=== PATIENT | male | born 1960 | race Caucasian/White ===

== ENCOUNTER 2020-07-31 07:14 | Inpatient (IN) ==
[2020-07-31] MEDS ORDERED: SODIUM CHLORIDE 0.9% 1000ML 1,000 ML IV SCH ×2 (08:00→08:47)
[2020-07-31 08:05] LABS: Basophils # (auto) 0.01 K/uL (0-0.2); Basophils % (auto) 0.2 %; Hematocrit (blood only) 37.8 % (42-52); Hemoglobin 12.2 g/dL (14.0-18.0); Immature Granulocytes # (auto) 0.11 K/uL (0.00-0.02); Immature Granulocytes % (auto) 1.8 %; Lymphocytes # (auto) 0.31 K/uL (1.2-3.4); Lymphocytes % (auto) 5.1 %; Mean Corpuscular Hemoglobin 27.9 pg (25-34); Mean Corpuscular Hgb Conc 32.3 g/dL (32-36); Mean Corpuscular Volume 86.3 fL (80-100); Mean Platelet Volume 11.7 fL (7.4-10.4); Monocytes # (auto) 0.66 K/uL (0.11-0.59); Monocytes % (auto) 10.8 %; Neutrophils # (auto) 5.01 K/uL (1.4-6.5); Neutrophils % (auto) 82.1 %; Platelet Count 125 K/uL (130-400); RDW Coefficient of Variation 14.3 % (11.5-14.5); RDW Standard Deviation 45.1 fL (36.4-46.3); Red Blood Count 4.38 M/uL (4.7-6.1)
[2020-07-31] MEDS ORDERED: cefTRIAXone SODIUM 2,000 MG/70 ML BAG IV STA ×2 (08:08→13:41)
--- NOTE | 2020-07-31 08:08 | Emergency Department Note ---
History of Present Illness General Chief complaint: Illness Time Seen by Provider: 07/31/20 07:37 History of Present Illness Maximum Pain Intensity: 0 59-year-old male who presents to the emergency department with his mother for evaluation of confusion, generalized weakness and complaint of urinary discomfort and burning. The mother reports that the patient has also had decreased oral intake over the past few days. The mother reports that the patient has been having difficulty finding his words. The patient was evaluated last at his PCPs office, and diagnosed with a UTI. He was prescribed Bactrim DS antibiotics without any significant improvement. The patient denies any recent chest pain, shortness of breath, cough, runny nose, sinus congestion or diarrhea. Patient does have a history of bipolar disorder and schizophrenia. The patient is also had pneumonia in the past. The patient denies any pain on my exam. Home Medications Medication Instructions Recorded Confirmed Type atorvastatin 40 mg PO QAM 05/06/20 07/31/20 History clonazepam 0.5 mg PO BID 05/06/20 07/31/20 History clozapine 400 mg PO HS 05/06/20 07/31/20 History cyanocobalamin (vitamin B-12) 1,000 mcg PO QAM 05/06/20 07/31/20 History levothyroxine 175 mcg PO DAILYBB 05/06/20 07/31/20 History metformin 1,000 mg PO BID 05/06/20 07/31/20 History metoprolol succinate 25 mg PO QAM 05/06/20 07/31/20 History oxybutynin chloride See Rx Instructions .ROUTE .COMPLEX 05/06/20 07/31/20 History paroxetine HCl 60 mg PO QAM 05/06/20 07/31/20 History aspirin [Aspir-81] 81 mg PO QAM 07/31/20 07/31/20 History cholecalciferol (vitamin D3) 25 mcg PO QAM 07/31/20 07/31/20 History [Vitamin D3] omega 2-ymh-gvq-fish oil [Fish Oil] 1 cap PO HS 07/31/20 07/31/20 History sennosides [senna] 17.2 mg PO HS 07/31/20 07/31/20 History sulfamethoxazole-trimethoprim 1 tab PO BID 07/31/20 07/31/20 History Allergies Allergy/AdvReac Type Severity Reaction Status Date / Time Penicillins Allergy Unknown Verified 07/31/20 07:54 Iodinated Contrast Media AdvReac Unknown VOMITING Verified 07/31/20 07:54 WITH IV CONTRAST Past Med/Surg History Medical History Bimalleolar ankle fracture Bipolar disorder CAP (community acquired pneumonia) (01/03/14) Hypothyroidism Schizophrenia T2DM (type 2 diabetes mellitus) Surgical History H/O colonoscopy "06/14/2014 adenomatous polyps, repeat 5 yrs/COLONOSCOPY FLEXIBLE PROXIMAL DIAGNOSTIC performed by Fran Medley MD at ENDOSCOPY [facility]" History of open reduction and internal fixation (ORIF) procedure Trimalleolar ankle fracture Family History Mother Stroke Diabetes Social History Smoking Status: Former smoker Hx Alcohol Use: Yes Alcohol type: beer Alcohol Intake Frequency: Monthly or Less Hx Substance Use: No Preferred Language: Arabic marital status: Single Current Living Situation: Family Current Living Situation Comment: lives with mother who cares for him current occupational status: employed and disabled current occupation: works at [employer] home Feels Safe at Home: Yes Review of Systems 10 system review was performed and was negative except for pertinent positives and negatives as indicated in history of present illness Physical Exam Vital Signs Vital Signs - 24 hr 07/31/20 07:23 07/31/20 07:53 07/31/20 08:16 Temperature 38.1 C H Temperature Source Oral Pulse Rate 90 Pulse Rate [Apical] Pulse Rhythm [Apical] Respiratory Rate 22 22 Respiratory Effort / Characteristics Non-Labored Respiratory Depth Normal Blood Pressure 144/69 H Blood Pressure [Left Arm] Blood Pressure Mean 94 Blood Pressure Mean [Left Arm] Pulse Oximetry 90 94 90 Oxygen Delivery Method Room Air Nasal Cannula Nasal Cannula Oxygen Flow Rate 2 0 Sepsis Recent Fever Within 48 Hours Yes Sepsis New/Unexplained Change in Mental Status Yes Sepsis Action Taken by Nursing MD Previously Notified Oxygen Flow Rate - Titration 2 Pulse Oximetry Post Tiitration 95 07/31/20 08:17 07/31/20 09:08 07/31/20 11:00 Temperature Temperature Source Pulse Rate Pulse Rate [Apical] 85 85 Pulse Rhythm [Apical] Respiratory Rate 22 18 Respiratory Effort / Characteristics Respiratory Depth Blood Pressure Blood Pressure [Left Arm] 130/74 128/80 Blood Pressure Mean Blood Pressure Mean [Left Arm] 92 96 Pulse Oximetry 95 96 96 Oxygen Delivery Method Nasal Cannula Nasal Cannula Nasal Cannula Oxygen Flow Rate 2 2 2 Sepsis Recent Fever Within 48 Hours Sepsis New/Unexplained Change in Mental Status Sepsis Action Taken by Nursing Oxygen Flow Rate - Titration Pulse Oximetry Post Tiitration 07/31/20 12:00 07/31/20 12:30 07/31/20 13:00 Temperature Temperature Source Pulse Rate 84 85 Pulse Rate [Apical] 83 Pulse Rhythm [Apical] Irregular Respiratory Rate 23 19 20 Respiratory Effort / Characteristics Respiratory Depth Blood Pressure 125/65 132/77 Blood Pressure [Left Arm] 130/78 Blood Pressure Mean 85 95 Blood Pressure Mean [Left Arm] 95 Pulse Oximetry 95 Oxygen Delivery Method Nasal Cannula Oxygen Flow Rate 2 Sepsis Recent Fever Within 48 Hours Sepsis New/Unexplained Change in Mental Status Sepsis Action Taken by Nursing Oxygen Flow Rate - Titration Pulse Oximetry Post Tiitration CONSTITUTIONAL: Healthy and well nourished. She does engage in conversation, and appears alert and oriented x3. HEENT: Normocephalic, atraumatic. Pupils equal, round and reactive. No facial edema, scleral icterus, conjunctival injection/pallor or rhinorrhea. Examination of oropharynx shows dry mucous membranes. No posterior pharyngeal erythema or tonsillar hypertrophy/exudates. NECK: Full active range of motion without discomfort. No JVD or carotid bruits noted. No nuchal rigidity. LYMPHATICS: No cervical chain adenopathy. RESPIRATORY: Clear to auscultation bilaterally with no wheezing, crackles, rhonchi or stridor. CARDIOVASCULAR: Regular rate and rhythm with no murmurs, rubs or gallops. GASTROINTESTINAL: Bowel sounds present in all quadrants. Abdomen is soft and nontender to palpation. MUSCULOSKELETAL: Full range of motion of all joints without discomfort. No tenderness to palpation or bogginess/soft tissue edema/erythema over the major joints. INTEGUMENTARY: Patient does have an erythematous blanchable papular rash on his right anterior torso and neck region, as well as extensor surfaces of bilateral upper and lower extremities, sparing palms and soles. No skin desquamation, pustules, vesicles or bullae. HEMATOLOGIC: No ecchymosis or petechiae. PSYCHIATRIC: Positive affect. NEUROLOGIC: Cranial nerves II-XII grossly intact. No focal neurologic deficits noted. Negative pronator drift. Course Course Patient history and physical exam were performed. Nurses notes were reviewed. I also reviewed prior documentation, including a urine culture from last that showed no significant growth. Vital signs were reviewed, showing an initial oral temperature of 38.1 C. The patient was hypertensive, with O2 saturation of 90% on room air. IV access was established, and labs were drawn, including blood cultures x2. The patient was administered a normal saline 2 L bolus. Portable chest x-ray was performed, showing a mild congestive change and trace left pleural effusion. Noncontrast CT of the head was performed and was normal. Review of labs showed a normal white count with mild thrombocytopenia and lymphocytes. Coagulation studies were normal. The patient is mildly hyponatremic, otherwise remaining electrolytes are normal except for a random glucose of 139. Lactate and procalcitonin were normal. The patient is euthyroid. COVID-19 PCR testing was normal. Urinalysis was not suggestive of infection, however hematuria and calcium oxalate crystals were noted. At this point, additional CT imaging was recommended. Noncontrast CT of the chest, abdomen and pelvis showed trace bilateral pleural effusions with bilateral basilar linear densities, favoring atelectasis. Mild bladder wall thickening was also noted. No ureteral calculi or hydronephrosis noted. Findings were discussed with Dr. Ji, ED attending physician, who examined the patient. At this point, she recommended administering IV Rocephin, and adding a Lyme and anaplasmosis test. She recommended trial ambulation of the patient, and treatment with antibiotics pending Lyme testing. Was discussed with both the patient and the mother, however the mother reports significant concern for his ability to ambulate, although they do have a walker at home. Attempted trial ambulation was not successful with significant gait abnormalities and balance issues. At this point, [facility] the patient for [facility]. Please see their dictation for further treatment and final disposition. After transfer of care, it is noted that the patient tested negative for Lyme disease, and urine drug screen was also negative. Administered Medications Discontinued Medications Sodium Chloride (Nss 1000ml) 1,000 mls @ 999 mls/hr IV .Q1H1M VLADIMIR Stop: 07/31/20 08:47 Last Infusion: 07/31/20 09:19 Dose: 0 mls/hr Documented by: [id number] Admin: 07/31/20 08:17 Dose: 999 mls/hr Documented by: [id number] Sodium Chloride (Nss 1000ml) 1,000 mls @ 999 mls/hr IV .Q1H1M VLADIMIR Stop: 07/31/20 09:47 Last Infusion: 07/31/20 10:02 Dose: 0 mls/hr Documented by: [id number] Admin: 07/31/20 09:01 Dose: 999 mls/hr Documented by: [id number] Ceftriaxone Sodium (Rocephin) 2,000 mg in 70 mls @ 140 mls/hr IV NOW STA Stop: 07/31/20 08:37 Last Infusion: 07/31/20 09:14 Dose: 0 mls/hr Documented by: [id number] Admin: 07/31/20 08:40 Dose: 140 mls/hr Documented by: [id number] Ceftriaxone Sodium (Rocephin) 2,000 mg in 70 mls @ 140 mls/hr IV NOW STA Stop: 07/31/20 14:10 Last Admin: 07/31/20 14:13 Dose: Not Given Documented by: [id number] Medical Decision Making Medical Records Attestation: I reviewed the patient's medical records. Home Medications Current Medication List: was personally reviewed by me Laboratory Data Attestation: I reviewed the patient's lab results. Result diagrams: 07/31/20 07:45 07/31/20 07:45 Lab Results 07/31/20 07/31/20 07/31/20 Range/Units 07:45 07:45 07:45 WBC 6.10 (4.8-10.8) K/uL RBC 4.38 L (4.7-6.1) M/uL Hgb 12.2 L (14.0-18.0) g/dL Hct 37.8 L (42-52) % MCV 86.3 (80-100) fL MCH 27.9 (25-34) pg MCHC 32.3 (32-36) g/dL RDW Std Deviation 45.1 (36.4-46.3) fL RDW Coeff of [place] 14.3 (11.5-14.5) % Plt Count 125 L (130-400) K/uL MPV 11.7 H (7.4-10.4) fL Immature Gran % (Auto) 1.8 % Neut % (Auto) 82.1 % Lymph % (Auto) 5.1 % [place] % (Auto) 10.8 % Eos % (Auto) 0.0 % Baso % (Auto) 0.2 % Neut # (Auto) 5.01 (1.4-6.5) K/uL Lymph # (Auto) 0.31 L (1.2-3.4) K/uL [place] # (Auto) 0.66 H (0.11-0.59) K/uL Eos # (Auto) 0.00 (0-0.5) K/uL Baso # (Auto) 0.01 (0-0.2) K/uL Immature Gran # (Auto) 0.11 H (0.00-0.02) K/uL PT 10.5 (9.0-12.0) Seconds INR 1.0 (0.9-1.1) APTT 24.7 (21.0-31.0) Seconds PTT Ratio 0.9 Sodium 135 L (136-145) mmol/L Potassium 3.9 (3.5-5.1) mmol/L Chloride 102 (98-107) mmol/L Carbon Dioxide 26 (21-32) mmol/L Anion Gap 7.0 (3-11) BUN 15 (7-18) mg/dl Creatinine 1.19 (0.6-1.4) mg/dl Est Cr Clr Drug Dosing 94.1 ml/min Est GFR ( Amer) 78.1 ml/min Est GFR (Non-Af Amer) 67.4 ml/min BUN/Creatinine Ratio 12.8 (10-20) Glucose 139 H (70-99) mg/dl Lactate (0.4-2.0) mmol/L Calcium 7.9 L (8.5-10.1) mg/dl Magnesium 2.0 (1.8-2.4) mg/dl Total Bilirubin 0.9 (0.2-1) mg/dl AST 19 (15-37) U/L ALT 25 (12-78) U/L Alkaline Phosphatase 92 (45-117) U/L Troponin I < 0.015 (0-0.045) ng/ml Total Protein 5.9 L (6.4-8.2) gm/dl Albumin 2.8 L (3.4-5.0) gm/dl Globulin 3.1 (2.5-4.0) gm/dl Albumin/Globulin Ratio 0.9 (0.9-2) Procalcitonin (0-0.5) ng/ml TSH 1.300 (0.300-4.500) uIu/ml Urine Color Urine Appearance (Clear) Urine pH (4.5-7.5) Ur Specific [place] (1.000-1.030) Urine Protein (Negative) Urine Glucose (UA) (Negative) Urine Ketones (Negative) Urine Blood (Negative) Urine Nitrite (Negative) Urine Bilirubin (Negative) Urine Urobilinogen (Negative) Ur Leukocyte Esterase (Negative) Urine WBC (Auto) (0-5) /hpf Urine RBC (Auto) (0-4) /hpf U Hyaline Cast (Auto) (0-5) /lpf U Epithel Cells (Auto) (0-5) /lpf Urine Bacteria (Auto) (Negative) Ur Renal Epithelial Cell Calcium Oxalate Crystal (None Prsent) Urine Mucus (None Prsent) Lyme Disease IgG Ab (Negative) Lyme Disease IgM Ab (Negative) COVID-19 Eval Order SARS-CoV-2 (PCR) (Negative) Influ A Molecular Assay (Negative) Influ B Molecular Assay (Negative) 07/31/20 07/31/20 07/31/20 Range/Units 07:45 07:45 08:10 WBC (4.8-10.8) K/uL RBC (4.7-6.1) M/uL Hgb (14.0-18.0) g/dL Hct (42-52) % MCV (80-100) fL MCH (25-34) pg MCHC (32-36) g/dL RDW Std Deviation (36.4-46.3) fL RDW Coeff of [place] (11.5-14.5) % Plt Count (130-400) K/uL MPV (7.4-10.4) fL Immature Gran % (Auto) % Neut % (Auto) % Lymph % (Auto) % [place] % (Auto) % Eos % (Auto) % Baso % (Auto) % Neut # (Auto) (1.4-6.5) K/uL Lymph # (Auto) (1.2-3.4) K/uL [place] # (Auto) (0.11-0.59) K/uL Eos # (Auto) (0-0.5) K/uL Baso # (Auto) (0-0.2) K/uL Immature Gran # (Auto) (0.00-0.02) K/uL PT (9.0-12.0) Seconds INR (0.9-1.1) APTT (21.0-31.0) Seconds PTT Ratio Sodium (136-145) mmol/L Potassium (3.5-5.1) mmol/L Chloride (98-107) mmol/L Carbon Dioxide (21-32) mmol/L Anion Gap (3-11) BUN (7-18) mg/dl Creatinine (0.6-1.4) mg/dl Est Cr Clr Drug Dosing ml/min Est GFR ( Amer) ml/min Est GFR (Non-Af Amer) ml/min BUN/Creatinine Ratio (10-20) Glucose (70-99) mg/dl Lactate 1.5 (0.4-2.0) mmol/L Calcium (8.5-10.1) mg/dl Magnesium (1.8-2.4) mg/dl Total Bilirubin (0.2-1) mg/dl AST (15-37) U/L ALT (12-78) U/L Alkaline Phosphatase (45-117) U/L Troponin I (0-0.045) ng/ml Total Protein (6.4-8.2) gm/dl Albumin (3.4-5.0) gm/dl Globulin (2.5-4.0) gm/dl Albumin/Globulin Ratio (0.9-2) Procalcitonin 0.21 (0-0.5) ng/ml TSH (0.300-4.500) uIu/ml Urine Color Urine Appearance (Clear) Urine pH (4.5-7.5) Ur Specific [place] (1.000-1.030) Urine Protein (Negative) Urine Glucose (UA) (Negative) Urine Ketones (Negative) Urine Blood (Negative) Urine Nitrite (Negative) Urine Bilirubin (Negative) Urine Urobilinogen (Negative) Ur Leukocyte Esterase (Negative) Urine WBC (Auto) (0-5) /hpf Urine RBC (Auto) (0-4) /hpf U Hyaline Cast (Auto) (0-5) /lpf U Epithel Cells (Auto) (0-5) /lpf Urine Bacteria (Auto) (Negative) Ur Renal Epithelial Cell Calcium Oxalate Crystal (None Prsent) Urine Mucus (None Prsent) Lyme Disease IgG Ab Negative (Negative) Lyme Disease IgM Ab Negative (Negative) COVID-19 Eval Order SARS-CoV-2 (PCR) (Negative) Influ A Molecular Assay (Negative) Influ B Molecular Assay (Negative) 07/31/20 07/31/20 07/31/20 Range/Units 08:45 08:45 08:45 WBC (4.8-10.8) K/uL RBC (4.7-6.1) M/uL Hgb (14.0-18.0) g/dL Hct (42-52) % MCV (80-100) fL MCH (25-34) pg MCHC (32-36) g/dL RDW Std Deviation (36.4-46.3) fL RDW Coeff of [place] (11.5-14.5) % Plt Count (130-400) K/uL MPV (7.4-10.4) fL Immature Gran % (Auto) % Neut % (Auto) % Lymph % (Auto) % [place] % (Auto) % Eos % (Auto) % Baso % (Auto) % Neut # (Auto) (1.4-6.5) K/uL Lymph # (Auto) (1.2-3.4) K/uL [place] # (Auto) (0.11-0.59) K/uL Eos # (Auto) (0-0.5) K/uL Baso # (Auto) (0-0.2) K/uL Immature Gran # (Auto) (0.00-0.02) K/uL PT (9.0-12.0) Seconds INR (0.9-1.1) APTT (21.0-31.0) Seconds PTT Ratio Sodium (136-145) mmol/L Potassium (3.5-5.1) mmol/L Chloride (98-107) mmol/L Carbon Dioxide (21-32) mmol/L Anion Gap (3-11) BUN (7-18) mg/dl Creatinine (0.6-1.4) mg/dl Est Cr Clr Drug Dosing ml/min Est GFR ( Amer) ml/min Est GFR (Non-Af Amer) ml/min BUN/Creatinine Ratio (10-20) Glucose (70-99) mg/dl Lactate (0.4-2.0) mmol/L Calcium (8.5-10.1) mg/dl Magnesium (1.8-2.4) mg/dl Total Bilirubin (0.2-1) mg/dl AST (15-37) U/L ALT (12-78) U/L Alkaline Phosphatase (45-117) U/L Troponin I (0-0.045) ng/ml Total Protein (6.4-8.2) gm/dl Albumin (3.4-5.0) gm/dl Globulin (2.5-4.0) gm/dl Albumin/Globulin Ratio (0.9-2) Procalcitonin (0-0.5) ng/ml TSH (0.300-4.500) uIu/ml Urine Color Urine Appearance (Clear) Urine pH (4.5-7.5) Ur Specific [place] (1.000-1.030) Urine Protein (Negative) Urine Glucose (UA) (Negative) Urine Ketones (Negative) Urine Blood (Negative) Urine Nitrite (Negative) Urine Bilirubin (Negative) Urine Urobilinogen (Negative) Ur Leukocyte Esterase (Negative) Urine WBC (Auto) (0-5) /hpf Urine RBC (Auto) (0-4) /hpf U Hyaline Cast (Auto) (0-5) /lpf U Epithel Cells (Auto) (0-5) /lpf Urine Bacteria (Auto) (Negative) Ur Renal Epithelial Cell Calcium Oxalate Crystal (None Prsent) Urine Mucus (None Prsent) Lyme Disease IgG Ab (Negative) Lyme Disease IgM Ab (Negative) COVID-19 Eval Order Covid19 at [facility] SARS-CoV-2 (PCR) NEGATIVE (Negative) Influ A Molecular Assay Negative (Negative) Influ B Molecular Assay Negative (Negative) 07/31/20 Range/Units 10:00 WBC (4.8-10.8) K/uL RBC (4.7-6.1) M/uL Hgb (14.0-18.0) g/dL Hct (42-52) % MCV (80-100) fL MCH (25-34) pg MCHC (32-36) g/dL RDW Std Deviation (36.4-46.3) fL RDW Coeff of [place] (11.5-14.5) % Plt Count (130-400) K/uL MPV (7.4-10.4) fL Immature Gran % (Auto) % Neut % (Auto) % Lymph % (Auto) % [place] % (Auto) % Eos % (Auto) % Baso % (Auto) % Neut # (Auto) (1.4-6.5) K/uL Lymph # (Auto) (1.2-3.4) K/uL [place] # (Auto) (0.11-0.59) K/uL Eos # (Auto) (0-0.5) K/uL Baso # (Auto) (0-0.2) K/uL Immature Gran # (Auto) (0.00-0.02) K/uL PT (9.0-12.0) Seconds INR (0.9-1.1) APTT (21.0-31.0) Seconds PTT Ratio Sodium (136-145) mmol/L Potassium (3.5-5.1) mmol/L Chloride (98-107) mmol/L Carbon Dioxide (21-32) mmol/L Anion Gap (3-11) BUN (7-18) mg/dl Creatinine (0.6-1.4) mg/dl Est Cr Clr Drug Dosing ml/min Est GFR ( Amer) ml/min Est GFR (Non-Af Amer) ml/min BUN/Creatinine Ratio (10-20) Glucose (70-99) mg/dl Lactate (0.4-2.0) mmol/L Calcium (8.5-10.1) mg/dl Magnesium (1.8-2.4) mg/dl Total Bilirubin (0.2-1) mg/dl AST (15-37) U/L ALT (12-78) U/L Alkaline Phosphatase (45-117) U/L Troponin I (0-0.045) ng/ml Total Protein (6.4-8.2) gm/dl Albumin (3.4-5.0) gm/dl Globulin (2.5-4.0) gm/dl Albumin/Globulin Ratio (0.9-2) Procalcitonin (0-0.5) ng/ml TSH (0.300-4.500) uIu/ml Urine Color Dark Yellow Urine Appearance Clear (Clear) Urine pH 5.5 (4.5-7.5) Ur Specific [place] 1.027 (1.000-1.030) Urine Protein Trace H (Negative) Urine Glucose (UA) Negative (Negative) Urine Ketones Trace H (Negative) Urine Blood Negative (Negative) Urine Nitrite Negative (Negative) Urine Bilirubin 1+ H (Negative) Urine Urobilinogen Negative (Negative) Ur Leukocyte Esterase Trace H (Negative) Urine WBC (Auto) 5-10 H (0-5) /hpf Urine RBC (Auto) 5-10 H (0-4) /hpf U Hyaline Cast (Auto) 5-10 H (0-5) /lpf U Epithel Cells (Auto) >30 H (0-5) /lpf Urine Bacteria (Auto) Negative (Negative) Ur Renal Epithelial Cell Not Reportable Calcium Oxalate Crystal Present A (None Prsent) Urine Mucus Present A (None Prsent) Lyme Disease IgG Ab (Negative) Lyme Disease IgM Ab (Negative) COVID-19 Eval Order SARS-CoV-2 (PCR) (Negative) Influ A Molecular Assay (Negative) Influ B Molecular Assay (Negative) Imaging Data Attestation: I personally reviewed and interpreted this imaging study as follows: My Impression: My interpretation of a portable chest x-ray shows mild congestive change and trace left pleural effusion. My interpretation of a noncontrast CT of the head does not show any intracranial bleed, midline shift or mass-effect. My interpretation of noncontrast CT studies of the chest, abdomen and pelvis does not show evidence for ureteral calculi or other obstructive uropathy, bowel obstruction or abdominal free air. Radiologist does make mention of trace bilateral pleural effusions and bibasilar linear densities, suggesting possible pneumonia. Radiologist reports were also reviewed. Radiologist's Impression: Chest X-Ray 07/31/20 07:46 XR chest 1V portable HISTORY: SEPSIS COMPARISON: Chest 05/06/2020. FINDINGS: No pneumothorax. Trace left pleural effusion. Left basilar linear densities favor subsegmental atelectasis or scarring. This is similar to the prior study. There are low lung volumes. The heart remains mildly enlarged. There is mild central pulmonary basilar congestion without overt edema. IMPRESSION: Mild congestive change and a trace left pleural effusion. ACT 112: Negative or not required by law. Electronically signed by: Galdino Gaytan M.D. 07/31/2020 10:[address] 07/31/20 07:[address] DOSE: HISTORY: Altered mental status. Fever. TECHNIQUE: Multiaxial CT images of the head were performed without the use of intravenous contrast. Automated exposure control was utilized for this study. A dose lowering technique was utilized adhering to the principles of ALARA. Comparison: Head CT 05/06/2020. Findings: Small retention cyst within the maxillary sinuses. A few chronically opacified mastoid air cells are again noted. The calvarium and skull base are intact. The ventricles and sulci are within normal limits. There is no mass, hematoma, midline shift, or acute infarct. Impression: No acute intracranial abnormality. ACT 112: Negative or not required by law. Electronically signed by: Galdino Gaytan M.D. 07/31/2020 9:04 AM Abdomen/Pelvis CT 07/31/20 07:54 CT chest diagnostic wo con, CT abd pelvis wo con CT DOSE: 3530.19 mGy.cm HISTORY: Altered mental status, fever, urinary symptoms TECHNIQUE: Multiaxial CT images of the chest, abdomen, and pelvis were performed without contrast. A dose lowering technique was utilized adhering to the principles of ALARA. COMPARISON: Chest CT 01/08/2014. FINDINGS: Chest CT: No pneumothorax. Mild paraseptal emphysema is noted. There are trace bilateral pleural effusions. Bibasilar linear densities favor subsegmental atelectasis. A pneumonia could also have a similar appearance in the appropriate clinical setting. Mild bilateral lower lobe bronchial wall thickening. Punctate calcified granuloma within the left upper lobe. No suspicious lytic or blastic osseous lesions. Mild circumferential thickening of the esophagus. The heart is normal in size. No pericardial effusion. Normal caliber thoracic aorta. Mildly enlarged mediastinal lymph nodes have slightly increased in size. There are few poorly enlarged bilateral axillary lymph nodes which have slightly increased in size. For comparative purposes, an 8 mm left axillary lymph node measured 5 mm. There are greater than expected right-sided subpectoral lymph nodes which mini sure up to 8 mm in short axis diameter. Abdomen/pelvis CT: No pneumoperitoneum. No pneumatosis. No fractures within the visualized osseous structures. Suboptimal evaluation of the abdomen and pelvis due to the lack of contrast and streak artifact from the patient's overlapping arms. There are few prominent bilateral pelvic lymph nodes along the iliac chains. Dominant right external iliac lymph node measures 1.2 cm in short axis diameter best seen on image 443. Mild bladder wall thickening. There is minimal inflammatory change adjacent to the bladder wall. This raises the possibility of a cystitis. No pelvic free fluid. Moderate well-formed stool seen within the majority of the colon. Normal appendix. No definite bowel wall thickening or obstruction. The unenhanced liver, gallbladder, spleen, adrenal glands, and pancreas are unremarkable. There is a punctate stone within the right kidney. No ureteral stones. No hydronephrosis. There is mild bilateral perinephric edema. Normal caliber abdominal aorta. A few areas of focal fat within the liver adjacent to the radha hepatis. IMPRESSION: 1. Trace bilateral pleural fusions with bibasilar linear densities. This favors atelectasis. A pneumonia could also have a similar appearance in the appropriate clinical setting. 2. Mild circumferential thickening of the esophagus. 3. A few mildly enlarged mediastinal, axillary, right subpectoral, and pelvic lymph nodes which have slightly increased in size compared to the prior study. These are nonspecific but could represent a low-grade lymphoproliferative disorder. Follow-up recommended. 4. Mild bladder wall thickening. This raises the possibility of a cystitis. Recommend close with urinalysis. 5. Right-sided nephrolithiasis. No ureteral stones. No hydronephrosis. 6. Additional findings as described above. ACT 112: Negative or not required by law. Electronically signed by: Galdino Gaytan M.D. 07/31/2020 9:[address] 07/31/20 07:54 CT chest diagnostic wo con, CT abd pelvis wo con CT DOSE: 3530.19 mGy.cm HISTORY: Altered mental status, fever, urinary symptoms TECHNIQUE: Multiaxial CT images of the chest, abdomen, and pelvis were performed without contrast. A dose lowering technique was utilized adhering to the principles of ALARA. COMPARISON: Chest CT 01/08/2014. FINDINGS: Chest CT: No pneumothorax. Mild paraseptal emphysema is noted. There are trace bilateral pleural effusions. Bibasilar linear densities favor subsegmental atelectasis. A pneumonia could also have a similar appearance in the appropriate clinical setting. Mild bilateral lower lobe bronchial wall thickening. Punctate calcified granuloma within the left upper lobe. No suspicious lytic or blastic osseous lesions. Mild circumferential thickening of the esophagus. The heart is normal in size. No pericardial effusion. Normal caliber thoracic aorta. Mildly enlarged mediastinal lymph nodes have slightly increased in size. There are few poorly enlarged bilateral axillary lymph nodes which have slightly increased in size. For comparative purposes, an 8 mm left axillary lymph node measured 5 mm. There are greater than expected right-sided subpectoral lymph nodes which measure up to 8 mm in short axis diameter. Abdomen/pelvis CT: No pneumoperitoneum. No pneumatosis. No fractures within the visualized osseous structures. Suboptimal evaluation of the abdomen and pelvis due to the lack of contrast and streak artifact from the patient's overlapping arms. There are few prominent bilateral pelvic lymph nodes along the iliac chains. Dominant right external iliac lymph node measures 1.2 cm in short axis diameter best seen on image 443. Mild bladder wall thickening. There is minimal inflammatory change adjacent to the bladder wall. This raises the possibility of a cystitis. No pelvic free fluid. Moderate well-formed stool seen within the majority of the colon. Normal appendix. No definite bowel wall thickening or obstruction. The unenhanced liver, gallbladder, spleen, adrenal glands, and pancreas are unremarkable. There is a punctate stone within the right kidney. No ureteral stones. No hydronephrosis. There is mild bilateral perinephric edema. Normal caliber abdominal aorta. A few areas of focal fat within the liver adjacent to the radha hepatis. IMPRESSION: 1. Trace bilateral pleural fusions with bibasilar linear densities. This favors atelectasis. A pneumonia could also have a similar appearance in the appropriate clinical setting. 2. Mild circumferential thickening of the esophagus. 3. A few mildly enlarged mediastinal, axillary, right subpectoral, and pelvic lymph nodes which have slightly increased in size compared to the prior study. These are nonspecific but could represent a low-grade lymphoproliferative disord er. Follow-up recommended. 4. Mild bladder wall thickening. This raises the possibility of a cystitis. Recommend close with urinalysis. 5. Right-sided nephrolithiasis. No ureteral stones. No hydronephrosis. 6. Additional findings as described above. ACT 112: Negative or not required by law. Electronically signed by: Galdino Gaytan M.D. 07/31/2020 9:41 AM ECG Data Attestation: I personally reviewed and interpreted this ECG as follows: Indication: + weakness and + other (Fever, altered mental status) Rate (beats per minute): 83 Rhythm: + normal sinus ECG Intervals/blocks: + Normal QRS, + Normal QT and + Normal QT-c ECG ST segments: + T-wave inversions (Anterior) Comparison ECG Date: from (01/03/2014) Change: the following changes noted (Inverted T waves have replaced nonspecific T wave abnormalities in anterior leads) Blood Pressure Blood Pressure Findings: Normal blood pressure MDM Narrative Cardiac monitoring: An order was placed for continuous cardiac monitoring. The monitor shows a rate of 83 bpm with normal sinus rhythm, and inverted T waves in anterior leads. 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 Patient presents to the emergency department with complaint of altered mental status, urinary discomfort and fever. The mother reports that the patient was diagnosed with UTI last , and provided a prescription for Bactrim DS. Urine cultures are showing no growth to date. With concern for fever, additional lab work, including blood cultures were performed. The patient has negative lactate and procalcitonin levels. CT of the chest is suggestive of possible pneumonia. Urinalysis today is not suggestive of infection. At this point, the patient does not meet SIRS/sepsis criteria. Lyme is negative, with anaplasmosis pending. The patient was administered broad-spectrum Rocephin antibiotics, and was hydrated with normal saline. I do feel that the patient warrants admission with continue broad-spectrum IV antibiotics, pending blood cultures anaplasmosis testing. Impression & Plan Fever, Ambulatory dysfunction, Dysuria, Rash Discharge Plan Visit Data Chief Complaint: Illness ED Provider: Nancy Ji ED Midlevel Provider: Garfield Lockhart Discharge Problem: Fever, Ambulatory dysfunction, Dysuria, Rash Patient Disposition: Admitted As Inpatient Discharge Instructions Interventions: ED Discharge Assessment Last Done: 07/31/20 16:25 Discharge Problem: Fever Qualifiers: Fever type: unspecified Qualified Code(s): R50.9 - Fever, unspecified
[2020-07-31 08:12] LABS: Partial Thromboplastin Ratio 0.9; Partial Thromboplastin Time 24.7 Seconds (21.0-31.0); Prothrombin Time 10.5 Seconds (9.0-12.0)
[2020-07-31 08:21] LABS: Alanine Aminotransferase 25 U/L (12-78); Albumin Level 2.8 gm/dl (3.4-5.0); Aspartate Aminotransferase 19 U/L (15-37); BUN Creatinine Ratio 12.8 (10-20); Blood Urea Nitrogen 15 mg/dl (7-18); Calcium 7.9 mg/dl (8.5-10.1); Carbon Dioxide 26 mmol/L (21-32); Chloride 102 mmol/L (98-107); Creatinine Clr Calc Pharmacy 94.1 ml/min; Est GFR (African American) 78.1 ml/min; Est GFR (Non-African American) 67.4 ml/min; Glucose 139 mg/dl (70-99); Potassium 3.9 mmol/L (3.5-5.1); Sodium 135 mmol/L (136-145)
[2020-07-31 08:26] LABS: Albumin Globulin Ratio 0.9 (0.9-2); Alkaline Phosphatase 92 U/L (45-117); Bilirubin,Total 0.9 mg/dl (0.2-1); Globulin 3.1 gm/dl (2.5-4.0); Total Protein 5.9 gm/dl (6.4-8.2); Troponin I < 0.015 ng/ml (0-0.045)
--- NOTE | 2020-07-31 09:05 | CT Scan Report ---
HEAD CT NONCONTRAST CT DOSE: HISTORY: Altered mental status. Fever. TECHNIQUE: Multiaxial CT images of the head were performed without the use of intravenous contrast. A utomated exposure control was utilized for this study. A dose lowering technique was utilized adheri ng to the principles of ALARA. Comparison: Head CT 05/06/2020. Findings: Small retention cyst within the maxillary sinuses. A few chronically opacified mastoid air cells are again noted. The calvarium and skull base are intact. The ventricles and sulci are within n ormal limits. There is no mass, hematoma, midline shift, or acute infarct. Impression: No acute intracranial abnormality. ACT 112: Negative or not required by law. Electronically signed by: Galdino Gaytan M.D. 07/31/2020 9:04 AM
[2020-07-31 09:21] LABS: Influenza A virus by PCR Negative (Negative); Influenza B virus by PCR Negative (Negative)
--- NOTE | 2020-07-31 09:42 | CT Scan Report ---
CT chest diagnostic wo con, CT abd pelvis wo con CT DOSE: 3530.19 mGy.cm HISTORY: Altered mental status, fever, urinary symptoms TECHNIQUE: Multiaxial CT images of the chest, abdomen, and pelvis were performed without contrast. A dose lowering technique was utilized adhering to the principles of ALARA. COMPARISON: Chest CT 01/08/2014. FINDINGS: Chest CT: No pneumothorax. Mild paraseptal emphysema is noted. There are trace bilateral pleural effu sions. Bibasilar linear densities favor subsegmental atelectasis. A pneumonia could also have a simil ar appearance in the appropriate clinical setting. Mild bilateral lower lobe bronchial wall thickenin g. Punctate calcified granuloma within the left upper lobe. No suspicious lytic or blastic osseous le sions. Mild circumferential thickening of the esophagus. The heart is normal in size. No pericardial effusion. Normal caliber thoracic aorta. Mildly enlarged mediastinal lymph nodes have slightly increa sed in size. There are few poorly enlarged bilateral axillary lymph nodes which have slightly increas ed in size. For comparative purposes, an 8 mm left axillary lymph node measured 5 mm. There are great er than expected right-sided subpectoral lymph nodes which measure up to 8 mm in short axis diameter. Abdomen/pelvis CT: No pneumoperitoneum. No pneumatosis. No fractures within the visualized osseous st ructures. Suboptimal evaluation of the abdomen and pelvis due to the lack of contrast and streak nikolai fact from the patient's overlapping arms. There are few prominent bilateral pelvic lymph nodes along the iliac chains. Dominant right external iliac lymph node measures 1.2 cm in short axis diameter bes t seen on image 443. Mild bladder wall thickening. There is minimal inflammatory change adjacent to t he bladder wall. This raises the possibility of a cystitis. No pelvic free fluid. Moderate well-forme d stool seen within the majority of the colon. Normal appendix. No definite bowel wall thickening or obstruction. The unenhanced liver, gallbladder, spleen, adrenal glands, and pancreas are unremarkable . There is a punctate stone within the right kidney. No ureteral stones. No hydronephrosis. There is mild bilateral perinephric edema. Normal caliber abdominal aorta. A few areas of focal fat within the liver adjacent to the radha hepatis. IMPRESSION: 1. Trace bilateral pleural fusions with bibasilar linear densities. This favors atelectasis. A pneumo german could also have a similar appearance in the appropriate clinical setting. 2. Mild circumferential thickening of the esophagus. 3. A few mildly enlarged mediastinal, axillary, right subpectoral, and pelvic lymph nodes which have slightly increased in size compared to the prior study. These are nonspecific but could represent a l ow-grade lymphoproliferative disorder. Follow-up recommended. 4. Mild bladder wall thickening. This raises the possibility of a cystitis. Recommend close with urin alysis. 5. Right-sided nephrolithiasis. No ureteral stones. No hydronephrosis. 6. Additional findings as described above. ACT 112: Negative or not required by law. Electronically signed by: Galdino Gaytan M.D. 07/31/2020 9:41 AM
--- NOTE | 2020-07-31 10:11 | XRay Report ---
XR chest 1V portable HISTORY: SEPSIS COMPARISON: Chest 05/06/2020. FINDINGS: No pneumothorax. Trace left pleural effusion. Left basilar linear densities favor subsegmen radha atelectasis or scarring. This is similar to the prior study. There are low lung volumes. The hear t remains mildly enlarged. There is mild central pulmonary basilar congestion without overt edema. IMPRESSION: Mild congestive change and a trace left pleural effusion. ACT 112: Negative or not required by law. Electronically signed by: Galdino Gaytan M.D. 07/31/2020 10:10 AM
[2020-07-31 10:32] LABS: Appearance Urine Clear (Clear); Bacteria Urine Automated Negative (Negative); Blood Urine Negative (Negative); Color Urine Dark Yellow; Epithelial Cell Urine Auto >30 /lpf (0-5); Glucose Urine UA Negative (Negative); Ketones Urine Trace (Negative); Leukocyte Esterase Urine Trace (Negative); Nitrite Urine Negative (Negative); Protein Urine Trace (Negative); Specific Gravity Urine 1.027 (1.000-1.030); Urobilinogen Urine Negative (Negative); pH Urine 5.5 (4.5-7.5)
[2020-07-31 10:39] LABS: Bilirubin Urine 1+ (Negative)
[2020-07-31 10:53] LABS: Mucus Urine Present (None Prsent)
[2020-07-31 10:54] LABS: Calcium Oxalate Crystals Urine Present (None Prsent)
[2020-07-31 14:49] LABS: Lyme Ab IgG w/WB Rflx Negative (Negative); Lyme Ab IgM w/WB Rflx Negative (Negative)
--- NOTE | 2020-07-31 14:59 | History & Physical Report ---
Date of Service July 31, 2020 Assessment & Plan (1) Fever: (2) Hypoxia: (3) Ambulatory dysfunction: This is a 59-year-old male who has significant past medical history of schizoaffective disorder, bipolar disorder, T2DM, hypothyroidism, HTN, HLD, obesity who presents to ED secondary to fever, generalized confusion x2 to 3 days. Fever of uknown etiology He does not meet SIRS/SEPSIS criteria Blood/Urine cultures obtained UA appears negative, Urine culture outpt from 07/[address] with trace bilateral pleural effusions and bibasilar linear densities ? Pneumonia possibility Lyme negative, Anaplasma pending Received broad-spectrum Rocephin in ED along with IV fluid Lactic acid WNL, pro-Kevin mildly elevated but normal at 0.21 Admit to med telemetry Continue broad-spectrum IV antibiotics with Zosyn and doxycycline Blood cultures pending, Anaplasma pending (patient with thrombocytopenia and lymphopenia) Peripheral smear He received 2 L of IV fluid while in ED, hemodynamically stable and not tachycardic will hold on further fluids Discontinue oral Bactrim patient was taking for outpatient possible UTI, culture was negative Hypoxia possibly secondary to underlying pneumonia or poor inspiratory effort (4) Rash: Patient with pinpoint, blanchable, papular rash on anterior thorax and extensor surfaces of bilateral upper and lower extremities, spares palms and soles Rash has been present for months and getting worse, is itchy and worse after taking shower Treat with permethrin for possible scabies, monitor for improvement He will need formal Derm referral as outpatient (5) Abnormal CT scan: CT scan Chest 3. A few mildly enlarged mediastinal, axillary, right subpectoral, and pelvic lymph nodes which have slightly increased in size compared to the prior study. These are nonspecific but could represent a low-grade lymphoproliferative disorder. Follow-up recommended. - if no improvement after treatment with IV antibiotics will need refer for bx peripheral smear ordered (6) Schizophrenia: and bipolar d/o as well pt is alert and oriented and appropriate mood stable Continue paroxetine, clozapine and clonazepam Low threshold for psych consult (7) T2DM (type 2 diabetes mellitus): Controlled, last A1c 6.7 06/20/2020 Hold Metformin Lantus/NovoLog per protocol (8) Hypothyroidism: Continue levothyroxine (9) Anemia: H&H 12.2 and 37.8 No signs or symptoms of bleeding Obtain anemia panel (10) DVT prophylaxis: SCD/teds Dispo: Med telemetry PCP: Marivel Full Code Pt was seen and examined in collaboration with Dr. Rock, please see addendum History of Present Illness Chief Complaint: Fever, generalized confusion x 2-3 days. Primary Care Pro vider: Maurilio Orta MD This is a 59-year-old male who has significant past medical history of schizoaffective disorder, bipolar disorder, T2DM, hypothyroidism, HTN, HLD, obesity who presents to ED secondary to fever, generalized confusion x2 to 3 days. Of significance patient was recently seen and evaluated at PCP office on 07/27 secondary to increased urinary frequency, urgency, dysuria and pelvic pressure. A urinalysis was obtained and he was empirically started on oral Bactrim. Urinalysis was negative for growth of bacteria. Microscopic UA did show moderate amount of blood. Mother started to notice pt started declining on Saturday. She felt like he was not himself, increasing confusion, weakness, nausea, and occasional vomiting. 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 He feels the dysuria, pelvic pressure, hematuria and increased urg with urination has resolved. He initially noticed hematuria, but this resolved. On Saturday he started Bactrim and took 1 dose and has taken last dose last evening. He denies abdominal pain, diarrhea, chest pain, trouble breathing, cough, URI sx. He does have dizziness when he gets up and walks around by denies syncope or lightheadedness. No recent change in medication other than bactrim. He has a rash that has been present for awhile. Denies tick bite. He occasionally has a couple beers, but nothing recent. Denies tobacco use and drug use. No FH of cancer. Appetite is overall poor. He admits to 4lb weight loss in 2-3 weeks. He denies night sweats. Mother at bedside states he has been more constipated. Allergies Allergy/AdvReac Type Severity Reaction Status Date / Time Penicillins Allergy Unknown Verified 07/31/20 07:54 Iodinated Contrast Media AdvReac Unknown VOMITING Verified 07/31/20 07:54 WITH IV CONTRAST Home Medications Medication Instructions Recorded Confirmed Type atorvastatin 40 mg PO QAM 05/06/20 07/31/20 History clonazepam 0.5 mg PO BID 05/06/20 07/31/20 History clozapine 400 mg PO HS 05/06/20 07/31/20 History cyanocobalamin (vitamin B-12) 1,000 mcg PO QAM 05/06/20 07/31/20 History levothyroxine 175 mcg PO DAILYBB 05/06/20 07/31/20 History metformin 1,000 mg PO BID 05/06/20 07/31/20 History metoprolol succinate 25 mg PO QAM 05/06/20 07/31/20 History oxybutynin chloride See Rx Instructions .ROUTE .COMPLEX 05/06/20 07/31/20 History paroxetine HCl 60 mg PO QAM 05/06/20 07/31/20 History aspirin [Aspir-81] 81 mg PO QAM 07/31/20 07/31/20 History cholecalciferol (vitamin D3) 25 mcg PO QAM 07/31/20 07/31/20 History [Vitamin D3] omega 2-ulp-rto-fish oil [Fish Oil] 1 cap PO HS 07/31/20 07/31/20 History sennosides [senna] 17.2 mg PO HS 07/31/20 07/31/20 History sulfamethoxazole-trimethoprim 1 tab PO BID 07/31/20 07/31/20 History Past Med/Surg History Medical History (Updated 07/31/20 @ 16:40 by Karmen Abreu PA-C) Bimalleolar ankle fracture Bipolar disorder CAP (community acquired pneumonia) (01/03/14) Hypothyroidism Schizophrenia T2DM (type 2 diabetes mellitus) Surgical History (Updated 07/31/20 @ 16:31 by Karmen Abreu PA-C) H/O colonoscopy "06/14/2014 adenomatous polyps, repeat 5 yrs/COLONOSCOPY FLEXIBLE PROXIMAL DIAGNOSTIC performed by Fran Medley MD at [facility]" History of open reduction and internal fixation (ORIF) procedure Trimalleolar ankle fracture Family History Mother Stroke Diabetes Social History (Updated 07/31/20 @ 16:29 by Karmen Abreu PA-C) Smoking Status: Former smoker Hx Alcohol Use: Yes Alcohol type: beer Alcohol Intake Frequency: Monthly or Less Hx Substance Use: No Preferred Language: Malagasy marital status: Single Current Living Situation: Family Current Living Situation Comment: lives with mother who cares for him current occupational status: employed and disabled current occupation: works at [employer] home Feels Safe at Home: Yes Review of Systems Review of Systems: All systems reviewed & are unremarkable except as noted in HPI & below Physical Exam Physical Exam: Constitutional: Morbidly obese, male, WD/WN, vitals as above, NAD, sitting up in bed, pleasant, conversing easily, answers questions appropriately Head: Normocephalic, Atraumatic Eyes: PERRL, conjunctivae normal, anicteric sclerae ENMT: external ear and nose normal, oropharynx normal Neck: trachea midline, no thyromegaly normal visual inspection Respiratory: normal respiratory effort, lungs clear to auscultation, no wheeze, rales, rhonchi. Normal insp/exp effort, no accessory muscle use Cardiovascular: RRR, no murmur, no edema Vessels: no JVD or carotid bruit Chest: normal inspection of chest Abdomen: Protuberant abdomen, normal bowel sounds, soft, nontender, no he patosplenomegaly Musculoskeletal: no cyanosis or clubbing, active range of motion x4 Skin: Pinpoint papular rash on anterior thorax and bilateral upper and lower extremities extensor surfaces, erythematous, spares palms and soles, warm and dry normal turgor Neurologic: PERRL, EOMI, accommodation nl, no face palsy, no dysarthria CN's II-XI intact bilaterally and moves all extremities Psychiatric: A+Ox3, dysthymic affect : deferred Results & Data Results & Data ([facility]) Vital Signs (Past 12 Hours) Vital Signs Temp Pulse Pulse Resp BP BP Pulse Ox 07/31/20 13:00 83 20 130/78 95 07/31/20 11:00 85 18 128/80 96 07/31/20 09:08 85 22 130/74 96 07/31/20 08:17 95 07/31/20 08:16 90 07/31/20 07:53 22 94 07/31/20 07:23 38.1 C H 90 22 144/69 H 90 Diagnostic Findings Chest X-Ray 07/31/20 07:46 XR chest 1V portable HISTORY: SEPSIS COMPARISON: Chest 05/06/2020. FINDINGS: No pneumothorax. Trace left pleural effusion. Left basilar linear densities favor subsegmental atelectasis or scarring. This is similar to the prior study. There are low lung volumes. The heart remains mildly enlarged. There is mild central pulmonary basilar congestion without overt edema. IMPRESSION: Mild congestive change and a trace left pleural effusion. ACT 112: Negative or not required by law. Electronically signed by: Galdino Gaytan M.D. 07/31/2020 10:[address] 07/31/20 07:[address] DOSE: HISTORY: Altered mental status. Fever. TECHNIQUE: Multiaxial CT images of the head were performed without the use of intravenous contrast. Automated exposure control was utilized for this study. A dose lowering technique was utilized adhering to the principles of ALARA. Comparison: Head CT 05/06/2020. Findings: Small retention cyst within the maxillary sinuses. A few chronically opacified mastoid air cells are again noted. The calvarium and skull base are intact. The ventricles and sulci are within normal limits. There is no mass, hematoma, midline shift, or acute infarct. Impression: No acute intracranial abnormality. ACT 112: Negative or not required by law. Electronically signed by: Galdino Gaytan M.D. 07/31/2020 9:04 AM Abdomen/Pelvis CT 07/31/20 07:54 CT chest diagnostic wo con, CT abd pelvis wo con CT DOSE: 3530.19 mGy.cm HISTORY: Altered mental status, fever, urinary symptoms TECHNIQUE: Multiaxial CT images of the chest, abdomen, and pelvis were performed without contrast. A dose lowering technique was utilized adhering to the principles of ALARA. COMPARISON: Chest CT 01/08/2014. FINDINGS: Chest CT: No pneumothorax. Mild paraseptal emphysema is noted. There are trace bilateral pleural effusions. Bibasilar linear densities favor subsegmental atelectasis. A pneumonia could also have a similar appearance in the appropriate clinical setting. Mild bilateral lower lobe bronchial wall thickening. Punctate calcified granuloma within the left upper lobe. No suspicious lytic or blastic osseous lesions. Mild circumferential thickening of the esophagus. The heart is normal in size. No pericardial effusion. Normal caliber thoracic aorta. Mildly enlarged mediastinal lymph nodes have slightly increased in size. There are few poorly enlarged bilateral axillary lymph nodes which have slightly increased in size. For comparative purposes, an 8 mm left axillary lymph node measured 5 mm. There are greater than expected right-sided subpectoral lymph nodes which measure up to 8 mm in short axis diameter. Abdomen/pelvis CT: No pneumoperitoneum. No pneumatosis. No fractures within the visualized osseous structures. Suboptimal evaluation of the abdomen and pelvis due to the lack of contrast and streak artifact from the patient's overlapping arms. There are few prominent bilateral pelvic lymph nodes along the iliac chains. Dominant right external iliac lymph node measures 1.2 cm in short axis diameter best seen on image 443. Mild bladder wall thickening. There is minimal inflammatory change adjacent to the bladder wall. This raises the possibility of a cystitis. No pelvic free fluid. Moderate well-formed stool seen within the majority of the colon. Normal appendix. No definite bowel wall thickening or obstruction. The unenhanced liver, gallbladder, spleen, adrenal glands, and pancreas are unremarkable. There is a punctate stone within the right kidney. No ureteral stones. No hydronephrosis. There is mild bilateral perinephric edema. Normal caliber abdominal aorta. A few areas of focal fat within the liver adjacent to the radha hepatis. IMPRESSION: 1. Trace bilateral pleural fusions with bibasilar linear densities. This favors atelectasis. A pneumonia could also have a similar appearance in the appropriate clinical setting. 2. Mild circumferential thickening of the esophagus. 3. A few mildly enlarged mediastinal, axillary, right subpectoral, and pelvic lymph nodes which have slightly increased in size compared to the prior study. These are nonspecific but could represent a low-grade lymphoproliferative disorder. Follow-up recommended. 4. Mild bladder wall thickening. This raises the possibility of a cystitis. Recommend close with urinalysis. 5. Right-sided nephrolithiasis. No ureteral stones. No hydronephrosis. 6. Additional findings as described above. ACT 112: Negative or not required by law. Electronically signed by: Galdino Gaytan M.D. 07/31/2020 9:[address] 07/31/20 07:54 CT chest diagnostic wo con, CT abd pelvis wo con CT DOSE: 3530.19 mGy.cm HISTORY: Altered mental status, fever, urinary symptoms TECHNIQUE: Multiaxial CT images of the chest, abdomen, and pelvis were performed without contrast. A dose lowering technique was utilized adhering to the principles of ALARA. COMPARISON: Chest CT 01/08/2014. FINDINGS: Chest CT: No pneumothorax. Mild paraseptal emphysema is noted. There are trace bilateral pleural effusions. Bibasilar linear densities favor subsegmental atelectasis. A pneumonia could also have a similar appearance in the appropriate clinical setting. Mild bilateral lower lobe bronchial wall thickening. Punctate calcified granuloma within the left upper lobe. No suspicious lytic or blastic osseous lesions. Mild circumferential thickening of the esophagus. The heart is normal in size. No pericardial effusion. Normal caliber thoracic aorta. Mildly enlarged mediastinal lymph nodes have slightly increased in size. There are few poorly enlarged bilateral axillary lymph nodes which have slightly increased in size. For comparative purposes, an 8 mm left axillary lymph node measured 5 mm. There are greater than expected right-sided subpectoral lymph nodes which measure up to 8 mm in short axis diameter. Abdomen/pelvis CT: No pneumoperitoneum. No pneumatosis. No fractures within the visualized osseous structures. Suboptimal evaluation of the abdomen and pelvis due to the lack of contrast and streak artifact from the patient's overlapping arms. There are few prominent bilateral pelvic lymph nodes along the iliac chains. Dominant right external iliac lymph node measures 1.2 cm in short axis diameter best seen on image 443. Mild bladder wall thickening. There is minimal inflammatory change adjacent to the bladder wall. This raises the possibility of a cystitis. No pelvic free fluid. Moderate well-formed stool seen within the majority of the colon. Normal appendix. No definite bowel wall thickening or obstruction. The unenhanced liver, gallbladder, spleen, adrenal glands, and pancreas are unremarkable. There is a punctate stone within the right kidney. No ureteral stones. No hydronephrosis. There is mild bilateral perinephric edema. Normal caliber abdominal aorta. A few areas of focal fat within the liver adjacent to the radha hepatis. IMPRESSION: 1. Trace bilateral pleural fusions with bibasilar linear densities. This favors atelectasis. A pneumonia could also have a similar appearance in the appropriate clinical setting. 2. Mild circumferential thickening of the esophagus. 3. A few mildly enlarged mediastinal, axillary, right subpectoral, and pelvic lymph nodes which have slightly increased in size compared to the prior study. These are nonspecific but could represent a low-grade lymphoproliferative disorder. Follow-up recommended. 4. Mild bladder wall thickening. This raises the possibility of a cystitis. Recommend close with urinalysis. 5. Right-sided nephrolithiasis. No ureteral stones. No hydronephrosis. 6. Additional findings as described above. ACT 112: Negative or not required by law. Electronically signed by: Galdino Gaytan M.D. 07/31/2020 9:41 AM Medications Administered Medication List Discontinued Medications Sodium Chloride (Nss 1000ml) 1,000 mls @ 999 mls/hr IV .Q1H1M VLADIMIR Stop: 07/31/20 08:47 Last Infusion: 07/31/20 09:19 Dose: 0 mls/hr Documented by: [id number] Admin: 07/31/20 08:17 Dose: 999 mls/hr Documented by: [id number] Sodium Chloride (Nss 1000ml) 1,000 mls @ 999 mls/hr IV .Q1H1M VLADIMIR Stop: 07/31/20 09:47 Last Infusion: 07/31/20 10:02 Dose: 0 mls/hr Documented by: [id number] Admin: 07/31/20 09:01 Dose: 999 mls/hr Documented by: [id number] Ceftriaxone Sodium (Rocephin) 2,000 mg in 70 mls @ 140 mls/hr IV NOW STA Stop: 07/31/20 08:37 Last Infusion: 07/31/20 09:14 Dose: 0 mls/hr Documented by: [id number] Admin: 07/31/20 08:40 Dose: 140 mls/hr Documented by: [id number] Ceftriaxone Sodium (Rocephin) 2,000 mg in 70 mls @ 140 mls/hr IV NOW STA Stop: 07/31/20 14:10 Last Admin: 07/31/20 14:13 Dose: Not Given Documented by: [id number] COVID-19 Results Results COVID-19 Adm Lab Results: RBC 4.38 M/uL (4.7-6.1) L 07/31/20 WBC 6.10 K/uL (4.8-10.8) 07/31/20 Hgb 12.2 g/dL (14.0-18.0) L 07/31/20 Hct 37.8 % (42-52) L 07/31/20 Plt Count 125 K/uL (130-400) L 07/31/20 Neutrophils (%) (Auto) 82.1 % 07/31/20 Lymphocytes (%) (Auto) 5.1 % 07/31/20 Monocytes # (Auto) 0.66 K/uL (0.11-0.59) H 07/31/20 Eosinophils # (Auto) 0.00 K/uL (0-0.5) 07/31/20 Immature Granulocyte % (Auto) 1.8 % 07/31/20 Neutrophils # (Auto) 5.01 K/uL (1.4-6.5) 07/31/20 Lymphocytes # (Auto) 0.31 K/uL (1.2-3.4) L 07/31/20 Monocytes # (Auto) 0.66 K/uL (0.11-0.59) H 07/31/20 Eosinophils # (Auto) 0.00 K/uL (0-0.5) 07/31/20 Basophils # (Auto) 0.01 K/uL (0-0.2) 07/31/20 Immature Granulocyte # (Auto) 0.11 K/uL (0.00-0.02) H 07/31/20 Na 135 mmol/L (136-145) L 07/31/20 K 3.9 mmol/L (3.5-5.1) 07/31/20 Cl 102 mmol/L (98-107) 07/31/20 CO2 26 mmol/L (21-32) 07/31/20 Anion Gap 7.0 (3-11) 07/31/20 BUN 15 mg/dl (7-18) 07/31/20 Creatinine 1.19 mg/dl (0.6-1.4) 07/31/20 BUN/Creatinine Ratio 12.8 (10-20) 07/31/20 Glucose Level 139 mg/dl (70-99) H 07/31/20 Ca 7.9 mg/dl (8.5-10.1) L 07/31/20 Total Bilirubin 0.9 mg/dl (0.2-1) 07/31/20 AST/SGOT 19 U/L (15-37) 07/31/20 ALT/SGPT 25 U/L (12-78) 07/31/20 Alkaline Phosphatase 92 U/L (45-117) 07/31/20 Total Protein 5.9 gm/dl (6.4-8.2) L 07/31/20 Albumin 2.8 gm/dl (3.4-5.0) L 07/31/20 Globulin 3.1 gm/dl (2.5-4.0) 07/31/20 Albumin/Globulin Ratio 0.9 (0.9-2) 07/31/20 Troponin I < 0.015 ng/ml (0-0.045) 07/31/20 Procalcitonin 0.21 ng/ml (0-0.5) 07/31/20 PTT 24.7 Seconds (21.0-31.0) 07/31/20 INR 1.0 (0.9-1.1) 07/31/20 COVID-19 PCR NEGATIVE (Negative) 07/31/[address] 07/31/20 Chest X-Ray 07/31/20 Code Status & VTE Plan Code Status Full Code VTE Prophylaxis Plan VTE Prophylaxis will be ordered: Yes Supervising Physician Co-Signing Physician Notes Patient is a 59-year-old male with history of schizoaffective, bipolar disorder, diabetes mellitus, hypothyroidism and other medical problems presents with history of fever, change in mental status, and generalized weakness and chronic rash since many months. Patient was recently thought to have urinary tract infection and was placed on Bactrim by PCP. Patient denies any chest pain, shortness of breath, cough, abdominal pain, diarrhea, hematuria. He agrees to have dysuria which has been slowly improving since Bactrim use. Currently oriented x3 but slow to respond while in ED. Denies any drug, alcohol use. Please review HPI for complete details of presentation. Labs suggestive of anemia, thrombocytopenia, mild hyponatremia, normal lactate, procalcitonin, TSH levels. Urinalysis likely contaminated sample. Toxicology screen is negative. Negative Covid, influenza screen. CT head showed no acute intracranial abnormality. CT abdomen showed trace bilateral pleural effusions, bibasilar linear densities, mediastinal, axillary, subpectoral and pelvic lymphadenopathy and possible cystitis. On exam patient is obese, no apparent distress, normocephalic atraumatic, lungs-decreased breath sounds, clear to auscultation, no accessory muscle use, S1-S2, no murmur, trace pedal edema, abdomen soft, nontender, normal bowel sounds, alert, awake, oriented, slow to respond, no focal weakness, + erythematous petechial rash generalized. Patient is admitted for management of flulike symptoms, and change in mental status. Will start on broad-spectrum antibiotics. Will obtain peripheral smear to rule out any anaplasmosis, abnormal cells to suggest malignancy. Blood cultures obtained. Agree with trial of permethrin for possible scabies. Will consider surgical evaluation for possible lymph node biopsy. On insulin therapy while hospitalized for diabetes management. I personally reviewed the record. Patient is interviewed and examined at bedside. Patient's care is coordinated with Karmen Abreu PA-C. Please refer to the documentation above for details of patient's presentation and for discussion of other issues.
[2020-07-31] MEDS ORDERED: GLUCOSE 10 TABS/TUBE PO PRN (16:43)
[2020-07-31] MEDS ORDERED: GLUCOSE 40% GEL 15 GM TUBE PO PRN (16:43)
[2020-07-31] MEDS ORDERED: PIPERACILL/TAZOBAC CONSULT ACTIVE PRN (16:43)
[2020-07-31] MEDS ORDERED: POLYETHYLENE (MIRALAX) 17 GM PACK PO PRN (16:43)
[2020-07-31] MEDS ORDERED: ACETAMINOPHEN 325 MG TAB PO PRN (16:43)
[2020-07-31] MEDS ORDERED: DEXTROSE 50% 50 ML SYRINGE IV PRN (16:43)
[2020-07-31] MEDS ORDERED: ALUMINUM/MAGNESIUM SUSP 30 ML UDC PO PRN (16:43)
[2020-07-31] MEDS ORDERED: CARBOHYDRATES FOR HYPOGLYCEMIA PO PRN (16:43)
[2020-07-31] MEDS ORDERED: MAGNESIUM HYDROXIDE SUSP 30 ML UDC PO PRN (16:43)
[2020-07-31] MEDS ORDERED: ONDANSETRON INJ 2 MG/ML 2 ML VIAL IV PRN (16:43)
[2020-07-31] MEDS ORDERED: GLUCAGON FOR INJ 1 MG VIAL SQ PRN (16:43)
[2020-07-31] MEDS ORDERED: PARoxetine HCL 20 MG TAB PO ONE (17:00)
[2020-07-31] MEDS ORDERED: LEVOTHYROXINE SODIUM 175 MCG TABLET PO ONE (17:00)
[2020-07-31] MEDS ORDERED: METOPROLOL SUCC 25MG EXT REL TAB PO ONE (17:00)
[2020-07-31 17:14] LABS: Amphetamines+Metham, Urine Neg (Neg); Barbiturates, Urine Neg (Neg); Benzodiazepine, Urine Neg (Neg); Cocaine, Urine Neg (Neg); MDMA (Ecstacy), Urine Neg (Neg); Methadone, Urine Neg (Neg); Opiate, Urine Neg (Neg); Phencyclidine, Urine Neg (Neg)
[2020-07-31] MEDS ORDERED: PERMETHRIN 5% CR 60 GM TUBE EXT ONE (17:15)
[2020-07-31] MEDS ORDERED: PIPERACILLIN/TAZOBACTAM 4.5 GM in DEXTROSE 5% 100 ML IV ONE (17:15)
[2020-07-31] MEDS: INSULIN ASPART 100 UNITS/ML 3 ML PEN SC SCH ×2 (17:27→21:22)
[2020-07-31] MEDS: DOXYCYCLINE HYCLATE 100 MG in DEXTROSE 5% 100 ML IV SCH (17:40)
[2020-07-31] MEDS ORDERED: CEFEPIME CONSULT ACTIVE ONE (20:52)
[2020-07-31] MEDS: INSULIN GLARGINE SOLOSTAR 100 UNITS/ML 3 ML PEN SC SCH (21:23)
[2020-07-31] MEDS ORDERED: CEFEPIME CONSULT ACTIVE PRN (21:24)
[2020-07-31] MEDS: OXYBUTYNIN CHLORIDE 5 MG TAB PO SCH (21:28)
[2020-07-31] MEDS: cloZAPine 100 MG TAB PO SCH (21:28)
[2020-07-31] MEDS: clonazePAM 0.5 MG TAB PO SCH (21:28)
[2020-07-31] MEDS: SENNA 8.6 MG TAB PO SCH (21:29)
[2020-07-31] MEDS: CEFEPIME 2,000 MG in SYRINGE 0 ML IV SCH (21:29)
[2020-08-01] MEDS: DOXYCYCLINE HYCLATE 100 MG in DEXTROSE 5% 100 ML IV SCH ×2 (06:31→18:03)
[2020-08-01] MEDS: LEVOTHYROXINE SODIUM 175 MCG TABLET PO SCH (06:31)
[2020-08-01] MEDS: CEFEPIME 2,000 MG in SYRINGE 0 ML IV SCH ×3 (06:32→21:15)
[2020-08-01 07:00] LABS: Hematocrit (blood only) 38.4 % (42-52); Hemoglobin 11.9 g/dL (14.0-18.0); Mean Corpuscular Hemoglobin 27.4 pg (25-34); Mean Corpuscular Volume 88.3 fL (80-100); Mean Platelet Volume 10.9 fL (7.4-10.4); Platelet Count 133 K/uL (130-400); RDW Coefficient of Variation 14.6 % (11.5-14.5); RDW Standard Deviation 47.4 fL (36.4-46.3); Red Blood Count 4.35 M/uL (4.7-6.1); White Blood Count 6.72 K/uL (4.8-10.8)
[2020-08-01 07:29] LABS: ALC (manual) 0.41 K/uL (1.2-3.4); ANC (manual) 4.91 K/uL (1.4-6.5); Lymphocytes # (manual) 0.41 K/uL (1.2-3.4); Lymphocytes % (manual) 6.1 %; Monocytes # (manual) 1.34 K/uL (0.11-0.59); Myelocytes # (manual) 0.06 K/uL (0-0); Myelocytes % (manual) 0.9 %; Neutrophils # (manual) 4.91 K/uL (1.4-6.5); Toxic Vacuolation 1+
[2020-08-01 07:30] LABS: Albumin Level 2.8 gm/dl (3.4-5.0); BUN Creatinine Ratio 11.4 (10-20); Calcium 7.7 mg/dl (8.5-10.1); Creatinine Clr Calc Pharmacy 105.9 ml/min; Est GFR (African American) 90.9 ml/min; Est GFR (Non-African American) 78.4 ml/min; Magnesium 2.1 mg/dl (1.8-2.4); Potassium 4.1 mmol/L (3.5-5.1)
[2020-08-01 07:33] LABS: Albumin Globulin Ratio 0.9 (0.9-2); Bilirubin,Total 0.7 mg/dl (0.2-1); Ferritin 167.2 ng/ml (8-388); Globulin 3.1 gm/dl (2.5-4.0); Total Protein 5.9 gm/dl (6.4-8.2)
[2020-08-01 08:51] LABS: Folate (Folic Acid) 10.8 ng/ml (>5.38)
[2020-08-01] MEDS: METOPROLOL SUCC 25MG EXT REL TAB PO SCH (08:56)
[2020-08-01] MEDS: PARoxetine HCL 20 MG TAB PO SCH (08:57)
[2020-08-01] MEDS: OXYBUTYNIN CHLORIDE 5 MG TAB PO SCH ×2 (08:57→21:14)
[2020-08-01] MEDS: CHOLECALCIFEROL 1,000 UNITS 25 MCG TAB PO SCH (08:57)
[2020-08-01] MEDS: ATORVASTATIN 40 MG TAB PO SCH (08:58)
[2020-08-01] MEDS: ASPIRIN 81 MG ECTAB PO SCH (08:58)
[2020-08-01] MEDS: CYANOCOBALAMIN 500 MCG TABLET (VITAMIN B-12) PO SCH (08:58)
[2020-08-01] MEDS: clonazePAM 0.5 MG TAB PO SCH ×2 (09:02→21:14)
[2020-08-01] MEDS: INSULIN GLARGINE SOLOSTAR 100 UNITS/ML 3 ML PEN SC SCH ×2 (09:03→21:15)
[2020-08-01] MEDS: INSULIN ASPART 100 UNITS/ML 3 ML PEN SC SCH ×4 (10:08→20:43)
--- NOTE | 2020-08-01 16:18 | Hospitalist Progress Note ---
Date of Service August 01, 2020 Assessment & Plan (1) Fever: (2) Hypoxia: (3) Ambulatory dysfunction: Patient is a 59 yr male with H/O Schizoaffective disorder, bipolar disorder, T2DM, hypothyroidism, HTN, HLD, obesity who presents to ED secondary to fever, generalized confusion x2 to 3 days. Altered mental status FUO Generalized Lymphadenopathy Suspected UTI/Pneumonia Hypoxia DD:? Drug reaction to Bactrim, Can not rule out infection, ? Lymphoproliferative disorder Lyme, Anaplasmosis Screen: Negative Toxicology Screen:Negative -CT head: No acute intracranial abnormality. -Peripheral Smear: No dysplasia, malignant cells seen. -CT ABD/Chest:Trace bilateral pleural fusions with bibasilar linear densities. This favors atelectasis. A pneumonia could also have a similar appearance in the appropriate clinical setting. Mild circumferential thickening of the esophagus. A few mildly enlarged mediastinal, axillary, right subpectoral, and pelvic lymph nodes which have slightly increased in size compared to the prior study. These are nonspecific but could represent a low-grade lymphoproliferative disorder. Follow-up recommended. Mild bladder wall thickening. This raises the possibility of a cystitis. Recommend close with urinalysis. Right-sided nephrolithiasis. No ureteral stones. No hydronephrosis. -Blood cultures: Negative to date -Urine Cx unreliable given partially treated with Bactrim outpatient -Normal lactate, Procalcitonin levels -Received IV fluids -Continue empiric antibiotics with doxycycline, Zosyn -Bactrim discontinued Requested surgical evaluation for possible lymph node biopsy Incentive spirometry Supplemental oxygen as needed (4) Rash: Erythematous Itchy pinpoint, blanchable, papular rash since months ? Scabies Permethrin Needs Dermatology eval as outpatient (5) Abnormal CT scan: Management as above (6) Schizophrenia: Schizophrenia Bipolar disorder Continue home medication Consider psychiatry evaluation if needed (7) T2DM (type 2 diabetes mellitus): Controlled, last A1c 6.7 06/20/2020 Hold Metformin Continue Lantus/NovoLog per protocol (8) Hypothyroidism: Continue levothyroxine (9) Anemia: Hb stable monitor (10) DVT prophylaxis: SCDs Lovenox Sq Code Status Full Code Admission and Anticipated Discharge Date Admission Date: August 01, 2020 Subjective Patient is seen and examined at bedside Mental status slowly improving States having dizziness intermittently with ambulation Denies chest pain, shortness of breath, dizziness, nausea, abdominal pain Offers no other complaints Review of Systems Review of Systems: All systems reviewed & are unremarkable except as noted in HPI & below Physical Exam Physical Exam: Physical Exam: Vitals signs as noted above General Appearance:Morbidly obese, no apparent distress Head: normocephalic, Atraumatic Eyes: normal inspection, EOMI Neck: supple, Trachea midline Respiratory/Chest: Decreased breath sounds, CTA, No accessory muscle use Cardiovascular: S1, S2, No murmur Abdomen/GI:Soft, Non tender, Bowel sounds present Extremities/Musculoskeletal:normal inspection, Trace edema Neurologic/Psych:AAOX3, grossly no focal neurological deficits Skin: normal color, warm, erythematous generalized rash--Since months Results & Data Results & Data ([facility]) Vital Signs (Past 12 Hours) Vital Signs Temp Pulse Pulse Resp BP Pulse Ox 08/01/20 15:11 37.0 C 78 20 136/79 92 08/01/20 15:08 79 08/01/20 11:32 37.4 C 85 20 117/73 94 08/01/20 07:41 80 08/01/20 07:03 37.1 C 82 20 115/75 97 Laboratory Results Short CBC 08/01/20 Range/Units 06:27 WBC 6.72 (4.8-10.8) K/uL Hgb 11.9 L (14.0-18.0) g/dL Hct 38.4 L (42-52) % Plt Count 133 (130-400) K/uL BMP 08/01/20 06:27 Sodium 137 Potassium 4.1 Chloride 103 Carbon Dioxide 29 BUN 12 Creatinine 1.05 Glucose 119 H Calcium 7.7 L Liver Function 08/01/20 Range/Units 06:27 Total Bilirubin 0.7 (0.2-1) mg/dl AST 28 (15-37) U/L ALT 37 (12-78) U/L Alkaline Phosphatase 105 (45-117) U/L Albumin 2.8 L (3.4-5.0) gm/dl
[2020-08-01] MEDS: cloZAPine 100 MG TAB PO SCH (21:14)
[2020-08-01] MEDS: SENNA 8.6 MG TAB PO SCH (21:14)
[2020-08-02] MEDS: CEFEPIME 2,000 MG in SYRINGE 0 ML IV SCH ×3 (06:39→22:01)
[2020-08-02] MEDS: LEVOTHYROXINE SODIUM 175 MCG TABLET PO SCH (06:39)
[2020-08-02] MEDS: DOXYCYCLINE HYCLATE 100 MG in DEXTROSE 5% 100 ML IV SCH (06:40)
[2020-08-02 08:13] LABS: Hematocrit (blood only) 40.4 % (42-52); Hemoglobin 12.8 g/dL (14.0-18.0); Mean Corpuscular Hemoglobin 27.5 pg (25-34); Mean Corpuscular Hgb Conc 31.7 g/dL (32-36); Mean Corpuscular Volume 86.7 fL (80-100); Mean Platelet Volume 11.3 fL (7.4-10.4); Platelet Count 140 K/uL (130-400); RDW Coefficient of Variation 14.5 % (11.5-14.5); Red Blood Count 4.66 M/uL (4.7-6.1)
[2020-08-02 08:41] LABS: BUN Creatinine Ratio 16.9 (10-20); Calcium 8.6 mg/dl (8.5-10.1); Creatinine Clr Calc Pharmacy 130.5 ml/min; Est GFR (African American) 112.1 ml/min; Est GFR (Non-African American) 96.7 ml/min; Magnesium 2.5 mg/dl (1.8-2.4); Potassium 4.1 mmol/L (3.5-5.1)
[2020-08-02] MEDS: ATORVASTATIN 40 MG TAB PO SCH (08:55)
[2020-08-02] MEDS: PARoxetine HCL 20 MG TAB PO SCH (08:55)
[2020-08-02] MEDS: ASPIRIN 81 MG ECTAB PO SCH (08:55)
[2020-08-02] MEDS: CYANOCOBALAMIN 500 MCG TABLET (VITAMIN B-12) PO SCH (08:55)
[2020-08-02] MEDS: OXYBUTYNIN CHLORIDE 5 MG TAB PO SCH ×2 (08:56→20:40)
[2020-08-02] MEDS: CHOLECALCIFEROL 1,000 UNITS 25 MCG TAB PO SCH (08:56)
[2020-08-02] MEDS: METOPROLOL SUCC 25MG EXT REL TAB PO SCH (08:56)
[2020-08-02] MEDS: clonazePAM 0.5 MG TAB PO SCH ×2 (08:57→20:40)
[2020-08-02] MEDS: ENOXAPARIN INJ 40 MG/0.4 ML SYR SQ SCH (08:57)
[2020-08-02] MEDS: INSULIN GLARGINE SOLOSTAR 100 UNITS/ML 3 ML PEN SC SCH ×2 (08:58→20:41)
[2020-08-02] MEDS: INSULIN ASPART 100 UNITS/ML 3 ML PEN SC SCH ×4 (08:58→20:27)
--- NOTE | 2020-08-02 13:50 | Hospitalist Progress Note ---
Date of Service August 02, 2020 Assessment & Plan (1) Fever: (2) Hypoxia: (3) Ambulatory dysfunction: Patient is a 59 yr male with H/O Schizoaffective disorder, bipolar disorder, T2DM, hypothyroidism, HTN, HLD, obesity who presents to ED secondary to fever, generalized confusion x2 to 3 days. Altered mental status FUO Generalized Lymphadenopathy Suspected UTI/Pneumonia Hypoxia DD:? Drug reaction to Bactrim, Can not rule out infection, ? Lymphoproliferative disorder Lyme, Anaplasmosis Screen: Negative Toxicology Screen:Negative -CT head: No acute intracranial abnormality. -Peripheral Smear: No dysplasia, malignant cells seen. -CT ABD/Chest:Trace bilateral pleural fusions with bibasilar linear densities. This favors atelectasis. A pneumonia could also have a similar appearance in the appropriate clinical setting. Mild circumferential thickening of the esophagus. A few mildly enlarged mediastinal, axillary, right subpectoral, and pelvic lymph nodes which have slightly increased in size compared to the prior study. These are nonspecific but could represent a low-grade lymphoproliferative disorder. Follow-up recommended. Mild bladder wall thickening. This raises the possibility of a cystitis. Recommend close with urinalysis. Right-sided nephrolithiasis. No ureteral stones. No hydronephrosis. -Blood cultures: Negative to date -Urine Cx unreliable given partially treated with Bactrim outpatient -Normal lactate, Procalcitonin levels -Received IV fluids -Continue empiric antibiotics with doxycycline, Zosyn -Bactrim discontinued Requested surgical evaluation for possible lymph node biopsy Incentive spirometry Supplemental oxygen as needed Continue current management Mental status improved Waiting for surgical evaluation. (4) Rash: Erythematous Itchy pinpoint, blanchable, papular rash since months ? Scabies Permethrin Needs Dermatology eval as outpatient (5) Abnormal CT scan: Management as above (6) Schizophrenia: Schizophrenia Bipolar disorder Continue home medication Consider psychiatry evaluation if needed (7) T2DM (type 2 diabetes mellitus): Controlled, last A1c 6.7 06/20/2020 Hold Metformin Continue Lantus/NovoLog per protocol (8) Hypothyroidism: Continue levothyroxine (9) Anemia: Hb stable monitor (10) DVT prophylaxis: SCDs Lovenox Sq Code Status Full Code Admission and Anticipated Discharge Date Admission Date: August 01, 2020 Subjective Patient is seen and examined at bedside Mental status continues to improve No new complaints Generalized rash less itchy Denies chest pain, shortness of breath, dizziness, nausea, abdominal pain Review of Systems Review of Systems: All systems reviewed & are unremarkable except as noted in HPI & below Physical Exam 2 Physical Exam: Physical Exam: Vitals signs as noted above General Appearance:Morbidly obese, no apparent distress Head: normocephalic, Atraumatic Eyes: normal inspection, EOMI Neck: supple, Trachea midline Respiratory/Chest: Decreased breath sounds, CTA, No accessory muscle use Cardiovascular: S1, S2, No murmur Abdomen/GI:Soft, Non tender, Bowel sounds present Extremities/Musculoskeletal:normal inspection, Trace edema Neurologic/Psych:AAOX3, grossly no focal neurological deficits Skin: normal color, warm, erythematous generalized rash--Since months Results & Data Results & Data ([facility]) Vital Signs (Past 12 Hours) Vital Signs Temp Pulse Pulse Resp BP Pulse Ox 08/02/20 11:48 36.8 C 74 20 120/80 94 08/02/20 11:08 68 08/02/20 07:47 36.6 C 68 20 120/79 94 08/02/20 02:50 36.6 C 78 18 133/80 92 Laboratory Results Short CBC 08/02/20 Range/Units 07:45 WBC 4.60 L (4.8-10.8) K/uL Hgb 12.8 L (14.0-18.0) g/dL Hct 40.4 L (42-52) % Plt Count 140 (130-400) K/uL [facility] 08/02/20 07:45 Sodium 142 Potassium 4.1 Chloride 108 H Carbon Dioxide 29 BUN 14 Creatinine 0.85 Glucose 122 H Calcium 8.6
--- NOTE | 2020-08-02 16:04 | Surgery Consultation ---
Date of Consultation August 02, 2020 Assessment & Plan (1) Lymphadenopathy: This is a 59yM with a PMH of bipolar, schizophrenia, T2DM, hypothyroidism, who presented to the [facility] ED on 07/31/20 with complaints of burning with urination, confusion, and generalized weakness. During patient's workup he underwent a CT chest/a/p that revealed a few mildly enlarged mediastinal, axillary, right subpectoral, and pelvic lymph nodes which have slightly increased in size compared to previous, these are nonspecific but could represent a low-grade lymphoproliferative disorder. We are consulted for consideration of a lymph node biopsy. On examination patient has no obvious or appreciable lymphadenopathy. Patient would benefit from further workup, consider heme/onc consultation and likely an IR or radiological approach to obtain LN biopsy which can be performed as an outpatient if needed. Based on the location of his lymphadenopathy it would not be very easy for us to find surgically. Patient and mother agreeable with plan. Please call back with any questions/concerns. Dr. Gerber-patient has reportedly on CAT scan as having mild diffuse lymphadenopathy. From his imaging and examination I cannot palpate any significant lymph nodes which would be amenable to safely biopsying. Suspect patient can be worked up as an outpatient with suggestions above and even possible surgical oncology at a tertiary care center although heme-onc evaluation prior would likely be best. History of Present Illness Attending Physician: Peyman Rock MD History of Present Illness This is a 59yM with a PMH of bipolar, schizophrenia, T2DM, hypothyroidism, who presented to the [facility] ED on 07/31/20 with complaints of burning with urination, confusion, and generalized weakness. Patient reports his urinary symptoms started last Saturday, mostly burning with voiding and some blood noted. He was evaluated at the PCP's office last and empirically started on Bactrim. Since initiation of abx he has not had much improvement in symptoms and came to the ER for further evaluation. Surgery was consulted as patient underwent a CT chest/a/p that revealed a few mildly enlarged mediastinal, axillary, right subpectoral, and pelvic lymph nodes which have slightly increased in size compared to previous, reporting that these are nonspecific but could represent a low-grade lymphoproliferative disorder. Patient states other than some lingering confusion he is overall feeling better since admission. He denies any recent weight loss, chills, CP, SOB, cough. Allergies Allergy/AdvReac Type Severity Reaction Status Date / Time Penicillins Allergy Unknown Verified 07/31/20 07:54 Iodinated Contrast Media AdvReac Unknown VOMITING Verified 07/31/20 07:54 WITH IV CONTRAST Home Medications Medication Instructions Recorded Confirmed Type atorvastatin 40 mg PO QAM 05/06/20 07/31/20 History clonazepam 0.5 mg PO BID 05/06/20 07/31/20 History clozapine 400 mg PO HS 05/06/20 07/31/20 History cyanocobalamin (vitamin B-12) 1,000 mcg PO QAM 05/06/20 07/31/20 History levothyroxine 175 mcg PO DAILYBB 05/06/20 07/31/20 History metformin 1,000 mg PO BID 05/06/20 07/31/20 History metoprolol succinate 25 mg PO QAM 05/06/20 07/31/20 History oxybutynin chloride See Rx Instructions .ROUTE .COMPLEX 05/06/20 07/31/20 History paroxetine HCl 60 mg PO QAM 05/06/20 07/31/20 History aspirin [Aspir-81] 81 mg PO QAM 07/31/20 07/31/20 History cholecalciferol (vitamin D3) 25 mcg PO QAM 07/31/20 07/31/20 History [Vitamin D3] omega 7-pug-esw-fish oil [Fish Oil] 1 cap PO HS 07/31/20 07/31/20 History sennosides [senna] 17.2 mg PO HS 07/31/20 07/31/20 History sulfamethoxazole-trimethoprim 1 tab PO BID 07/31/20 07/31/20 History Patient History Medical History Bimalleolar ankle fracture Bipolar disorder CAP (community acquired pneumonia) (01/03/14) Hypothyroidism Schizophrenia T2DM (type 2 diabetes mellitus) Surgical History H/O colonoscopy "06/14/2014 adenomatous polyps, repeat 5 yrs/COLONOSCOPY FLEXIBLE PROXIMAL DIAGNOSTIC performed by Fran Medley MD at ENDOSCOPY [facility]" History of open reduction and internal fixation (ORIF) procedure Trimalleolar ankle fracture Family History Mother Stroke Diabetes Social History Smoking Status: Former smoker Second Hand Exposure: No; Do You Dip or Chew Tobacco: No; Tobacco Cessation Education Requested by Patient: No Hx Alcohol Use: Yes Alcohol type: beer Alcohol Intake Frequency: Monthly or Less Hx Substance Use: No Preferred Language: Turkish Communication Ability: Effective Pyrotechnic Mixer Required: No Beliefs That Will Affect Care: None marital status: Single Current Living Situation: Parent Current Living Situation Comment: lives with mother who cares for him current occupational status: employed and disabled current occupation: works at [employer] Other Information That Helps Us Care for You: No Feels Safe at Home: Yes Safety Concerns: Feels Safe At This Time Assistive Devices: None Review of Systems Constitutional: + fever (subjective fevers); no chills and no weight loss headache- but this has been going on for awhile Respiratory: no cough and no dyspnea Cardiovascular: no chest pain Neurologic: + dizziness Psychiatric: + confusion Physical Exam 2 Physical Exam: awake/alert Constitutional: cooperative and comfortable; no acute distress Neck: neck nontender no obvious latricia-auricular, cervical, or clavicular lymphadenopathy appreciated Respiratory: normal respiratory effort Musculoskeletal: no obvious axillary lymphadenopathy appreciated bilaterally Results & Data ([facility]) Vital Signs (Past 12 Hours) Vital Signs Temp Pulse Pulse Resp BP Pulse Ox 08/02/20 15:29 73 08/02/20 15:07 36.7 C 82 20 120/77 94 08/02/20 11:48 36.8 C 74 20 120/80 94 08/02/20 11:08 68 08/02/20 07:47 36.6 C 68 20 120/[address] chest diagnostic wo con, CT abd pelvis wo con CT DOSE: 3530.19 mGy.cm HISTORY: Altered mental status, fever, urinary symptoms TECHNIQUE: Multiaxial CT images of the chest, abdomen, and pelvis were performed without contrast. A dose lowering technique was utilized adhering to the principles of ALARA. COMPARISON: Chest CT 01/08/2014. FINDINGS: Chest CT: No pneumothorax. Mild paraseptal emphysema is noted. There are trace bilateral pleural effusions. Bibasilar linear densities favor subsegmental atelectasis. A pneumonia could also have a similar appearance in the appropriate clinical setting. Mild bilateral lower lobe bronchial wall thickening. Punctate calcified granuloma within the left upper lobe. No suspicious lytic or blastic osseous lesions. Mild circumferential thickening of the esophagus. The heart is normal in size. No pericardial effusion. Normal caliber thoracic aorta. Mildly enlarged mediastinal lymph nodes have slightly increased in size. There are few poorly enlarged bilateral axillary lymph nodes which have slightly increased in size. For comparative purposes, an 8 mm left axillary lymph node measured 5 mm. There are greater than expected right-sided subpectoral lymph nodes which measure up to 8 mm in short axis diameter. Abdomen/pelvis CT: No pneumoperitoneum. No pneumatosis. No fractures within the visualized osseous structures. Suboptimal evaluation of the abdomen and pelvis due to the lack of contrast and streak artifact from the patient's overlapping arms. There are few prominent bilateral pelvic lymph nodes along the iliac chains. Dominant right external iliac lymph node measures 1.2 cm in short axis diameter best seen on image 443. Mild bladder wall thickening. There is minimal inflammatory change adjacent to the bladder wall. This raises the possibility of a cystitis. No pelvic free fluid. Moderate well-formed stool seen within the majority of the colon. Normal appendix. No definite bowel wall thickening or obstruction. The unenhanced liver, gallbladder, spleen, adrenal glands, and pancreas are unremarkable. There is a punctate stone within the right kidney. No ureteral stones. No hydronephrosis. There is mild bilateral perinephric edema. Normal caliber abdominal aorta. A few areas of focal fat within the liver adjacent to the radha hepatis. IMPRESSION: 1. Trace bilateral pleural fusions with bibasilar linear densities. This favors atelectasis. A pneumonia could also have a similar appearance in the appropriate clinical setting. 2. Mild circumferential thickening of the esophagus. 3. A few mildly enlarged mediastinal, axillary, right subpectoral, and pelvic lymph nodes which have slightly increased in size compared to the prior study. These are nonspecific but could represent a low-grade lymphoproliferative disorder. Follow-up recommended. 4. Mild bladder wall thickening. This raises the possibility of a cystitis. Recommend close with urinalysis. 5. Right-sided nephrolithiasis. No ureteral stones. No hydronephrosis. 6. Additional findings as described above. ACT 112: Negative or not required by law. Electronically signed by: Galdino Gaytan M.D. 07/31/2020 9:41 AM PG Care Time/CCT Total # of Minutes Spent Total Time Spent with Patient: Total time spent is greater than 50% in coordination of care (as documented) at patient's floor/unit and/or counseling patient: Coding Level of Care Code 77567 Inpt Consult Level 3 Diagnoses Lymphadenopathy R59.1
[2020-08-02] MEDS: cloZAPine 100 MG TAB PO SCH (20:40)
[2020-08-02] MEDS: SENNA 8.6 MG TAB PO SCH (20:41)
[2020-08-03] MEDS: LEVOTHYROXINE SODIUM 175 MCG TABLET PO SCH (06:04)
[2020-08-03] MEDS: CEFEPIME 2,000 MG in SYRINGE 0 ML IV SCH (06:04)
[2020-08-03 06:07] LABS: Hematocrit (blood only) 41.2 % (42-52); Mean Corpuscular Hemoglobin 26.9 pg (25-34); Mean Corpuscular Hgb Conc 31.6 g/dL (32-36); Mean Corpuscular Volume 85.1 fL (80-100); Mean Platelet Volume 11.2 fL (7.4-10.4); Platelet Count 163 K/uL (130-400); RDW Coefficient of Variation 14.2 % (11.5-14.5); RDW Standard Deviation 44.8 fL (36.4-46.3); Red Blood Count 4.84 M/uL (4.7-6.1); White Blood Count 5.56 K/uL (4.8-10.8)
[2020-08-03 06:37] LABS: BUN Creatinine Ratio 20.6 (10-20); Calcium 8.8 mg/dl (8.5-10.1); Creatinine Clr Calc Pharmacy 152.4 ml/min; Est GFR (African American) 119.3 ml/min; Magnesium 2.3 mg/dl (1.8-2.4); Potassium 4.1 mmol/L (3.5-5.1)
[2020-08-03] MEDS: OXYBUTYNIN CHLORIDE 5 MG TAB PO SCH ×2 (08:26→20:08)
[2020-08-03] MEDS: METOPROLOL SUCC 25MG EXT REL TAB PO SCH (08:27)
[2020-08-03] MEDS: ENOXAPARIN INJ 40 MG/0.4 ML SYR SQ SCH (08:27)
[2020-08-03] MEDS: CYANOCOBALAMIN 500 MCG TABLET (VITAMIN B-12) PO SCH (08:27)
[2020-08-03] MEDS: ATORVASTATIN 40 MG TAB PO SCH (08:27)
[2020-08-03] MEDS: PARoxetine HCL 20 MG TAB PO SCH (08:27)
[2020-08-03] MEDS: ASPIRIN 81 MG ECTAB PO SCH (08:27)
[2020-08-03] MEDS: CHOLECALCIFEROL 1,000 UNITS 25 MCG TAB PO SCH (08:27)
[2020-08-03] MEDS: INSULIN GLARGINE SOLOSTAR 100 UNITS/ML 3 ML PEN SC SCH ×2 (08:28→20:02)
[2020-08-03] MEDS: INSULIN ASPART 100 UNITS/ML 3 ML PEN SC SCH ×4 (08:28→20:03)
[2020-08-03] MEDS: clonazePAM 0.5 MG TAB PO SCH ×2 (08:34→20:06)
--- NOTE | 2020-08-03 09:43 | Hospitalist Progress Note ---
Date of Service August 03, 2020 Assessment & Plan (1) Fever: (2) Hypoxia: (3) Ambulatory dysfunction: Patient is a 59 yr male with H/O Schizoaffective disorder, bipolar disorder, T2DM, hypothyroidism, HTN, HLD, obesity who presents to ED secondary to fever, generalized confusion x2 to 3 days. Presented with a fever/altered mental status: Possible metabolic encephalopathy due to: Suspected UTI: CT abdomen pelvis: mild bladder wall thickening. This raises the possibility of a cystitis. Recommend close with urinalysis. Right-sided nephrolithiasis. No ureteral stones. No hydronephrosis. -Urine Cx unreliable given partially treated with Bactrim outpatient On IV cefepime Blood cultures been negative to date -Normal lactate, Procalcitonin levels Pneumonia No active fever/shortness of breath/hypoxia -which has resolved DD:? Drug reaction to Bactrim, Can not rule out infection, ? Lymphoproliferative disorder Confusion/metabolic encephalopathy Lyme, Anaplasmosis Screen: Negative Toxicology Screen:Negative -CT head: No acute intracranial abnormality. -Peripheral Smear: No dysplasia, malignant cells seen. Mental status gradually improving: Possible lymphoproliferative disorder, incidental finding of lymphadenopathy -CT ABD/Chest:Trace bilateral pleural fusions with bibasilar linear densities. This favors atelectasis. A pneumonia could also have a similar appearance in the appropriate clinical setting. Mild circumferential thickening of the esophagus. A few mildly enlarged mediastinal, axillary, right subpectoral, and pelvic lymph nodes which have slightly increased in size compared to the prior study. These are nonspecific but could represent a low-grade lymphoproliferative disorder. Follow-up recommended. Requested surgical evaluation for possible lymph node biopsy Appreciate input from surgery team: Per surgical team: cannot palpate any significant lymph nodes which would be amenable to safely biopsying. Suspect patient can be worked up as an outpatient with suggestions above and even possible surgical oncology at a tertiary care center. Will order for flow cytometry Will need oncology evaluation as outpatient (4) Rash: chronic erythematous rash , possible drug reaction ? vs inflammatory dermatitis no sign of any infectious process : NO SCABIES dc contact isolation Needs Dermatology eval as outpatient ordered for steroid ointments , (5) Abnormal CT scan: Management as above (6) Schizophrenia: Schizophrenia Bipolar disorder Continue home medication (7) T2DM (type 2 diabetes mellitus): Controlled, last A1c 6.7 06/20/2020 Hold Metformin Continue Lantus/NovoLog per protocol (8) Hypothyroidism: Continue levothyroxine (9) Anemia: Hb stable monitor (10) DVT prophylaxis: SCDs Lovenox Sq Code Status Full Code Admission and Anticipated Discharge Date Admission Date: August 01, 2020 Results & Data Results & Data ([facility]) Vital Signs (Past 12 Hours) Vital Signs Temp Pulse Pulse Resp BP BP Pulse Ox 08/03/20 07:48 65 08/03/20 06:38 36.5 C 66 16 125/81 94 08/03/20 02:33 36.6 C 71 20 148/79 H 08/03/20 00:18 63 08/02/20 22:38 36.5 C 63 16 113/73 93
[2020-08-03] MEDS: cefTRIAXone SODIUM 2,000 MG in DEXTROSE 5% 50 ML IV SCH (13:34)
[2020-08-03] MEDS: cloZAPine 100 MG TAB PO SCH (20:07)
[2020-08-03] MEDS: TRIAMCINOLONE ACET 0.1% CR 80 GM TUBE EXT SCH (20:08)
[2020-08-03] MEDS: SENNA 8.6 MG TAB PO SCH (20:08)
[2020-08-04] MEDS: LEVOTHYROXINE SODIUM 175 MCG TABLET PO SCH (06:11)
[2020-08-04] MEDS: PARoxetine HCL 20 MG TAB PO SCH (08:51)
[2020-08-04] MEDS: clonazePAM 0.5 MG TAB PO SCH ×2 (08:51→20:08)
[2020-08-04] MEDS: ASPIRIN 81 MG ECTAB PO SCH (08:51)
[2020-08-04] MEDS: METOPROLOL SUCC 25MG EXT REL TAB PO SCH (08:51)
[2020-08-04] MEDS: CHOLECALCIFEROL 1,000 UNITS 25 MCG TAB PO SCH (08:51)
[2020-08-04] MEDS: OXYBUTYNIN CHLORIDE 5 MG TAB PO SCH ×2 (08:52→20:06)
[2020-08-04] MEDS: CYANOCOBALAMIN 500 MCG TABLET (VITAMIN B-12) PO SCH (08:52)
[2020-08-04] MEDS: ATORVASTATIN 40 MG TAB PO SCH (08:52)
[2020-08-04] MEDS: ENOXAPARIN INJ 40 MG/0.4 ML SYR SQ SCH (08:52)
[2020-08-04] MEDS: TRIAMCINOLONE ACET 0.1% CR 80 GM TUBE EXT SCH ×2 (08:53→20:05)
[2020-08-04] MEDS: INSULIN GLARGINE SOLOSTAR 100 UNITS/ML 3 ML PEN SC SCH ×2 (08:53→20:10)
[2020-08-04] MEDS: INSULIN ASPART 100 UNITS/ML 3 ML PEN SC SCH ×4 (08:54→20:08)
[2020-08-04] MEDS: cefTRIAXone SODIUM 2,000 MG in DEXTROSE 5% 50 ML IV SCH (12:45)
--- NOTE | 2020-08-04 15:14 | Hospitalist Progress Note ---
Date of Service August 04, 2020 Assessment & Plan (1) Fever: (2) Hypoxia: (3) Ambulatory dysfunction: Patient is a 59 yr male with H/O Schizoaffective disorder, bipolar disorder, T2DM, hypothyroidism, HTN, HLD, obesity who presents to ED secondary to fever, generalized confusion x2 to 3 days. Presented with a fever/altered mental status: Possible metabolic encephalopathy due to: Suspected UTI: CT abdomen pelvis: mild bladder wall thickening. This raises the possibility of a cystitis. Recommend close with urinalysis. Right-sided nephrolithiasis. No ureteral stones. No hydronephrosis. -Urine Cx unreliable given partially treated with Bactrim outpatient Blood cultures been negative to date -Normal lactate, Procalcitonin levels Antibiotics D/gaurav Pneumonia No active fever/shortness of breath/hypoxia -which has resolved DD:? Drug reaction to Bactrim, Can not rule out infection, ? Lymphoproliferative disorder antibiotics d/gaurav Confusion/metabolic encephalopathy Lyme, Anaplasmosis Screen: Negative Toxicology Screen:Negative -CT head: No acute intracranial abnormality. -Peripheral Smear: No dysplasia, malignant cells seen. Mental status gradually improving: Possible lymphoproliferative disorder, incidental finding of lymphadenopathy -CT ABD/Chest:Trace bilateral pleural fusions with bibasilar linear densities. This favors atelectasis. A pneumonia could also have a similar appearance in the appropriate clinical setting. Mild circumferential thickening of the esophagus. A few mildly enlarged mediastinal, axillary, right subpectoral, and pelvic lymph nodes which have slightly increased in size compared to the prior study. These are nonspecific but could represent a low-grade lymphoproliferative disorder. Follow-up recommended. Requested surgical evaluation for possible lymph node biopsy Appreciate input from surgery team: Per surgical team: cannot palpate any significant lymph nodes which would be amenable to safely biopsying. Suspect patient can be worked up as an outpatient with suggestions above and even possible surgical oncology at a tertiary care center. ordered for flow cytometry Will need oncology evaluation as outpatient (4) Rash: chronic erythematous rash , possible drug reaction ? vs inflammatory dermatitis no sign of any infectious process : NO SCABIES dc contact isolation Needs Dermatology eval as outpatient rash noted to be improved after starting on topical steroids , (5) Abnormal CT scan: Management as above (6) Schizophrenia: Schizophrenia Bipolar disorder complains of feeling foggy and hearing voices ( people are whispering , talking about him on the [address] ) no agitation , feels anxious with his symptoms pt follows with Psychiatry Dr Ellis pt's psychiatric meds continued Psychiatry Dr Ellis consulted for adjustment of dose if indicated (7) T2DM (type 2 diabetes mellitus): Controlled, last A1c 6.7 06/20/2020 Hold Metformin Continue Lantus/NovoLog per protocol (8) Hypothyroidism: Continue levothyroxine (9) Anemia: Hb stable monitor (10) DVT prophylaxis: SCDs Lovenox Sq Code Status Full Code Disposition : possible dc home tomorrow pt and his mother in agreement with the plan Admission and Anticipated Discharge Date Admission Date: August 01, 2020 Subjective continues to do well , able to walk with PT today , says he still feels a bit off balance no cough no fever or chills rash on extremities and torso has improved Review of Systems Review of Systems: All systems reviewed & are unremarkable except as noted in Subjective Physical Exam Constitutional: WD/WN, vitals as above well developed Eyes: PERRL, conjunctivae normal, anicteric sclerae ENMT: external ear and nose normal, oropharynx normal Neck: trachea midline, no thyromegaly Respiratory: normal respiratory effort, lungs clear to auscultation Cardiovascular: RRR, no murmur, no edema Gastrointestinal (Abdomen): normal bowel sounds, soft, nontender, no hepatosplenomegaly Musculoskeletal: no cyanosis or clubbing, extremities motor strength 5/5 Skin: + rash (improvement of rash on arm and torse , chronic skin changes on L leg) Neurologic: PERRL, EOMI, accommodation nl, no face palsy, no dysarthria Psychiatric: Orientation: alert and oriented x 3 Eye Contact: + fair eye contact Motor Behavior: no psychomotor agitation Affect: + anxious affect Thought Process: goal directed thought process Hallucinations: + auditory hallucinations (hearing people are talking about him ) Cognition: recent memory grossly intact, remote memory grossly intact and language grossly intact Insight: good insight Judgement: good judgement Results & Data Results & Data ([facility]) Vital Signs (Past 12 Hours) Vital Signs Temp Pulse Pulse Pulse Resp BP BP 08/04/20 15:06 36.6 C 65 18 135/84 08/04/20 11:17 36.7 C 65 18 126/82 08/04/20 07:53 60 08/04/20 07:33 36.5 C 70 18 140/86 08/04/20 05:00 37.0 C 60 18 120/76 Pulse Ox 08/04/20 15:06 93 08/04/20 11:17 93 08/04/20 07:53 08/04/20 07:33 94 08/04/20 05:00 95
[2020-08-04] MEDS: SENNA 8.6 MG TAB PO SCH (20:06)
[2020-08-04] MEDS: cloZAPine 100 MG TAB PO SCH (20:07)
[2020-08-05] MEDS: LEVOTHYROXINE SODIUM 175 MCG TABLET PO SCH (06:04)
[2020-08-05] MEDS: ASPIRIN 81 MG ECTAB PO SCH (08:49)
[2020-08-05] MEDS: OXYBUTYNIN CHLORIDE 5 MG TAB PO SCH (08:50)
[2020-08-05] MEDS: CHOLECALCIFEROL 1,000 UNITS 25 MCG TAB PO SCH (08:50)
[2020-08-05] MEDS: PARoxetine HCL 20 MG TAB PO SCH (08:50)
[2020-08-05] MEDS: INSULIN ASPART 100 UNITS/ML 3 ML PEN SC SCH ×2 (08:50→13:14)
[2020-08-05] MEDS: CYANOCOBALAMIN 500 MCG TABLET (VITAMIN B-12) PO SCH (08:50)
[2020-08-05] MEDS: ATORVASTATIN 40 MG TAB PO SCH (08:50)
[2020-08-05] MEDS: TRIAMCINOLONE ACET 0.1% CR 80 GM TUBE EXT SCH (08:50)
[2020-08-05] MEDS: METOPROLOL SUCC 25MG EXT REL TAB PO SCH (08:50)
[2020-08-05] MEDS: INSULIN GLARGINE SOLOSTAR 100 UNITS/ML 3 ML PEN SC SCH (08:52)
[2020-08-05] MEDS: clonazePAM 0.5 MG TAB PO SCH (08:55)
--- NOTE | 2020-08-05 12:07 | Hospitalist Progress Note ---
Date of Service August 05, 2020 Assessment & Plan (1) Fever: (2) Hypoxia: (3) Ambulatory dysfunction: Patient is a 59 yr male with H/O Schizoaffective disorder, bipolar disorder, T2DM, hypothyroidism, HTN, HLD, obesity who presents to ED secondary to fever, generalized confusion x2 to 3 days. Presented with a fever/altered mental status: Possible metabolic encephalopathy due to: Suspected UTI: CT abdomen pelvis: mild bladder wall thickening. This raises the possibility of a cystitis. Recommend close with urinalysis. Right-sided nephrolithiasis. No ureteral stones. No hydronephrosis. -Urine Cx unreliable given partially treated with Bactrim outpatient Blood cultures been negative to date -Normal lactate, Procalcitonin levels Antibiotics D/gaurav rash No active fever/shortness of breath/hypoxia -which has resolved DD:? Drug reaction to Bactrim, Can not rule out infection, ? Lymphoproliferative disorder antibiotics d/gaurav Confusion/metabolic encephalopathy Lyme, Anaplasmosis Screen: Negative Toxicology Screen:Negative -CT head: No acute intracranial abnormality. -Peripheral Smear: No dysplasia, malignant cells seen. Mental status gradually improving: Possible lymphoproliferative disorder, incidental finding of lymphadenopathy -CT ABD/Chest:Trace bilateral pleural fusions with bibasilar linear densities. This favors atelectasis. A pneumonia could also have a similar appearance in the appropriate clinical setting. Mild circumferential thickening of the esophagus. A few mildly enlarged mediastinal, axillary, right subpectoral, and pelvic lymph nodes which have slightly increased in size compared to the prior study. These are nonspecific but could represent a low-grade lymphoproliferative disorder. Follow-up recommended. Requested surgical evaluation for possible lymph node biopsy Appreciate input from surgery team: Scheduled to see at surgery clinic next week for ultrasound-guided axillary lymph node biopsy ordered for flow cytometry Will need oncology evaluation as outpatient (4) Rash: chronic erythematous rash , possible drug reaction ? vs inflammatory dermatitis no sign of any infectious process : NO SCABIES dc contact isolation Needs Dermatology eval as outpatient rash noted to be improved after starting on topical steroids , (5) Abnormal CT scan: Management as above (6) Schizophrenia: Schizophrenia Bipolar disorder complains of feeling foggy and hearing voices ( people are whispering , talking about him on the [address] ) no agitation , feels anxious with his symptoms pt follows with Psychiatry Dr Ellis pt's psychiatric meds continued Psychiatry consulted, appreciate input (7) T2DM (type 2 diabetes mellitus): Controlled, last A1c 6.7 06/20/2020 Hold Metformin Continue Lantus/NovoLog per protocol (8) Hypothyroidism: Continue levothyroxine (9) Anemia: Hb stable monitor (10) DVT prophylaxis: SCDs Lovenox Sq Code Status Full Code Disposition : Stable to be discharged home today Admission and Anticipated Discharge Date Admission Date: August 01, 2020 Subjective continues to do well , able to walk with PT today , says he still feels a bit off balance no cough no fever or chills rash on extremities and torso has improved Physical Exam Constitutional: WD/WN, vitals as above well developed Eyes: PERRL, conjunctivae normal, anicteric sclerae ENMT: external ear and nose normal, oropharynx normal Neck: trachea midline, no thyromegaly Respiratory: normal respiratory effort, lungs clear to auscultation Cardiovascular: RRR, no murmur, no edema Gastrointestinal (Abdomen): normal bowel sounds, soft, nontender, no hepatosplenomegaly Musculoskeletal: no cyanosis or clubbing, extremities motor strength 5/5 Skin: + rash (improvement of rash on arm and torse , chronic skin changes on L leg) Neurologic: PERRL, EOMI, accommodation nl, no face palsy, no dysarthria Psychiatric: Orientation: alert and oriented x 3 Eye Contact: + fair eye contact Motor Behavior: no psychomotor agitation Affect: + anxious affect Thought Process: goal directed thought process Hallucinations: + auditory hallucinations (hearing people are talking about him ) Cognition: recent memory grossly intact, remote memory grossly intact and language grossly intact Insight: good insight Judgement: good judgement Results & Data Results & Data ([facility]) Vital Signs (Past 12 Hours) Vital Signs Temp Pulse Resp BP Pulse Ox 08/05/20 08:25 36.3 C L 62 16 133/77 92
--- NOTE | 2020-08-05 12:21 | Surgery Consultation ---
Date of Consultation August 05, 2020 Assessment & Plan (1) Lymphadenopathy: pt is a 59 year-old male who was admitted to hospital for fever and confusion, CT abdomen showed trace bilateral pleural effusions, bibasilar linear densities, mediastinal, axillary, subpectoral and pelvic lymphadenopathy IMP: lymphadenopathy base on pt discharge home today, I will F/U pt in my clinic next week, for possible do out-patient biopsy axillary lymph node under U/S needle located, please call my office for office visiting next week, , Thanks, pt agrees with the plan, I answered all questions, Present on Admission?: Yes Supervising Physician Co-Signing Physician Notes Patient is a 59-year-old male with history of schizoaffective, bipolar disorder, diabetes mellitus, hypothyroidism and other medical problems presents with history of fever, change in mental status, and generalized weakness and chronic rash since many months. Patient was recently thought to have urinary tract infection and was placed on Bactrim by PCP. Patient denies any chest pain, shortness of breath, cough, abdominal pain, diarrhea, hematuria. He agrees to have dysuria which has been slowly improving since Bactrim use. Currently oriented x3 but slow to respond while in ED. Denies any drug, alcohol use. Please review HPI for complete details of presentation. Labs suggestive of anemia, thrombocytopenia, mild hyponatremia, normal lactate, procalcitonin, TSH levels. Urinalysis likely contaminated sample. Toxicology screen is negative. Negative Covid, influenza screen. CT head showed no acute intracranial abnormality. CT abdomen showed trace bilateral pleural effusions, bibasilar linear densities, mediastinal, axillary, subpectoral and pelvic lymphadenopathy and possible cystitis. On exam patient is obese, no apparent distress, normocephalic atraumatic, lungs-decreased breath sounds, clear to auscultation, no accessory muscle use, S1-S2, no murmur, trace pedal edema, abdomen soft, nontender, normal bowel sounds, alert, awake, oriented, slow to respond, no focal weakness, + erythematous petechial rash generalized. Patient is admitted for management of flulike symptoms, and change in mental status. Will start on broad-spectrum antibiotics. Will obtain peripheral smear to rule out any anaplasmosis, abnormal cells to suggest malignancy. Blood cultures obtained. Agree with trial of permethrin for possible scabies. Will consider surgical evaluation for possible lymph node biopsy. On insulin therapy while hospitalized for diabetes management. I personally reviewed the record. Patient is interviewed and examined at bedside. Patient's care is coordinated with Karmen Abreu PA-C. Please refer to the documentation above for details of patient's presentation and for discussion of other issues. History of Present Illness Attending Physician: Flori Vega MD Chief Complaint: Fever, generalized confusion x 2-3 days. Primary Care Provider: Maurilio Orta MD This is a 59-year-old male who has significant past medical history of schizoaffective disorder, bipolar disorder, T2DM, hypothyroidism, HTN, HLD, obesity who presents to ED secondary to fever, generalized confusion x2 to 3 days. Of significance patient was recently seen and evaluated at PCP office on 07/27 secondary to increased urinary frequency, urgency, dysuria and pelvic pressure. A urinalysis was obtained and he was empirically started on oral Bactrim. Urinalysis was negative for growth of bacteria. Microscopic UA did show moderate amount of blood. Mother started to notice pt started declining on Saturday. She felt like he was not himself, increasing confusion, weakness, nausea, and occasional vomiting. 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 He feels the dysuria, pelvic pressure, hematuria and increased urg with urination has resolved. He initially noticed hematuria, but this resolved. On Saturday he started Bactrim and took 1 dose and has taken last dose last evening. He denies abdominal pain, diarrhea, chest pain, trouble breathing, cough, URI sx. He does have dizziness when he gets up and walks around by denies syncope or lightheadedness. No recent change in medi cation other than bactrim. He has a rash that has been present for awhile. Denies tick bite. He occasionally has a couple beers, but nothing recent. Denies tobacco use and drug use. No FH of cancer. Appetite is overall poor. He admits to 4lb weight loss in 2-3 weeks. He denies night sweats. Mother at bedside states he has been more constipated. I ( Aaron Agudelo MD ) got a call for consult lymphadenopathy, I reviewed pt's H/P, labs, CT scan with pt, pt feels much better, pt will be discharged home today, Allergies Allergy/AdvReac Type Severity Reaction Status Date / Time Penicillins Allergy Unknown Verified 07/31/20 07:54 Iodinated Contrast Media AdvReac Unknown VOMITING Verified 07/31/20 07:54 WITH IV CONTRAST Home Medications Medication Instructions Recorded Confirmed Type atorvastatin 40 mg PO QAM 05/06/20 07/31/20 History clonazepam 0.5 mg PO BID 05/06/20 07/31/20 History clozapine 400 mg PO HS 05/06/20 07/31/20 History cyanocobalamin (vitamin B-12) 1,000 mcg PO QAM 05/06/20 07/31/20 History levothyroxine 175 mcg PO DAILYBB 05/06/20 07/31/20 History metformin 1,000 mg PO BID 05/06/20 07/31/20 History metoprolol succinate 25 mg PO QAM 05/06/20 07/31/20 History oxybutynin chloride See Rx Instructions .ROUTE .COMPLEX 05/06/20 07/31/20 History paroxetine HCl 60 mg PO QAM 05/06/20 07/31/20 History aspirin [Aspir-81] 81 mg PO QAM 07/31/20 07/31/20 History cholecalciferol (vitamin D3) 25 mcg PO QAM 07/31/20 07/31/20 History [Vitamin D3] omega 1-qzy-beb-fish oil [Fish Oil] 1 cap PO HS 07/31/20 07/31/20 History sennosides [senna] 17.2 mg PO HS 07/31/20 07/31/20 History sulfamethoxazole-trimethoprim 1 tab PO BID 07/31/20 07/31/20 History Past Med/Surg History Medical History (Updated 07/31/20 @ 16:40 by Karmen Abreu PA-C) Bimalleolar ankle fracture Bipolar disorder CAP (community acquired pneumonia) (01/03/14) Hypothyroidism Schizophrenia T2DM (type 2 diabetes mellitus) Surgical History (Updated 07/31/20 @ 16:31 by Karmen Abreu PA-C) H/O colonoscopy "06/14/2014 adenomatous polyps, repeat 5 yrs/COLONOSCOPY FLEXIBLE PROXIMAL DIAGNOSTIC performed by Fran Medley MD at [facility]" History of open reduction and internal fixation (ORIF) procedure Trimalleolar ankle fracture Family History Mother Stroke Diabetes Social History (Updated 07/31/20 @ 16:29 by Karmen Abreu PA-C) Smoking Status: Former smoker Hx Alcohol Use: Yes Alcohol type: beer Alcohol Intake Frequency: Monthly or Less Hx Substance Use: No Preferred Language: Telugu marital status: Single Current Living Situation: Family Current Living Situation Comment: lives with mother who cares for him current occupational status: employed and disabled current occupation: works at [employer] home Feels Safe at Home: Yes Review of Systems Review of Systems: All systems reviewed & are unremarkable except as noted in HPI & below Allergies Allergy/AdvReac Type Severity Reaction Status Date / Time sulfamethoxazole Allergy Intermediate Rash Verified 08/03/20 16:07 [From Bactrim] trimethoprim [From Bactrim] Allergy Intermediate Rash Verified 08/03/20 16:07 Penicillins Allergy Unknown Verified 07/31/20 07:54 Iodinated Contrast Media AdvReac Unknown VOMITING Verified 07/31/20 07:54 WITH IV CONTRAST Home Medications Medication Instructions Recorded Confirmed Type atorvastatin 40 mg PO QAM 05/06/20 07/31/20 History clonazepam 0.5 mg PO BID 05/06/20 07/31/20 History clozapine 400 mg PO HS 05/06/20 07/31/20 History cyanocobalamin (vitamin B-12) 1,000 mcg PO QAM 05/06/20 07/31/20 History levothyroxine 175 mcg PO DAILYBB 05/06/20 07/31/20 History metformin 1,000 mg PO BID 05/06/20 07/31/20 History metoprolol succinate 25 mg PO QAM 05/06/20 07/31/20 History oxybutynin chloride See Rx Instructions .ROUTE .COMPLEX 05/06/20 07/31/20 History paroxetine HCl 60 mg PO QAM 05/06/20 07/31/20 History aspirin [Aspir-81] 81 mg PO QAM 07/31/20 07/31/20 History cholecalciferol (vitamin D3) 25 mcg PO QAM 07/31/20 07/31/20 History [Vitamin D3] omega 7-umg-qup-fish oil [Fish Oil] 1 cap PO HS 07/31/20 07/31/20 History sennosides [senna] 17.2 mg PO HS 07/31/20 07/31/20 History sulfamethoxazole-trimethoprim 1 tab PO BID 07/31/20 07/31/20 History triamcinolone acetonide 1 applic EXT BID #15 g 08/05/20 Rx Patient History Medical History Bimalleolar ankle fracture Bipolar disorder CAP (community acquired pneumonia) (01/03/14) Hypothyroidism Schizophrenia T2DM (type 2 diabetes mellitus) Surgical History H/O colonoscopy "06/14/2014 adenomatous polyps, repeat 5 yrs/COLONOSCOPY FLEXIBLE PROXIMAL DIAGNOSTIC performed by Fran Medley MD at [facility]" History of open reduction and internal fixation (ORIF) procedure Trimalleolar ankle fracture Family History Mother Stroke Diabetes Social History Smoking Status: Former smoker Second Hand Exposure: No; Do You Dip or Chew Tobacco: No; Tobacco Cessation Education Requested by Patient: No Hx Alcohol Use: Yes Alcohol type: beer Alcohol Intake Frequency: Monthly or Less Hx Substance Use: No Preferred Language: Telugu Communication Ability: Effective Inventory Manager Required: No Beliefs That Will Affect Care: None marital status: Single Current Living Situation: Parent Current Living Situation Comment: lives with mother who cares for him current occupational status: employed and disabled current occupation: works at [employer] Other Information That Helps Us Care for You: No Feels Safe at Home: Yes Safety Concerns: Feels Safe At This Time Assistive Devices: Glasses Review of Systems Review of Systems: All systems reviewed & are unremarkable except as noted in HPI & below Constitutional: as per Subjective / HPI Eyes: as per Subjective / HPI Ear, Nose, Mouth, Throat: as per Subjective / HPI Respiratory: as per Subjective / HPI hypoxia Cardiovascular: as per Subjective / HPI Gastrointestinal: as per Subjective / HPI Genitourinary: + as per Subjective / HPI Musculoskeletal: as per Subjective / HPI Integumentary: as per Subjective / HPI Neurologic: as per Subjective / HPI Psychiatric: as per Subjective / HPI bipolar disorder, schizophrenia Endocrine: as per Subjective / HPI DM, hypothyroidism Physical Exam Constitutional: WD/WN, vitals as above well developed and well nourished Eyes: PERRL, conjunctivae normal, anicteric sclerae Neck: trachea midline, no thyromegaly Respiratory: normal respiratory effort, lungs clear to auscultation Cardiovascular: RRR, no murmur, no edema Gastrointestinal (Abdomen): normal bowel sounds, soft, nontender, no hepatosplenomegaly no papable lymph node on bilateral groin and axillary Musculoskeletal: no cyanosis or clubbing, extremities motor strength 5/5 Skin: no rashes, warm and dry Neurologic: patellar DTR's 2+ bilat, sensation intact Psychiatric: Orientation: alert and oriented x 3 Results & Data ([facility]) Vital Signs (Past 12 Hours) Vital Signs Temp Pulse Resp BP Pulse Ox 08/05/20 08:25 36.3 C L 62 16 133/77 92 Laboratory Results Abnormal lab results 08/04/20 08/04/20 08/05/20 Range/Units 16:23 19:59 07:57 POC Glucose 110 H 142 H 104 H (70-99) mg/dl Diagnostic Findings CT chest diagnostic wo con, CT abd pelvis wo con CT DOSE: 3530.19 mGy.cm HISTORY: Altered mental status, fever, urinary symptoms TECHNIQUE: Multiaxial CT images of the chest, abdomen, and pelvis were performed without contrast. A dose lowering technique was utilized adhering to the principles of ALARA. COMPARISON: Chest CT 01/08/2014. FINDINGS: Chest CT: No pneumothorax. Mild paraseptal emphysema is noted. There are trace bilateral pleural effusions. Bibasilar linear densities favor subsegmental atelectasis. A pneumonia could also have a similar appearance in the appropriate clinical setting. Mild bilateral lower lobe bronchial wall thickening. Punctate calcified granuloma within the left upper lobe. No suspicious lytic or blastic osseous lesions. Mild circumferential thickening of the esophagus. The heart is normal in size. No pericardial effusion. Normal caliber thoracic aorta. Mildly enlarged mediastinal lymph nodes have slightly increased in size. There are few poorly enlarged bilateral axillary lymph nodes which have slightly increased in size. For comparative purposes, an 8 mm left axillary lymph node measured 5 mm. There are greater than expected right-sided subpectoral lymph nodes which measure up to 8 mm in short axis diameter. Abdomen/pelvis CT: No pneumoperitoneum. No pneumatosis. No fractures within the visualized osseous structures. Suboptimal evaluation of the abdomen and pelvis due to the lack of contrast and streak artifact from the patient's overlapping arms. There are few prominent bilateral pelvic lymph nodes along the iliac chains. Dominant right external iliac lymph node measures 1.2 cm in short axis diameter best seen on image 443. Mild bladder wall thickening. There is minimal inflammatory change adjacent to the bladder wall. This raises the possibility of a cystitis. No pelvic free fluid. Moderate well-formed stool seen within the majority of the colon. Normal appendix. No definite bowel wall thickening or obstruction. The unenhanced liver, gallbladder, spleen, adrenal glands, and pancreas are unremarkable. There is a punctate stone within the right kidney. No ureteral stones. No hydronephrosis. There is mild bilateral perinephric edema. Normal caliber abdominal aorta. A few areas of focal fat within the liver adjacent to the radha hepatis. IMPRESSION: 1. Trace bilateral pleural fusions with bibasilar linear densities. This favors atelectasis. A pneumonia could also have a similar appearance in the appropriate clinical setting. 2. Mild circumferential thickening of the esophagus. 3. A few mildly enlarged mediastinal, axillary, right subpectoral, and pelvic lymph nodes which have slightly increased in size compared to the prior study. These are nonspecific but could represent a low-grade lymphoproliferative disorder. Follow-up recommended. 4. Mild bladder wall thickening. This raises the possibility of a cystitis. Recommend close with urinalysis. 5. Right-sided nephrolithiasis. No ureteral stones. No hydronephrosis. 6. Additional findings as described above. CT chest diagnostic wo con, CT abd pelvis wo con CT DOSE: 3530.19 mGy.cm HISTORY: Altered mental status, fever, urinary symptoms TECHNIQUE: Multiaxial CT images of the chest, abdomen, and pelvis were performed without contrast. A dose lowering technique was utilized adhering to the principles of ALARA. COMPARISON: Chest CT 01/08/2014. FINDINGS: Chest CT: No pneumothorax. Mild paraseptal emphysema is noted. There are trace bilateral pleural effusions. Bibasilar linear densities favor subsegmental atelectasis. A pneumonia could also have a similar appearance in the appropriate clinical setting. Mild bilateral lower lobe bronchial wall thickening. Punctate calcified granuloma within the left upper lobe. No suspicious lytic or blastic osseous lesions. Mild circumferential thickening of the esophagus. The heart is normal in size. No pericardial effusion. Normal caliber thoracic aorta. Mildly enlarged mediastinal lymph nodes have slightly increased in size. There are few poorly enlarged bilateral axillary lymph nodes which have slightly increased in size. For comparative purposes, an 8 mm left axillary lymph node measured 5 mm. There are greater than expected right-sided subpectoral lymph nodes which measure up to 8 mm in short axis diameter. Abdomen/pelvis CT: No pneumoperitoneum. No pneumatosis. No fractures within the visualized osseous structures. Suboptimal evaluation of the abdomen and pelvis due to the lack of contrast and streak artifact from the patient's overlapping arms. There are few prominent bilateral pelvic lymph nodes along the iliac chains. Dominant right external iliac lymph node measures 1.2 cm in short axis diameter best seen on image 443. Mild bladder wall thickening. There is minimal inflammatory change adjacent to the bladder wall. This raises the possibility of a cystitis. No pelvic free fluid. Moderate well-formed stool seen within the majority of the colon. Normal appendix. No definite bowel wall thickening or obstruction. The unenhanced liver, gallbladder, spleen, adrenal glands, and pancreas are unremarkable. There is a punctate stone within the right kidney. No ureteral stones. No hydronephrosis. There is mild bilateral perinephric edema. Normal caliber abdominal aorta. A few areas of focal fat within the liver adjacent to the radha hepatis.
--- NOTE | 2020-08-05 13:29 | Discharge Summary ---
Date of Service August 05, 2020 Admission HPI Per Admitting Provider This is a 59-year-old male who has significant past medical history of schizoaffective disorder, bipolar disorder, T2DM, hypothyroidism, HTN, HLD, obesity who presents to ED secondary to fever, generalized confusion x2 to 3 days. Of significance patient was recently seen and evaluated at PCP office on 07/27 secondary to increased urinary frequency, urgency, dysuria and pelvic pressure. A urinalysis was obtained and he was empirically started on oral Bactrim. Urinalysis was negative for growth of bacteria. Microscopic UA did show moderate amount of blood. Mother started to notice pt started declining on Saturday. She felt like he was not himself, increasing confusion, weakness, nausea, and occasional vomiting. 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 He feels the dysuria, pelvic pressure, hematuria and increased urg with urination has resolved. He initially noticed hematuria, but this resolved. On Saturday he started Bactrim and took 1 dose and has taken last dose last evening. He denies abdominal pain, diarrhea, chest pain, trouble breathing, cough, URI sx. He does have dizziness when he gets up and walks around by denies syncope or lightheadedness. No recent change in medication other than bactrim. He has a rash that has been present for awhile. Denies tick bite. He occasionally has a couple beers, but nothing recent. Denies tobacco use and drug use. No FH of cancer. Appetite is overall poor. He admits to 4lb weight loss in 2-3 weeks. He denies night sweats. Mother at bedside states he has been more constipated. Principal Diagnosis Fever: resolved Altered mental status metabolic encephalopathy due to infection : resolved Abnormal CT scan of abdomen/lymphadenopathy: concerning for lymphoproliferative disorder Schizoaffective disorder Discharge Exam Physical exam: General: No acute distress, alert awake oriented x3 HEENT: PERRLA, EOMI, Heart: Regular S1-S2, no carotid bruit, no JVD, no lower extremity edema Lungs: Clear to auscultate, no wheeze or rales Abdomen: Soft nontender, no organomegaly Extremity: No cyanosis, no deformity, normal strength 5 out of 5 with upper and lower Neuro: No focal neurological deficit normal speech, normal visual field, Motor strength : normal both upper and lower extremity, sensation intact Psych: Alert awake oriented x3, normal affect Discharge Data Allergies Allergy/AdvReac Type Severity Reaction Status Date / Time sulfamethoxazole Allergy Intermediate Rash Verified 08/03/20 16:07 [From Bactrim] trimethoprim [From Bactrim] Allergy Intermediate Rash Verified 08/03/20 16:07 Penicillins Allergy Unknown Verified 07/31/20 07:54 Iodinated Contrast Media AdvReac Unknown VOMITING Verified 07/31/20 07:54 WITH IV CONTRAST Consultations 07/31/20 14:36 ED Decision to Admit Stat 08/01/20 12:30 Consult General Surgery Routine 08/04/20 16:36 Consult Psychiatry Routine Ordered Studies 07/31/20 07:46 CT head/brain wo con Stat 07/31/20 07:54 CT abd pelvis wo con Stat CT chest diagnostic wo con Stat Hospital Course (1) Fever: (2) Hypoxia: (3) Ambulatory dysfunction: Patient is a 59 yr male with H/O Schizoaffective disorder, bipolar disorder, T2DM, hypothyroidism, HTN, HLD, obesity who presents to ED secondary to fever, generalized confusion x2 to 3 days. Presented with a fever/altered mental status: Possible metabolic encephalopathy due to: Suspected UTI: CT abdomen pelvis: mild bladder wall thickening. This raises the possibility of a cystitis. Recommend close with urinalysis. Right-sided nephrolithiasis. No ureteral stones. No hydronephrosis. -Urine Cx unreliable given partially treated with Bactrim outpatient Blood cultures been negative to date -Normal lactate, Procalcitonin levels Antibiotics D/gaurav rash No active fever/shortness of breath/hypoxia -which has resolved DD:? Drug reaction to Bactrim, Can not rule out infection, ? Lymphoproliferative disorder antibiotics d/gaurav Confusion/metabolic encephalopathy Lyme, Anaplasmosis Screen: Negative Toxicology Screen:Negative -CT head: No acute intracranial abnormality. -Peripheral Smear: No dysplasia, malignant cells seen. Mental status gradually improving: Possible lymphoproliferative disorder, incidental finding of lymphadenopathy -CT ABD/Chest:Trace bilateral pleural fusions with bibasilar linear densities. This favors atelectasis. A pneumonia could also have a similar appearance in the appropriate clinical setting. Mild circumferential thickening of the esophagus. A few mildly enlarged mediastinal, axillary, right subpectoral, and pelvic lymph nodes which have slightly increased in size compared to the prior study. These are nonspecific but could represent a low-grade lymphoproliferative disorder. Follow-up recommended. Requested surgical evaluation for possible lymph node biopsy Appreciate input from surgery team: Scheduled to see at surgery clinic next week for ultrasound-guided axillary lymph node biopsy ordered for flow cytometry Will need oncology evaluation as outpatient (4) Rash: chronic erythematous rash , possible drug reaction ? vs inflammatory dermatitis no sign of any infectious process : NO SCABIES dc contact isolation Needs Dermatology eval as outpatient rash noted to be improved after starting on topical steroids , (5) Abnormal CT scan: Management as above (6) Schizophrenia: Schizophrenia Bipolar disorder complains of feeling foggy and hearing voices ( people are whispering , talking about him on the [address] ) no agitation , feels anxious with his symptoms pt follows with Psychiatry Dr Ellis pt's psychiatric meds continued Psychiatry consulted, appreciate input (7) T2DM (type 2 diabetes mellitus): Controlled, last A1c 6.7 06/20/2020 Hold Metformin Continue Lantus/NovoLog per protocol (8) Hypothyroidism: Continue levothyroxine (9) Anemia: Hb stable monitor (10) DVT prophylaxis: SCDs Lovenox Sq Code Status Full Code Disposition : Stable to be discharged home today Total Time Total Time Spent Total Time Spent (In Minutes): 40mins Total Time Includes: Examination of the Patient, Discharge Planning, Medication Reconciliation and Communication With Other Providers Discharge Plan Discharge Items Patient Disposition: Home - Self-Care Reason For Visit: FEVER, AMBULATORY DYSFUNCTION, CONFUSION Discharge Diagnosis: Fever: resolved Altered mental status metabolic encephalopathy due to infection : resolved Abnormal CT scan of abdomen/lymphadenopathy: concerning for lymphoproliferative disorder Schizoaffective disorder Activity: Resume your previous activity Non-emergency contact: Primary Care Provider Call non-emergency contact if: you have any medication questions Follow-up/Referrals: Maurilio Orta MD [Primary Care Provider] - (Date & Time 08/11/2020 11:00 AM Provider Maurilio Orta III, MD Department [facility] ) Gayr Mcdermott MD [Physician] - 08/22/20 3:30 pm (Follow up with Psychiatry as scheduled ) Aaron Agudelo MD [Physician] - 08/11/20 8:00 am (Surgery follow-up for lymph nodes biopsy) Diet: Regular Addtl Attending Provider Instructions: Please take all medications as instructed on discharge list below. It is recommended that you follow-up with your primary care physician within 1-2 weeks of hospital discharge to ensure you are still doing well. Please call if you have any questions or problems. You can reach a [facility] hospitalist on duty at [facility] 24 hours a day by calling [phone] Follow-up appointment scheduled with Dr. Mcdermott, on August 22, 2020 at 3:30. Addtl [employer] Supervisor Provider Instructions: Abnormal CT abdomen/pelvis : /incidental finding of lymphadenopathy: A few mildly enlarged mediastinal, axillary, right subpectoral, and pelvic lymph nodes which have slightly increased in size compared to the prior study. These are nonspecific but could represent a low-grade lymphoproliferative disorder. Needs Biospy Follow-up with surgery Dr. Agudelo on 08/11/20 @ 8 am for evaluation for lymph node biopsy Needs Dermatology follow up in clinic Pending Studies at Discharge: No Stand-Alone Forms: My [facility], Smoking Cessation Medications and DC Order Prescriptions: New triamcinolone acetonide 0.1 % Cream 1 applic EXT BID Qty: 15 RF: 3 Continued atorvastatin 40 mg tablet 40 mg PO QAM RF: 0 levothyroxine 175 mcg tablet 175 mcg PO DAILYBB RF: 0 clonazepam 0.5 mg tablet 0.5 mg PO BID RF: 0 cyanocobalamin (vitamin B-12) 1,000 mcg tablet 1,000 mcg PO QAM RF: 0 paroxetine HCl 30 mg tablet 60 mg PO QAM RF: 0 metformin 1,000 mg tablet 1,000 mg PO BID RF: 0 metoprolol succinate 25 mg tablet extended release 24 hr 25 mg PO QAM RF: 0 oxybutynin chloride 5 mg tablet See Rx Instructions .ROUTE .COMPLEX RF: 0 clozapine 200 mg tablet 400 mg PO HS RF: 0 sennosides [senna] 8.6 mg Tablet 17.2 mg PO HS RF: 0 aspirin [Aspir-81] 81 mg Tablet,Delayed Release (Dr/Ec) 81 mg PO QAM RF: 0 cholecalciferol (vitamin D3) [Vitamin D3] 25 mcg (1,000 unit) Capsule 25 mcg PO QAM RF: 0 omega 0-rst-wgg-fish oil [Fish Oil] 1,200 (144-216) mg Capsule 1 cap PO HS RF: 0 Discontinued sulfamethoxazole-trimethoprim 800-160 mg tablet 1 tab PO BID RF: 0 Discharge Orders: Discharge Order (Routine); Ordered 08/05/20 Ordered By: Flori Vega Admission Data Admit Date/Time: 08/01/20 08:22 Attending Provider: Flori Vega Admit Provider: Peyman Rock Primary Care Provider: Maurilio Orta Other Providers: Peyman Rock ; Magdaleno Marroquin ; Majo Willoughby ; Cary Curtis ; Jose Haynes ; Gary Granger ; Chikis Barragan ; Perla Colorado ; Perez Trejo Jr ; Aaron Agudelo ; Enrique Bragg ; Comfort Zabala ; Gary Mcdermott I.
--- NOTE | 2020-08-05 13:49 | Psychiatric Consultation ---
Date of Consultation August 05, 2020 Impression / Recommendations Impression 59-year-old male with a history of schizophrenia presenting following a UTI. Patient does not represent a danger to himself or others at this time above his baseline and is able to be managed on an outpatient basis. It is likely that his underlying symptoms were somewhat exacerbated by his UTI, and we would expect him to improve as the infection continues to clear. Recommendations: No med changes at this time Patient is clear for discharge from a psychiatric perspective If patient exhibits significant anxiety while in hospital, consider as needed Ativan Psychiatric liaison to confirm outpatient follow-up appointments Inventory Assets Strengths: Insight Risk Factors Assessment Male: Yes : Yes Do You Have Access To A Gun?: No Previous Psychiatric Hospitalization: Yes Hopelessness: No Protective Factors Assessment Stable Relationships: Yes Good Rapport with Provider: Yes Psych History Identifying Data 59-year-old male presenting following a UTI. Patient has a history of schizophrenia and psychiatry was consulted. Chief Complaint "I'm feeling better". History of Present Illness HPI as per psychiatric liaison " Met with patient at bedside to complete mental health evaluation. He is alert and oriented to person, place, time, and situation. He is easily engaged and maintains appropriate eye contact. He is agreeable to interview at this time and is pleasant throughout our interaction. He appears to be well groomed and appropriately dressed. Is able to maintain focus without difficulty throughout. Does not appear to be responding to internal stimuli. All information contained in assessment obtained from patient. Patient is a 59 year old male admitted for fever, ambulatory dysfunction, and confusion. Psychiatry team was consulted for Hallucinations and hx of Schizophrenia. Chief complaint is Voices are worse today so I thought I should let the nurse know. He reports that today he started hearing voices calling him derogatory names from the hallway. He also specifies that he is aware that these voices are not based in reality and does not feel threatened/uncomfortable with staff providing care. He also reports command hallucinations occurring only today to kill himself, he is able to acknowledge without encouragement that these command hallucinations are not reality based and denies intent to act upon those thoughts. Endorses fleeting passive wishes occurring once in a while over the past week. He denies HI and VH. He endorses several depressive symptoms. PHQ-9: 14, question 9: 1. He denies feelings of anxiety at this time. He suspects that hospitalization as well as feeling physically unwell prior to admission have exacerbated these symptoms which he describes as chronic. He is able to contract for safety within the hospital at this time and insists to this RN he is able to contract for safety outside of the hospital as well. His psychiatric history includes past diagnosis of Schizoaffective disorder and Bipolar disorder. Past attempts include 3 prior attempts via cutting or OD years ago. Prior inpatient for psych include several past admissions to , last in 2010 with paranoid schizophrenia diagnosis. Past hospitalizations also include 2 admissions to [facility]. Outpatient providers currently include Dr. Mcdermott at [facility] for psychiatry, João Gerber at [facility] for CM, and a [employer] [facility]. He does not currently have a therapist, previously saw Diogo Sims at his private practice, last appointment was 12/2019. His main support is his Mother, Carolyne Chowdhury. He signs CHRIS consent forms for his psychiatrist and his CM. He reports that he feels that his current medication regimen is effective for him and believes acute illness/hospitalization has caused his symptoms to exacerbate. He is willing to meet with psychiatry tomorrow." Patient was reexamined today alongside psychiatric liaison. Patient endorsed the above information is accurate. He states today that the voices were no longer bothering him. He also went on to state that he is not actively suicidal at this time. Patient has good insight into his illness is unable to recognize the presence of chronic longstanding symptoms and not felt them affect his day-to-day functioning. He is able to contract for safety at this time, and agreeable to follow-up on an outpatient basis. Past Psychiatric History Current Psychiatric Diagnosis: Schizophrenia Do You Have Access To A Gun?: No Allergies Allergy/AdvReac Type Severity Reaction Status Date / Time sulfamethoxazole Allergy Intermediate Rash Verified 08/03/20 16:07 [From Bactrim] trimethoprim [From Bactrim] Allergy Intermediate Rash Verified 08/03/20 16:07 Penicillins Allergy Unknown Verified 07/31/20 07:54 Iodinated Contrast Media AdvReac Unknown VOMITING Verified 07/31/20 07:54 WITH IV CONTRAST Home Medications Medication Instructions Recorded Confirmed Type atorvastatin 40 mg PO QAM 05/06/20 07/31/20 History clonazepam 0.5 mg PO BID 05/06/20 07/31/20 History clozapine 400 mg PO HS 05/06/20 07/31/20 History cyanocobalamin (vitamin B-12) 1,000 mcg PO QAM 05/06/20 07/31/20 History levothyroxine 175 mcg PO DAILYBB 05/06/20 07/31/20 History metformin 1,000 mg PO BID 05/06/20 07/31/20 History metoprolol succinate 25 mg PO QAM 05/06/20 07/31/20 History oxybutynin chloride See Rx Instructions .ROUTE .COMPLEX 05/06/20 07/31/20 History paroxetine HCl 60 mg PO QAM 05/06/20 07/31/20 History aspirin [Aspir-81] 81 mg PO QAM 07/31/20 07/31/20 History cholecalciferol (vitamin D3) 25 mcg PO QAM 07/31/20 07/31/20 History [Vitamin D3] omega 2-hgp-cvn-fish oil [Fish Oil] 1 cap PO HS 07/31/20 07/31/20 History sennosides [senna] 17.2 mg PO HS 07/31/20 07/31/20 History triamcinolone acetonide 1 applic EXT BID #15 g 08/05/20 Rx Personal History Beliefs That Will Affect Care: None Patient History Medical History Bimalleolar ankle fracture Bipolar disorder CAP (community acquired pneumonia) (01/03/14) Hypothyroidism Schizophrenia T2DM (type 2 diabetes mellitus) Surgical History H/O colonoscopy "06/14/2014 adenomatous polyps, repeat 5 yrs/COLONOSCOPY FLEXIBLE PROXIMAL DIAGNOSTIC performed by Fran Medley MD at [facility]" History of open reduction and internal fixation (ORIF) procedure Trimalleolar ankle fracture Family History Mother Stroke Diabetes Social History Smoking Status: Former smoker Second Hand Exposure: No; Do You Dip or Chew Tobacco: No; Tobacco Cessation Education Requested by Patient: No Hx Alcohol Use: Yes Alcohol type: beer Alcohol Intake Frequency: Monthly or Less Hx Substance Use: No Preferred Language: Luxembourgish Communication Ability: Effective 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 Beliefs That Will Affect Care: None marital status: Single Current Living Situation: Parent Current Living Situation Comment: lives with mother who cares for him current occupational status: employed and disabled current occupation: works at [employer] home Other Information That Helps Us Care for You: No Feels Safe at Home: Yes Safety Concerns: Feels Safe At This Time Assistive Devices: Glasses Physical Exam Psychiatric: Orientation: alert and oriented x 3 Apperance: appropriately groomed Eye Contact: + fair eye contact Motor Behavior: no abnormal motor movements Speech: normal rate/rhythm/volume of speech Affect: euthymic affect Mood: no depressed mood, no irritable mood and no dysphoric mood Thought Process: linear/logical thought process Thought Content: reality based without delusions Suicidal Thoughts: denies suicidal plan and denies suicidal intent Homicidal Thoughts: denies homicidal thoughts and denies homicidal plan Hallucinations: no auditory hallucinations and no visual hallucinations Cognition: remote memory grossly intact Estimated Intelligence: consistent with education level Insight: + fair insight Judg ement: + fair judgement Vital Signs (Past 24 Hours): Last Vital Signs Temp 36.3 C L 08/05/20 08:25 Pulse 62 08/05/20 08:25 Resp 16 08/05/20 08:25 BP 133/77 08/05/20 08:25 Pulse Ox 92 08/05/20 08:25 Review of Systems All systems reviewed & are unremarkable except as noted in HPI & below Results & Data (PSY) Medications Administered Acetaminophen (Acetaminophen 325 Mg Tab) 650 mg PO Q4H PRN PRN Reason: Pain or Fever Stop: 08/30/20 16:42 Last Admin: 07/31/20 20:58 Dose: 650 mg Documented by: [id number] Aspirin (Aspirin 81 Mg Ectab) 81 mg PO QAM [facility] Stop: 08/31/20 08:59 Last Admin: 08/05/20 08:49 Dose: 81 mg Documented by: [id number] Admin: 08/04/20 08:51 Dose: 81 mg Documented by: [id number] Admin: 08/03/20 08:27 Dose: 81 mg Documented by: [id number] Admin: 08/02/20 08:55 Dose: 81 mg Documented by: [id number] Admin: 08/01/20 08:58 Dose: 81 mg Documented by: [id number] Atorvastatin Calcium (Atorvastatin 40 Mg Tab) 40 mg PO QAM [facility] Stop: 08/31/20 08:59 Last Admin: 08/05/20 08:50 Dose: 40 mg Documented by: [id number] Admin: 08/04/20 08:52 Dose: 40 mg Documented by: [id number] Admin: 08/03/20 08:27 Dose: 40 mg Documented by: [id number] Admin: 08/02/20 08:55 Dose: 40 mg Documented by: [id number] Admin: 08/01/20 08:58 Dose: 40 mg Documented by: [id number] Clonazepam (Clonazepam 0.5 Mg Tab) 0.5 mg PO BID [facility] Stop: 08/30/20 20:59 Last Admin: 08/05/20 08:55 Dose: 0.5 mg Documented by: [id number] Admin: 08/04/20 20:08 Dose: 0.5 mg Documented by: [id number] Admin: 08/04/20 08:51 Dose: 0.5 mg Documented by: [id number] Admin: 08/03/20 20:06 Dose: 0.5 mg Documented by: [id number] Admin: 08/03/20 08:34 Dose: 0.5 mg Documented by: [id number] Admin: 08/02/20 20:40 Dose: 0.5 mg Documented by: [id number] Admin: 08/02/20 08:57 Dose: 0.5 mg Documented by: [id number] Admin: 08/01/20 21:14 Dose: 0.5 mg Documented by: [id number] Admin: 08/01/20 09:02 Dose: 0.5 mg Documented by: [id number] Admin: 07/31/20 21:28 Dose: 0.5 mg Documented by: [id number] Clozapine (Clozapine 100 Mg Tab) 400 mg PO HS [facility] Stop: 08/30/20 20:59 Last Admin: 08/04/20 20:07 Dose: 400 mg Documented by: [id number] Admin: 08/03/20 20:07 Dose: 400 mg Documented by: [id number] Admin: 08/02/20 20:40 Dose: 400 mg Documented by: [id number] Admin: 08/01/20 21:14 Dose: 400 mg Documented by: [id number] Admin: 07/31/20 21:28 Dose: 400 mg Documented by: [id number] Cyanocobalamin (Cyanocobalamin 500 Mcg Tablet (Vitamin B-12)) 1,000 mcg PO QAM [facility] Stop: 08/31/20 08:59 Last Admin: 08/05/20 08:50 Dose: 1,000 mcg Documented by: [id number] Admin: 08/04/20 08:52 Dose: 1,000 mcg Documented by: [id number] Admin: 08/03/20 08:27 Dose: 1,000 mcg Documented by: [id number] Admin: 08/02/20 08:55 Dose: 1,000 mcg Documented by: [id number] Admin: 08/01/20 08:58 Dose: 1,000 mcg Documented by: [id number] Insulin Aspart (Insulin Aspart 100 Units/Ml 3 Ml Pen) 0 units SC ACHS [facility] Stop: 08/30/20 17:14 Last Admin: 08/05/20 13:14 Dose: 2 units Documented by: [id number] Cosigned by: [id number] Admin: 08/05/20 08:50 Dose: 4 units Documented by: [id number] Cosigned by: [id number] Admin: 08/04/20 20:08 Dose: 1 units Documented by: [id number] Cosigned by: [id number] Admin: 08/04/20 17:48 Dose: 5 units Documented by: [id number] Cosigned by: [id number] Admin: 08/04/20 12:45 Dose: 5 units Documented by: [id number] Cosigned by: [id number] Admin: 08/04/20 08:54 Dose: 3 units Documented by: [id number] Cosigned by: [id number] Admin: 08/03/20 20:03 Dose: 1 units Documented by: [id number] Cosigned by: [id number] Admin: 08/03/20 17:12 Dose: 2 units Documented by: [id number] Cosigned by: [id number] Admin: 08/03/20 12:23 Dose: 6 units Documented by: [id number] Cosigned by: [id number] Admin: 08/03/20 08:28 Dose: 4 units Documented by: [id number] Cosigned by: [id number] Admin: 08/02/20 20:27 Dose: Not Given Documented by: [id number] Admin: 08/02/20 17:11 Dose: 4 units Documented by: [id number] Cosigned by: [id number] Admin: 08/02/20 12:12 Dose: 5 units Documented by: [id number] Cosigned by: [id number] Admin: 08/02/20 08:58 Dose: 5 units Documented by: [id number] Cosigned by: [id number] Admin: 08/01/20 20:43 Dose: Not Given Documented by: [id number] Admin: 08/01/20 17:10 Dose: 3 units Documented by: [id number] Cosigned by: [id number] Admin: 08/01/20 12:24 Dose: 5 units Documented by: [id number] Cosigned by: [id number] Admin: 08/01/20 10:08 Dose: 4 units Documented by: [id number] Cosigned by: [id number] Admin: 07/31/20 21:22 Dose: Not Given Documented by: [id number] Admin: 07/31/20 17:27 Dose: Not Given Documented by: [id number] Cosigned by: [id number] Insulin Glargine (Insulin Glargine Solostar 100 Units/Ml 3 Ml Pen) 0 - 10 units SC BID [facility] Stop: 08/30/20 20:59 Last Admin: 08/05/20 08:52 Dose: Not Given Documented by: [id number] Admin: 08/04/20 20:10 Dose: 5 units Documented by: [id number] Cosigned by: [id number] Admin: 08/04/20 08:53 Dose: Not Given Documented by: [id number] Admin: 08/03/20 20:02 Dose: 5 units Documented by: [id number] Cosigned by: [id number] Admin: 08/03/20 08:28 Dose: Not Given Documented by: [id number] Admin: 08/02/20 20:41 Dose: 5 units Documented by: [id number] Cosigned by: [id number] Admin: 08/02/20 08:58 Dose: Not Given Documented by: [id number] Admin: 08/01/20 21:15 Dose: 5 units Documented by: [id number] Cosigned by: [id number] Admin: 08/01/20 09:03 Dose: 5 units Documented by: [id number] Cosigned by: [id number] Admin: 07/31/20 21:23 Dose: Not Given Documented by: [id number] Levothyroxine Sodium (Levothyroxine Sodium 175 Mcg Tablet) 175 mcg PO DAILYBB [facility] Stop: 08/31/20 06:29 Last Admin: 08/05/20 06:04 Dose: 175 mcg Documented by: [id number] Admin: 08/04/20 06:11 Dose: 175 mcg Documented by: [id number] Admin: 08/03/20 06:04 Dose: 175 mcg Documented by: [id number] Admin: 08/02/20 06:39 Dose: 175 mcg Documented by: [id number] Admin: 08/01/20 06:31 Dose: 175 mcg Documented by: [id number] Metoprolol Succinate (Metoprolol Succ 25mg Ext Rel Tab) 25 mg PO QAM [facility] Stop: 08/31/20 08:59 Last Admin: 08/05/20 08:50 Dose: 25 mg Documented by: [id number] Admin: 08/04/20 08:51 Dose: 25 mg Documented by: [id number] Admin: 08/03/20 08:27 Dose: 25 mg Documented by: [id number] Admin: 08/02/20 08:56 Dose: 25 mg Documented by: [id number] Admin: 08/01/20 08:56 Dose: 25 mg Documented by: [id number] Oxybutynin Chloride (Oxybutynin Chloride 5 Mg Tab) 5 mg PO QPM [facility] Stop: 08/30/20 20:59 Last Admin: 08/04/20 20:06 Dose: 5 mg Documented by: [id number] Admin: 08/03/20 20:08 Dose: 5 mg Documented by: [id number] Admin: 08/02/20 20:40 Dose: 5 mg Documented by: [id number] Admin: 08/01/20 21:14 Dose: 5 mg Documented by: [id number] Admin: 07/31/20 21:28 Dose: 5 mg Documented by: [id number] Oxybutynin Chloride (Oxybutynin Chloride 5 Mg Tab) 2.5 mg PO QAM [facility] Stop: 08/31/20 08:59 Last Admin: 08/05/20 08:50 Dose: 2.5 mg Documented by: [id number] Admin: 08/04/20 08:52 Dose: 2.5 mg Documented by: [id number] Admin: 08/03/20 08:26 Dose: 2.5 mg Documented by: [id number] Admin: 08/02/20 08:56 Dose: 2.5 mg Documented by: [id number] Admin: 08/01/20 08:57 Dose: 2.5 mg Documented by: [id number] Paroxetine HCl (Paroxetine Hcl 20 Mg Tab) 60 mg PO QAM [facility] Stop: 08/31/20 08:59 Last Admin: 08/05/20 08:50 Dose: 60 mg Documented by: [id number] Admin: 08/04/20 08:51 Dose: 60 mg Documented by: [id number] Admin: 08/03/20 08:27 Dose: 60 mg Documented by: [id number] Admin: 08/02/20 08:55 Dose: 60 mg Documented by: [id number] Admin: 08/01/20 08:57 Dose: 60 mg Documented by: [id number] Sennosides (Senna 8.6 Mg Tab) 17.2 mg PO HS [facility] Stop: 08/30/20 20:59 Last Admin: 08/04/20 20:06 Dose: 17.2 mg Documented by: [id number] Admin: 08/03/20 20:08 Dose: Not Given Documented by: [id number] Admin: 08/02/20 20:41 Dose: 17.2 mg Documented by: [id number] Admin: 08/01/20 21:14 Dose: 17.2 mg Documented by: [id number] Admin: 07/31/20 21:29 Dose: 17.2 mg Documented by: [id number] Triamcinolone Acetonide (Triamcinolone Acet 0.1% Cr 80 Gm Tube) 1 appln EXT BID [facility] Stop: 09/02/20 20:59 Last Admin: 08/05/20 08:50 Dose: 1 appln Documented by: [id number] Admin: 08/04/20 20:05 Dose: 1 appln Documented by: [id number] Admin: 08/04/20 08:53 Dose: 1 appln Documented by: [id number] Admin: 08/03/20 20:08 Dose: 1 appln Documented by: [id number] Vitamin D (Cholecalciferol 1,000 Units 25 Mcg Tab) 1,000 units PO QAM [facility] Stop: 08/31/20 08:59 Last Admin: 08/05/20 08:50 Dose: 1,000 units Documented by: [id number] Admin: 08/04/20 08:51 Dose: 1,000 units Documented by: [id number] Admin: 08/03/20 08:27 Dose: 1,000 units Documented by: [id number] Admin: 08/02/20 08:56 Dose: 1,000 units Documented by: [id number] Admin: 08/01/20 08:57 Dose: 1,000 units Documented by: [id number] Coding Level of Care Code 61720 [facility] Intl Hosp Care Lvl 2
== END 2020-08-05 14:14 | disposition home or self-care (01) | DRG 689 ==
LOC: 2N 07:14 → ED 07:14 → 2N 16:25 → SUATTDRO 08-01 08:22

== ENCOUNTER 2020-10-11 21:53 | Inpatient (IN) ==
[2020-10-11] MEDS ORDERED: SODIUM CHLORIDE 0.9% 1000ML 1,000 ML IV ONE (23:30)
[2020-10-11] MEDS ORDERED: ACETAMINOPHEN 500 MG TAB PO STA (23:30)
--- NOTE | 2020-10-11 23:35 | Emergency Department Note ---
Impression & Plan Abscess of right axilla ED Provider Note Name: JUNIOR SAN Age: 60 Sex: M Arrives Via: Ambulance Informant: Patient ED Provider: Juaquin Noble MD Chief Complaint: infection Impression: See Above Medical Decision Makin yr old male with right armpit lymph node dissection recently. He now has large swelling, surround erythema and fever. Consistent with infection and labs/cultures obtained. WBC and CRP mildly elevated. US with large fluids collection in area, non pulsatile. Patient feeling better with hydration and agreeable to hospitalization for management os this. He is not septic at this time but given findings and I did feel broad spectrum abx indicated. Not requiring 30ml/kg IV fluids at this time. Prior Medical Record and Triage/Nursing Notes reviewed by Me Additional history obtained from chart Differentials:Viral syndrome, otitis, pharyngitis, pneumonia, influenza, meningitis, urinary tract infection, sepsis, bacteremia, as well as other pathologies. Vital Signs: reviewed and remarkable for fever Interventions: See Below Labs:Reviewed and remarkable for no significant abnormalities Imaging:See Below Consults:Dr Courtney Hospitalist, Jesús Vieyra PA-C Gen Surg Plan: Disposition:Hospitalization. Condition: Good History of Present Illness:60 yr old male arrives for evaluation of fever. Patient with right arm pit lymph node surgery [address] Agudelo. Notes some worsening soreness the last few days and then increasing pain today. Associated fevers, chills, and fatigue. Notes rash and swelling increasing under right armpit. Currently on Erythromycin abx. used Oxy IR prior to arrival with improvement of pain. No falls, nausea, vomiting, syncope, headache, neck pain, sob, cough, urinary/bowel symptoms, leg swelling nor other symptoms. Movement makes worse, rest makes better. Denies issues with infections previously. ROS: See above HPI for pertinent positives & negatives. A total of 10 systems reviewed and were otherwise negative. Past Medical History:See Below Past Surgical History:See Below Family History:See Below Social History:See Below Home Medications:See Below Allergies:See Below Vitals:Blood Pressure: 156/83, Pulse 97, RR 18, T 37.7C, O2 92% on RA Physical Exam: GENERAL: Patient is unwell and tired appearing and in minimal distress. EYES: No scleral icterus, unremarkable pupils. ENT: Mucous membranes moist, no nasal congestion. NECK: No masses appreciated, nomeningismus, trachea is midline. RESPIRATORY: No dyspnea. Clear to auscultation and equal bilaterally. No wheeze, no rhonchi. CARDIOVASCULAR: Regular rate and rhythm.No murmurs, rubs, gallops appreciated. GASTROINTESTINAL: Abdomen soft, non-tender, no peritonitis.Bowel sounds positive.No masses appreciated. BACK: No midline tenderness, no CVA tenderness EXTREMITIES: Large swelling and TTP over incision scar right armpit with surr ounding edema and erythema. Otherwise normal motion all extremities, no cyanosis, no edema. NEUROLOGIC: Alert and oriented, no acute motor or sensory deficits, no focal weakness, cranial nerves grossly intact. SKIN: No rash, no jaundice, no diaphoresis. PSYCH: Appropriate GCS: 15 ED Course: Times/Reassessments: Appears well without complaints and agreeable to plan Juaquin Noble MD Past Med/Surg History Medical History (Updated 10/12/20 @ 14:34 by Juaquin Noble MD) Anxiety and depression Bipolar disorder Constipation History of migraine REMOTE HLD (hyperlipidemia) HTN (hypertension) Hypothyroidism Schizophrenia T2DM (type 2 diabetes mellitus) Urinary incontinence Surgical History (Updated 10/12/20 @ 04:59 by Caity Gauthier RN) H/O lymph node biopsy RIGHT AXILLARY History of colonoscopy History of open reduction and internal fixation (ORIF) procedure Trimalleolar ankle fracture - Rt History of wisdom tooth extraction Family History Mother Diabetes Stroke Other No family history of adverse response to anesthesia Social History Smoking Status: Former smoker Smoking End Date: QUIT 30 YEARS AGO; Second Hand Exposure: No; Do You Dip or Chew Tobacco: No; Tobacco Cessation Education Requested by Patient: No Hx Alcohol Use: Yes Alcohol type: beer Alcohol Intake Frequency: Monthly or Less Hx Substance Use: No Preferred Language: Jamaican Communication Ability: Effective [id number] Administrator Required: No Beliefs That Will Affect Care: None marital status: Single Current Living Situation: Parent Current Living Situation Comment: LIVES WITH MOTHER current occupational status: employed and disabled current occupation: works at [employer] home Feels Safe at Home: Yes Safety Concerns: Feels Safe At This Time Assistive Devices: None Allergies Allergies Allergy/AdvReac Type Severity Reaction Status Date / Time sulfamethoxazole Allergy Intermediate Rash Verified 10/11/20 22:58 [From Bactrim] trimethoprim [From Bactrim] Allergy Intermediate Rash Verified 10/11/20 22:58 Penicillins Allergy Unknown Rash Verified 10/11/20 22:58 Iodinated Contrast Media AdvReac Unknown VOMITING Verified 10/11/20 22:58 WITH IV CONTRAST Home Meds Home Medications Medication Instructions Recorded Confirmed atorvastatin 40 mg tablet 40 mg PO QAM 05/06/20 10/11/20 clonazepam 0.5 mg tablet 0.5 mg PO BID 05/06/20 10/11/20 clozapine 200 mg tablet 400 mg PO HS 05/06/20 10/11/20 cyanocobalamin (vitamin B-12) 1,000 mcg PO QAM 05/06/20 10/11/20 1,000 mcg tablet levothyroxine 175 mcg tablet 175 mcg PO DAILYBB 05/06/20 10/11/20 metformin 1,000 mg tablet 1,000 mg PO BID 05/06/20 10/11/20 metoprolol succinate 25 mg 25 mg PO QAM 05/06/20 10/11/20 tablet,extended release 24 hr oxybutynin chloride 5 mg tablet See Rx Instructions .ROUTE .COMPLEX 05/06/20 10/11/20 aspirin 81 mg tablet,delayed 81 mg PO QAM 07/31/20 10/11/20 release cholecalciferol (vitamin D3) 25 25 mcg PO QAM 07/31/20 10/11/20 mcg (1,000 unit) capsule (Vitamin D3) omega 9-uju-ooa-fish oil 1,200 mg 1 cap PO HS 07/31/20 10/11/20 (144 mg-216 mg) capsule (Fish Oil) sennosides 8.6 mg tablet (senna) 17.2 mg PO HS 07/31/20 10/11/20 paroxetine HCl 40 mg tablet 80 mg PO QAM 09/09/20 10/11/20 erythromycin 500 mg tablet 500 mg PO BID 10/11/20 10/11/20 Previous Rx's Medication Instructions Recorded oxycodone-acetaminophen 5 mg-325 1 tab PO Q6H PRN #20 tab 09/13/20 mg tablet (Percocet) Results & Data (ED) Vital Signs Vital Signs - 24 hr 10/11/20 21:59 10/12/20 00:42 10/12/20 01:00 Temperature 37.7 C H Temperature Source Oral Pulse Rate 97 H 93 H Pulse Rate [Left Apical] 93 H Pulse Rate from SpO2 Sensor 93 H Respiratory Rate 18 27 H 35 H Respiratory Effort / Characteristics Non-Labored Spontaneous Respiratory Depth Shallow Respiratory Pattern Regular Tachypnea Blood Pressure 156/83 H 132/84 Blood Pressure [Right Arm] 102/84 Blood Pressure Mean 107 100 Blood Pressure Mean [Right Arm] 90 Blood Pressure Position [Right Arm] Sitting Pulse Oximetry 92 92 89 L Oxygen Delivery Method Room Air Room Air Sepsis Recent Fever Within 48 Hours Yes Sepsis New/Unexplained Change in Mental Status No Sepsis Action Taken by Nursing No Action Required 10/12/20 01:30 10/12/20 02:25 10/12/20 02:30 Temperature Temperature Source Pulse Rate 91 H 94 H 92 H Pulse Rate [Left Apical] Pulse Rate from SpO2 Sensor Respiratory Rate 34 H 24 Respiratory Effort / Characteristics Respiratory Depth Respiratory Pattern Blood Pressure 120/83 121/66 Blood Pressure [Right Arm] Blood Pressure Mean 95 84 Blood Pressure Mean [Right Arm] Blood Pressure Position [Right Arm] Pulse Oximetry 93 Oxygen Delivery Method Room Air Sepsis Recent Fever Within 48 Hours Sepsis New/Unexplained Change in Mental Status Sepsis Action Taken by Nursing 10/12/20 02:40 10/12/20 03:01 Temperature 37.1 C Temperature Source Oral Pulse Rate 92 H Pulse Rate [Left Apical] Pulse Rate from SpO2 Sensor 92 H Respiratory Rate 20 Respiratory Effort / Characteristics Respiratory Depth Respiratory Pattern Blood Pressure Blood Pressure [Right Arm] Blood Pressure Mean Blood Pressure Mean [Right Arm] Blood Pressure Position [Right Arm] Pulse Oximetry 93 Oxygen Delivery Method Sepsis Recent Fever Within 48 Hours Sepsis New/Unexplained Change in Mental Status Sepsis Action Taken by Nursing Laboratory Data Result diagrams: 10/12/20 00:11 10/12/20 05:36 Lab Results 10/11/20 10/11/20 10/12/20 Range/Units 23:55 23:55 00:11 WBC (4.8-10.8) K/uL RBC (4.7-6.1) M/uL Hgb (14.0-18.0) g/dL Hct (42-52) % MCV (80-100) fL MCH (25-34) pg MCHC (32-36) g/dL RDW Std Deviation (36.4-46.3) fL RDW Coeff of Hernando (11.5-14.5) % Plt Count (130-400) K/uL MPV (7.4-10.4) fL Immature Gran % (Auto) % Neut % (Auto) % Lymph % (Auto) % Delta % (Auto) % Eos % (Auto) % Baso % (Auto) % Neut # (Auto) (1.4-6.5) K/uL Lymph # (Auto) (1.2-3.4) K/uL Delta # (Auto) (0.11-0.59) K/uL Eos # (Auto) (0-0.5) K/uL Baso # (Auto) (0-0.2) K/uL Immature Gran # (Auto) (0.00-0.02) K/uL Sodium (136-145) mmol/L Potassium (3.5-5.1) mmol/L Chloride (98-107) mmol/L Carbon Dioxide (21-32) mmol/L Anion Gap (3-11) BUN (7-18) mg/dl Creatinine (0.6-1.4) mg/dl Est Cr Clr Drug Dosing ml/min Est GFR ( Amer) ml/min Est GFR (Non-Af Amer) ml/min BUN/Creatinine Ratio (10-20) Glucose (70-99) mg/dl Estimat Average Glucose mg/dl Hemoglobin A1c (4.5-5.6) % Lactate 1.6 (0.4-2.0) mmol/L Calcium (8.5-10.1) mg/dl Magnesium Total Bilirubin Direct Bilirubin AST ALT Alkaline Phosphatase C-Reactive Protein (0-0.29) mg/dl Total Protein Albumin COVID-19 Eval Order Covid19 at [facility] SARS-CoV-2 (PCR) NEGATIVE (Negative) 10/12/20 10/12/20 10/12/20 Range/Units 00:11 00:11 00:11 WBC 13.14 H (4.8-10.8) K/uL RBC 4.61 L (4.7-6.1) M/uL Hgb 12.7 L (14.0-18.0) g/dL Hct 39.2 L (42-52) % MCV 85.0 (80-100) fL MCH 27.5 (25-34) pg MCHC 32.4 (32-36) g/dL RDW Std Deviation 43.5 (36.4-46.3) fL RDW Coeff of Hernando 14.1 (11.5-14.5) % Plt Count 203 (130-400) K/uL MPV 11.0 H (7.4-10.4) fL Immature Gran % (Auto) 0.6 % Neut % (Auto) 76.5 % Lymph % (Auto) 7.5 % Delta % (Auto) 15.2 % Eos % (Auto) 0.0 % Baso % (Auto) 0.2 % Neut # (Auto) 10.04 H (1.4-6.5) K/uL Lymph # (Auto) 0.99 L (1.2-3.4) K/uL Delta # (Auto) 2.00 H (0.11-0.59) K/uL Eos # (Auto) 0.00 (0-0.5) K/uL Baso # (Auto) 0.03 (0-0.2) K/uL Immature Gran # (Auto) 0.08 H (0.00-0.02) K/uL Sodium 134 L (136-145) mmol/L Potassium (3.5-5.1) mmol/L Chloride 102 (98-107) mmol/L Carbon Dioxide 28 (21-32) mmol/L Anion Gap 4.0 (3-11) BUN 14 (7-18) mg/dl Creatinine 1.04 (0.6-1.4) mg/dl Est Cr Clr Drug Dosing 103.6 ml/min Est GFR ( Amer) 91.3 ml/min Est GFR (Non-Af Amer) 78.8 ml/min BUN/Creatinine Ratio 13.6 (10-20) Glucose 157 H (70-99) mg/dl Estimat Average Glucose 140 mg/dl Hemoglobin A1c 6.5 H (4.5-5.6) % Lactate (0.4-2.0) mmol/L Calcium 8.7 (8.5-10.1) mg/dl Magnesium Cancelled Total Bilirubin Cancelled Direct Bilirubin Cancelled AST Cancelled ALT Cancelled Alkaline Phosphatase Cancelled C-Reactive Protein 25.50 H (0-0.29) mg/dl Total Protein Cancelled Albumin Cancelled COVID-19 Eval Order SARS-CoV-2 (PCR) (Negative) Administered Medications Acetaminophen (Acetaminophen 325 Mg Tab) 650 mg PO Q4H PRN PRN Reason: pain/fever Stop: 11/11/20 04:49 Last Admin: 10/12/20 08:06 Dose: 650 mg Documented by: [id number] Atorvastatin Calcium ([facility]atin 40 Mg Tab) [facility] Stop: 11/11/20 08:59 Last Admin: 10/12/20 08:02 Dose: 40 mg Documented by: [id number] Clonazepam (Clonazepam 0.5 Mg Tab) 0.5 mg PO BID [facility] Stop: 11/11/20 08:59 Last Admin: 10/12/20 08:06 Dose: 0.5 mg Documented by: [id number] Cyanocobalamin (Cyanocobalamin 500 Mcg Tablet (Vitamin B-12)) 1,000 mcg PO [facility] Stop: 11/11/20 08:59 Last Admin: 10/12/20 08:03 Dose: 1,000 mcg Documented by: [id number] Sodium Chloride (Nss 1000ml) 1,000 mls @ 80 mls/hr IV .[id number] [facility] Stop: 11/11/20 03:14 Last Admin: 10/12/20 06:38 Dose: 80 mls/hr Documented by: [id number] Cefepime HCl 2,000 mg/ Syringe 20 mls @ 5 mls/min IV Q8H [facility]; Protocol Stop: 10/19/20 11:59 Last Admin: 10/12/20 12:23 Dose: 5 mls/min Documented by: [id number] Vancomycin HCl 1,250 mg/ (Sodium Chloride) 275 mls @ 200 mls/hr IV 1315 [facility]; Protocol Stop: 10/12/20 14:38 Last Admin: 10/12/20 13:14 Dose: 200 mls/hr Documented by: [id number] Insulin Aspart (Insulin Aspart 100 Units/Ml 3 Ml Pen) 0 units SC ACHS [facility] Stop: 11/11/20 07:29 Last Admin: 10/12/20 13:11 Dose: 1 units Documented by: [id number] Cosigned by: [id number] Admin: 10/12/20 09:23 Dose: 1 units Documented by: [id number] Cosigned by: [id number] Levothyroxine Sodium (Levothyroxine Sodium 175 Mcg Tablet) [facility] Stop: 11/11/20 06:29 Last Admin: 10/12/20 06:39 Dose: 175 mcg Documented by: [id number] Metoprolol Succinate (Metoprolol Succ 25mg Ext Rel Tab) 25 mg PO [facility] Stop: 11/11/20 08:59 Last Admin: 10/12/20 08:03 Dose: 25 mg Documented by: [id number] Oxybutynin Chloride (Oxybutynin Chloride 5 Mg Tab) 2.5 mg PO [facility] Stop: 11/11/20 08:59 Last Admin: 10/12/20 08:04 Dose: 2.5 mg Documented by: [id number] Paroxetine HCl (Paroxetine Hcl 20 Mg Tab) 80 mg PO [facility] Stop: 11/11/20 08:59 Last Admin: 10/12/20 08:03 Dose: 80 mg Documented by: [id number] Discontinued Medications Acetaminophen (Acetaminophen 500 Mg Tab) 1,000 mg PO NOW STA Stop: 10/11/20 23:31 Last Admin: 10/12/20 00:37 Dose: 1,000 mg Documented by: [id number] Sodium Chloride (Nss 1000ml) 1,000 mls @ 999 mls/hr IV .Q1H1M ONE Stop: 10/12/20 00:30 Last Infusion: 10/12/20 01:40 Dose: 0 mls/hr Documented by: [id number] Admin: 10/12/20 00:37 Dose: 999 mls/hr Documented by: [id number] Cefepime HCl (Maxipime) 2,000 mg in 20 mls @ 5 mls/min IV NOW STA Stop: 10/12/20 02:18 Last Admin: 10/12/20 02:28 Dose: 5 mls/min Documented by: [id number] Vancomycin HCl 2,500 mg/ (Sodium Chloride) 550 mls @ 200 mls/hr IV NOW ONE Stop: 10/12/20 04:59 Last Infusion: 10/12/20 06:41 Dose: 0 mls/hr Documented by: [id number] Admin: 10/12/20 03:06 Dose: 200 mls/hr Documented by: [id number] Sodium Chloride (Nss 1000ml) 1,000 mls @ 999 mls/hr IV .Q1H1M ONE Stop: 10/12/20 03:20 Last Infusion: 10/12/20 06:41 Dose: 0 mls/hr Documented by: [id number] Admin: 10/12/20 02:28 Dose: 999 mls/hr Documented by: [id number] Levalbuterol HCl (Levalbuterol 1.25mg/0.5ml Neb) 1.25 mg NEB Q6H [facility] Stop: 11/11/20 13:29 Last Admin: 10/12/20 14:25 Dose: Not Given Documented by: [id number] Imaging Data Radiologist's Impression: Vascular Ultrasound 10/11/20 23:30 RIGHT AXILLARY ULTRASOUND CLINICAL HISTORY: right axilla swelling, concern abscess. Recent right axillary lymph node resection. COMPARISON STUDY: Chest CT July 31, 2020. Right axillary ultrasound August 22, 2020. TECHNIQUE: Sonography of the right axilla was performed. FINDINGS: Note is made of a complex right axillary fluid collection which measures 10.2 x 7.6 x 5.2 cm. This contains peripheral hypoechoic material. There is no color flow within this fluid collection. IMPRESSION: Complex right axillary fluid collection which measures 10.2 x 7.6 x 5.2 cm. This may reflect a resolving hematoma or seroma. However, sterility cannot be assessed by ultrasound and an abscess cannot be excluded. ACT 112: Negative or not required by law. Electronically signed by: Esa Anthony M.D. 10/12/2020 6:45 AM Chest X-Ray 10/11/20 23:31 XR chest 1V portable CLINICAL HISTORY: Postoperative fever. COMPARISON STUDY: Chest radiograph and chest CT July 31, 2020. FINDINGS: Lung volumes are normal. Linear bibasilar opacities favor atelectasis. There is no pneumothorax or pleural effusion. Cardiac size is normal. Mediastinal contours are normal. There is no evidence for pulmonary edema. IMPRESSION: Linear bibasilar opacities which favor atelectasis. An infectious process could appear similar although is considered less likely. ACT 112: Negative or not required by law. Electronically signed by: Esa Anthony M.D. 10/12/2020 8:57 AM Discharge Plan Visit Data Chief Complaint: Illness ED Provider: Juaquin Noble Discharge Problem: Abscess of right axilla Patient Disposition: Admitted As Inpatient Discharge Instructions Interventions: ED Discharge Assessment Last Done: 10/12/20 04:26
[2020-10-12 00:23] LABS: Basophils # (auto) 0.03 K/uL (0-0.2); Basophils % (auto) 0.2 %; Hematocrit (blood only) 39.2 % (42-52); Hemoglobin 12.7 g/dL (14.0-18.0); Immature Granulocytes # (auto) 0.08 K/uL (0.00-0.02); Immature Granulocytes % (auto) 0.6 %; Lymphocytes # (auto) 0.99 K/uL (1.2-3.4); Lymphocytes % (auto) 7.5 %; Mean Corpuscular Hemoglobin 27.5 pg (25-34); Mean Corpuscular Hgb Conc 32.4 g/dL (32-36); Monocytes % (auto) 15.2 %; Neutrophils # (auto) 10.04 K/uL (1.4-6.5); Neutrophils % (auto) 76.5 %; Platelet Count 203 K/uL (130-400); RDW Coefficient of Variation 14.1 % (11.5-14.5); RDW Standard Deviation 43.5 fL (36.4-46.3); Red Blood Count 4.61 M/uL (4.7-6.1); White Blood Count 13.14 K/uL (4.8-10.8)
[2020-10-12 00:41] LABS: BUN Creatinine Ratio 13.6 (10-20); Calcium 8.7 mg/dl (8.5-10.1); Creatinine Clr Calc Pharmacy 103.6 ml/min; Est GFR (African American) 91.3 ml/min; Est GFR (Non-African American) 78.8 ml/min
[2020-10-12 00:54] LABS: C Reactive Protein 25.5 mg/dl (0-0.29)
[2020-10-12] MEDS ORDERED: VANCOMYCIN HCL 2,500 MG in SODIUM CHLORIDE 0.9% 500 ML IV ONE (02:15)
[2020-10-12] MEDS ORDERED: CEFEPIME 2,000 MG/20 ML VIAL IV STA (02:15)
[2020-10-12] MEDS ORDERED: VANCOMYCIN CONSULT ACTIVE PRN (02:15)
[2020-10-12] MEDS ORDERED: SODIUM CHLORIDE 0.9% 1000ML 1,000 ML IV ONE (02:20)
--- NOTE | 2020-10-12 02:31 | Surgery Consultation ---
Date of Consultation October 12, 2020 Assessment & Plan (1) Fever: I discussed with the treating emergency room physician and he has having the hospitalist admit the patient proceeding as follows: Patient will be kept n.p.o. the present time Recommend providing gentle hydration with IV fluids Blood cultures have been sent and these results will be followed Patient has been initiated on broad-spectrum antibiotics in form of cefepime and vancomycin. Antibiotics can be tailored based on further diagnostic testing and pending cultures Recommend following serial labs I suspect the patient's fever is secondary to the postoperative fluid collection in his right axilla. It is possible that this is merely a seroma or hematoma but an abscess is certainly in the differential diagnosis. We will inform of the patient's admission and he can decide in the morning how best to approach this fluid collection. Present time the patient is noted to be hemodynamically stable. History of Present Illness Reason for Consultation: Right axillary abscess History of Present Illness This is a 59-year-old male who underwent a right axillary lymph node needle loca lization and biopsy on 09/13/[address] Agudelo of [facility] surgery. Patient's operative note was reviewed and estimated blood loss was approximately 5 cc and patient was discharged home on the same day as his surgery. Patient's pathology was reviewed and the pathology revealed relative B-cell hyperplasia however flow cytometry did not show any evidence of clonal B-cell population to support a lymphomatous process and this is merely felt to be reactive lymph node periodic follow-up was recommended. Patient notes that he was doing well until approximately 2 to 4 days ago he noted some increased swelling of his surgical site under his right axilla. Patient says that the area has become more painful to touch and the swelling continued to increase. Patient noticed this he also noted that he became febrile. Because of this he presented to the emergency department. In the emergency department patient had labs and imaging which independent reviewed. Chest x-ray showed no evidence of pneumonia. Patient did have an ultrasound of the fluid collection under his right axilla which showed a large fluid collection. CBC revealed white blood cell count was slightly elevated at 13.1. Hemoglobin and hematocrit were 12.7 and 39.2. Platelet count was noted to be within normal range. Chemistry profile showed his sodium is 134. Potassium level was not available as the specimen was reported to be hemolyzed. His BUN and creatinine were both within the normal range. C-reactive protein level was elevated at 25.5. A Covid test was performed and was noted to be negative. Due to concern for postoperative abscess the treating emergency room physician has had the patient admitted to the hospital service is requested surgery see the patient. At the time of my interview the patient was resting comfortably in bed in no distress. He did have a slight fever with a temperature of 37.7. He was not noted to be hypotensive. Allergies Allergy/AdvReac Type Severity Reaction Status Date / Time sulfamethoxazole Allergy Intermediate Rash Verified 10/11/20 22:58 [From Bactrim] trimethoprim [From Bactrim] Allergy Intermediate Rash Verified 10/11/20 22:58 Penicillins Allergy Unknown Rash Verified 10/11/20 22:58 Iodinated Contrast Media AdvReac Unknown VOMITING Verified 10/11/20 22:58 WITH IV CONTRAST Home Medications Medication Instructions Recorded Confirmed Type atorvastatin 40 mg tablet 40 mg PO QAM 05/06/20 10/11/20 History clonazepam 0.5 mg tablet 0.5 mg PO BID 05/06/20 10/11/20 History clozapine 200 mg tablet 400 mg PO HS 05/06/20 10/11/20 History cyanocobalamin (vitamin B-12) 1,000 mcg PO QAM 05/06/20 10/11/20 History 1,000 mcg tablet levothyroxine 175 mcg tablet 175 mcg PO DAILYBB 05/06/20 10/11/20 History metformin 1,000 mg tablet 1,000 mg PO BID 05/06/20 10/11/20 History metoprolol succinate 25 mg 25 mg PO QAM 05/06/20 10/11/20 History tablet,extended release 24 hr oxybutynin chloride 5 mg tablet See Rx Instructions .ROUTE .COMPLEX 05/06/20 10/11/20 History aspirin 81 mg tablet,delayed 81 mg PO QAM 07/31/20 10/11/20 History release cholecalciferol (vitamin D3) 25 25 mcg PO QAM 07/31/20 10/11/20 History mcg (1,000 unit) capsule (Vitamin D3) omega 7-cno-ins-fish oil 1,200 mg 1 cap PO HS 07/31/20 10/11/20 History (144 mg-216 mg) capsule (Fish Oil) sennosides 8.6 mg tablet (senna) 17.2 mg PO HS 07/31/20 10/11/20 History paroxetine HCl 40 mg tablet 80 mg PO QAM 09/09/20 10/11/20 History oxycodone-acetaminophen 5 mg-325 1 tab PO Q6H PRN #20 tab 09/13/20 10/12/20 Rx mg tablet (Percocet) erythromycin 500 mg tablet 500 mg PO BID 10/11/20 10/11/20 History Patient History Medical History Anxiety and depression Bipolar disorder Constipation History of migraine HLD (hyperlipidemia) HTN (hypertension) Hypothyroidism Schizophrenia T2DM (type 2 diabetes mellitus) Urinary incontinence Surgical History History of colonoscopy History of open reduction and internal fixation (ORIF) procedure Trimalleolar ankle fracture - Rt History of wisdom tooth extraction Family History Mother Diabetes Stroke Other No family history of adverse response to anesthesia Social History Smoking Status: Former smoker Second Hand Exposure: No; Hx Alcohol Use: Yes Alcohol type: beer Alcohol Intake Frequency: Monthly or Less Hx Substance Use: No Preferred Language: Nigerien Communication Ability: Effective Renewable Energy Technician Required: No Beliefs That Will Affect Care: None marital status: Single Current Living Situation: Parent Current Living Situation Comment: lives with mother who cares for him current occupational status: employed and disabled current occupation: works at [employer] Feels Safe at Home: Yes Assistive Devices: Glasses Review of Systems Constitutional: + fever; no chills Eyes: no diplopia Ear, Nose, Mouth, Throat: no ear pain Respiratory: no cough and no dyspnea Cardiovascular: no chest pain Gastrointestinal: no nausea and no vomiting Genitourinary: no dysuria Musculoskeletal: no back pain Integumentary: no rash Neurologic: no localized weakness Physical Exam Physical Exam: The patient's right axilla was examined. Underneath his axilla he had a well-healed incision from the lymph node biopsy noted in the HPI. There is a palpable mass/fluid collection measuring approximately 8 cm x 4 cm. This collection is slightly tender to palpation with some slight warmth. There is a small amount of erythema on the overlying skin. There are no open areas or areas of drainage. No crepitus was noted in the soft tissue. Constitutional: well developed and well nourished; no acute distress Eyes: Wears glasses ENMT: Ears: no hearing impairment Neck: trachea midline Respiratory: normal respiratory effort, lungs clear to auscultation Cardiovascular: Rate/Rhythm: regular rate and regular rhythm Gastrointestinal (Abdomen): Soft and nontender Skin: no rashes Neurologic: moves all extremities Psychiatric: Orientation: alert and oriented x 3 Affect: + flat affect Results & Data ([facility]) Vital Signs (Past 12 Hours) Vital Signs Temp Pulse Pulse Resp BP BP Pulse Ox 10/12/20 00:42 93 H 27 H 102/84 92 10/11/20 21:59 37.7 C H 97 H 18 156/83 H 92 PG Care Time/CCT Total # of Minutes Spent Total Time Spent with Patient: Total time spent is greater than 50% in coordination of care (as documented) at patient's floor/unit and/or counseling patient: Coding Level of Care Code 26799 Inpt Consult Level 3 Diagnoses Fever R50.9
--- NOTE | 2020-10-12 03:04 | History & Physical Report ---
Date of Service October 12, 2020 Assessment & Plan (1) Sepsis: Plan: Possible infected seroma or hematoma Recent right axillary lymph node biopsy hypertension, stable DM2 on oral meds, well-controlled as of recent hemoglobin A1c of 6.17 Jun 2020 bipolar/schizoaffective/anxiety disorder, at baseline hypothyroidism, euthyroid as of recent TSH chronic anemia, hemoglobin at baseline past tobacco abuse GMF CS, Vancomycin, Cefepime General Surgery consult Re: Right axillary swelling, hx lymph node biopsy (Patient already evaluated at the ER by provider foot and ankle surgeon.) Recommended n.p.o. status in anticipation of procedure until further evaluation in a.m. ISS BG goal 1 10-1 40, update hemoglobin A1c DVT prophylaxis. SCDs Re: Possible right axillary hematoma Full code Text document was generated using Flowline voice recognition software. It may contain grammatical or spelling errors. Kindly contact undersigned for clarification of any documentation item in question. History of Present Illness Chief Complaint: Fever, chills, right axillary swelling Primary Care Provider: Maurilio Orta MD History obtained from patient and records. Medical history significant for hypertension, DM2 on oral meds, bipolar/schizoaffective/anxiety disorder, hyperlipidemia, hypothyroidism, chronic anemia (baseline hemoglobin 12-13), past tobacco abuse, generalized lymphadenopathy. Last confinement July 2020 for fever, hypoxia, ambulatory dysfunction. Progressive generalized lymphadenopathy noted on imaging. Surgery recommended outpatient ultrasound-guided axillary lymph node biopsy. Last month, patient underwent needle localization biopsy of right axillary lymph node. Relative basal cell hyperplasia on pathology. Flow cytometry showed no evidence of clonal beta cell population though beta cells are clearly increased. Outpatient hematology/oncology consultation contemplated. Incision healing well on outpatient follow-up with General Surgery 2 weeks ago. 2 days ago, patient noted increased soreness on right axillary biopsy site along with fever chills. No chest pain, no S OB. At the ER, patient received Vancomycin and Cefepime for sepsis. Medical History as above Surgical History : Axillary lymph node biopsy, ankle fracture surgery Family History : DM, hypertension, thyroid disease, stroke; no lymphoma/leukemia Personal/Social history : Past tobacco abuse, occasional EtOH intake, [employer] long term employee Allergies Allergy/AdvReac Type Severity Reaction Status Date / Time sulfamethoxazole Allergy Intermediate Rash Verified 10/11/20 22:58 [From Bactrim] trimethoprim [From Bactrim] Allergy Intermediate Rash Verified 10/11/20 22:58 Penicillins Allergy Unknown Rash Verified 10/11/20 22:58 Iodinated Contrast Media AdvReac Unknown VOMITING Verified 10/11/20 22:58 WITH IV CONTRAST Home Medications Medication Instructions Recorded Confirmed Type atorvastatin 40 mg tablet 40 mg PO QAM 05/06/20 10/11/20 History clonazepam 0.5 mg tablet 0.5 mg PO BID 05/06/20 10/11/20 History clozapine 200 mg tablet 400 mg PO HS 05/06/20 10/11/20 History cyanocobalamin (vitamin B-12) 1,000 mcg PO QAM 05/06/20 10/11/20 History 1,000 mcg tablet levothyroxine 175 mcg tablet 175 mcg PO DAILYBB 05/06/20 10/11/20 History metformin 1,000 mg tablet 1,000 mg PO BID 05/06/20 10/11/20 History metoprolol succinate 25 mg 25 mg PO QAM 05/06/20 10/11/20 History tablet,extended release 24 hr oxybutynin chloride 5 mg tablet See Rx Instructions .ROUTE .COMPLEX 05/06/20 10/11/20 History aspirin 81 mg tablet,delayed 81 mg PO QAM 07/31/20 10/11/20 History release cholecalciferol (vitamin D3) 25 25 mcg PO QAM 07/31/20 10/11/20 History mcg (1,000 unit) capsule (Vitamin D3) omega 2-bme-kbg-fish oil 1,200 mg 1 cap PO HS 07/31/20 10/11/20 History (144 mg-216 mg) capsule (Fish Oil) sennosides 8.6 mg tablet (senna) 17.2 mg PO HS 07/31/20 10/11/20 History paroxetine HCl 40 mg tablet 80 mg PO QAM 09/09/20 10/11/20 History oxycodone-acetaminophen 5 mg-325 1 tab PO Q6H PRN #20 tab 09/13/20 10/12/20 Rx mg tablet (Percocet) erythromycin 500 mg tablet 500 mg PO BID 10/11/20 10/11/20 History Past Med/Surg History Medical History (Updated 10/12/20 @ 09:51 by Aaron Agudelo MD) Anxiety and depression Bipolar disorder Constipation History of migraine REMOTE HLD (hyperlipidemia) HTN (hypertension) Hypothyroidism Schizophrenia T2DM (type 2 diabetes mellitus) Urinary incontinence Surgical History (Updated 10/12/20 @ 04:59 by Caity Gauthier RN) H/O lymph node biopsy RIGHT AXILLARY History of colonoscopy History of open reduction and internal fixation (ORIF) procedure Trimalleolar ankle fracture - Rt History of wisdom tooth extraction Family History Mother Diabetes Stroke Other No family history of adverse response to anesthesia Social History Smoking Status: Former smoker Smoking End Date: QUIT 30 YEARS AGO; Second Hand Exposure: No; Do You Dip or Chew Tobacco: No; Tobacco Cessation Education Requested by Patient: No Hx Alcohol Use: Yes Alcohol type: beer Alcohol Intake Frequency: Monthly or Less Hx Substance Use: No Preferred Language: Mosotho Communication Ability: Effective Grain Distributor Required: No Beliefs That Will Affect Care: None marital status: Single Current Living Situation: Parent Current Living Situation Comment: LIVES WITH MOTHER current occupational status: employed and disabled current occupation: works at [employer] Feels Safe at Home: Yes Safety Concerns: Feels Safe At This Time Assistive Devices: Glasses Review of Systems Review of Systems: As per HPI, all 10 systems reviewed, all other ROS negative Physical Exam Physical Exam: GENERAL: Comfortable, pleasant, obese, no respiratory distress SKIN: Pallor,, warm HEENT: Bespectacled, pale palpebral conjunctivae, no ptosis, dry buccal mucosa NECK : Supple, short neck, no tenderness CHEST : CTA, no tenderness HEART : RRR, no obvious murmurs ABDOMEN: Some distention, nontender EXTREMITIES : Tender right axillary swelling with overlying erythema, no LE swelling/tenderness, no other conspicuous deformities noted NEUROLOGIC : Coherent, no facial asymmetry, no other gross focality Results & Data Results & Data ([facility]) Vital Signs (Past 12 Hours) Vital Signs Temp Pulse Pulse Resp BP BP Pulse Ox 10/12/20 02:40 37.1 C 10/12/20 02:30 92 H 24 121/66 93 10/12/20 02:25 94 H 10/12/20 01:30 91 H 34 H 120/83 10/12/20 01:00 93 H 35 H 132/84 89 L 10/12/20 00:42 93 H 27 H 102/84 92 10/11/20 21:59 37.7 C H 97 H 18 156/83 H 92 Laboratory Results Laboratory Results WBC 13.14 K/uL (4.8-10.8) H 10/12/20 00:11 RBC 4.61 M/uL (4.7-6.1) L 10/12/20 00:11 Hgb 12.7 g/dL (14.0-18.0) L 10/12/20 00:11 Hct 39.2 % (42-52) L 10/12/20 00:11 MCV 85.0 fL (80-100) 10/12/20 00:11 MCH 27.5 pg (25-34) 10/12/20 00:11 MCHC 32.4 g/dL (32-36) 10/12/20 00:11 RDW Std Deviation 43.5 fL (36.4-46.3) 10/12/20 00:11 RDW Coeff of [place] 14.1 % (11.5-14.5) 10/12/20 00:11 Plt Count 203 K/uL (130-400) 10/12/20 00:11 MPV 11.0 fL (7.4-10.4) H 10/12/20 00:11 Immature Gran % (Auto) 0.6 % 10/12/20 00:11 Neut % (Auto) 76.5 % 10/12/20 00:11 Lymph % (Auto) 7.5 % 10/12/20 00:11 [place] % (Auto) 15.2 % 10/12/20 00:11 Eos % (Auto) 0.0 % 10/12/20 00:11 Baso % (Auto) 0.2 % 10/12/20 00:11 Neut # (Auto) 10.04 K/uL (1.4-6.5) H 10/12/20 00:11 Lymph # (Auto) 0.99 K/uL (1.2-3.4) L 10/12/20 00:11 [place] # (Auto) 2.00 K/uL (0.11-0.59) H 10/12/20 00:11 Eos # (Auto) 0.00 K/uL (0-0.5) 10/12/20 00:11 Baso # (Auto) 0.03 K/uL (0-0.2) 10/12/20 00:11 Immature Gran # (Auto) 0.08 K/uL (0.00-0.02) H 10/12/20 00:11 Sodium 134 mmol/L (136-145) L 10/12/20 00:11 Potassium mmol/L (3.5-5.1) 10/12/20 00:11 Chloride 102 mmol/L (98-107) 10/12/20 00:11 Carbon Dioxide 28 mmol/L (21-32) 10/12/20 00:11 Anion Gap 4.0 (3-11) 10/12/20 00:11 BUN 14 mg/dl (7-18) 10/12/20 00:11 Creatinine 1.04 mg/dl (0.6-1.4) 10/12/20 00:11 Est Cr Clr Drug Dosing 103.6 ml/min 10/12/20 00:11 Est GFR ( Amer) 91.3 ml/min 10/12/20 00:11 Est GFR (Non-Af Amer) 78.8 ml/min 10/12/20 00:11 BUN/Creatinine Ratio 13.6 (10-20) 10/12/20 00:11 Glucose 157 mg/dl (70-99) H 10/12/20 00:11 Lactate 1.6 mmol/L (0.4-2.0) 10/12/20 00:11 Calcium 8.7 mg/dl (8.5-10.1) 10/12/20 00:11 C-Reactive Protein 25.50 mg/dl (0-0.29) H 10/12/20 00:11 COVID-19 Eval Order Covid19 at [facility] 10/11/20 23:55 SARS-CoV-2 (PCR) NEGATIVE (Negative) 10/11/20 23:55 Diagnostic Findings Right axillary ultrasound initial read: There is an irregular complex fluid collection in the right axilla measuring 5.2 x 7.6 x 10.2 cm. Chest x-ray as per my interpretation atelectasis
[2020-10-12] MEDS ORDERED: SODIUM CHLORIDE 0.9% 1000ML 1,000 ML IV SCH (03:15)
[2020-10-12 04:01] LABS: Potassium 3.4 mmol/L (3.5-5.1)
[2020-10-12 04:10] LABS: Albumin Level 2.6 gm/dl (3.4-5.0); Bilirubin Direct 0.5 mg/dl (0-0.2); Bilirubin,Total 1.5 mg/dl (0.2-1); Total Protein 6.2 gm/dl (6.4-8.2)
[2020-10-12] MEDS ORDERED: GLUCOSE 10 TABS/TUBE PO PRN (04:50)
[2020-10-12] MEDS ORDERED: DEXTROSE 50% 50 ML SYRINGE IV PRN (04:50)
[2020-10-12] MEDS ORDERED: traMADol HCL 50 MG TABLET PO PRN (04:50)
[2020-10-12] MEDS ORDERED: KETOROLAC TROMETHAMINE 15 MG/ML VIAL IV PRN (04:50)
[2020-10-12] MEDS ORDERED: GLUCAGON FOR INJ 1 MG VIAL SQ PRN (04:50)
[2020-10-12] MEDS ORDERED: CEFEPIME CONSULT ACTIVE PRN (04:50)
[2020-10-12] MEDS ORDERED: CARBOHYDRATES FOR HYPOGLYCEMIA PO PRN (04:50)
[2020-10-12] MEDS ORDERED: LORazepam 0.5 MG/1 ML VIAL IV PRN (04:50)
[2020-10-12] MEDS ORDERED: GLUCOSE 40% GEL 15 GM TUBE PO PRN (04:50)
[2020-10-12] MEDS ORDERED: PROMETHAZINE HCL 12.5 MG in SODIUM CHLORIDE 0.9% 50 ML IV PRN (04:50)
[2020-10-12] MEDS ORDERED: PNEUMOCOCCAL POLYSACCHARIDES 25 MCG/0.5 ML VIAL/SYR IM ONE (05:11)
--- NOTE | 2020-10-12 05:58 | Pharmacy Report ---
Ph[facility]acy [facility] Short Note - Date of Service October 12, 2020 - Assessment & Plan Assessment 60 year old M admitted secondary to fever. Underwent right axilla lymph node surgery two weeks ago. Now presents with possible infection of this area. * Low grade fever upon admission with mild leukocytosis. CRP significantly elevated. * Cultures are pending. * Started on Vancomycin and Cefepime. Plan Vancomycin * AUC/GINA is the preferred PK/PD target for vancomycin * AUC guided dosing is effective and associated with decreased risk of nephrotoxicity compared to traditional trough targets * Loading Dose: 2500 mg (21 mg/kg) IV x 1 * Maintenance Dose: 1250 mg (10 mg/kg) IV every 12 hours * Dose is predicted to achieve a steady state AUC and trough of 515 mg/L.hr and 16.9 mcg/mL, respectively. Regimen is associated with a 13% risk of nephrotoxicity. * Trough will be ordered for 10/13/20 prior to the 1400 dose to assess AUC/GINA. Note this will be prior to steady state. Cefepime * 2000 mg IV every 8 hours given recent surgery and risk for pseudomonas Pharmacy will continue to follow and will adjust dose/frequency as necessary. Thank you.
[2020-10-12] MEDS: LEVOTHYROXINE SODIUM 175 MCG TABLET PO SCH (06:39)
--- NOTE | 2020-10-12 06:46 | Ultrasound Report ---
RIGHT AXILLARY ULTRASOUND CLINICAL HISTORY: right axilla swelling, concern abscess. Recent right axillary lymph node resection. COMPARISON STUDY: Chest CT July 31, 2020. Right axillary ultrasound August 22, 2020. TECHNIQUE: Sonography of the right axilla was performed. FINDINGS: Note is made of a complex right axillary fluid collection which measures 10.2 x 7.6 x 5.2 c m. This contains peripheral hypoechoic material. There is no color flow within this fluid collection. IMPRESSION: Complex right axillary fluid collection which measures 10.2 x 7.6 x 5.2 cm. This may ref lect a resolving hematoma or seroma. However, sterility cannot be assessed by ultrasound and an absce ss cannot be excluded. ACT 112: Negative or not required by law. Electronically signed by: Esa Anthony M.D. 10/12/2020 6:45 AM
[2020-10-12 07:52] LABS: Estimated Average Glucose 140 mg/dl; Hemoglobin A1C 6.5 % (4.5-5.6)
[2020-10-12] MEDS: ATORVASTATIN 40 MG TAB PO SCH (08:02)
[2020-10-12] MEDS: PARoxetine HCL 20 MG TAB PO SCH (08:03)
[2020-10-12] MEDS: CYANOCOBALAMIN 500 MCG TABLET (VITAMIN B-12) PO SCH (08:03)
[2020-10-12] MEDS: METOPROLOL SUCC 25MG EXT REL TAB PO SCH (08:03)
[2020-10-12] MEDS: OXYBUTYNIN CHLORIDE 5 MG TAB PO SCH ×2 (08:04→20:53)
[2020-10-12] MEDS: ACETAMINOPHEN 325 MG TAB PO PRN (08:06)
[2020-10-12] MEDS: clonazePAM 0.5 MG TAB PO SCH ×2 (08:06→20:52)
--- NOTE | 2020-10-12 08:58 | XRay Report ---
XR chest 1V portable CLINICAL HISTORY: Postoperative fever. COMPARISON STUDY: Chest radiograph and chest CT July 31, 2020. FINDINGS: Lung volumes are normal. Linear bibasilar opacities favor atelectasis. There is no pneumoth orax or pleural effusion. Cardiac size is normal. Mediastinal contours are normal. There is no eviden ce for pulmonary edema. IMPRESSION: Linear bibasilar opacities which favor atelectasis. An infectious process could appear s imilar although is considered less likely. ACT 112: Negative or not required by law. Electronically signed by: Esa Anthony M.D. 10/12/2020 8:57 AM
[2020-10-12] MEDS: INSULIN ASPART 100 UNITS/ML 3 ML PEN SC SCH ×4 (09:23→22:17)
--- NOTE | 2020-10-12 09:43 | Progress Note ---
Date of Service October 12, 2020 Assessment & Plan (1) Abscess of right axilla: Plan: pt is a 60 year-old male who presents was admitted to hospital for 2 days history right axillary swelling with redness, with fever, pt is S/P biopsy right axillary lymph node POD 29 days, IMP: right axillary abscess, plan, I recommend to do I/D right axillary abscess, D/W benefits, risks and alternatives of the surgery, the risk - infection, bleeding, unhealing wound, sepsis, recurrence, pt understood, he agrees with the surgery, he signed informed consent, I answered all questions, NPO now, Admission and Anticipated Discharge Date Admission Date: October 12, 2020 Subjective I got a call for this pt, pt is a 60 year-old male who presents to ER with 2 days history right axillary swelling with pain and fever, pt had biopsy right axillary lymph node 1 month ago, I saw pt at my clinic 2 weeks ago, pt was ding fine, the incision healed well, no swelling, pathology [id number] hyperplasia, I reviewed pt's H/P, labs, U/S study with pt, pt is still have some swelling with pain on right axillary area, Review of Systems Constitutional: as per Subjective / HPI Eyes: as per Subjective / HPI Respiratory: as per Subjective / HPI (pneumonia) Cardiovascular: as per Subjective / HPI Gastrointestinal: as per Subjective / HPI Musculoskeletal: as per Subjective / HPI Integumentary: as per Subjective / HPI Neurologic: as per Subjective / HPI Psychiatric: schizoaffective disorder, bipolar disorder Endocrine: DM, Hematologic / Lymphatic: lymphadenopathy Physical Exam Constitutional: WD/WN, vitals as above Eyes: PERRL, conjunctivae normal, anicteric sclerae Neck: trachea midline, no thyromegaly Respiratory: normal respiratory effort, lungs clear to auscultation Cardiovascular: RRR, no murmur, no edema Gastrointestinal (Abdomen): soft, NT, ND, BS + Musculoskeletal: no cyanosis or clubbing, extremities motor strength 5/5 Skin: some swelling with redness at right axillary near incision site, mild tenderness, no drainage, Neurologic: patellar DTR's 2+ bilat, sensation intact Psychiatric: A+Ox3, euthymic affect Results & Data ([facility]) Vital Signs (Past 12 Hours) Vital Signs Temp Pulse Pulse Pulse Resp BP BP 10/12/20 06:53 37.4 C 93 H 20 154/91 H 10/12/20 04:59 37.2 C 96 H 20 152/64 H 10/12/20 04:26 37.1 C 88 29 H 145/79 H 10/12/20 03:01 92 H 20 10/12/20 02:40 37.1 C 10/12/20 02:30 92 H 24 121/66 10/12/20 02:25 94 H 10/12/20 01:30 91 H 34 H 120/83 10/12/20 01:00 93 H 35 H 132/84 10/12/20 00:42 93 H 27 H 102/84 10/11/20 21:59 37.7 C H 97 H 18 156/83 H Pulse Ox 10/12/20 06:53 92 10/12/20 04:59 95 10/12/20 04:26 93 10/12/20 03:01 93 10/12/20 02:40 10/12/20 02:30 93 10/12/20 02:25 10/12/20 01:30 10/12/20 01:00 89 L 10/12/20 00:42 92 10/11/20 21:59 92 Laboratory Results Abnormal lab results 10/12/20 10/12/20 10/12/20 Range/Units 00:11 00:11 00:11 WBC 13.14 H (4.8-10.8) K/uL RBC 4.61 L (4.7-6.1) M/uL Hgb 12.7 L (14.0-18.0) g/dL Hct 39.2 L (42-52) % MPV 11.0 H (7.4-10.4) fL Neut # (Auto) 10.04 H (1.4-6.5) K/uL Lymph # (Auto) 0.99 L (1.2-3.4) K/uL [place] # (Auto) 2.00 H (0.11-0.59) K/uL Immature Gran # (Auto) 0.08 H (0.00-0.02) K/uL Sodium 134 L (136-145) mmol/L Potassium (3.5-5.1) mmol/L Glucose 157 H (70-99) mg/dl POC Glucose (70-99) mg/dl Hemoglobin A1c 6.5 H (4.5-5.6) % Total Bilirubin (0.2-1) mg/dl Direct Bilirubin (0-0.2) mg/dl Alkaline Phosphatase (45-117) U/L C-Reactive Protein 25.50 H (0-0.29) mg/dl Total Protein (6.4-8.2) gm/dl Albumin (3.4-5.0) gm/dl 10/12/20 10/12/20 10/12/20 Range/Units 03:43 04:52 08:15 WBC (4.8-10.8) K/uL RBC (4.7-6.1) M/uL Hgb (14.0-18.0) g/dL Hct (42-52) % MPV (7.4-10.4) fL Neut # (Auto) (1.4-6.5) K/uL Lymph # (Auto) (1.2-3.4) K/uL [place] # (Auto) (0.11-0.59) K/uL Immature Gran # (Auto) (0.00-0.02) K/uL Sodium (136-145) mmol/L Potassium 3.4 L (3.5-5.1) mmol/L Glucose (70-99) mg/dl POC Glucose 135 H 165 H (70-99) mg/dl Hemoglobin A1c (4.5-5.6) % Total Bilirubin 1.5 H (0.2-1) mg/dl Direct Bilirubin 0.5 H (0-0.2) mg/dl Alkaline Phosphatase 124 H (45-117) U/L C-Reactive Protein (0-0.29) mg/dl Total Protein 6.2 L (6.4-8.2) gm/dl Albumin 2.6 L (3.4-5.0) gm/dl Diagnostic Findings RIGHT AXILLARY ULTRASOUND CLINICAL HISTORY: right axilla swelling, concern abscess. Recent right axillary lymph node resection. COMPARISON STUDY: Chest CT July 31, 2020. Right axillary ultrasound August 22, 2020. TECHNIQUE: Sonography of the right axilla was performed. FINDINGS: Note is made of a complex right axillary fluid collection which measures 10.2 x 7.6 x 5.2 cm. This contains peripheral hypoechoic material. There is no color flow within this fluid collection. IMPRESSION: Complex right axillary fluid collection which measures 10.2 x 7.6 x 5.2 cm. This may reflect a resolving hematoma or seroma. However, sterility cannot be assessed by ultrasound and an abscess cannot be excluded.
[2020-10-12] MEDS: CEFEPIME 2,000 MG in SYRINGE 0 ML IV SCH ×2 (12:23→20:54)
[2020-10-12] MEDS ORDERED: VANCOMYCIN HCL 1,250 MG in SODIUM CHLORIDE 0.9% 250 ML IV SCH (13:15)
[2020-10-12] MEDS ORDERED: LEVALBUTEROL 1.25MG/0.5ML NEB NEB SCH (13:30)
--- NOTE | 2020-10-12 13:58 | XRay Report ---
XR chest 1V portable CLINICAL HISTORY: cough, r/o CHF vs. Pneumonia COMPARISON STUDY: Chest CT July 31, 2020. Chest radiograph October 11, 2020. FINDINGS: Lung volumes are normal. Minimal bibasilar opacities are again noted. There is no pneumotho rax or pleural effusion. Cardiac size is normal. Mediastinal contours are normal. There is no evidenc e for pulmonary edema. IMPRESSION: Minimal bibasilar opacities. Atelectasis is favored. An infectious process is considered less likely but could appear similar. ACT 112: Negative or not required by law. Electronically signed by: Esa Anthony M.D. 10/12/2020 1:57 PM
[2020-10-12] MEDS ORDERED: CEFEPIME 2,000 MG in SYRINGE 0 ML IV SCH (14:00)
[2020-10-12] MEDS ORDERED: fentaNYL citrate 100 MCG/2 ML VIAL ONE (14:21)
[2020-10-12] MEDS ORDERED: MIDAZOLAM HCL 1 MG/ML 2ML VIAL ONE (14:21)
[2020-10-12] MEDS ORDERED: ePHEDrine sulfate 50 MG/ML AMP IV PRN (14:42)
[2020-10-12] MEDS ORDERED: fentaNYL citrate 100 MCG/2 ML VIAL IV PRN (14:42)
[2020-10-12] MEDS ORDERED: HYDROmorphone INJ 1 MG/ML SYRINGE IV PRN (14:42)
--- NOTE | 2020-10-12 14:48 | Anesthesiology Consultation ---
Date of Service October 12, 2020 Assessment & Plan (1) Encounter for pre-operative examination: Chart Review Chart Review: Acceptable Risk for Surgery and Patient NOT seen in Pre Admission Testing Consults Requested none History Surgery Operation Date: 10/12/20 08:20 Proposed Procedures p Right Incision and Drainage Axillary Abscess - Aaron Agudelo MD Height/Weight Height: 6 ft 1 in Weight: 119.7 kg Allergies Allergy/AdvReac Type Severity Reaction Status Date / Time sulfamethoxazole Allergy Intermediate Rash Verified 10/11/20 22:58 [From Bactrim] trimethoprim [From Bactrim] Allergy Intermediate Rash Verified 10/11/20 22:58 Penicillins Allergy Unknown Rash Verified 10/11/20 22:58 Iodinated Contrast Media AdvReac Unknown VOMITING Verified 10/11/20 22:58 WITH IV CONTRAST Medications Home Medications Medication Instructions Recorded Confirmed Last Taken atorvastatin 40 mg tablet 40 mg PO QAM 05/06/20 10/11/20 10/11/20 clonazepam 0.5 mg tablet 0.5 mg PO BID 05/06/20 10/11/20 10/11/20 clozapine 200 mg tablet 400 mg PO HS 05/06/20 10/11/20 10/11/20 cyanocobalamin (vitamin B-12) 1,000 mcg PO QAM 05/06/20 10/11/20 10/11/20 1,000 mcg tablet levothyroxine 175 mcg tablet 175 mcg PO DAILYBB 05/06/20 10/11/20 10/11/20 metformin 1,000 mg tablet 1,000 mg PO BID 05/06/20 10/11/20 10/11/20 metoprolol succinate 25 mg 25 mg PO QAM 05/06/20 10/11/20 10/11/20 tablet,extended release 24 hr oxybutynin chloride 5 mg tablet See Rx Instructions .ROUTE .COMPLEX 05/06/20 10/11/20 10/11/20 aspirin 81 mg tablet,delayed 81 mg PO QAM 07/31/20 10/11/20 10/11/20 release cholecalciferol (vitamin D3) 25 25 mcg PO QAM 07/31/20 10/11/20 10/11/20 mcg (1,000 unit) capsule (Vitamin D3) omega 8-jye-vhc-fish oil 1,200 mg 1 cap PO HS 07/31/20 10/11/2010/11/21 (144 mg-216 mg) capsule (Fish Oil) sennosides 8.6 mg tablet (senna) 17.2 mg PO HS 07/31/20 10/11/20 10/11/20 paroxetine HCl 40 mg tablet 80 mg PO QAM 09/09/20 10/11/20 10/11/20 oxycodone-acetaminophen 5 mg-325 1 tab PO Q6H PRN #20 tab 09/13/20 10/12/20 10/11/20 20:00 mg tablet (Percocet) erythromycin 500 mg tablet 500 mg PO BID 10/11/20 10/11/20 10/11/20 Active Medications Generic Name Dose Route Start Last Admin Trade Name Freq PRN Reason Stop Dose Admin Acetaminophen 650 mg 10/12/20 04:50 10/12/20 08:06 Acetaminophen 325 Mg Tab PO 11/11/20 04:49 650 mg Q4H PRN Administration pain/fever Atorvastatin Calcium 40 mg 10/12/20 09:00 10/12/20 08:02 Atorvastatin 40 Mg Tab PO 11/11/20 08:59 40 mg QAM VLADIMIR Administration Clonazepam 0.5 mg 10/12/20 09:00 10/12/20 08:06 Clonazepam 0.5 Mg Tab PO 11/11/20 08:59 0.5 mg BID VLADIMIR Administration Cyanocobalamin 1,000 mcg 10/12/20 09:00 10/12/20 08:03 Cyanocobalamin 500 Mcg Tablet (Vitamin B-12) PO 11/11/20 08:59 1,000 mcg QAM VLADIMIR Administration Sodium Chloride 1,000 mls @ 80 mls/hr 10/12/20 03:15 10/12/20 06:38 Nss 1000ml IV 11/11/20 03:14 80 mls/hr .[id number] VLADIMIR Administration Cefepime HCl 2,000 mg/ Syringe 20 mls @ 5 mls/min 10/12/20 12:00 10/12/20 12:23 IV 10/19/20 11:59 5 mls/min Q8H VLADIMIR Administration Protocol Insulin Aspart 0 units 10/12/20 07:30 10/12/20 13:11 Insulin Aspart 100 Units/Ml 3 Ml Pen SC 11/11/20 07:29 1 units ACHS VLADIMIR Administration Levothyroxine Sodium 175 mcg 10/12/20 06:30 10/12/20 06:39 Levothyroxine Sodium 175 Mcg Tablet PO 11/11/20 06:29 175 mcg DAILYBB VLADIMIR Administration Metoprolol Succinate 25 mg 10/12/20 09:00 10/12/20 08:03 Metoprolol Succ 25mg Ext Rel Tab PO 11/11/20 08:59 25 mg QAM VLADIMIR Administration Oxybutynin Chloride 2.5 mg 10/12/20 09:00 10/12/20 08:04 Oxybutynin Chloride 5 Mg Tab PO 11/11/20 08:59 2.5 mg QAM VLADIMIR Administration Paroxetine HCl 80 mg 10/12/20 09:00 10/12/20 08:03 Paroxetine Hcl 20 Mg Tab PO 11/11/20 08:59 80 mg QAM VLADIMIR Administration NPO Date Last Intake of Fluids: 10/11/20 Time Last Intake of Fluids: 00:59 Date Last Intake of Solids: 10/11/20 Time Last Intake of Solids: 00:59 Past Medical History Medical History Anxiety and depression Bipolar disorder Constipation History of migraine REMOTE HLD (hyperlipidemia) HTN (hypertension) Hypothyroidism Schizophrenia T2DM (type 2 diabetes mellitus) Urinary incontinence Exercise / Class Metabolic Activity II 4-5 Yardwork/Stairs/Walk up hill Past Family History Family History Mother Diabetes Stroke Other No family history of adverse response to anesthesia Past Surgical History Surgical History H/O lymph node biopsy RIGHT AXILLARY History of colonoscopy History of open reduction and internal fixation (ORIF) procedure Trimalleolar ankle fracture - Rt History of wisdom tooth extraction tolerated lma for lymph node biopsu sep 2020 Past Anesthesia History No Hx of Anesthesia Complications and No Family Hx of Anesthesia Complications History of PONV No Hx of PONV and No Hx of Motion Sickness Social History Smoking Status: Former smoker Do You Dip or Chew Tobacco: No Smoking End Date: QUIT 30 YEARS AGO Hx Alcohol Use: Yes Alcohol type: beer alcohol intake frequency: a few times a week Hx Substance Use: No substance use type: does not use Physical Exam Vital Signs Last Vital Signs Temp 37.4 C 10/12/20 06:53 Pulse 93 H 10/12/20 06:53 Resp 20 10/12/20 06:53 BP 154/91 H 10/12/20 06:53 Pulse Ox 92 10/12/20 06:53 Testing Laboratory Results 10/12/20 00:11 10/12/20 05:36 Hemoglobin A1c 6.5 % (4.5-5.6) H 10/12/20 00:11 10/12/20 10/12/20 10/12/20 12:02 08:15 04:52 POC Glucose 146 H 165 H 135 H
--- NOTE | 2020-10-12 14:53 | History & Physical Bridge Note ---
Date of Service October 12, 2020 History & Physical Bridge Note I have examined the patient, reviewed the History & Physical and in the interval since the performance of the History & Physical I have noted the following changes of clinical significance: no changes noted
--- NOTE | 2020-10-12 14:56 | Hospitalist Progress Note ---
Date of Service October 12, 2020 Assessment & Plan (1) Sepsis: Plan: Possible infected seroma or hematoma, r/o Abscess Recent right axillary lymph node biopsy -- blood cultures: pending -- on Vancomycin + Cefepime -- Gen Surg: for I&D today -- monitor Mild Dyspnea, Wheeze -- has history of smoking -- CXR:IMPRESSION: Minimal bibasilar opacities. Atelectasis is favored. An infectious process is considered less likely but could appear similar. -- Nebs q6h Incentive Spirometry Hypertension, stable DM2 on oral meds, well-controlled as of recent hemoglobin A1c of 6.17 Jun 2020 -- a1c 6.5 bipolar/schizoaffective/anxiety disorder, at baseline hypothyroidism, euthyroid as of recent TSH chronic anemia, hemoglobin at baseline past tobacco abuse DVT prophylaxis. SCDs Re: Possible right axillary hematoma Full code plan of care discussed with patient in detail and at length all questions answered he is understanding, agreeable, comfortable with the plan of care Admission and Anticipated Discharge Date Admission Date: October 12, 2020 Subjective ff up for right axillary cellulitis, possible abscess, etc seen resting in bed, comfortable states he feels ok just tired minimal discomfort on the right axilla reports mild dyspnea, no cough no fever/chills denies other symptoms Review of Systems Review of Systems: all noted and negative except for above Physical Exam Physical Exam: General- oriented x 3, not in distress, speaks in sentences with no effort or accessory muscle use Head- atraumatic Eyes- PERRL, EOMI, anicteric ENT- oropharynx clear Neck- supple, no JVD, no adenopathy, no thyromegaly; carotids +2/2, no bruits appreciated Lungs- mild wheeze on the right side clear on the left good air entry bilaterally Heart- normal rate, regular rhythm; no murmur, no gallop, no rub appreciated Abdomen- normal bowel sounds, nondistended, soft, nontender, no masses or hepatosplenomegaly Extremities- no pretibial edema, no calf tenderness; peripheral pulses intact right axilla- mild edema, erythema, warmth, tenderness on the inferior aspect of the right axilla Neuro- alert, oriented x 3; CN 2-12 grossly intact; motor 5/5 bilaterally;sensation 100% on all extremities; no other gross focal neurologic deficits Skin- warm & dry Results & Data Results & Data ([facility]) Vital Signs (Past 12 Hours) Vital Signs Temp Pulse Pulse Resp BP BP Pulse Ox 10/12/20 06:53 37.4 C 93 H 20 154/91 H 92 10/12/20 04:59 37.2 C 96 H 20 152/64 H 95 10/12/20 04:26 37.1 C 88 29 H 145/79 H 93 10/12/20 03:01 92 H 20 93 all noted and reviewed including below
[2020-10-12] MEDS ORDERED: ACETAMINOPHEN 1000 MG/100 ML IV IV ONE (14:58)
[2020-10-12] MEDS ORDERED: BUPIVACAINE 0.5 % 5 MG/1 ML MPF 30ML VIAL ONE (15:13)
[2020-10-12] MEDS ORDERED: LIDOCAINE 1% LOCAL 20 ML VIAL ONE (15:13)
[2020-10-12] MEDS ORDERED: ONDANSETRON INJ 2 MG/ML 2 ML VIAL ONE (15:28)
[2020-10-12] MEDS ORDERED: LIDOCAINE 2% 2 ML VIAL/AMP(20MG/ML) INFIL ONE (15:28)
[2020-10-12] MEDS ORDERED: PROPOFOL IV EMULSION 10 MG/ML 20 ML VIAL IV ONE (15:28)
--- NOTE | 2020-10-12 15:42 | Post Operative Brief Note ---
Immediate Post Op Note v1 Date of Surgery October 12, 2020 Pre & Post Diagnosis Operation Date: 10/12/20 08:20 Pre-Op Diagnosis: Right axillary abscess Post-Op Diagnosis: Right axillary abscess I identified the patient and participated in the time-out.: Yes Procedure Operation Date: 10/12/20 08:20 Actual Procedures p Right Incision and Drainage Axillary Abscess(Right) - Aaron Agudelo MD Surgeon Aaron Agudelo MD Certified Medication Technician surgical services tech Estimated Blood Loss 5 Findings Consistent with Post-Op Diagnosis right axillary abscess, wound culture sent Fluids 700ml Drains Other (packing the wound with kelex) Complications none Disposition Accompanied Patient To Recovery: Yes
--- NOTE | 2020-10-12 16:12 | Operative Report (OR) ---
DATE OF SURGERY: 10/12/2020 PREOPERATIVE DIAGNOSIS: Right axillary abscess. POSTOPERATIVE DIAGNOSIS: Right axillary abscess. OPERATION: Incision and drainage of right axillary abscess. SURGEON: Aaron Agudelo MD. ANESTHESIA: Conscious sedation plus local. ESTIMATED BLOOD LOSS: About 5 mL. INTRAVENOUS FLUIDS: 700 mL. FINDINGS: Right axillary abscess. Wound cultures sent, packing the wound. COMPLICATIONS: None. INDICATIONS FOR THE PROCEDURE: This is a 60-year-old gentleman who presented to ED with fever and ri ght axillary pain for a couple of days, and the patient had a biopsy of right axillary lymph node abo me 1 month ago. The patient had ultrasound diagnosis of fluid collection in the right axilla, could n ot rule out abscess. I did review the patient's history, physical exam, labs and ultrasound with the patient. I recommended to do incision and drainage of right axillary abscess. I did talk to the pat ient about the benefit, risk, alternate procedure. I indicated the risks may include, but not limite d to such as bleeding, infection, chronic wound, pain, scar, recurrence, injury to other organs. The patient understands. He signed informed consent and I answered all questions. DETAILS OF THE PROCEDURE: After we identified the patient and verified the procedure, we brought the patient to the OR, put the patient in the supine position. The patient received SCD on bilateral le gs to prevent DVT. Also, patient received 1 gram of vancomycin IV for prophylactic antibiotic. The patient received conscious sedation by the anesthesiology. The right axilla was prepped and draped i n routine sterile fashion. After timeout, I injected the local anesthesia by using 1% lidocaine mixe d with 0.5% Marcaine around the right axillary area. Then, I opened the old incision on the right ax illa in about a 2.5 cm incision and opened subcutaneous layer and then reached the fluid collection i n the cavity. There was some pus with some clear fluid coming out, we did send wound culture. Once we cleaned up all the fluid collection, hemostasis was obtained. Then, we used a half-inch Kerlix fo r packing the wound. Then, we put the dressing on. The patient tolerated the procedure well. All i nstrument, needle and sponge counts were correct x2 at the end of the case. The patient was transfer red to recovery room in stable condition. After the procedure, I did talk to the patient about the O R finding and the procedure we did, and the patient understands. Job ID: [id number]
--- NOTE | 2020-10-12 16:12 | Anesthesiology Progress Note ---
Date of Service October 12, 2020 Anesthesia Post Procedure Vital Signs Vital Signs: Temp Pulse Pulse Pulse Resp BP BP 10/12/20 16:05 84 20 116/71 10/12/20 15:55 84 20 123/70 10/12/20 15:48 37.1 C 84 26 H 131/74 10/12/20 14:32 39.1 C H 92 H 20 153/78 H 10/12/20 06:53 37.4 C 93 H 20 10/12/20 04:59 37.2 C 96 H 20 10/12/20 04:26 37.1 C 88 29 H 145/79 H 10/12/20 03:01 92 H 20 10/12/20 02:40 37.1 C 10/12/20 02:30 92 H 24 121/66 10/12/20 02:25 94 H 10/12/20 01:30 91 H 34 H 120/83 10/12/20 01:00 93 H 35 H 132/84 10/12/20 00:42 93 H 27 H 10/11/20 21:59 37.7 C H 97 H 18 156/83 H BP Pulse Ox 10/12/20 16:05 96 10/12/20 15:55 97 10/12/20 15:48 94 10/12/20 14:32 93 10/12/20 06:53 154/91 H 92 10/12/20 04:59 152/64 H 95 10/12/20 04:26 93 10/12/20 03:01 93 10/12/20 02:40 10/12/20 02:30 93 10/12/20 02:25 10/12/20 01:30 10/12/20 01:00 89 L 10/12/20 00:42 102/84 92 10/11/20 21:59 92 Pain Intensity Right Arm: Pain Intensity: 4 Transfer of Care Handoff Completed per policy Notes Mental Status: alert / awake / arousable and participated in evaluation Patient Amnestic to Procedure: Yes Nausea / Vomiting: adequately controlled Pain: adequately controlled Airway Patency, RR, SpO2: stable & adequate BP & HR: stable & adequate Hydration State: stable & adequate Anesthetic Complications: no major complications apparent and Pt Satisfied with anesthetic care
[2020-10-12] MEDS ORDERED: NALOXONE HCL 0.4 MG/1 ML VIAL/CARP IV STA (18:35)
[2020-10-12] MEDS ORDERED: NALOXONE HCL 0.4 MG/1 ML VIAL/CARP ONE (18:38)
[2020-10-12] MEDS: LEVALBUTEROL HCL 1.25 MG/3 ML NEB NEB SCH (19:29)
[2020-10-12] MEDS ORDERED: GLYCOPYRROLATE 0.2 MG/ML VIAL ONE (19:39)
[2020-10-12] MEDS ORDERED: NEOSTIGMINE METHYLSULFATE 1 MG/ML 10ML VIAL ONE ×2 (19:39)
[2020-10-12 19:49] LABS: Base Excess ABG -0.3 mEq/L (-9-1.8); HCO3 ABG 26 mmol/L (19-24); Oxygen Saturation ABG 95.3 % (90-95); PCO2 ABG 50 mmHg (35-46); PO2 ABG 78 mmHg (80-95); pH ABG 7.33 (7.35-7.45)
[2020-10-12 19:51] LABS: Allen Test POS (Pos)
[2020-10-12] MEDS: cloZAPine 100 MG TAB PO SCH (20:52)
[2020-10-12] MEDS: SENNA 8.6 MG TAB PO SCH (20:53)
--- NOTE | 2020-10-12 21:44 | Communication Note ---
Date of Service: October 12, 2020 I was called by the hospitalist to evaluate the patient. The patient had earlier received narcan for somnolence. Upon examination, the patient was sleeping with 2L nasal cannula. The patient's vital signs were stable, and the patient was maintaining his airway. The patient did have a continuous pulse oximeter. The patient was arousable to his name. I told the nurse that the patient was stable and recommended close monitoring throughout the night.
[2020-10-13] MEDS: LEVALBUTEROL HCL 1.25 MG/3 ML NEB NEB SCH ×2 (00:09→07:19)
[2020-10-13] MEDS: VANCOMYCIN HCL 1,250 MG in SODIUM CHLORIDE 0.9% 250 ML IV SCH ×2 (01:17→15:03)
[2020-10-13] MEDS: CEFEPIME 2,000 MG in SYRINGE 0 ML IV SCH ×3 (04:23→20:05)
[2020-10-13] MEDS: LEVOTHYROXINE SODIUM 175 MCG TABLET PO SCH (04:51)
[2020-10-13 06:32] LABS: Basophils # (auto) 0.02 K/uL (0-0.2); Basophils % (auto) 0.2 %; Hematocrit (blood only) 35.5 % (42-52); Immature Granulocytes # (auto) 0.06 K/uL (0.00-0.02); Immature Granulocytes % (auto) 0.7 %; Lymphocytes # (auto) 0.77 K/uL (1.2-3.4); Lymphocytes % (auto) 8.7 %; Mean Corpuscular Hemoglobin 27.2 pg (25-34); Mean Corpuscular Volume 87.9 fL (80-100); Mean Platelet Volume 10.9 fL (7.4-10.4); Monocytes # (auto) 1.31 K/uL (0.11-0.59); Monocytes % (auto) 14.8 %; Neutrophils # (auto) 6.67 K/uL (1.4-6.5); Neutrophils % (auto) 75.6 %; Platelet Count 195 K/uL (130-400); RDW Coefficient of Variation 14.5 % (11.5-14.5); RDW Standard Deviation 47.4 fL (36.4-46.3); Red Blood Count 4.04 M/uL (4.7-6.1); White Blood Count 8.83 K/uL (4.8-10.8)
[2020-10-13 06:55] LABS: BUN Creatinine Ratio 13.1 (10-20); Calcium 8.3 mg/dl (8.5-10.1); Creatinine Clr Calc Pharmacy 128.4 ml/min; Est GFR (African American) 111.3 ml/min; Potassium 3.7 mmol/L (3.5-5.1)
[2020-10-13] MEDS: INSULIN ASPART 100 UNITS/ML 3 ML PEN SC SCH ×4 (09:22→21:12)
[2020-10-13] MEDS: METOPROLOL SUCC 25MG EXT REL TAB PO SCH (09:24)
[2020-10-13] MEDS: CYANOCOBALAMIN 500 MCG TABLET (VITAMIN B-12) PO SCH (09:24)
[2020-10-13] MEDS: ATORVASTATIN 40 MG TAB PO SCH (09:24)
[2020-10-13] MEDS: clonazePAM 0.5 MG TAB PO SCH ×2 (09:52→20:05)
[2020-10-13] MEDS: PARoxetine HCL 20 MG TAB PO SCH (09:52)
[2020-10-13] MEDS: OXYBUTYNIN CHLORIDE 5 MG TAB PO SCH ×2 (09:54→20:07)
[2020-10-13 10:26] LABS: Base Excess ABG -0.4 mEq/L (-9-1.8); HCO3 ABG 25 mmol/L (19-24); Oxygen Saturation ABG 94.7 % (90-95); PCO2 ABG 44 mmHg (35-46); PO2 ABG 72 mmHg (80-95); pH ABG 7.37 (7.35-7.45)
[2020-10-13 10:27] LABS: Allen Test Pos (Pos)
--- NOTE | 2020-10-13 12:35 | Progress Note ---
Date of Service October 13, 2020 Assessment & Plan (1) Abscess of right axilla: Plan: pt is a 60 year-old male who presents was admitted to hospital for 2 days history right axillary swelling with redness, with fever, pt is S/P biopsy right axillary lymph node POD 29 days, IMP: right axillary abscess, plan, I recommend to do I/D right axillary abscess, D/W benefits, risks and alternatives of the surgery, the risk - infection, bleeding, unhealing wound, sepsis, recurrence, pt understood, he agrees with the surgery, he signed informed consent, I answered all questions, NPO now, 10/13/2020 12:30PM F/U S/P I/D right axillary abscess, POD 1 doing better, no fever, normal WBC, continue iv antibiotic treatment, possible discharge to home to day or tomorrow, F/U [facility] wound care center for packing change on Saturday, po clindamycin X 7 days, wound care nurse consult, may change packing tomorrow, F/U Dr. Agudelo 2 weeks, Admission and Anticipated Discharge Date Admission Date: October 12, 2020 Subjective ff up for right axillary cellulitis, possible abscess, etc seen resting in bed, comfortable states he feels ok just tired minimal discomfort on the right axilla reports mild dyspnea, no cough no fever/chills denies other symptoms 10/13/2020 12:28PM Dr. Agudelo F/U S/P I/D right axillary abscess, POD 1 pt feels better, less pain, no fever, wound culture-Staphylococcus species Review of Systems Constitutional: as per Subjective / HPI Eyes: as per Subjective / HPI Respiratory: as per Subjective / HPI (pneumonia) Cardiovascular: as per Subjective / HPI Gastrointestinal: as per Subjective / HPI Musculoskeletal: as per Subjective / HPI Integumentary: as per Subjective / HPI Neurologic: as per Subjective / HPI Psychiatric: schizoaffective disorder, bipolar disorder Endocrine: DM, Hematologic / Lymphatic: lymphadenopathy Physical Exam Constitutional: WD/WN, vitals as above Eyes: PERRL, conjunctivae normal, anicteric sclerae Neck: trachea midline, no thyromegaly Respiratory: normal respiratory effort, lungs clear to auscultation Cardiovascular: RRR, no murmur, no edema Gastrointestinal (Abdomen): normal bowel sounds, soft, nontender, no hepatosplenomegaly Musculoskeletal: no cyanosis or clubbing, extremities motor strength 5/5 Skin: less redness around the right axillary wound, some drainage, Neurologic: patellar DTR's 2+ bilat, sensation intact Psychiatric: A+Ox3, euthymic affect Results & Data ([facility]) Vital Signs (Past 12 Hours) Vital Signs Temp Pulse Pulse Resp BP BP Pulse Ox 10/13/20 07:20 79 20 94 10/13/20 06:57 36.9 C 72 18 131/80 95 10/13/20 04:41 36.6 C 79 18 136/81 95 Laboratory Results Abnormal lab results 10/12/20 10/12/20 10/12/20 Range/Units 15:07 15:56 17:26 RBC (4.7-6.1) M/uL Hgb (14.0-18.0) g/dL Hct (42-52) % MCHC (32-36) g/dL RDW Std Deviation (36.4-46.3) fL MPV (7.4-10.4) fL Neut # (Auto) (1.4-6.5) K/uL Lymph # (Auto) (1.2-3.4) K/uL [place] # (Auto) (0.11-0.59) K/uL Immature Gran # (Auto) (0.00-0.02) K/uL ABG pH (7.35-7.45) ABG pCO2 (35-46) mmHg ABG pO2 (80-95) mmHg ABG HCO3 (19-24) mmol/L ABG O2 Saturation (90-95) % Chloride (98-107) mmol/L Glucose (70-99) mg/dl POC Glucose 160 H 174 H 159 H (70-99) mg/dl Calcium (8.5-10.1) mg/dl 10/12/20 10/12/20 10/12/20 Range/Units 18:44 19:29 20:54 RBC (4.7-6.1) M/uL Hgb (14.0-18.0) g/dL Hct (42-52) % MCHC (32-36) g/dL RDW Std Deviation (36.4-46.3) fL MPV (7.4-10.4) fL Neut # (Auto) (1.4-6.5) K/uL Lymph # (Auto) (1.2-3.4) K/uL [place] # (Auto) (0.11-0.59) K/uL Immature Gran # (Auto) (0.00-0.02) K/uL ABG pH 7.33 L (7.35-7.45) ABG pCO2 50 H (35-46) mmHg ABG pO2 78 L (80-95) mmHg ABG HCO3 26 H (19-24) mmol/L ABG O2 Saturation 95.3 H (90-95) % Chloride (98-107) mmol/L Glucose (70-99) mg/dl POC Glucose 142 H 134 H (70-99) mg/dl Calcium (8.5-10.1) mg/dl 10/13/20 10/13/20 10/13/20 Range/Units 06:09 06:09 08:14 RBC 4.04 L (4.7-6.1) M/uL Hgb 11.0 L (14.0-18.0) g/dL Hct 35.5 L (42-52) % MCHC 31.0 L (32-36) g/dL RDW Std Deviation 47.4 H (36.4-46.3) fL MPV 10.9 H (7.4-10.4) fL Neut # (Auto) 6.67 H (1.4-6.5) K/uL Lymph # (Auto) 0.77 L (1.2-3.4) K/uL [place] # (Auto) 1.31 H (0.11-0.59) K/uL Immature Gran # (Auto) 0.06 H (0.00-0.02) K/uL ABG pH (7.35-7.45) ABG pCO2 (35-46) mmHg ABG pO2 (80-95) mmHg ABG HCO3 (19-24) mmol/L ABG O2 Saturation (90-95) % Chloride 108 H (98-107) mmol/L Glucose 133 H (70-99) mg/dl POC Glucose 112 H (70-99) mg/dl Calcium 8.3 L (8.5-10.1) mg/dl 10/13/20 10/13/20 Range/Units 09:52 12:16 RBC (4.7-6.1) M/uL Hgb (14.0-18.0) g/dL Hct (42-52) % MCHC (32-36) g/dL RDW Std Deviation (36.4-46.3) fL MPV (7.4-10.4) fL Neut # (Auto) (1.4-6.5) K/uL Lymph # (Auto) (1.2-3.4) K/uL [place] # (Auto) (0.11-0.59) K/uL Immature Gran # (Auto) (0.00-0.02) K/uL ABG pH (7.35-7.45) ABG pCO2 (35-46) mmHg ABG pO2 72 L (80-95) mmHg ABG HCO3 25 H (19-24) mmol/L ABG O2 Saturation (90-95) % Chloride (98-107) mmol/L Glucose (70-99) mg/dl POC Glucose 145 H (70-99) mg/dl Calcium (8.5-10.1) mg/dl
[2020-10-13] MEDS ORDERED: LEVALBUTEROL HCL 1.25 MG/3 ML NEB NEB PRN (12:59)
[2020-10-13] MEDS ORDERED: VANCOMYCIN TROUGH ONE (13:30)
--- NOTE | 2020-10-13 15:15 | Pharmacy Report ---
Pharmacy Abx Dose Short Note - Date of Service October 13, 2020 - Assessment & Plan Assessment 60 year old M receiving IV Vancomycin + Cefepime for treatment of R Axilla Infection/abscess Day # 2 of antimicrobial therapy. Plan Vancomycin * Trough level of 7.6 mcg/mL is appears subtherapeutic; however level was drawn ~47 minutes late. Extrapolated trough is 9.3mcg/ml which also still appears subtherapeutic however vanco is not at steady state and likely vancomycin accumulation to occur with BMI > 35 * No change today - will repeat trough in 36 hrs and adjust accordingly as vanco will be at steady state by this time * Goal trough level for SST : 10 to 20 mcg/mL depending on c/s * Trough or random level ordered for: 10/15/20 @ 0200 Pharmacy will continue to follow and will adjust dose/frequency as necessary. Thank you.
--- NOTE | 2020-10-13 16:45 | Hospitalist Progress Note ---
Date of Service October 13, 2020 Assessment & Plan (1) Sepsis: Plan: Right Axillary Abscess, Cellulitis Recent right axillary lymph node biopsy -- 10/12/20 s/p Incision and drainage of right axillary abscess by Dr. Agudelo -- blood cultures: pending wound culture: Staph species -- on Vancomycin + Cefepime -- improving clinically monitor Episode of Altered Mental Status -- happened ~ 2hours after patient returned from OR patient lethargic, given Narcan--> patient woke up -- monitor caution with use of Narcotics Mild Dyspnea, Wheeze -- has history of smoking -- CXR:IMPRESSION: Minimal bibasilar opacities. Atelectasis is favored. An infectious process is considered less likely but could appear similar. -- Nebs q6h given Incentive Spirometry -- resolved Hypertension, stable DM2 on oral meds, well-controlled as of recent hemoglobin A1c of 6.17 Jun 2020 -- a1c 6.5 bipolar/schizoaffective/anxiety disorder, at baseline hypothyroidism, euthyroid as of recent TSH chronic anemia, hemoglobin at baseline past tobacco abuse DVT prophylaxis.SCDs for now, Lovenox if ok with Gen Surg Full code plan of care discussed with patient in detail and at length all questions answered he is understanding, agreeable, comfortable with the plan of care Admission and Anticipated Discharge Date Admission Date: October 12, 2020 Subjective ff up for axillary infection, cellulitis, etc seen resting in bed, comfortable awake, alert, oriented x 3 answers all questions appropriately states he feels improved today less weak pain over the right axilla much better no chills no confusion today no chest pain, dyspnea, palpitations, dizziness no other symptoms Review of Systems Review of Systems: all noted and negative except for above Physical Exam Physical Exam: General- oriented x 3, not in distress, speaks in sentences with no effort or accessory muscle use Eyes- anicteric Neck- no JVD Lungs- clear BS BL Heart- normal rate, regular rhythm; no murmurs Abdomen- normal bowel sounds, nondistended, soft, nontender Extremities- no pretibial edema, no calf tenderness Right axilla: less edema, erythema dressing in place no bleeding or discharge Neuro- alert, oriented x 3; no gross focal neurologic deficits Skin- warm & dry Results & Data Results & Data ([facility]) Vital Signs (Past 12 Hours) Vital Signs Temp Pulse Pulse Resp BP Pulse Ox 10/13/20 14:48 36.7 C 75 16 121/79 96 10/13/20 07:20 79 20 94 10/13/20 06:57 36.9 C 72 18 131/80 95 all noted and reviewed including below
[2020-10-13] MEDS: ACETAMINOPHEN 325 MG TAB PO PRN (20:05)
[2020-10-13] MEDS: cloZAPine 100 MG TAB PO SCH (20:06)
[2020-10-13] MEDS: SENNA 8.6 MG TAB PO SCH (20:07)
[2020-10-14] MEDS: VANCOMYCIN HCL 1,250 MG in SODIUM CHLORIDE 0.9% 250 ML IV SCH (02:12)
[2020-10-14] MEDS: CEFEPIME 2,000 MG in SYRINGE 0 ML IV SCH (04:00)
[2020-10-14] MEDS: LEVOTHYROXINE SODIUM 175 MCG TABLET PO SCH (05:36)
[2020-10-14 09:20] LABS: Basophils # (auto) 0.03 K/uL (0-0.2); Basophils % (auto) 0.4 %; Hematocrit (blood only) 38.4 % (42-52); Hemoglobin 12.1 g/dL (14.0-18.0); Immature Granulocytes # (auto) 0.16 K/uL (0.00-0.02); Lymphocytes # (auto) 0.99 K/uL (1.2-3.4); Lymphocytes % (auto) 12.3 %; Mean Corpuscular Hemoglobin 27.1 pg (25-34); Mean Corpuscular Hgb Conc 31.5 g/dL (32-36); Mean Corpuscular Volume 85.9 fL (80-100); Mean Platelet Volume 10.6 fL (7.4-10.4); Monocytes # (auto) 0.85 K/uL (0.11-0.59); Monocytes % (auto) 10.5 %; Neutrophils # (auto) 6.03 K/uL (1.4-6.5); Neutrophils % (auto) 74.8 %; Platelet Count 212 K/uL (130-400); RDW Coefficient of Variation 14.4 % (11.5-14.5); RDW Standard Deviation 45.1 fL (36.4-46.3); Red Blood Count 4.47 M/uL (4.7-6.1); White Blood Count 8.06 K/uL (4.8-10.8)
[2020-10-14] MEDS: CYANOCOBALAMIN 500 MCG TABLET (VITAMIN B-12) PO SCH (09:33)
[2020-10-14] MEDS: METOPROLOL SUCC 25MG EXT REL TAB PO SCH (09:33)
[2020-10-14] MEDS: PARoxetine HCL 20 MG TAB PO SCH (09:34)
[2020-10-14] MEDS: ATORVASTATIN 40 MG TAB PO SCH (09:34)
[2020-10-14] MEDS: INSULIN ASPART 100 UNITS/ML 3 ML PEN SC SCH ×2 (09:35→12:54)
[2020-10-14] MEDS: OXYBUTYNIN CHLORIDE 5 MG TAB PO SCH (09:35)
[2020-10-14 09:49] LABS: BUN Creatinine Ratio 14.4 (10-20); Calcium 9.2 mg/dl (8.5-10.1); Creatinine Clr Calc Pharmacy 147.5 ml/min; Est GFR (African American) 117.8 ml/min; Est GFR (Non-African American) 101.7 ml/min; Potassium 4.1 mmol/L (3.5-5.1)
[2020-10-14] MEDS: clonazePAM 0.5 MG TAB PO SCH (09:52)
--- NOTE | 2020-10-14 11:45 | Progress Note ---
Date of Service October 14, 2020 Assessment & Plan (1) Abscess of right axilla: Plan: pt is a 60 year-old male who presents was admitted to hospital for 2 days history right axillary swelling with redness, with fever, pt is S/P biopsy right axillary lymph node POD 29 days, IMP: right axillary abscess, plan, I recommend to do I/D right axillary abscess, D/W benefits, risks and alternatives of the surgery, the risk - infection, bleeding, unhealing wound, sepsis, recurrence, pt understood, he agrees with the surgery, he signed informed consent, I answered all questions, NPO now, 10/13/2020 12:30PM F/U S/P I/D right axillary abscess, POD 1 doing better, no fever, normal WBC, continue iv antibiotic treatment, possible discharge to home to day or tomorrow, F/U [facility] wound care center for packing change on Saturday, po clindamycin X 7 days, wound care nurse consult, may change packing tomorrow, F/U Dr. Agudelo 2 weeks, 10/14/2020 11:43AM, Dr. Agudelo F/U S/P I/D right axillary abscess, POD 2 doing better, no fever, normal WBC, pt can be discharged to home today , F/U [facility] wound care center for packing change on 10/18/2020, po clindamycin X 7 days, F/U Dr. Agudelo 2 weeks, Thanks, sign off today, please call with questions, Admission and Anticipated Discharge Date Admission Date: October 12, 2020 Subjective ff up for axillary infection, cellulitis, etc seen resting in bed, comfortable awake, alert, oriented x 3 answers all questions appropriately states he feels improved today less weak pain over the right axilla much better no chills no confusion today no chest pain, dyspnea, palpitations, dizziness no other symptoms 10/14/2020 11:41AM, Dr. Agudelo doing better, no fever, just change packing, Review of Systems Constitutional: as per Subjective / HPI Eyes: as per Subjective / HPI Respiratory: as per Subjective / HPI (pneumonia) Cardiovascular: as per Subjective / HPI Gastrointestinal: as per Subjective / HPI Musculoskeletal: as per Subjective / HPI Integumentary: as per Subjective / HPI Neurologic: as per Subjective / HPI Psychiatric: schizoaffective disorder, bipolar disorder Endocrine: DM, Hematologic / Lymphatic: lymphadenopathy Physical Exam Constitutional: WD/WN, vitals as above Eyes: PERRL, conjunctivae normal, anicteric sclerae Neck: trachea midline, no thyromegaly Respiratory: normal respiratory effort, lungs clear to auscultation Cardiovascular: RRR, no murmur, no edema Gastrointestinal (Abdomen): normal bowel sounds, soft, nontender, no hepatosplenomegaly Musculoskeletal: no cyanosis or clubbing, extremities motor strength 5/5 Skin: the wound is dry, no redness, Neurologic: patellar DTR's 2+ bilat, sensation intact Psychiatric: A+Ox3, euthymic affect Results & Data ([facility]) Vital Signs (Past 12 Hours) Vital Signs Temp Pulse Resp BP Pulse Ox 10/14/20 07:02 36.6 C 74 20 131/82 92 Laboratory Results Abnormal lab results 10/13/20 10/13/20 10/13/20 Range/Units 12:16 17:26 20:26 RBC (4.7-6.1) M/uL Hgb (14.0-18.0) g/dL Hct (42-52) % MCHC (32-36) g/dL MPV (7.4-10.4) fL Lymph # (Auto) (1.2-3.4) K/uL [place] # (Auto) (0.11-0.59) K/uL Immature Gran # (Auto) (0.00-0.02) K/uL Chloride (98-107) mmol/L Glucose (70-99) mg/dl POC Glucose 145 H 122 H 148 H (70-99) mg/dl 10/14/20 10/14/20 10/14/20 Range/Units 08:24 09:08 09:08 RBC 4.47 L (4.7-6.1) M/uL Hgb 12.1 L (14.0-18.0) g/dL Hct 38.4 L (42-52) % MCHC 31.5 L (32-36) g/dL MPV 10.6 H (7.4-10.4) fL Lymph # (Auto) 0.99 L (1.2-3.4) K/uL [place] # (Auto) 0.85 H (0.11-0.59) K/uL Immature Gran # (Auto) 0.16 H (0.00-0.02) K/uL Chloride 110 H (98-107) mmol/L Glucose 190 H (70-99) mg/dl POC Glucose 119 H (70-99) mg/dl
[2020-10-14] MEDS ORDERED: cephALEXin 500 MG CAP PO SCH (12:00)
--- NOTE | 2020-10-14 14:11 | Hospitalist Progress Note ---
Date of Service October 14, 2020 delayed entry date of service noted above Assessment & Plan (1) Sepsis: Plan: Right Axillary Abscess, Cellulitis Recent right axillary lymph node biopsy -- 10/12/20 s/p Incision and drainage of right axillary abscess by Dr. Agudelo -- blood cultures: negative so far wound culture: Staph species -- given Vancomycin + Cefepime -- cellulitis much better after I&D given Cephalexin PO course to complete as outpatient ff up with PCP in 1 week ff up with Wound Care Center Episode of Altered Mental Status -- happened ~ 2hours after patient returned from OR patient lethargic, given Narcan--> patient woke up -- resolved caution with use of Narcotics Mild Dyspnea, Wheeze -- has history of smoking -- CXR:IMPRESSION: Minimal bibasilar opacities. Atelectasis is favored. An infectious process is considered less likely but could appear similar. -- Nebs q6h given Incentive Spirometry -- resolved ff up as outpatient Hypertension, stable DM2 on oral meds, well-controlled as of recent hemoglobin A1c of 6.17 Jun 2020 -- a1c 6.5 bipolar/schizoaffective/anxiety disorder, at baseline hypothyroidism, euthyroid as of recent TSH chronic anemia, hemoglobin at baseline past tobacco abuse plan of care discussed with patient in detail and at length all questions answered he is understanding, agreeable, comfortable with the plan of care Admission and Anticipated Discharge Date Admission Date: October 12, 2020 Subjective ff up for axillary abscess, etc seen resting in bedside chair, comfortable states he feels much better overall axillary pain resolved no chest pain, dyspnea, palpitations, dizziness no other symptoms states he is ready and would like to be discharged today Review of Systems Review of Systems: all noted and negative except for above Physical Exam Physical Exam: General- oriented x 3, not in distress, speaks in sentences with no effort or accessory muscle use Eyes- anicteric Neck- no JVD Lungs- clear BS BL no rales no wheezing Heart- normal rate, regular rhythm; no murmurs Abdomen- normal bowel sounds, nondistended, soft, nontender Extremities- no pretibial edema, no calf tenderness R axila- dressing in place- no bleeding or discharge no erythema/edema/warmth/tenderness Neuro- alert, oriented x 3; no gross focal neurologic deficits Skin- warm & dry Results & Data Results & Data ([facility]) Vital Signs (Past 12 Hours) Vital Signs Temp Pulse Resp BP Pulse Ox 10/14/20 07:02 36.6 C 74 20 131/82 92 all noted and reviewed including below
[2020-10-15] MEDS ORDERED: VANCOMYCIN TROUGH ONE (01:30)
--- NOTE | 2020-10-19 17:05 | Discharge Summary ---
Date of Service October 19, 2020 Admission HPI Per Admitting Provider History obtained from patient and records. Medical history significant for hypertension, DM2 on oral meds, bipolar/schizoaffective/anxiety disorder, hyperlipidemia, hypothyroidism, chronic anemia (baseline hemoglobin 12-13), past tobacco abuse, generalized lymphadenopathy. Last confinement July 2020 for fever, hypoxia, ambulatory dysfunction. Progressive generalized lymphadenopathy noted on imaging. Surgery recommended outpatient ultrasound-guided axillary lymph node biopsy. Last month, patient underwent needle localization biopsy of right axillary lymph node. Relative basal cell hyperplasia on pathology. Flow cytometry showed no evidence of clonal beta cell population though beta cells are clearly increased. Outpatient hematology/oncology consultation contemplated. Incision healing well on outpatient follow-up with General Surgery 2 weeks ago. 2 days ago, patient noted increased soreness on right axillary biopsy site along with fever chills. No chest pain, no S OB. At the ER, patient received Vancomycin and Cefepime for sepsis. Medical History as above Surgical History : Axillary lymph node biopsy, ankle fracture surgery Family History : DM, hypertension, thyroid disease, stroke; no lymphoma/leukemia Personal/Social history : Past tobacco abuse, occasional EtOH intake, Skills long-term employee Admission Exam (Per Admitting) Constitutional GENERAL: Comfortable, pleasant, obese, no respiratory distress SKIN: Pallor,, warm HEENT: Bespectacled, pale palpebral conjunctivae, no ptosis, dry buccal mucosa NECK : Supple, short neck, no tenderness CHEST : CTA, no tenderness HEART : RRR, no obvious murmurs ABDOMEN: Some distention, nontender EXTREMITIES : Tender right axillary swelling with overlying erythema, no LE swelling/tenderness, no other conspicuous deformities noted NEUROLOGIC : Coherent, no facial asymmetry, no other gross focality Discharge Data Consultations 10/12/20 02:20 ED Decision to Admit Stat 10/12/20 02:24 Consult General Surgery Routine Procedures Performed Operation Date: 10/12/20 08:20 Actual Procedures p Right Incision and Drainage Axillary Abscess(Right) - Aaron Agudelo MD Hospital Course (1) Sepsis: Right Axillary Abscess, Cellulitis Recent right axillary lymph node biopsy -- 10/12/20 s/p Incision and drainage of right axillary abscess by Dr. Agudelo -- blood cultures: negative wound culture: MSSA -- given Vancomycin + Cefepime -- cellulitis much better after I&D given Cephalexin PO course to complete as outpatient ff up with PCP in 1 week ff up with [facility] Episode of Altered Mental Status -- happened ~ 2hours after patient returned from OR patient lethargic, given Narcan--> patient woke up -- resolved caution with use of Narcotics Mild Dyspnea, Wheeze -- has history of smoking -- CXR:IMPRESSION: Minimal bibasilar opacities. Atelectasis is favored. An infectious process is considered less likely but could appear similar. -- Nebs q6h given Incentive Spirometry -- resolved ff up as outpatient Hypertension, stable DM2 on oral meds, well-controlled as of recent hemoglobin A1c of 6.17 Jun 2020 -- a1c 6.5 bipolar/schizoaffective/anxiety disorder, at baseline hypothyroidism, euthyroid as of recent TSH chronic anemia, hemoglobin at baseline past tobacco abuse plan of care discussed with patient in detail and at length all questions answered he is understanding, agreeable, comfortable with the plan of care
--- NOTE | 2020-10-24 11:38 | Coding Query ---
CODING QUERY To promote full compliance with coding requirements relating to patient care, provider participation is requested in all cases of cable spooler uncertainty. Please assist us with the question(s) below: Coding Question(s): There is documentation of right axillary abscess and recent procedure of right axillary lymph node biopsy. Please specify below, in your clinical opinion. ( ) Right Axillary Abscess is likely a complication resulting from the recent lymph node biopsy procedure ( ) Right Axillary Abscess is Not a post-procedural complication ( X ) Other: Please Specify___pt developed right axillary seroma after biopsy procedure, then pt got incision infection about 4 weeks after surgery Physician's Response(s): Thank you Ngozi Erwin Principal Diagnosis: "that condition established after study, to be chiefly responsible for occasioning the admission of the patient to the hospital for care." Co-Existing Principal Diagnosis: "when two or more diagnoses equally meet the criteria for principal diagnosis as determined by the circumstances of admission, diagnostic work up, and/or therapy provided, and the Alphabetic Index, Tabular List, or another coding guideline does not provide sequencing direction, any one of the diagnoses may be sequenced first." "When the physician has documented what appears to be a current diagnosis in the body of the record, but has not included the diagnosis in the final diagnostic statement, the physician should be asked whether the diagnosis should be added." (Source Coding [facility] 2 QTR90. p3-4) PEDRO
== END 2020-10-14 17:14 | disposition home health service (06) | DRG 856 ==
LOC: ED 21:53 → SUATTDRO 10-12 03:06 → 3E 10-12 03:06

== ENCOUNTER 2022-07-25 07:20 | Inpatient (IN) ==
--- NOTE | 2022-07-25 07:40 | Emergency Department Note ---
Impression & Plan Hypoxia, Hypotension, Orthostasis, Syncope, Acute UTI ED Provider Note NAME: JUNIOR SAN AGE: 61 SEX: M : 1960 ARRIVES VIA: Ambulance INFORMANT: [Patient][ems] ED PROVIDER(S): [Juan Burgos MD] CHIEF COMPLAINT: Syncope HISTORY OF PRESENT ILLNESS: The patient is a 61-year-old male who presents to the ER by ambulance after a syncopal episode. The patient has been having some difficulty for about 3 weeks. He states that sometimes, he is not sure he truly loses consciousness but today, he did for certain. He struck the right side of his eye. The patient states that sometimes, he feels some fluttering in his chest but he has no chest pain. Sometimes, he feels mildly short of breath. The patient states that he recently had a nuclear stress test and did okay. He is currently wearing a ZIO monitor for 2 weeks to help with these syncopal spells. The patient states that yesterday, his lisinopril was cut in half. There has been no cough or congestion. No fever. No vomiting or diarrhea, no urinary complaints. The patient denies any headache or neck pain currently. The patient states that today, he was walking to his car when he had the syncopal spell. PMHx/PSHx: See Below SOCIAL HISTORY: See Below. PHYSICAL EXAM: GENERAL: Patient is in no acute distress. HEENT: There is a 1 cm contusion to the lateral aspect of the right eye. No obvious globe trauma. No facial step-off appreciated. Mucous membranes are moist. NECK: No stridor, no adenopathy, nontender cervical spine, trachea is midline. LUNGS: Clear to auscultation bilaterally, no wheeze, no rhonchi, breath sounds equal. HEART: Without murmurs gallops or rubs, regular rate and rhythm. ABDOMEN: Soft, nontender, bowel sounds positive, no peritonitis. EXTREMITIES: No cyanosis, mild bilateral pedal edema, full range of motion of all the joints without pain or difficulty, no signs for acute trauma. NEUROLOGIC: Oriented x 3, no acute motor or sensory deficits, no focal weakness. Somewhat sleepy. SKIN: No rash, no jaundice, no diaphoresis. DIFFERENTIAL DIAGNOSIS: Dysrhythmia, orthostasis, dehydration, electrolyte imbalance, anemia, VA, intracranial injury, facial injury, among others. EMERGENCY DEPARTMENT COURSE/PROCEDURES: Prior/Outside records reviewed: Latest wound center note. EMS notes. ECG per my interpretation: Indication was syncope. The ECG shows a normal sinus rhythm with a rate of 78. There are inverted T waves seen in the inferior and anterior leads. There is no ST elevation, no PVCs. The QTc is 476. Compared to an ECG from 06 May 2020, the T wave changes appear new. Continuous Cardiac Monitoring per my interpretation: An order was placed for continuous cardiac monitoring. The monitor shows a rate of 75 with normal sinus rhythm. Orthostatic vital signs were positive as the blood pressure dropped over 20 points systolic with standing. Critical Care Note: I have personally spent 39 minutes of critical care time in the direct management of this patient. This includes bedside care, interpretation of diagnostic studies, and testing, discussion with consultants, patient, and family members, and other required patient management activities. This 39 minutes is in excess of all separately billable procedures. MEDICAL DECISION MAKING: There is no leukocytosis or worrisome anemia. There is a normal platelet count. No renal failure or significant electrolyte abnormality. No concerning liver enzyme elevation. The patient appeared to be in a euthyroid state. ECG shows a normal sinus rhythm, some T wave changes were noted, no ST elevation. Cardiac enzyme testing x1 is not consistent with acute cardiac injury. Urinalysis is suggestive of infection. COVID test returned negative. Chest film shows some lung congestion/atelectasis. There was no pneumonia or pneumothorax per my review. Brain CT showed no acute bleed or mass effect. Facial CT showed no acute fracture. Patient received IV saline, 1 L. He received IV ceftriaxone as antibiotic coverage. Patient's orthostatic vital signs were positive. I do think he is having syncopal and near syncopal events from hypotension. Given the orthostasis, given his syncope, given the worsening of his situation over the last few weeks, given his UTI findings, I do think a hospital stay is warranted. I spoke with the patient and case management, the on-call hospitalist was consulted. Of note, the patient did drop his O2 saturation to the 80s while in the ED. He seemed somewhat somnolent. He was given O2 supplementation with improvement of the saturation value. DISPOSITION: Patient's presentation and findings warrant a hospital stay and further work-up. Past Med/Surg History Medical History Anxiety and depression Bipolar disorder Constipation History of migraine REMOTE HLD (hyperlipidemia) HTN (hypertension) Hypothyroidism Schizophrenia T2DM (type 2 diabetes mellitus) Urinary incontinence Surgical History H/O lymph node biopsy RIGHT AXILLARY History of breast lump/mass excision History of colonoscopy History of open reduction and internal fixation (ORIF) procedure Trimalleolar ankle fracture - Rt History of wisdom tooth extraction Family History Mother Diabetes Stroke Other No family history of adverse response to anesthesia Social History Smoking Status: Former smoker Tobacco Type: Cigarettes Second Hand Exposure: No; Do You Dip or Chew Tobacco: No; Hx Alcohol Use: Yes Alcohol type: beer Alcohol Intake Frequency: Monthly or Less Hx Substance Use: No Preferred Language: Belarusian Communication Ability: Effective Teller Head Required: No Beliefs That Will Affect Care: None marital status: Single Current Living Situation: Parent and Family Current Living Situation Comment: lives with mother current occupational status: employed and disabled current occupation: works at [employer] Other Information That Helps Us Care for You: No Feels Safe at Home: Yes Safety Concerns: Feels Safe At This Time Diet: regular caffeine: Yes Gender Identity: Male Assistive Devices: Glasses and Walker Allergies Allergies Allergy/AdvReac Type Severity Reaction Status Date / Time sulfamethoxazole Allergy Intermediate Rash Verified 11/16/20 11:24 [From Bactrim] trimethoprim [From Bactrim] Allergy Intermediate Rash Verified 11/16/20 11:24 Penicillins Allergy Unknown Rash Verified 11/16/20 11:24 Iodinated Contrast Media AdvReac Unknown VOMITING Verified 11/16/20 11:24 WITH IV CONTRAST Home Meds Home Medications Medication Instructions Recorded Confirmed clonazepam 0.5 mg tablet 0.5 mg PO TID 05/06/20 07/25/22 clozapine 200 mg tablet 400 mg PO HS 05/06/20 07/25/22 cyanocobalamin (vitamin B-12) 1,000 mcg PO QAM 05/06/20 07/25/22 1,000 mcg tablet levothyroxine 175 mcg tablet 175 mcg PO DAILYBB 05/06/20 07/25/22 metformin 1,000 mg tablet 1,000 mg PO BID 05/06/20 07/25/22 metoprolol succinate 25 mg 25 mg PO QAM 05/06/20 07/25/22 tablet,extended release 24 hr aspirin 81 mg tablet,delayed 81 mg PO QAM 07/31/20 07/25/22 release omega [id number] oil 1,200 mg 1 cap PO HS 07/31/20 07/25/22 (144 mg-216 mg) capsule (Fish Oil) sennosides 8.6 mg tablet (senna) 17.2 mg PO HS 07/31/20 07/25/22 paroxetine HCl 40 mg tablet 80 mg PO QA 09/09/20 07/25/22 oxybutynin chloride 5 mg tablet 10 mg PO HS 10/18/20 07/25/22 atorvastatin 80 mg tablet 80 mg PO HS 07/25/22 07/25/22 cetirizine 10 mg tablet 10 mg PO DAILY 07/25/22 07/25/22 fenofibrate micronized 134 mg 134 mg PO DAILY 07/25/22 07/25/22 capsule lisinopril 5 mg tablet 5 mg PO DAILY 07/25/22 07/25/22 Results & Data (ED) Vital Signs Vital Signs - 24 hr 07/25/22 07:21 07/25/22 07:39 07/25/22 07:34 Temperature 36.1 C L Temperature Source Axillary Pulse Rate - Lying 75 Pulse Rate - Sitting 74 Pulse Rate - Standing 75 Pulse Rate 75 Pulse Rate [Apical] Pulse Rhythm Regular Pulse Rhythm [Apical] Respiratory Rate 24 Respiratory Effort / Characteristics Non-Labored Spontaneous Respiratory Depth Normal Respiratory Pattern Blood Pressure - Lying 119/96 Blood Pressure - Sitting 117/62 Blood Pressure- Standing 97/45 L Blood Pressure 119/69 Blood Pressure [Right Arm] Blood Pressure Mean 85 Blood Pressure Mean [Right Arm] Blood Pressure Position Lying Pulse Oximetry 90 Oxygen Delivery Method Room Air Room Air Oxygen Flow Rate Sepsis Recent Fever Within 48 Hours No Sepsis New/Unexplained Change in Mental Status No Sepsis Action Taken by Nursing No Action Required 07/25/22 07:43 07/25/22 08:13 07/25/22 09:08 Temperature Temperature Source Pulse Rate - Lying Pulse Rate - Sitting Pulse Rate - Standing Pulse Rate 72 Pulse Rate [Apical] 66 Pulse Rhythm Pulse Rhythm [Apical] Regular Respiratory Rate 25 H Respiratory Effort / Characteristics Non-Labored Spontaneous Respiratory Depth Normal Respiratory Pattern Regular Blood Pressure - Lying Blood Pressure - Sitting Blood Pressure- Standing Blood Pressure Blood Pressure [Right Arm] 108/65 Blood Pressure Mean Blood Pressure Mean [Right Arm] 79 Blood Pressure Position Pulse Oximetry 88 L 91 Oxygen Delivery Method Room Air Nasal Cannula Oxygen Flow Rate 1 Sepsis Recent Fever Within 48 Hours Sepsis New/Unexplained Change in Mental Status Sepsis Action Taken by Nursing 07/25/22 09:10 07/25/22 09:10 Temperature Temperature Source Pulse Rate - Lying Pulse Rate - Sitting Pulse Rate - Standing Pulse Rate Pulse Rate [Apical] Pulse Rhythm Pulse Rhythm [Apical] Respiratory Rate Respiratory Effort / Characteristics Respiratory Depth Respiratory Pattern Blood Pressure - Lying Blood Pressure - Sitting Blood Pressure- Standing Blood Pressure Blood Pressure [Right Arm] Blood Pressure Mean Blood Pressure Mean [Right Arm] Blood Pressure Position Pulse Oximetry 87 L 92 Oxygen Delivery Method Nasal Cannula Nasal Cannula Oxygen Flow Rate 1 4 Sepsis Recent Fever Within 48 Hours Sepsis New/Unexplained Change in Mental Status Sepsis Action Taken by Assisted Medications Current Medication List: was personally reviewed by me Laboratory Data Attestation: I reviewed the patient's lab results. 07/25/22 07:36 07/25/22 07:36 Lab Results 07/25/22 07/25/22 07/25/22 Range/Units 07:36 07:36 07:36 WBC 8.27 (4.8-10.8) K/ul RBC 4.90 (4.70-6.10) M/uL Hgb 13.1 L (14.0-18.0) g/dl Hct 42.1 (42.0-52.0) % MCV 85.9 (80.0-100.0) fL MCH 26.7 (25.0-34.0) pg MCHC 31.1 L (32.0-36.0) g/dL RDW Std Deviation 48.9 H (36.4-46.3) fL RDW Coeff of Hern[place] 15.6 H (11.5-14.5) % Plt Count 220 (130-400) K/uL MPV 12.2 (9.4-12.4) fL Immature Gran % (Auto) 1.6 % Neut % (Auto) 70.7 % Lymph % (Auto) 18.1 % [place] % (Auto) 8.0 % Eos % (Auto) 0.0 % Baso % (Auto) 1.6 % Neut # (Auto) 5.85 (1.40-6.50) K/uL Lymph # (Auto) 1.50 (1.2-3.4) K/uL [place] # (Auto) 0.66 H (0.11-0.59) K/uL Eos # (Auto) 0.00 (0-0.50) K/uL Baso # (Auto) 0.13 (0-0.2) K/uL Immature Gran # (Auto) 0.13 (0.01-0.20) K/uL Sodium 140 (136-145) mmol/L Potassium 3.8 (3.5-5.1) mmol/L Chloride 109 H (98-107) mmol/L Carbon Dioxide 22 (21-32) mmol/L Anion Gap 9 (3-11) BUN 22 (6-23) mg/dl Creatinine 1.18 (0.6-1.4) mg/dl Est Cr Clr Drug Dosing 89.8 ml/min Est GFR ( Amer) 77.8 ml/min Est GFR (Non-Af Amer) 67.1 ml/min BUN/Creatinine Ratio 18.6 (10-20) Glucose 154 H (70-99(Fasting)) mg/dl Calcium 8.8 (8.6-10.3) mg/dl Magnesium 1.8 (1.7-2.4) mg/dl Total Bilirubin 0.5 (0.2-1.0) mg/dl AST 12 L (13-39) U/L ALT 10 (7-52) U/L Alkaline Phosphatase 56 (34-104) U/L Troponin I High Sens 10.8 (0-20) pg/ml Total Protein 6.0 (6.0-8.3) gm/dl Albumin 3.9 (3.4-5.0) gm/dl Globulin 2.1 L (2.5-4.0) gm/dl Albumin/Globulin Ratio 1.9 (0.9-2) TSH 1.369 (0.300-4.500) uIu/ml Urine Color Urine Appearance (Clear) Urine pH (4.5-7.5) Ur Specific [place] (1.000-1.030) Urine Protein (Negative) Urine Glucose (UA) (Negative) Urine Ketones (Negative) Urine Blood (Negative) Urine Nitrite (Negative) Urine Bilirubin (Negative) Urine Urobilinogen (Negative) Ur Leukocyte Esterase (Negative) Urine WBC (Auto) (0-5) /hpf Urine RBC (Auto) (0-4) /hpf U Hyaline Cast (Auto) (0-5) /lpf U Epithel Cells (Auto) (0-5) /lpf Urine Bacteria (Auto) (Negative) SARS-CoV-2, RNA, NAAT (NEGATIVE) 07/25/22 07/25/22 Range/Units 07:38 09:30 WBC (4.8-10.8) K/ul RBC (4.70-6.10) M/uL Hgb (14.0-18.0) g/dl Hct (42.0-52.0) % MCV (80.0-100.0) fL MCH (25.0-34.0) pg MCHC (32.0-36.0) g/dL RDW Std Deviation (36.4-46.3) fL RDW Coeff of [place] (11.5-14.5) % Plt Count (130-400) K/uL MPV (9.4-12.4) fL Immature Gran % (Auto) % Neut % (Auto) % Lymph % (Auto) % [place] % (Auto) % Eos % (Auto) % Baso % (Auto) % Neut # (Auto) (1.40-6.50) K/uL Lymph # (Auto) (1.2-3.4) K/uL [place] # (Auto) (0.11-0.59) K/uL Eos # (Auto) (0-0.50) K/uL Baso # (Auto) (0-0.2) K/uL Immature Gran # (Auto) (0.01-0.20) K/uL Sodium (136-145) mmol/L Potassium (3.5-5.1) mmol/L Chloride (98-107) mmol/L Carbon Dioxide (21-32) mmol/L Anion Gap (3-11) BUN (6-23) mg/dl Creatinine (0.6-1.4) mg/dl Est Cr Clr Drug Dosing ml/min Est GFR ( Amer) ml/min Est GFR (Non-Af Amer) ml/min BUN/Creatinine Ratio (10-20) Glucose (70-99(Fasting)) mg/dl Calcium (8.6-10.3) mg/dl Magnesium (1.7-2.4) mg/dl Total Bilirubin (0.2-1.0) mg/dl AST (13-39) U/L ALT (7-52) U/L Alkaline Phosphatase (34-104) U/L Troponin I High Sens (0-20) pg/ml Total Protein (6.0-8.3) gm/dl Albumin (3.4-5.0) gm/dl Globulin (2.5-4.0) gm/dl Albumin/Globulin Ratio (0.9-2) TSH (0.300-4.500) uIu/ml Urine Color Yellow Urine Appearance Cloudy A (Clear) Urine pH 6.0 (4.5-7.5) Ur Specific [place] 1.013 (1.000-1.030) Urine Protein Negative (Negative) Urine Glucose (UA) Negative (Negative) Urine Ketones Negative (Negative) Urine Blood Negative (Negative) Urine Nitrite Positive A (Negative) Urine Bilirubin Negative (Negative) Urine Urobilinogen Negative (Negative) Ur Leukocyte Esterase 2+ H (Negative) Urine WBC (Auto) >30 H (0-5) /hpf Urine RBC (Auto) 0-4 (0-4) /hpf U Hyaline Cast (Auto) 1-5 (0-5) /lpf U Epithel Cells (Auto) 0-5 (0-5) /lpf Urine Bacteria (Auto) 2+ H (Negative) SARS-CoV-2, RNA, NAAT NEGATIVE (NEGATIVE) Administered Medications Insulin Aspart (Insulin Aspart Per Unit Charge) 0 units SC ACHS [facility] Stop: 08/24/22 11:29 Last Admin: 07/25/22 12:21 Dose: 1 units Documented By: RENU Co-signed By: SM Discontinued Medications Sodium Chloride (Nss) 500 mls @ 999 mls/hr IV .Q31M [facility] Stop: 07/25/22 08:15 Last Infusion: 07/25/22 08:20 Dose: 0 mls/hr Documented By: Admin: 07/25/22 07:49 Dose: 999 mls/hr Documented By: MATT Sodium Chloride (Nss 1000ml) 500 mls @ 999 mls/hr IV .Q31M [facility] Stop: 07/25/22 09:09 Last Infusion: 07/25/22 09:23 Dose: 0 mls/hr Documented By: Admin: 07/25/22 08:50 Dose: 999 mls/hr Documented By: MATT Imaging Data Radiologist's Impression: Chest X-Ray 07/25/22 07:34 XR chest 1V portable CLINICAL HISTORY: weakness TECHNIQUE: Single frontal radiograph of the chest was obtained. Comparison: Comparison is made to chest radiograph 10/12/2020 FINDINGS: No lines and tubes are seen. The cardiomediastinal silhouette is normal. Bilateral lower lung atelectasis is seen. No evidence of pleural effusion or pneumothorax. IMPRESSION: No acute chest disease. ACT 112: Negative or not required by law. Electronically signed by: Artur Woodruff M.D. 07/25/2022 8:[address] 07/25/22 07:34 CT facial bones wo con CLINICAL HISTORY: fall, hit face TECHNIQUE: Multidetector row helical CT of the maxillofacial bones was performed without administration of intravenous contrast, and processed with bone and soft tissue algorithms. Coronal and sagittal reformations were obtained. Automated dose lowering techniques and/or adjustment according to patient size were utilized for this exam. CT DOSE: 896.12 mGy.cm Comparison: None available at the time of this dictation. FINDINGS: Nasal bones are normal. The mandible is intact. The temporomandibular joints are anatomically aligned. Pterygoid plates are intact. Zygomatic arches are intact. The globes are normal and symmetric, without proptosis, obvious disruption or lens dislocation. There is no orbital radiopaque foreign body. The orbital mazariegos are intact. The retrobulbar fat is without evidence of disruption. Extraocular muscles are normal and symmetric. Optic nerve sheath complexes are normal in course and caliber. Bilateral mucous retention cysts are seen in the maxillary sinus. A few ethmoid air cells are noted to be opacified. IMPRESSION: No acute facial fracture. ACT 112: Negative or not required by law. Electronically signed by: Artur Woodruff M.D. 07/25/2022 8:[address] 07/25/22 07:34 CT head/brain wo con CLINICAL HISTORY: 61 years-old Male with fall, hit head. Acute head injury status post fall TECHNIQUE: Multiple axial CT images of the head were obtained without contrast. A dose lowering technique was utilized adhering to the principles of ALARA. COMPARISON: CT maxillofacial same day FINDINGS: No acute intracranial hemorrhage, midline shift, intracranial mass, hydrocephalus, territorial ischemia or abnormal extra-axial collection. Involutional changes with chronic microvascular ischemic disease. The calvarium is intact. Mild polypoid mucosal thickening of the maxillary sinuses. Mild mucosal thickening in the ethmoid air cells. Metopic suture. Small bilateral mastoid effusions. IMPRESSION: No acute intracranial abnormality or calvarial fracture. ACT 112: Negative or not required by law. The above report was generated using voice recognition software. It may contain grammatical, syntax or spelling errors. Electronically signed by: Wilber Walters M.D. 07/25/2022 8:15 AM Discharge Plan Visit Data Chief Complaint: Syncope Stated Complaint: SYNCOPE, FALL ED Provider: Juan Burgos Discharge Problem: Hypoxia, Hypotension, Orthostasis, Syncope, Acute UTI Patient Disposition: Admitted As Inpatient Condition: Fair Discharge Instructions Interventions: ED Discharge Assessment Last Done: 07/25/22 11:46
[2022-07-25] MEDS ORDERED: SODIUM CHLORIDE 0.9% 500 ML IV SCH (07:45)
[2022-07-25 08:10] LABS: Basophils # (auto) 0.13 K/uL (0-0.2); Basophils % (auto) 1.6 %; Hematocrit (blood only) 42.1 % (42.0-52.0); Hemoglobin 13.1 g/dl (14.0-18.0); Immature Granulocytes # (auto) 0.13 K/uL (0.01-0.20); Immature Granulocytes % (auto) 1.6 %; Lymphocytes % (auto) 18.1 %; Mean Corpuscular Hemoglobin 26.7 pg (25.0-34.0); Mean Corpuscular Hgb Conc 31.1 g/dL (32.0-36.0); Mean Corpuscular Volume 85.9 fL (80.0-100.0); Mean Platelet Volume 12.2 fL (9.4-12.4); Monocytes # (auto) 0.66 K/uL (0.11-0.59); Neutrophils # (auto) 5.85 K/uL (1.40-6.50); Neutrophils % (auto) 70.7 %; Platelet Count 220 K/uL (130-400); RDW Coefficient of Variation 15.6 % (11.5-14.5); RDW Standard Deviation 48.9 fL (36.4-46.3); White Blood Count 8.27 K/ul (4.8-10.8)
--- NOTE | 2022-07-25 08:16 | CT Scan Report ---
CT head/brain wo con CLINICAL HISTORY: 61 years-old Male with fall, hit head. Acute head injury status post fall TECHNIQUE: Multiple axial CT images of the head were obtained without contrast. A dose lowering tech nique was utilized adhering to the principles of ALARA. COMPARISON: CT maxillofacial same day FINDINGS: No acute intracranial hemorrhage, midline shift, intracranial mass, hydrocephalus, territorial ischem ia or abnormal extra-axial collection. Involutional changes with chronic microvascular ischemic disea se. The calvarium is intact. Mild polypoid mucosal thickening of the maxillary sinuses. Mild mucosal thi ckening in the ethmoid air cells. Metopic suture. Small bilateral mastoid effusions. IMPRESSION: No acute intracranial abnormality or calvarial fracture. ACT 112: Negative or not required by law. The above report was generated using voice recognition software. It may contain grammatical, syntax o r spelling errors. Electronically signed by: Wilber Walters M.D. 07/25/2022 8:15 AM
[2022-07-25 08:21] LABS: Albumin Globulin Ratio 1.9 (0.9-2); Albumin Level 3.9 gm/dl (3.4-5.0); BUN Creatinine Ratio 18.6 (10-20); Bilirubin,Total 0.5 mg/dl (0.2-1.0); Calcium 8.8 mg/dl (8.6-10.3); Creatinine Clr Calc Pharmacy 89.8 ml/min; Est GFR (African American) 77.8 ml/min; Est GFR (Non-African American) 67.1 ml/min; Globulin 2.1 gm/dl (2.5-4.0); Magnesium 1.8 mg/dl (1.7-2.4); Potassium 3.8 mmol/L (3.5-5.1)
--- NOTE | 2022-07-25 08:27 | CT Scan Report ---
CT facial bones wo con CLINICAL HISTORY: fall, hit face TECHNIQUE: Multidetector row helical CT of the maxillofacial bones was performed without administrati on of intravenous contrast, and processed with bone and soft tissue algorithms. Coronal and sagittal reformations were obtained. Automated dose lowering techniques and/or adjustment according to patient size were utilized for this exam. CT DOSE: 896.12 mGy.cm Comparison: None available at the time of this dictation. FINDINGS: Nasal bones are normal. The mandible is intact. The temporomandibular joints are anatomically aligned . Pterygoid plates are intact. Zygomatic arches are intact. The globes are normal and symmetric, without proptosis, obvious disruption or lens dislocation. Ther e is no orbital radiopaque foreign body. The orbital mazariegos are intact. The retrobulbar fat is without evidence of disruption. Extraocular muscles are normal and symmetric. Optic nerve sheath complexes are normal in course and caliber. Bilateral mucous retention cysts are seen in the maxillary sinus. A few ethmoid air cells are noted t o be opacified. IMPRESSION: No acute facial fracture. ACT 112: Negative or not required by law. Electronically signed by: Artur Woodruff M.D. 07/25/2022 8:25 AM
[2022-07-25 08:28] LABS: Troponin I High Sensitivity 10.8 pg/ml (0-20)
--- NOTE | 2022-07-25 08:38 | XRay Report ---
XR chest 1V portable CLINICAL HISTORY: weakness TECHNIQUE: Single frontal radiograph of the chest was obtained. Comparison: Comparison is made to chest radiograph 10/12/2020 FINDINGS: No lines and tubes are seen. The cardiomediastinal silhouette is normal. Bilateral lower lung atelect asis is seen. No evidence of pleural effusion or pneumothorax. IMPRESSION: No acute chest disease. ACT 112: Negative or not required by law. Electronically signed by: Artur Woodruff M.D. 07/25/2022 8:37 AM
[2022-07-25] MEDS ORDERED: SODIUM CHLORIDE 0.9% 1000ML 500 ML IV ONE (08:39)
--- NOTE | 2022-07-25 09:47 | History & Physical Report ---
Date of Service July 25, 2022 Assessment & Plan (1) Syncope and collapse: Plan: Recent recurring falls with positional lightheadedness with syncopal episode this morning, likely multifactorial in etiology. Possible causes include but not limited to orthostatic hypotension (positive orthostatics in the ER), medication side effect oswaldo related to oxybutynin, clozapine and clonazepam, and underlying UTI. Lisinopril on board but very low dose. There is no evidence of sepsis, or pulmonary infection. EKG is nonischemic and there are no symptoms of ACS or heart failure with a negative troponin. He received IVF in the ER, and will continue to check orthostatics every shift. Echo ordered. Will reduce clozapine by 50% and reduce clonazepam given somnolence, from TID to BID. Will hold oxybutynin given bacteriuria. Will consult psychiatry to see if they have other recommended adjustments with mood disorder medications. Zio patch in place already. Will monitor him on telemetry and ask for PT and OT recommendations. (2) Bipolar disorder: (3) Schizoaffective disorder: Plan: chronic, stable. Cont medications with changes as noted above. (4) Hypothyroidism: Plan: chronic, stable. Cont home Synthroid. (5) T2DM (type 2 diabetes mellitus): Plan: Chronic, at goal. Repeat A1C pending. No evidence of acidosis. Will hold metformin in hospital and cont with basal/bolus insulin for glucose control. Lovenox Full Code Dispo-med tele, home pending clinical improvement and PT/OT recs. Marissa Rendon DO [facility] Hospitalist History of Present Illness Chief Complaint: syncope Primary Care Provider: Maurilio Orta MD Patient is a 61-year-old schizophrenic man who was recently being worked up for positional lightheadedness and [facility] cardiology office. This morning he presented via EMS after a syncopal episode. He recently saw cardiology 2 days ago in the office where they noted him having an abnormal EKG with T wave inversions in the anterior leads in May 2022 followed by a nonischemic nuclear stress test in June 2022. During his office visit he reported positional lig htheadedness. He stated he would take his morning medications and would feel lightheaded and occasionally would fall. He occasionally has a fluttering sensation with all symptoms ongoing for 2 weeks. Last echocardiogram was March 2021 revealing a preserved ejection fraction of 55 to 59% with no valvular disease. Grade 1 diastolic dysfunction was noted. At that office visit his lisinopril was reduced to 5 mg daily out of concern for possible orthostatic hypotension which was present today on admission. The patient is also slightly somnolent which may be a side effect of his medications. He was given intravenous fluids. This morning he is reporting to me that he was walking to his car and felt lightheaded with subsequent LOC and collapse onto the ground. When he woke up, he was clear. He had hit his head and denies any pain today. There is a small area of ecchymosis on the lateral side of his right eye. He denies any urinary symptoms with regular bowel movements. He denies any fevers, chills, respiratory symptoms. He denies any changes in his medications in the past couple of months, and reiterates that symptoms of lightheadedness and falls related to this has been ongoing for the past 2 weeks. He reports good PO intake and states he doesn't drink enough water. Mother is at bedside and reports the patient prefers soda to drink. She also reports helping him with setting out his medications and she states there was a change in the color of one of his pills recently. It isn't clear which one. He went from clonazepam BID to TID dosing a couple of months ago. We discussed the plan to reduce clozapine and clonazepam. He was initially concerned about the former because of psychotic delusions that have occurred in the past. Allergies Allergy/AdvReac Type Severity Reaction Status Date / Time sulfamethoxazole Allergy Intermediate Rash Verified 11/16/20 11:24 [From Bactrim] trimethoprim [From Bactrim] Allergy Intermediate Rash Verified 11/16/20 11:24 Penicillins Allergy Unknown Rash Verified 11/16/20 11:24 Iodinated Contrast Media AdvReac Unknown VOMITING Verified 11/16/20 11:24 WITH IV CONTRAST Home Medications Medication Instructions Recorded Confirmed Type clonazepam 0.5 mg tablet 0.5 mg PO TID 05/06/20 07/25/22 History clozapine 200 mg tablet 400 mg PO HS 05/06/20 07/25/22 History cyanocobalamin (vitamin B-12) 1,000 mcg PO QAM 05/06/20 07/25/22 History 1,000 mcg tablet levothyroxine 175 mcg tablet 175 mcg PO DAILYBB 05/06/20 07/25/22 History metformin 1,000 mg tablet 1,000 mg PO BID 05/06/20 07/25/22 History metoprolol succinate 25 mg 25 mg PO QAM 05/06/20 07/25/22 History tablet,extended release 24 hr aspirin 81 mg tablet,delayed 81 mg PO QAM 07/31/20 07/25/22 History release omega 6-mew-yjl-fish oil 1,200 mg 1 cap PO HS 07/31/20 07/25/22 History (144 mg-216 mg) capsule (Fish Oil) sennosides 8.6 mg tablet (senna) 17.2 mg PO HS 07/31/20 07/25/22 History paroxetine HCl 40 mg tablet 80 mg PO QAM 09/09/20 07/25/22 History oxybutynin chloride 5 mg tablet 10 mg PO HS 10/18/20 07/25/22 History atorvastatin 80 mg tablet 80 mg PO HS 07/25/22 07/25/22 History cetirizine 10 mg tablet 10 mg PO DAILY 07/25/22 07/25/22 History fenofibrate micronized 134 mg 134 mg PO DAILY 07/25/22 07/25/22 History capsule lisinopril 5 mg tablet 5 mg PO DAILY 07/25/22 07/25/22 History Past Med/Surg History Medical History Anxiety and depression Bipolar disorder Constipation History of migraine REMOTE HLD (hyperlipidemia) HTN (hypertension) Hypothyroidism Schizophrenia T2DM (type 2 diabetes mellitus) Urinary incontinence Surgical History H/O lymph node biopsy RIGHT AXILLARY History of breast lump/mass excision History of colonoscopy History of open reduction and internal fixation (ORIF) procedure Trimalleolar ankle fracture - Rt History of wisdom tooth extraction Family History Mother Diabetes Stroke Other No family history of adverse response to anesthesia Social History Smoking Status: Former smoker Tobacco Type: Cigarettes Second Hand Exposure: No; Do You Dip or Chew Tobacco: No; Hx Alcohol Use: Yes Alcohol type: beer Alcohol Intake Frequency: Monthly or Less Hx Substance Use: No Preferred Language: Estonian Communication Ability: Effective Machine Tracer Required: No Beliefs That Will Affect Care: None marital status: Single Current Living Situation: Parent and Family Current Living Situation Comment: lives with mother current occupational status: employed and disabled current occupation: works at [employer] Other Information That Helps Us Care for You: No Feels Safe at Home: Yes Safety Concerns: Feels Safe At This Time Diet: regular caffeine: Yes Gender Identity: Male Assistive Devices: Glasses and Walker Review of Systems Review of Systems: All systems were reviewed and negative except as indicated in HPI above. Physical Exam Physical Exam: CONSTITUTIONAL: WNWD, vitals as above, generally well-appearing but is somnolent. EYES: PERRL, normal conjunctivae, no scleral icterus ENT: external ear and nose normal, MMM NECK: trachea midline RESPIRATORY: clear to auscultation bilaterally, no crackles, rales or wheezes, normal respiratory effort CARDIOVASCULAR: regular rate and rhythm, S1 and 2 heard without murmurs, gallops or rubs, no JVD, no peripheral edema CHEST: inspection of chest was normal GASTROINTESTINAL: soft, nontender, ND, no guarding MUSCULOSKELETAL: strength 5/5 throughout, head is normocephalic with mild traumatic ecchymosis on the lateral right eye. SKIN: warm and dry NEUROLOGIC: CN 2-12 grossly intact, no sensory deficit, normal cognition, normal speech, no tremor PSYCHIATRIC: somnolent but will awaken and cooperative and oriented to person, place and time. Euthymic mood, makes good eye contact, language grossly intact, recent and remote memory grossly intact. Results & Data Results & Data Vital Signs (Past 12 Hours) Vital Signs Temp Pulse Pulse Resp BP BP Pulse Ox 07/25/22 09:10 92 07/25/22 09:10 87 L 07/25/22 09:08 66 25 H 108/65 91 07/25/22 08:13 72 07/25/22 07:43 88 L 07/25/22 07:34 07/25/22 07:21 36.1 C L 75 24 119/69 90 O2 Del Method O2 Flow Rate 07/25/22 09:10 Nasal Cannula 4 07/25/22 09:10 Nasal Cannula 1 07/25/22 09:08 Nasal Cannula 1 07/25/22 08:13 07/25/22 07:43 Room Air 07/25/22 07:34 Room Air 07/25/22 07:21 Room Air Laboratory Results Short CBC 07/25/22 Range/Units 07:36 WBC 8.27 (4.8-10.8) K/ul Hgb 13.1 L (14.0-18.0) g/dl Hct 42.1 (42.0-52.0) % Plt Count 220 (130-400) K/uL BMP 07/25/22 07:36 Sodium 140 Potassium 3.8 Chloride 109 H Carbon Dioxide 22 BUN 22 Creatinine 1.18 Glucose 154 H Calcium 8.8 Liver Function 07/25/22 Range/Units 07:36 Total Bilirubin 0.5 (0.2-1.0) mg/dl AST 12 L (13-39) U/L ALT 10 (7-52) U/L Alkaline Phosphatase 56 (34-104) U/L Albumin 3.9 (3.4-5.0) gm/dl Urine 07/25/22 Range/Units 09:30 Urine Color Yellow Urine Appearance Cloudy A (Clear) Urine pH 6.0 (4.5-7.5) Ur Specific [place] 1.013 (1.000-1.030) Urine Protein Negative (Negative) Urine Glucose (UA) Negative (Negative) Diagnostic Findings Chest X-Ray 07/25/22 07:34 XR chest 1V portable CLINICAL HISTORY: weakness TECHNIQUE: Single frontal radiograph of the chest was obtained. Comparison: Comparison is made to chest radiograph 10/12/2020 FINDINGS: No lines and tubes are seen. The cardiomediastinal silhouette is normal. Bilateral lower lung atelectasis is seen. No evidence of pleural effusion or pneumothorax. IMPRESSION: No acute chest disease. ACT 112: Negative or not required by law. Electronically signed by: Artur Woodruff M.D. 07/25/2022 8:[address] 07/25/22 07:34 CT facial bones wo con CLINICAL HISTORY: fall, hit face TECHNIQUE: Multidetector row helical CT of the maxillofacial bones was performed without administration of intravenous contrast, and processed with bone and soft tissue algorithms. Coronal and sagittal reformations were obtained. Automated dose lowering techniques and/or adjustment according to patient size were uti lized for this exam. CT DOSE: 896.12 mGy.cm Comparison: None available at the time of this dictation. FINDINGS: Nasal bones are normal. The mandible is intact. The temporomandibular joints are anatomically aligned. Pterygoid plates are intact. Zygomatic arches are intact. The globes are normal and symmetric, without proptosis, obvious disruption or lens dislocation. There is no orbital radiopaque foreign body. The orbital mazariegos are intact. The retrobulbar fat is without evidence of disruption. Extraocular muscles are normal and symmetric. Optic nerve sheath complexes are normal in course and caliber. Bilateral mucous retention cysts are seen in the maxillary sinus. A few ethmoid air cells are noted to be opacified. IMPRESSION: No acute facial fracture. ACT 112: Negative or not required by law. Electronically signed by: Artur Woodruff M.D. 07/25/2022 8:[address] 07/25/22 07:34 CT head/brain wo con CLINICAL HISTORY: 61 years-old Male with fall, hit head. Acute head injury status post fall TECHNIQUE: Multiple axial CT images of the head were obtained without contrast. A dose lowering technique was utilized adhering to the principles of ALARA. COMPARISON: CT maxillofacial same day FINDINGS: No acute intracranial hemorrhage, midline shift, intracranial mass, hydrocephalus, territorial ischemia or abnormal extra-axial collection. Involutional changes with chronic microvascular ischemic disease. The calvarium is intact. Mild polypoid mucosal thickening of the maxillary sinuses. Mild mucosal thickening in the ethmoid air cells. Metopic suture. Small bilateral mastoid effusions. IMPRESSION: No acute intracranial abnormality or calvarial fracture. ACT 112: Negative or not required by law. The above report was generated using voice recognition software. It may contain grammatical, syntax or spelling errors. Electronically signed by: Wilber Walters M.D. 07/25/2022 8:15 AM
[2022-07-25 09:57] LABS: Appearance Urine Cloudy (Clear); Bacteria Urine Automated 2+ (Negative); Bilirubin Urine Negative (Negative); Blood Urine Negative (Negative); Color Urine Yellow; Epithelial Cell Urine Auto 0-5 /lpf (0-5); Glucose Urine UA Negative (Negative); Ketones Urine Negative (Negative); Leukocyte Esterase Urine 2+ (Negative); Nitrite Urine Positive (Negative); Protein Urine Negative (Negative); RBC Urine Automated 0-4 /hpf (0-4); Specific Gravity Urine 1.013 (1.000-1.030); Urobilinogen Urine Negative (Negative); WBC Urine Automated >30 /hpf (0-5)
[2022-07-25] MEDS ORDERED: cefTRIAXone SODIUM 2,000 MG/70 ML BAG IV STA (09:59)
[2022-07-25] MEDS ORDERED: GLUCOSE 40% GEL 15 GM TUBE PO PRN (11:24)
[2022-07-25] MEDS ORDERED: ONDANSETRON INJ 2 MG/ML 2 ML VIAL IV PRN (11:24)
[2022-07-25] MEDS ORDERED: GLUCAGON FOR INJ 1 MG VIAL SQ PRN (11:24)
[2022-07-25] MEDS ORDERED: GLUCOSE 10 TAB/TUBE PO PRN (11:24)
[2022-07-25] MEDS ORDERED: CARBOHYDRATES FOR HYPOGLYCEMIA PO PRN (11:24)
[2022-07-25] MEDS ORDERED: DEXTROSE 50% 50 ML SYRINGE IV PRN (11:24)
[2022-07-25] MEDS ORDERED: POLYETHYLENE (MIRALAX) 17 GM PACK PO PRN (11:24)
[2022-07-25] MEDS ORDERED: ACETAMINOPHEN 325 MG TAB PO PRN (11:24)
[2022-07-25] MEDS: INSULIN ASPART PER UNIT CHARGE SC SCH ×3 (12:21→20:19)
--- NOTE | 2022-07-25 12:35 | Electrocardiogram Report ---
Test Reason : Blood Pressure : / mmHG Vent. Rate : 078 BPM Atrial Rate : 078 BPM P-R Int : 162 ms QRS Dur : 092 ms QT Int : 418 ms P-R-T Axes : 072 205 -11 degrees QTc Int : 476 ms possible limb lead reversal Normal sinus rhythm Right superior axis deviation T wave abnormality, consider anterior ischemia Prolonged QT Abnormal ECG When compared with ECG of 06-MAY-2020 08:24, QRS axis Shifted left Confirmed by Twin Cartwright ([id number]) on 07/25/2022 12:35:26 PM Referred By: Confirmed By:Nakul Cartwright
[2022-07-25] MEDS: TRIAMCINOLONE ACET 0.1% CR 15 GM TUBE EXT SCH (20:46)
[2022-07-25] MEDS: ATORVASTATIN 40 MG TAB PO SCH (20:46)
[2022-07-25] MEDS: SENNA 8.6 MG TAB PO SCH (20:46)
[2022-07-25] MEDS: clonazePAM 0.5 MG TAB PO SCH (20:46)
[2022-07-25] MEDS ORDERED: cloZAPine 100 MG TAB PO SCH (21:00)
[2022-07-25] MEDS ORDERED: LANTUS PER UNIT CHARGE SQ SCH (21:00)
[2022-07-26] MEDS: LEVOTHYROXINE SODIUM 175 MCG TABLET PO SCH (05:41)
[2022-07-26] MEDS ORDERED: PHARMACY GLYCEMIC MGMT CONSULT PRN (07:43)
[2022-07-26] MEDS: METOPROLOL SUCC 25MG EXT REL TAB PO SCH (08:18)
[2022-07-26] MEDS: TRIAMCINOLONE ACET 0.1% CR 15 GM TUBE EXT SCH ×2 (08:18→20:59)
[2022-07-26] MEDS: ASPIRIN 81 MG ECTAB PO SCH (08:18)
[2022-07-26] MEDS: FENOFIBRATE NANOCRYSTALLIZED 145 MG TABLET PO SCH (08:18)
[2022-07-26] MEDS: PARoxetine HCL 20 MG TAB PO SCH (08:18)
[2022-07-26] MEDS: clonazePAM 0.5 MG TAB PO SCH ×2 (08:23→20:58)
[2022-07-26] MEDS: INSULIN ASPART PER UNIT CHARGE SC SCH ×4 (08:25→20:59)
[2022-07-26 08:28] LABS: Hematocrit (blood only) 40.2 % (42.0-52.0); Hemoglobin 12.8 g/dl (14.0-18.0); Mean Corpuscular Hemoglobin 26.7 pg (25.0-34.0); Mean Corpuscular Hgb Conc 31.8 g/dL (32.0-36.0); Mean Corpuscular Volume 83.9 fL (80.0-100.0); Mean Platelet Volume 12.1 fL (9.4-12.4); Platelet Count 199 K/uL (130-400); RDW Coefficient of Variation 15.4 % (11.5-14.5); RDW Standard Deviation 47.5 fL (36.4-46.3); Red Blood Count 4.79 M/uL (4.70-6.10); White Blood Count 8.33 K/ul (4.8-10.8)
[2022-07-26 08:33] LABS: Estimated Average Glucose 137 mg/dl; Hemoglobin A1C 6.4 % (4.5-5.6)
[2022-07-26] MEDS: cefTRIAXone SODIUM 2,000 MG in DEXTROSE 5% 50 ML IV SCH (08:36)
[2022-07-26 08:47] LABS: BUN Creatinine Ratio 16.9 (10-20); Calcium 8.6 mg/dl (8.6-10.3); Creatinine Clr Calc Pharmacy 118.8 ml/min; Est GFR (African American) 108.5 ml/min; Est GFR (Non-African American) 93.6 ml/min
--- NOTE | 2022-07-26 08:48 | Cardiology Consultation ---
Date of Consultation July 26, 2022 Assessment & Plan (1) Syncope: (2) Hypoxia: (3) Abnormal EKG: Plan Patient admitted for syncopal episode after ambulation to his car across a parking lot. Etiology uncertain. Bladder incontinence associated with syncope. Patient was found to be hypoxic on arrival to ER, improved with supplemental oxygen. Chest x-ray was clear. Patient was wearing outpatient ZIO monitor at the time of his syncopal event. Instructed him to remove monitor and he will have family member place in the box provided and then mail as soon as possible. He has an abnormal EKG with anterior and inferior T wave abnormalities. This was initially noted in May 2022 as outpatient. He therefore underwent nuclear stress testing due to complaints of dyspnea. Strss test was negative for niducible ischemia. Echocardiogram has been ordered. He is scheduled for Chest CT to r/o PE later today. Will also repeat HS troponin. His BP has been borderline low and lisinopril has been discontinued. will continue metoprolol for now. No evidence of bradyarrhythmias. Further recommendations after review of echo, ongoing phototypesetting equipment monitor, and chest Ct later today. Agree with [facility] consult to review medications as well. Case discussed with Dr. Gerard I spent a total of 60 minutes on the date of service in preparation, delivery, and documentation of the care provided to this patient, excluding any time spent in the performance of separately billed services. Maci Verdugo PA-C Department of Cardiology, [facility] This chart was completed in part utilizing Speech Voice Recognition Software. Grammatical errors, random word insertions, pronoun errors, and incomplete sentences are an occasional consequence of this system due to software limitations, ambient noise, and hardware issues. Any formal questions or concerns about the content, text, or information contained within the body of this dictation should be directly addressed to the provider for clarification. Supervising Physician Co-Signing Physician Notes Supervising Physician Attestation: I have personally performed a history and physical examination on the patient. I agree with the physician sound assistant's findings and plan as documented with the following additions. Subjective: Patient denies chest discomfort. Syncopal episode noted as outlined above. EKG has revealed anterior T wave inversions since outpatient tracing performed in May,, slightly more profound today. Nuclear stress test performed 07/03/2022 for evaluation of EKG abnormality and chest discomfort that was felt to be atypical in character for angina was normal. Exam: Cardiovascular: Regular rhythm, no murmurs, no edema Data: D-dimer elevated 870 ug/l High sensitive troponin negative x2 at 10.8 and 8.9 Patient's glucose was transiently low at 20: 11 last night at 64 mg/dL Telemetry reveals sinus rhythm in the 70s Assessment and Plan: Syncope Abnormal EKG with anterior T waves (previous negative nuclear stress test p erformed Jun, 2022) Elevated D-dimer Contrast allergy -Agree with plans for CT angiogram after patient treated with corticosteroids/diphenhydramine for contrast allergy. -Continue to monitor on telemetry. -Repeat echocardiogram requested. DVT prophylaxis: Subcutaneous Lovenox I spent a total of 20 minutes on the date of service in preparation, delivery, and documentation of the care provided to this patient, excluding any time spent in the performance of separately billed services. Leno Gerard, History of Present Illness Reason for Consultation: Syncope Requesting Physician: Dr. Orantes Attending Physician: Dr. Gerard History of Present Illness Patient is a 61 year old male known to [facility] Cardiology, [facility]. history includes: 1. Abnormal EKG, T-wave inversions noted in anterior leads, 06/01/2022 a. Nonischemic nuclear stress 06/2022 2. Diabetes type 2 3. Obesity 4. Schizoaffective disorder 5. Grade 1 diastolic dysfunction- not requiring diuretic therapy Patient is a rather poor historian and lot of this information was obtained from inpatient/outpatient records. Saturday patient was in cardiology office for routine f/u to discuss nuclear stress test results (negative for inducible ischemia). He reported to CANDE Howe - "concerns regarding positional lightheadedness. Notes after taking his morning medications he will feel lightheaded and occasionally will fall. Unsure if he has a true syncopal episode, but mentions if he does pass out "its only for a second". He is able to stand up on his own and has not injured himself. Will occasionally have a fluttering sensation in his chest. Symptoms started occurring approximately 2 weeks ago" EKG during visit demonstrated sinus rodolfo at 59 bpm with ongoing T wave abnormality in anterior leads, but uncharged. BP was borderline low. It was recommended patient reduce lisinopril to 5 mg and undergo ZIO monitor which was placed during office visit. Labs were done which demonstrated elevated BUN suggesting dehydration. Unfortunately, patient sustained a syncopal episode walking to his car yesterday morning. His mother witnessed episode and called EMS. He reported bladder incontinence. He remembers feeling very lightheaded prior to event. Denies palpitations. was wearing ZIO monitor at the time of the syncopal event. Upon arrival by EMS and to the emergency department he was found to be significantly hypoxic. Started on oxygen supplementation. Head CT was unremarkable for intracranial pathology as well as fracture as he did hit his head. Chest x-ray was also unremarkable. Initial EKG with anterior and inferior t wave abnormalities, but possible limb lead reversal noted. Repeat EKG this morning demonstrating NSR with inferior and anterior T wave abnormality. When compared with outpatient EKG's dating back to May 2022, these are unchanged. This is why he had nuclear stress test completed in June 2022 which was negative for inducible ischemia. HS troponin negative x1 since admission. No D.Dimer performed. Patient was mildly hypotensive in ER as well. Patient is unsure if he reduced/stopping lisinopril. his mother takes care of his medications. At time of consult, patient still SOB with conversation. Chest xray was clear. Still requiring supplemental O2. EKG remains stable but abnormal since May 2022. He denies chest pain. ongoing SOB reported. He is obese but does not examine as volume overloaded. Still wearing ZIO monitor. Allergies Allergy/AdvReac Type Severity Reaction Status Date / Time sulfamethoxazole Allergy Intermediate Rash Verified 11/16/20 11:24 [From Bactrim] trimethoprim [From Bactrim] Allergy Intermediate Rash Verified 11/16/20 11:24 Penicillins Allergy Unknown Rash Verified 11/16/20 11:24 Iodinated Contrast Media AdvReac Unknown VOMITING Verified 11/16/20 11:24 WITH IV CONTRAST Home Medications Medication Instructions Recorded Confirmed Type clonazepam 0.5 mg tablet 0.5 mg PO TID 05/06/20 07/25/22 History clozapine 200 mg tablet 400 mg PO HS 05/06/20 07/25/22 History cyanocobalamin (vitamin B-12) 1,000 mcg PO QAM 05/06/20 07/25/22 History 1,000 mcg tablet levothyroxine 175 mcg tablet 175 mcg PO DAILYBB 05/06/20 07/25/22 History metformin 1,000 mg tablet 1,000 mg PO BID 05/06/20 07/25/22 History metoprolol succinate 25 mg 25 mg PO QAM 05/06/20 07/25/22 History tablet,extended release 24 hr aspirin 81 mg tablet,delayed 81 mg PO QAM 07/31/20 07/25/22 History release omega 4-[id number]-fish oil 1,200 mg 1 cap PO HS 07/31/20 07/25/22 History (144 mg-216 mg) capsule (Fish Oil) sennosides 8.6 mg tablet (senna) 17.2 mg PO HS 07/31/20 07/25/22 History paroxetine HCl 40 mg tablet 80 mg PO QAM 09/09/20 07/25/22 History oxybutynin chloride 5 mg tablet 10 mg PO HS 10/18/20 07/25/22 History atorvastatin 80 mg tablet 80 mg PO HS 07/25/22 07/25/22 History cetirizine 10 mg tablet 10 mg PO DAILY 07/25/22 07/25/22 History fenofibrate micronized 134 mg 134 mg PO DAILY 07/25/22 07/25/22 History capsule lisinopril 5 mg tablet 5 mg PO DAILY 07/25/22 07/25/22 History Patient History Medical History Anxiety and depression Bipolar disorder Constipation History of migraine REMOTE HLD (hyperlipidemia) HTN (hypertension) Hypothyroidism Schizophrenia T2DM (type 2 diabetes mellitus) Urinary incontinence Surgical History H/O lymph node biopsy RIGHT AXILLARY History of breast lump/mass excision History of colonoscopy History of open reduction and internal fixation (ORIF) procedure Trimalleolar ankle fracture - Rt History of wisdom tooth extraction Family History Mother Diabetes Stroke Other No family history of adverse response to anesthesia Social History Smoking Status: Former smoker Tobacco Type: Cigarettes Second Hand Exposure: No; Do You Dip or Chew Tobacco: No; Hx Alcohol Use: Yes Alcohol type: beer Alcohol Intake Frequency: Monthly or Less Hx Substance Use: No Preferred Language: Barbadian Communication Ability: Effective 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 Beliefs That Will Affect Care: None marital status: Single Current Living Situation: Parent and Family Current Living Situation Comment: lives with mother current occupational status: employed and disabled current occupation: works at [employer] home Feels Safe at Home: Yes Diet: regular caffeine: Yes Gender Identity: Male Assistive Devices: None Physical Exam Constitutional: + morbidly obese and + disheveled Respiratory: + labored breathing (Conversational dyspnea noted ) and + tachypneic Auscultation: + diminished lung sounds; no crackles and no rales Cardiovascular: Rate/Rhythm: regular rate and regular rhythm Vessels: no JVD Extremities: no edema Gastrointestinal (Abdomen): normal bowel sounds, soft, nontender, no hepatosplenomegaly Neurologic: PERRL, EOMI, accommodation nl, no face palsy, no dysarthria Results & Data Vital Signs (Past 12 Hours) Vital Signs Temp Pulse Pulse Resp BP Pulse Ox O2 Del Method 07/26/22 07:33 36.9 C 75 20 118/75 94 Nasal Cannula 07/26/22 07:29 81 07/26/22 02:50 36.5 C 77 18 123/77 91 Nasal Cannula 07/26/22 01:28 69 07/26/22 00:33 Nasal Cannula 07/25/22 22:56 36.5 C 68 18 112/72 96 Nasal Cannula O2 Flow Rate 07/26/22 07:33 4 07/26/22 07:29 07/26/22 02:50 4 07/26/22 01:28 07/26/22 00:33 4 07/25/22 22:56 4 Laboratory Results CBC 07/26/22 Range/Units 07:48 WBC 8.33 (4.8-10.8) K/ul RBC 4.79 (4.70-6.10) M/uL Hgb 12.8 L (14.0-18.0) g/dl Hct 40.2 L (42.0-52.0) % Plt Count 199 (130-400) K/uL Comprehensive Metabolic Panel 07/26/22 Range/Units 07:48 Sodium 141 (136-145) mmol/L Potassium 4.0 (3.5-5.1) mmol/L Chloride 110 H (98-107) mmol/L Carbon Dioxide 25 (21-32) mmol/L BUN 15 (6-23) mg/dl Creatinine 0.89 (0.6-1.4) mg/dl Glucose 117 H (70-99(Fasting)) mg/dl Calcium 8.6 (8.6-10.3) mg/dl Intake and Output 07/25/22 07/26/22 07/26/22 22:59 06:59 14:59 Intake Total 310 / 1430 120 / 1430 Output Total 650 / 2900 2250 / 2900 Balance -340 / -1470 -2130 / -1470 Intake: IV 70 / 1070 cefTRIAXone SODIUM 2,000 mg In 70 / 70 70 ml @ 140 mls/hr IV NOW STA Rx#:[id number] Oral 240 / 360 120 / 360 Output: Urine 650 / 2900 2250 / 2900 Other: Weight 115.1 kg Diagnostic Findings Telemetry reviewed: Normal sinus rhythm in the 70s. No pauses or high degree AV block. No concerning arrhythmias. Chest x-ray report reviewed from admission: IMPRESSION: No acute chest disease. EKG reviewed from admission: possible limb lead reversal Normal sinus rhythm Right superior axis deviation T wave abnormality, consider anterior ischemia Prolonged QT Abnormal ECG When compared with ECG of 06-MAY-2020 08:24, QRS axis Shifted left Repeat EKG this morning demonstrates normal sinus rhythm with inferior and anterior T wave abnormalities, consistent with prior findings dating back to May 2022. Outside records reviewed, from [facility]: Nuclear stress 06/2022 Lexiscan nuclear stress test is negative for ischemia or scar. Raw images show liver attenuation. Gated SPECT images reveals normal myocardial thickening and wall motion. The LV ejection fraction is calculated at 74%. EKG 06/01/2022 NSR, t-wave inversion in anterior leads 77 beats per minute QTC 452 milliseconds Echo 03/2021 The examination is adequate to evaluate the referral indication. The left ventricular cavity size is normal. The LV wall thickness is mildly increased (concentric). The left ventricular wall motion is normal. The qualitative LV ejection fraction is 55-59% (normal). There is no valvular disease The left ventricular diastolic function is mildly abnormal (grade I). Medications Administered Current Inpatient Medications Acetaminophen (Acetaminophen 325 Mg Tab) 650 mg PO Q4H PRN PRN Reason: Pain or Fever Stop: 08/24/22 11:23 Aspirin (Aspirin 81 Mg Ectab) 81 mg PO QAM [facility] Stop: 08/25/22 08:59 Last Admin: 07/26/22 08:18 Dose: 81 mg Atorvastatin Calcium (Atorvastatin 40 Mg Tab) 80 mg PO HS [facility] Stop: 08/24/22 20:59 Last Admin: 07/25/22 20:46 Dose: 80 mg Clonazepam (Clonazepam 0.5 Mg Tab) 0.5 mg PO BID [facility] Stop: 08/24/22 20:59 Last Admin: 07/26/22 08:23 Dose: 0.5 mg Clozapine (Clozapine 100 Mg Tab) 200 mg PO HS [facility] Stop: 08/24/22 20:59 Last Admin: 07/25/22 20:46 Dose: 200 mg Dextrose (Dextrose 50% 50 Ml Syringe) 25 - 50 ml IV UD PRN; Protocol PRN Reason: Hypoglycemia Protocol Stop: 08/24/22 11:23 Diphenhydramine HCl (Diphenhydramine 50 Mg/Ml Vial) 50 mg IV PRE-TREAT@1300 [facility] Stop: 07/26/22 16:00 Enoxaparin Sodium (Enoxaparin Inj 40 Mg/0.4 Ml Syr) 40 mg SQ QAM [facility] Stop: 08/25/22 08:59 Last Admin: 07/26/22 08:19 Dose: 40 mg Fenofibrate (Fenofibrate Nanocrystallized 145 Mg Tablet) 145 mg PO DAILY [facility] Stop: 08/25/22 08:59 Last Admin: 07/26/22 08:18 Dose: 145 mg Glucagon (Glucagon For Inj 1 Mg Vial) 1 mg SQ UD PRN; Protocol PRN Reason: Hypoglycemia Protocol Stop: 08/24/22 11:23 Glucose (Glucose 10 Tab/Tube) 4 - 8 tab PO UD PRN; Protocol PRN Reason: Hypoglycemia Treatment Stop: 08/24/22 11:23 Glucose (Glucose 40% Gel 15 Gm Tube) 15 - 30 gm PO UD PRN; Protocol PRN Reason: Hypoglycemia Protocol Stop: 08/24/22 11:23 Ceftriaxone Sodium 2,000 mg/ (Dextrose) 70 mls @ 100 mls/hr IV Q24H [facility]; Protocol Stop: 08/05/22 08:59 Last Infusion: 07/26/22 09:20 Dose: Infused Methylprednisolone 40 mg/ (Syringe) 0.64 mls @ 1.5 mls/min IV TODAY@0900,1300 [facility] Stop: 07/26/22 13:01 Last Admin: 07/26/22 09:08 Dose: 1.5 mls/min Insulin Aspart (Insulin Aspart Per Unit Charge) 0 units SC ACHS [facility] Stop: 08/24/22 11:29 Last Admin: 07/26/22 08:25 Dose: 4 units Insulin Glargine (Lantus Per Unit Charge) 10 units SQ BID [facility] Stop: 08/24/22 20:59 Last Admin: 07/25/22 20:20 Dose: Not Given Levothyroxine Sodium (Levothyroxine Sodium 175 Mcg Tablet) 175 mcg PO DAILYBB [facility] Stop: 08/25/22 06:29 Last Admin: 07/26/22 05:41 Dose: 175 mcg Metoprolol Succinate (Metoprolol Succ 25mg Ext Rel Tab) 25 mg PO QAM [facility] Stop: 08/25/22 08:59 Last Admin: 07/26/22 08:18 Dose: 25 mg Miscellaneous (Carbohydrates For Hypoglycemia ) 15 - 30 gm PO UD PRN PRN Reason: Hypoglycemia Protocol Stop: 08/24/22 11:23 Miscellaneous Information (Pharmacy Glycemic Mgmt Consult) 1 each N/A UD PRN; Protocol PRN Reason: Consult Stop: 08/25/22 07:42 Ondansetron HCl (Ondansetron Inj 2 Mg/Ml 2 Ml Vial) 4 mg IV Q6H PRN PRN Reason: Nausea Stop: 08/24/22 11:23 Paroxetine HCl (Paroxetine Hcl 20 Mg Tab) 80 mg PO QAM [facility] Stop: 08/25/22 08:59 Last Admin: 07/26/22 08:18 Dose: 80 mg Polyethylene Glycol (Polyethylene (Miralax) 17 Gm Pack) 17 gm PO DAILY PRN PRN Reason: Constipation Stop: 08/24/22 11:23 Sennosides (Senna 8.6 Mg Tab) 17.2 mg PO HS [facility] Stop: 08/24/22 20:59 Last Admin: 07/25/22 20:46 Dose: 17.2 mg Triamcinolone Acetonide (Triamcinolone Acet 0.1% Cr 15 Gm Tube) 1 appln EXT BID [facility] Stop: 08/24/22 20:59 Last Admin: 07/26/22 08:18 Dose: 1 appln (1) Syncope Syncope type: unspecified Qualified Code(s): R55 - Syncope and collapse
[2022-07-26] MEDS ORDERED: ENOXAPARIN INJ 40 MG/0.4 ML SYR SQ SCH (09:00)
[2022-07-26] MEDS: methylPREDNISolone 40 MG in SYRINGE 0 ML IV SCH ×2 (09:08→13:10)
[2022-07-26] MEDS ORDERED: NovoLIN-N (NPH) PER UNIT CHARGE SQ ONE (10:00)
--- NOTE | 2022-07-26 10:02 | Pharmacy Report ---
Pharmacy Glycemic Short Note 2 - Date of Service July 26, 2022 - Glycemic Short BSG Results (Last 24 hours): 07/25/22 07/25/22 07/25/22 11:49 16:41 20:11 Glucose POC Glucose 86 85 64 L* 07/25/22 07/26/22 07/26/22 20:12 07:48 07:50 Glucose 117 H POC Glucose 64 L* 106 H OUTPATIENT ANTIDIABETIC REGIMEN: * Metformin 1g PO BID * A1c 6.4% 07/26/22 ASSESSMENT: * 61 year old male, schizophrenia, admitted for work-up for lightheadedness, seen by cardiology today. * Patient to have IV Contrast, giving Solu-medrol 40mg IV x2 today at 0900, 1300 - will give NPH to cover steroid effects. * Patient with some hypoglycemia yesterday, no basal given, CF/CR was 20/7 - loosened for breakfast today, but will tighten back to cover steroids, and then loosen once steroid effects wear off. Loosen goal range to prevent further hypoglycemia. PLAN FOR INPATIENT GLYCEMIC CONTROL: * Hold outpatient oral diabetes medications * Basal insulin * Lantus - none at this time * NPH 25 units x1 for Solu-Medrol * Bolus insulin * NovoLog per scale ACHS or Q6hrs while NPO * Goal Range: Low 120 mg/dL - High 150 mg/dL * Correction Factor: 20 mg/dL/unit * Nutritional / Prandial insulin per carb ratio of 1 unit per 7 grams CHO consumed
--- NOTE | 2022-07-26 11:10 | Hospitalist Progress Note ---
Date of Service July 26, 2022 Assessment & Plan (1) Syncope and collapse: (2) Bipolar disorder: (3) Schizoaffective disorder: (4) Hypothyroidism: (5) T2DM (type 2 diabetes mellitus): Plan 61-year-old male with history of schizophrenia versus schizoaffective disorder on clozapine for over a decade presented to ED with recurrent falls along with an episode of witnessed syncope yesterday Recurrent falls with syncope-unclear etiology. Orthostatic positive in the ED. Also on multiple psychotropic medications at high doses. Medications have been adjusted. Patient is on zio which will be evaluated by cardiology. Continue telemetry. -With syncope, hypoxia, D-dimer positive and being on high-dose clozapine, will get CT PE to rule out PE. Premedications ordered as patient is allergic to contrast -Echo pending Acute hypoxic respiratory failure-patient does not use home oxygen. Was on 4 L yesterday, now down to 2 L. Continue to wean down oxygen as tolerated. Follow- up CT PE. Schizoaffective disorder-on clozapine, dose adjusted by psychiatry (prior to admission was 400 mg HS, on admission was placed at 200 hs and increased to 300 mg hs by psychiatry-Per psychiatry, please concern for worsening psychosis and psychiatric destabilization if he remains on a low-dose of clozapine-hence plan would be to increase dose if he continues to tolerate). -Clozapine dose reduced to 300 mg HS - Dose of clonazepam reduced to twice daily -Continue Paxil 80 Mg daily, can possibly taper down to 600 Mg daily in future per psychiatry. QTc less than 500. UTI-continue Rocephin pending final culture results. Urine culture growing gram-negative bacilli. Abnormal EKG- similar to before. Denies CP. Trop negative. Echo pending. Cardiology following. DM-2: A1c 6.4. Hold metformin. Hypoglycemia noted last night. Glycemic pharmacist managing insulin. Hypothyroidism: Continue Synthroid Dermatitis-seen by Derm as outpatient. Continue triamcinolone cream with recommendations for mild soaps and after several moisturizing. Outpatient follow-up with Dr. Ovalle recommended - Per OP derm notes, Mild soaps (Dove sensitive cleanser), emollients after bathing (vaseline or Aveeno eczema cream), TAC 0.1% ointment nightly as needed (only 2-3 days at a time on the face), consider keflex for a week, take tepid showers. If recalcitrant this spring, we can see pt, consider systemic therapies and light trts, bx if recalcitrant. DVT ppx- sc Lovenox Dispo-pending medical stability. Work-up in progress for syncope Admission and Anticipated Discharge Date Admission Date: July 25, 2022 Subjective Patient was seen and examined at bedside. He is feeling better. Denies any lightheadedness, dizziness, chest pain, palpitations, nausea or vomiting. States he had recurrent falls over the past month, about 8 so far. Normally he would be walking and would feel lightheaded or dizzy and fall but yesterday he had a syncopal episode without any prodromal symptoms. Discussed about his psych medications potentially contributing to his symptoms, he is concerned and states he has been on clozapine for 10 years with good control of his auditory destinations and medication changes might not control his symptoms well. Review of Systems Review of Systems: All systems reviewed & are unremarkable except as noted in Subjective Physical Exam Physical Exam: General: Lying comfortably in bed, not in distress, on NC HEENT: EOMI, JIMENA, MMM Chest: Clear breath sounds bilaterally, no wheezes or crackles CVS: Regular rate and rhythm, normal heart sounds, no murmur Abdomen: Soft, non tender, not distended, normal bowel sounds Neuro: Awake, alert, oriented, conversing well, non focal Extremities: No cyanosis, clubbing or edema Skin: Rash noted on rt upper arm, ant chest, back- improving per patient Results & Data Results & Data Vital Signs (Past 12 Hours) Vital Signs Temp Pulse Pulse Resp BP Pulse Ox O2 Del Method 07/26/22 07:33 36.9 C 75 20 118/75 94 Nasal Cannula 07/26/22 07:29 81 07/26/22 02:50 36.5 C 77 18 123/77 91 Nasal Cannula 07/26/22 01:28 69 07/26/22 00:33 Nasal Cannula O2 Flow Rate 07/26/22 07:33 4 07/26/22 07:29 07/26/22 02:50 4 07/26/22 01:28 07/26/22 00:33 4 Laboratory Results Short CBC 07/26/22 Range/Units 07:48 WBC 8.33 (4.8-10.8) K/ul Hgb 12.8 L (14.0-18.0) g/dl Hct 40.2 L (42.0-52.0) % Plt Count 199 (130-400) K/uL BMP 07/26/22 07:48 Sodium 141 Potassium 4.0 Chloride 110 H Carbon Dioxide 25 BUN 15 Creatinine 0.89 Glucose 117 H Calcium 8.6 Medications Administered Current Inpatient Medications Acetaminophen (Acetaminophen 325 Mg Tab) 650 mg PO Q4H PRN PRN Reason: Pain or Fever Stop: 08/24/22 11:23 Aspirin (Aspirin 81 Mg Ectab) 81 mg PO QAM [facility] Stop: 08/25/22 08:59 Last Admin: 07/26/22 08:18 Dose: 81 mg Atorvastatin Calcium (Atorvastatin 40 Mg Tab) 80 mg PO HS [facility] Stop: 08/24/22 20:59 Last Admin: 07/25/22 20:46 Dose: 80 mg Clonazepam (Clonazepam 0.5 Mg Tab) 0.5 mg PO BID [facility] Stop: 08/24/22 20:59 Last Admin: 07/26/22 08:23 Dose: 0.5 mg Clozapine (Clozapine 100 Mg Tab) 300 mg PO HS [facility] Stop: 08/25/22 20:59 Dextrose (Dextrose 50% 50 Ml Syringe) 25 - 50 ml IV UD PRN; Protocol PRN Reason: Hypoglycemia Protocol Stop: 08/24/22 11:23 Diphenhydramine HCl (Diphenhydramine 50 Mg/Ml Vial) 50 mg IV PRE-TREAT@1300 [facility] Stop: 07/26/22 16:00 Enoxaparin Sodium (Enoxaparin Inj 40 Mg/0.4 Ml Syr) 40 mg SQ QAM [facility] Stop: 08/25/22 08:59 Last Admin: 07/26/22 08:19 Dose: 40 mg Fenofibrate (Fenofibrate Nanocrystallized 145 Mg Tablet) 145 mg PO DAILY [facility] Stop: 08/25/22 08:59 Last Admin: 07/26/22 08:18 Dose: 145 mg Glucagon (Glucagon For Inj 1 Mg Vial) 1 mg SQ UD PRN; Protocol PRN Reason: Hypoglycemia Protocol Stop: 08/24/22 11:23 Glucose (Glucose 10 Tab/Tube) 4 - 8 tab PO UD PRN; Protocol PRN Reason: Hypoglycemia Treatment Stop: 08/24/22 11:23 Glucose (Glucose 40% Gel 15 Gm Tube) 15 - 30 gm PO UD PRN; Protocol PRN Reason: Hypoglycemia Protocol Stop: 08/24/22 11:23 Ceftriaxone Sodium 2,000 mg/ (Dextrose) 70 mls @ 100 mls/hr IV Q24H [facility]; Protocol Stop: 08/05/22 08:59 Last Infusion: 07/26/22 09:20 Dose: Infused Insulin Aspart (Insulin Aspart Per Unit Charge) 0 units SC ACHS [facility] Stop: 08/24/22 11:29 Last Admin: 07/26/22 11:58 Dose: 7 units Insulin Glargine (Lantus Per Unit Charge) 10 units SQ BID [facility] Stop: 08/24/22 20:59 Last Admin: 07/25/22 20:20 Dose: Not Given Levothyroxine Sodium (Levothyroxine Sodium 175 Mcg Tablet) 175 mcg PO DAILYBB [facility] Stop: 08/25/22 06:29 Last Admin: 07/26/22 05:41 Dose: 175 mcg Metoprolol Succinate (Metoprolol Succ 25mg Ext Rel Tab) [facility]: 08/25/22 08:59 Last Admin: 07/26/22 08:18 Dose: 25 mg Miscellaneous (Carbohydrates For Hypoglycemia ) 15 - 30 gm PO UD PRN PRN Reason: Hypoglycemia Protocol Stop: 08/24/22 11:23 Miscellaneous Information (Pharmacy Glycemic Mgmt Consult) 1 each N/A UD PRN; Protocol PRN Reason: Consult Stop: 08/25/22 07:42 Ondansetron HCl (Ondansetron Inj 2 Mg/Ml 2 Ml Vial) 4 mg IV Q6H PRN PRN Reason: Nausea Stop: 08/24/22 11:23 Paroxetine HCl (Paroxetine Hcl 20 Mg Tab) 80 mg PO QAM [facility] Stop: 08/25/22 08:59 Last Admin: 07/26/22 08:18 Dose: 80 mg Polyethylene Glycol (Polyethylene (Miralax) 17 Gm Pack) 17 gm PO DAILY PRN PRN Reason: Constipation Stop: 08/24/22 11:23 Sennosides (Senna 8.6 Mg Tab) 17.2 mg PO HS [facility] Stop: 08/24/22 20:59 Last Admin: 07/25/22 20:46 Dose: 17.2 mg Triamcinolone Acetonide (Triamcinolone Acet 0.1% Cr 15 Gm Tube) 1 appln EXT BID [facility] Stop: 08/24/22 20:59 Last Admin: 07/26/22 08:18 Dose: 1 appln
--- NOTE | 2022-07-26 11:57 | Psychiatric Consultation ---
Date of Consultation July 26, 2022 Impression / Recommendations Impression 61 yo man with history of schizophrenia vs schizoaffective disorder, depression and anxiety admitted for recent syncopal episode and worsening lightheadedness on long-term clozapine as well as clonazepam. Diagnostically clozapine can certainly lead to orthostatic hypotension, dizziness and episodes of syncope and can have various cardiovascular side effects however symptoms are more typical when initiating treatment or after a dose change. He has not experienced any recent Clozaril dose adjustments however we discussed that sometimes individuals can become more susceptible to some of the clozapine side effects as they get older and blood vessels become more brittle. It's also possible that the recent increase in clonazepam dosing from BID to TID was enough of a change to increase dizziness/syncope especially in combination with the clozaril. Given that he is starting to show some symptom improvement and high risks of potential worsening of psychosis if clozapine maintains at a low dose, I recommend increasing clozapine and observing clinically and via orthostatic vital signs if symptoms worsen. Discussed with Twin who wants to and consents to increasing clozapine as he also worries about worsening of psychosis and psychiatric destabilization if he remains on a lower dose of clozapine. QTc is slightly prolonged but remains <500ms and risks of lowering clozapine outweigh possible risks of prolonged QTc. (1) Hypotension: Hypotension type: unspecified hypotension type Qualified Code(s): I95.9 - Hypotension, unspecified (2) Orthostasis: (3) Syncope: Syncope type: unspecified Qualified Code(s): R55 - Syncope and collapse (4) Schizoaffective disorder: Plan -Increase clozapine from 200mg HS to 300mg HS (prior to admission dose was 400mg HS, goal of returning to this over next few days if 300mg HS is tolerated) to reduce likelihood of exacerbation of psychiatric symptoms -Agree with continuing at lower dose of clonazepam 0.5mg BID -Remains on Paxil 80mg qd, this is a fairly high dose and sometimes Paxil can contribute to dizziness so if symptoms persist or QTc elevates further would consider taper to possible target of 60mg daily in future -Agree with ongoing medical workup -Will attempt to reach and update Dr. Mcdermott as pt gave permission for this, if not will ensure their office receives this consult note Psych History Identifying Data 61 yo man with history of schizophrenia, anxiety, hypothyroidism, T2DM admitted medically for worsening positional lightheadedness and syncopal episode. Psychiatry consulted for recommendations regarding possible contribution from his psychiatric medications. Chief Complaint "I'm feeling better but I haven't really been moving around at all". History of Present Illness Twin describes worsening dizziness, lightheadedness and then episode of syncope just prior to admission which started in the last few weeks. He has not had any psychiatric medication changes over the last few weeks but a few months ago his outpatient psychiatrist Dr. Mcdermott did increase his clonazepam from 0.5mg BID with optional for additional 0.5mg prn to 0.5mg TID because he was experiencing more anxiety and distress. States he has been on the same dose of Clozaril since 1988 and has never experienced these types of symptoms before while taking it. Has been very stable from a psychiatric standpoint over the last 10 years with no inpatient psychiatric hospitalizations (previously had 20 hospitalizations prior to 2012). He also takes Paxil 80mg daily with no recent dose changes. He feels his anxiety and mood are currently "pretty good" and denies any current or recent SI though at times in the past has experienced passive SI. At times continues to hear auditory hallucinations of a male voice. Allergies Allergy/AdvReac Type Severity Reaction Status Date / Time sulfamethoxazole Allergy Intermediate Rash Verified 11/16/20 11:24 [From Bactrim] trimethoprim [From Bactrim] Allergy Intermediate Rash Verified 11/16/20 11:24 Penicillins Allergy Unknown Rash Verified 11/16/20 11:24 Iodinated Contrast Media AdvReac Unknown VOMITING Verified 11/16/20 11:24 WITH IV CONTRAST Home Medications Medication Instructions Recorded Confirmed Type clonazepam 0.5 mg tablet 0.5 mg PO TID 05/06/20 07/25/22 History clozapine 200 mg tablet 400 mg PO HS 05/06/20 07/25/22 History cyanocobalamin (vitamin B-12) 1,000 mcg PO QAM 05/06/20 07/25/22 History 1,000 mcg tablet levothyroxine 175 mcg tablet 175 mcg PO DAILYBB 05/06/20 07/25/22 History metformin 1,000 mg tablet 1,000 mg PO BID 05/06/20 07/25/22 History metoprolol succinate 25 mg 25 mg PO QAM 05/06/20 07/25/22 History tablet,extended release 24 hr aspirin 81 mg tablet,delayed 81 mg PO QAM 07/31/20 07/25/22 History release omega [id number]-fish oil 1,200 mg 1 cap PO HS 07/31/20 07/25/22 History (144 mg-216 mg) capsule (Fish Oil) sennosides 8.6 mg tablet (senna) 17.2 mg PO HS 07/31/20 07/25/22 History paroxetine HCl 40 mg tablet 80 mg PO QAM 09/09/20 07/25/22 History oxybutynin chloride 5 mg tablet 10 mg PO HS 10/18/20 07/25/22 History atorvastatin 80 mg tablet 80 mg PO HS 07/25/22 07/25/22 History cetirizine 10 mg tablet 10 mg PO DAILY 07/25/22 07/25/22 History fenofibrate micronized 134 mg 134 mg PO DAILY 07/25/22 07/25/22 History capsule lisinopril 5 mg tablet 5 mg PO DAILY 07/25/22 07/25/22 History Patient History Medical History Anxiety and depression Bipolar disorder Constipation History of migraine REMOTE HLD (hyperlipidemia) HTN (hypertension) Hypothyroidism Schizophrenia T2DM (type 2 diabetes mellitus) Urinary incontinence Surgical History H/O lymph node biopsy RIGHT AXILLARY History of breast lump/mass excision History of colonoscopy History of open reduction and internal fixation (ORIF) procedure Trimalleolar ankle fracture - Rt History of wisdom tooth extraction Family History Mother Diabetes Stroke Other No family history of adverse response to anesthesia Social History Smoking Status: Former smoker Tobacco Type: Cigarettes Second Hand Exposure: No; Do You Dip or Chew Tobacco: No; Hx Alcohol Use: Yes Alcohol type: beer Alcohol Intake Frequency: Monthly or Less Hx Substance Use: No Preferred Language: Albanian Communication Ability: Effective Desk Clerk Required: No Beliefs That Will Affect Care: None marital status: Single Current Living Situation: Parent and Family Current Living Situation Comment: lives with mother current occupational status: employed and disabled current occupation: works at [employer] Other Information That Helps Us Care for You: No Feels Safe at Home: Yes Safety Concerns: Feels Safe At This Time Diet: regular caffeine: Yes Gender Identity: Male Assistive Devices: Glasses and Walker Physical Exam Psychiatric: Orientation: alert and oriented x 3 Apperance: appropriately dressed and appropriately groomed Eye Contact: good eye contact Motor Behavior: no abnormal motor movements Speech: normal rate/rhythm/volume of speech Affect: + constricted affect (but with a few smiles) Mood: no depressed mood and no anxious mood Thought Process: linear/logical thought process Thought Content: reality based without delusions Suicidal Thoughts: denies suicidal thoughts Homicidal Thoughts: denies homicidal thoughts Hallucinations: + auditory hallucinations (chronic intermittent of male voice); no visual hallucinations Cognition: recent memory grossly intact, remote memory grossly intact, attention grossly intact and language grossly intact Estimated Intelligence: consistent with education level Insight: + fair insight Judgment: + fair judgement Vital Signs (Past 24 Hours): Last Vital Signs Temp 36.9 C 07/26/22 07:33 Pulse 75 07/26/22 07:33 Resp 20 07/26/22 07:33 BP 118/75 07/26/22 07:33 Pulse Ox 94 07/26/22 07:33 O2 Del Method Nasal Cannula 07/26/22 07:33 O2 Flow Rate 4 07/26/22 07:33 Review of Systems All systems reviewed & are unremarkable except as noted in HPI & below Results & Data (PSY) Laboratory Results Na+ normal Diagnostic Findings EKG on 07/25/2022 notable for QTc 476ms, prolonged Medications Administered Aspirin (Aspirin 81 Mg Ectab) 81 mg PO [facility] Stop: 08/25/22 08:59 Last Admin: 07/26/22 08:18 Dose: 81 mg Documented By: RENU Atorvastatin Calcium (Atorvastatin 40 Mg Tab) 80 mg PO [facility] Stop: 08/24/22 20:59 Last Admin: 07/25/22 20:46 Dose: 80 mg Documented By: LIZ Clonazepam (Clonazepam 0.5 Mg Tab) 0.5 mg PO BID [facility] Stop: 08/24/22 20:59 Last Admin: 07/26/22 08:23 Dose: 0.5 mg Documented By: Admin: 07/25/22 20:46 Dose: 0.5 mg Documented By: LIZ Clozapine (Clozapine 100 Mg Tab) 200 mg PO [facility] Stop: 08/24/22 20:59 Last Admin: 07/25/22 20:46 Dose: 200 mg Documented By: LIZ Enoxaparin Sodium (Enoxaparin Inj 40 Mg/0.4 Ml Syr) 40 mg SQ QAM [facility] Stop: 08/25/22 08:59 Last Admin: 07/26/22 08:19 Dose: 40 mg Documented By: RENU Fenofibrate (Fenofibrate Nanocrystallized 145 Mg Tablet) 145 mg PO DAILY [facility] Stop: 08/25/22 08:59 Last Admin: 07/26/22 08:18 Dose: 145 mg Documented By: RENU Ceftriaxone Sodium 2,000 mg/ (Dextrose) 70 mls @ 100 mls/hr IV Q24H [facility]; Protocol Stop: 08/05/22 08:59 Last Infusion: 07/26/22 09:20 Dose: 0 mls/hr Documented By: Admin: 07/26/22 08:36 Dose: 100 mls/hr Documented By: RENU Methylprednisolone 40 mg/ (Syringe) 0.64 mls @ 1.5 mls/min IV TODAY@0900,1300 [facility] Stop: 07/26/22 13:01 Last Admin: 07/26/22 09:08 Dose: 1.5 mls/min Documented By: RENU Insulin Aspart (Insulin Aspart Per Unit Charge) 0 units SC ACHS [facility] Stop: 08/24/22 11:29 Last Admin: 07/26/22 08:25 Dose: 4 units Documented By: RENU Co-signed By: [facility] Admin: 07/25/22 20:19 Dose: Not Given Documented By: Admin: 07/25/22 17:32 Dose: 5 units Documented By: RENU Co-signed By: LIZ(2) Admin: 07/25/22 12:21 Dose: 1 units Documented By: RENU Co-signed By: LIZ(2) Insulin Glargine (Lantus Per Unit Charge) 10 units SQ BID [facility] Stop: 08/24/22 20:59 Last Admin: 07/25/22 20:20 Dose: Not Given Documented By: LIZ Levothyroxine Sodium (Levothyroxine Sodium 175 Mcg Tablet) 175 mcg PO DAILYBB [facility] Stop: 08/25/22 06:29 Last Admin: 07/26/22 05:41 Dose: 175 mcg Documented By: LIZ Metoprolol Succinate (Metoprolol Succ 25mg Ext Rel Tab) 25 mg PO [facility] Stop: 08/25/22 08:59 Last Admin: 07/26/22 08:18 Dose: 25 mg Documented By: RENU Paroxetine HCl (Paroxetine Hcl 20 Mg Tab) 80 mg PO [facility] Stop: 08/25/22 08:59 Last Admin: 07/26/22 08:18 Dose: 80 mg Documented By: RENU Sennosides (Senna 8.6 Mg Tab) 17.2 mg PO [facility] Stop: 08/24/22 20:59 Last Admin: 07/25/22 20:46 Dose: 17.2 mg Documented By: LIZ Triamcinolone Acetonide (Triamcinolone Acet 0.1% Cr 15 Gm Tube) 1 appln EXT BID [facility] Stop: 08/24/22 20:59 Last Admin: 07/26/22 08:18 Dose: 1 appln Documented By: Admin: 07/25/22 20:46 Dose: 1 appln Documented By: LIZ Coding Level of Care Code 39359 IN/OBS CONSULT LVL 4,60M Diagnoses Hypotension I95.9 Hypotension type: unspecified hypotension type Orthostasis I95.1 Syncope R55 Syncope type: unspecified Schizoaffective disorder F25.9 Time Spent (min) 65
[2022-07-26 12:49] LABS: D Dimer 870 ug/L FEU (0-500)
[2022-07-26] MEDS ORDERED: diphenhydrAMINE 50 MG/ML VIAL IV SCH (13:00)
[2022-07-26] MEDS ORDERED: OPTIRAY 320 125ml IV ONE (15:24)
--- NOTE | 2022-07-26 18:04 | CT Scan Report ---
CT angio chest PE protocol CLINICAL HISTORY: r/o PE TECHNIQUE: Multidetector row helical CT of the chest was performed with angiographic protocol. Sherman l and sagittal reformations were obtained. Coronal and sagittal MIPS were obtained from the axial nelli a set and were submitted for review. Automated dose lowering techniques and/or adjustment according to patient size were utilized for this exam. CT DOSE: 854.50 mGy.cm Comparison: Comparison is made to CT chest 07/31/2020 FINDINGS: Lungs and pleura: Atelectasis versus scarring is seen in the dependent portions of the lungs. A few t iny pulmonary nodules are seen including 3 mm nodules in the left lower lobe (series 4 image 74) and in the right upper lobe (image 147). Heart and pericardium: Heart size is normal. No pericardial effusion. Vessels: Pulmonary trunk measures 34 mm in diameter. There is numerous segmental and subsegmental pul monary emboli. Mediastinum and chandler: Subcentimeter lymph nodes are seen. Chest wall and lower neck: Subcentimeter axillary lymph nodes noted. Abdomen: Unremarkable. Bones: Degenerative changes in the thoracic spine. IMPRESSION: 1. Numerous segmental and subsegmental pulmonary emboli without right heart strain. 2. Stable tiny pulmonary nodules as above. ACT 112: Negative or not required by law. Electronically signed by: Artur Woodruff M.D. 07/26/2022 6:01 PM
--- NOTE | 2022-07-26 19:28 | Electrocardiogram Report ---
Test Reason : Blood Pressure : / mmHG Vent. Rate : 072 BPM Atrial Rate : 072 BPM P-R Int : 156 ms QRS Dur : 090 ms QT Int : 458 ms P-R-T Axes : 063 -62 -29 degrees QTc Int : 501 ms Normal sinus rhythm Left anterior fascicular block T wave abnormality, consider anterior ischemia Prolonged QT Abnormal ECG Confirmed by Twin Cartwright ([id number]) on 07/26/2022 7:27:38 PM Referred By: REFERRED SELF Confirmed By:Nakul Cartwright
[2022-07-26] MEDS: ATORVASTATIN 40 MG TAB PO SCH (20:59)
[2022-07-26] MEDS: SENNA 8.6 MG TAB PO SCH (20:59)
[2022-07-26] MEDS ORDERED: cloZAPine 100 MG TAB PO SCH (21:00)
[2022-07-26] MEDS: APIXABAN 5 MG TABLET PO SCH (21:01)
[2022-07-27] MEDS: LEVOTHYROXINE SODIUM 175 MCG TABLET PO SCH (05:35)
--- NOTE | 2022-07-27 06:41 | Ultrasound Report ---
BILATERAL LOWER EXTREMITY VENOUS DOPPLER HISTORY: Acute pain and swelling of the lower legs r/o acute DVT. PE on CTA COMPARISON STUDY: None. FINDINGS: There is normal compressibility, flow, and augmentation within the bilateral lower extremit y deep venous systems. IMPRESSION: No DVT within the right or left lower extremity. ACT 112: Negative or not required by law. Electronically signed by: Wilber Walters M.D. 07/27/2022 6:38 AM
[2022-07-27 07:09] LABS: Hematocrit (blood only) 40.2 % (42.0-52.0); Hemoglobin 12.9 g/dl (14.0-18.0); Mean Corpuscular Hemoglobin 26.7 pg (25.0-34.0); Mean Corpuscular Hgb Conc 32.1 g/dL (32.0-36.0); Mean Corpuscular Volume 83.1 fL (80.0-100.0); Mean Platelet Volume 12.3 fL (9.4-12.4); Platelet Count 220 K/uL (130-400); RDW Coefficient of Variation 15.3 % (11.5-14.5); RDW Standard Deviation 46.5 fL (36.4-46.3); Red Blood Count 4.84 M/uL (4.70-6.10)
[2022-07-27 07:19] LABS: Calcium 8.8 mg/dl (8.6-10.3); Magnesium 2.3 mg/dl (1.7-2.4); Potassium 4.1 mmol/L (3.5-5.1)
[2022-07-27 07:25] LABS: Creatinine Clr Calc Pharmacy 104.6 ml/min; Est GFR (African American) 95.1 ml/min; Phosphorus 3.5 mg/dl (2.5-4.9)
[2022-07-27] MEDS: INSULIN ASPART PER UNIT CHARGE SC SCH ×4 (08:42→20:32)
[2022-07-27] MEDS: APIXABAN 5 MG TABLET PO SCH ×2 (08:43→20:29)
[2022-07-27] MEDS: clonazePAM 0.5 MG TAB PO SCH ×2 (08:44→20:28)
[2022-07-27] MEDS: FENOFIBRATE NANOCRYSTALLIZED 145 MG TABLET PO SCH (08:44)
[2022-07-27] MEDS: ASPIRIN 81 MG ECTAB PO SCH (08:44)
[2022-07-27] MEDS: METOPROLOL SUCC 25MG EXT REL TAB PO SCH (08:45)
[2022-07-27] MEDS: TRIAMCINOLONE ACET 0.1% CR 15 GM TUBE EXT SCH ×2 (08:45→20:28)
[2022-07-27] MEDS: PARoxetine HCL 20 MG TAB PO SCH (08:45)
[2022-07-27] MEDS: cefTRIAXone SODIUM 2,000 MG in DEXTROSE 5% 50 ML IV SCH (08:48)
[2022-07-27] MEDS ORDERED: LANTUS PER UNIT CHARGE SQ SCH (09:00)
--- NOTE | 2022-07-27 10:38 | Cardiology Progress Note ---
Date of Service July 27, 2022 Assessment & Plan (1) Syncope: (2) Hypoxia: (3) Abnormal EKG: (4) Pulmonary emboli: Plan Patient admitted for syncopal episode after ambulation to his car across a parking lot. Bladder incontinence associated with syncope. Patient was found to be hypoxic on arrival to ER, improved with supplemental oxygen. Chest x-ray was clear. D.Dimer was elevated and patient underwent chest CT which demonstrated Numerous segmental and subsegmental pulmonary emboli without right heart strain. He was pre treated for dye allergy and tolerated procedure without incident. Started on Eliquis 10 mg BID ZIO monitor to be returned and will evaluate for arrhythmias as well at the time of event. no arrhythmias on telemetry since admission Echocardiogram updated given recent events and demonstrated normal LVEF. Normal RV function. No valvular disease He has an abnormal EKG with anterior and inferior T wave abnormalities. This was initially noted in May 2022 as outpatient. He therefore underwent nuclear stress testing due to complaints of dyspnea. Stress test was negative for inducible ischemia. No CP. HS troponin negative since admission. No further cardiac testing warranted. will sign off. Please contact correctional guard cardiology provider with additional questions or concerns. Case discussed with Dr. Gerard I spent a total of 35 minutes on the date of service in preparation, delivery, and documentation of the care provided to this patient, excluding any time spent in the performance of separately billed services. Maci Verdugo PA-C Department of Cardiology, [facility] This chart was completed in part utilizing Speech Voice Recognition Software. Grammatical errors, random word insertions, pronoun errors, and incomplete sentences are an occasional consequence of this system due to software limitations, ambient noise, and hardware issues. Any formal questions or concerns about the content, text, or information contained within the body of this dictation should be directly addressed to the provider for clarification. Admission and Anticipated Discharge Date Admission Date: July 25, 2022 Supervising Physician Co-Signing Physician Notes Supervising Physician Attestation: I have personally performed a history and physical examination on the patient. I agree with the physician higher level teaching assistant's findings and plan as documented with the following additions. Subjective: No complaints, sitting in bed. Wearing supplemental oxygen. Family at the bedside. Denies chest discomfort or shortness of breath. No allergic reaction post receiving contrast yesterday. Exam: Cardiovascular: Regular rhythm, no murmurs rubs or gallops Pulmonary: Lungs clear to auscultation bilaterally Data: CT report/images reviewed independently Assessment and Plan: Subsegmental, segmental pulmonary embolism-findings correlate with T wave inversions in anterior precordial leads Echocardiogram reveals normal biventricular systolic function -Agree with anticoagulation, Eliquis. -Cardiology to sign off, Dr. Nguyen rounding 07/28/22. Call with questions or concerns. I spent a total of 20 minutes on the date of service in preparation, delivery, and documentation of the care provided to this patient, excluding any time spent in the performance of separately billed services. Leno Gerard, DO Subjective Patient resting in bed. Ongoing dyspnea reported but improved. oxygen saturations improving. No chest pain. No recurrent dizziness, syncope or near syncope. Yesterday afternoon, chest CT revealed multiple PE's. Started on Eliquis Review of Systems Review of Systems: All systems reviewed & are unremarkable except as noted in HPI & below Physical Exam Constitutional: + morbidly obese and + disheveled Respiratory: + tachypneic; no labored breathing Auscultation: + diminished lung sounds; no crackles and no rales Cardiovascular: Rate/Rhythm: regular rate and regular rhythm Vessels: no JVD Extremities: no edema Gastrointestinal (Abdomen): normal bowel sounds, soft, nontender, no hepatosplenomegaly Neurologic: PERRL, EOMI, accommodation nl, no face palsy, no dysarthria Results & Data Vital Signs (Past 12 Hours) Vital Signs Temp Pulse Pulse Resp BP BP Pulse Ox 07/27/22 09:01 36.3 C L 07/27/22 08:01 69 18 129/77 95 07/27/22 06:31 64 07/27/22 03:57 36.4 C L 60 18 131/84 96 07/26/22 23:00 36.7 C 74 18 125/77 94 O2 Del Method O2 Flow Rate 07/27/22 09:01 07/27/22 08:01 Room Air 07/27/22 06:31 07/27/22 03:57 Nasal Cannula 2 07/26/22 23:00 Nasal Cannula 2 Laboratory Results Cardiac Enzymes 07/26/22 Range/Units 11:43 Troponin I High Sens 8.9 (0-20) pg/ml CBC 07/27/22 Range/Units 06:40 WBC 11.30 H (4.8-10.8) K/ul RBC 4.84 (4.70-6.10) M/uL Hgb 12.9 L (14.0-18.0) g/dl Hct 40.2 L (42.0-52.0) % Plt Count 220 (130-400) K/uL Comprehensive Metabolic Panel 07/27/22 Range/Units 06:40 Sodium 138 (136-145) mmol/L Potassium 4.1 (3.5-5.1) mmol/L Chloride 108 H (98-107) mmol/L Carbon Dioxide 23 (21-32) mmol/L BUN 26 H (6-23) mg/dl Creatinine 1.00 (0.6-1.4) mg/dl Glucose 128 H (70-99(Fasting)) mg/dl Calcium 8.8 (8.6-10.3) mg/dl Intake and Output 07/26/22 07/27/22 07/27/22 22:59 06:59 14:59 Intake Total 200 / 1080 150 / 1080 Output Total 450 / 450 Balance 200 / 630 -300 / 630 Intake: Oral 200 / 1010 150 / 1010 Output: Urine 450 / 450 Other: Weight 115.1 kg 112.5 kg Weight Measurement Method Built in [facility] Diagnostic Findings Telemetry reviewed: NSR in the 60-80 bmp range. No arrhythmias echo report reviewed dated 07/26/22 : Normal left ventricular wall thickness. Ejection fraction 55 to 60%. Grade 1 diastolic dysfunction. No significant valvular disease. Chest Ct report reviewed from 07/26/22: IMPRESSION: 1. Numerous segmental and subsegmental pulmonary emboli without right heart strain. 2. Stable tiny pulmonary nodules as above venous duplex report reviewed dated 07/26/22: IMPRESSION: No DVT within the right or left lower extremity. Medications Administered Current Inpatient Medications Acetaminophen (Acetaminophen 325 Mg Tab) 650 mg PO Q4H PRN PRN Reason: Pain or Fever Stop: 08/24/22 11:23 Apixaban (Apixaban 5 Mg Tablet) 10 mg PO BID [facility] Stop: 08/02/22 09:01 Last Admin: 07/27/22 08:43 Dose: 10 mg Aspirin (Aspirin 81 Mg Ectab) 81 mg PO QAM [facility] Stop: 08/25/22 08:59 Last Admin: 07/27/22 08:44 Dose: 81 mg Atorvastatin Calcium (Atorvastatin 40 Mg Tab) 80 mg PO HS [facility] Stop: 08/24/22 20:59 Last Admin: 07/26/22 20:59 Dose: 80 mg Clonazepam (Clonazepam 0.5 Mg Tab) 0.5 mg PO BID [facility] Stop: 08/24/22 20:59 Last Admin: 07/27/22 08:44 Dose: 0.5 mg Dextrose (Dextrose 50% 50 Ml Syringe) 25 - 50 ml IV UD PRN; Protocol PRN Reason: Hypoglycemia Protocol Stop: 08/24/22 11:23 Fenofibrate (Fenofibrate Nanocrystallized 145 Mg Tablet) 145 mg PO DAILY [facility] Stop: 08/25/22 08:59 Last Admin: 07/27/22 08:44 Dose: 145 mg Glucagon (Glucagon For Inj 1 Mg Vial) 1 mg SQ UD PRN; Protocol PRN Reason: Hypoglycemia Protocol Stop: 08/24/22 11:23 Glucose (Glucose 10 Tab/Tube) 4 - 8 tab PO UD PRN; Protocol PRN Reason: Hypoglycemia Treatment Stop: 08/24/22 11:23 Glucose (Glucose 40% Gel 15 Gm Tube) 15 - 30 gm PO UD PRN; Protocol PRN Reason: Hypoglycemia Protocol Stop: 08/24/22 11:23 Ceftriaxone Sodium 2,000 mg/ (Dextrose) 70 mls @ 100 mls/hr IV Q24H [facility]; Protocol Stop: 08/05/22 08:59 Last Infusion: 07/27/22 10:39 Dose: Infused Insulin Aspart (Insulin Aspart Per Unit Charge) 0 units SC ACHS [facility] Stop: 08/24/22 11:29 Last Admin: 07/27/22 08:42 Dose: 5 units Insulin Glargine (Lantus Per Unit Charge) 10 units SQ QAM [facility] Stop: 08/26/22 08:59 Last Admin: 07/27/22 08:43 Dose: 10 units Levothyroxine Sodium (Levothyroxine Sodium 175 Mcg Tablet) 175 mcg PO DAILYBB [facility] Stop: 08/25/22 06:29 Last Admin: 07/27/22 05:35 Dose: 175 mcg Metoprolol Succinate (Metoprolol Succ 25mg Ext Rel Tab) 25 mg PO QAM [facility] Stop: 08/25/22 08:59 Last Admin: 07/27/22 08:45 Dose: 25 mg Miscellaneous (Carbohydrates For Hypoglycemia ) 15 - 30 gm PO UD PRN PRN Reason: Hypoglycemia Protocol Stop: 08/24/22 11:23 Miscellaneous Information (Pharmacy Glycemic Mgmt Consult) 1 each N/A UD PRN; Protocol PRN Reason: Consult Stop: 08/25/22 07:42 Ondansetron HCl (Ondansetron Inj 2 Mg/Ml 2 Ml Vial) 4 mg IV Q6H PRN PRN Reason: Nausea Stop: 08/24/22 11:23 Paroxetine HCl (Paroxetine Hcl 20 Mg Tab) 80 mg PO QAM [facility] Stop: 08/25/22 08:59 Last Admin: 07/27/22 08:45 Dose: 80 mg Polyethylene Glycol (Polyethylene (Miralax) 17 Gm Pack) 17 gm PO DAILY PRN PRN Reason: Constipation Stop: 08/24/22 11:23 Sennosides (Senna 8.6 Mg Tab) 17.2 mg PO HS [facility] Stop: 08/24/22 20:59 Last Admin: 07/26/22 20:59 Dose: 17.2 mg Triamcinolone Acetonide (Triamcinolone Acet 0.1% Cr 15 Gm Tube) 1 appln EXT BID [facility] Stop: 08/24/22 20:59 Last Admin: 07/27/22 08:45 Dose: 1 appln (1) Syncope Syncope type: unspecified Qualified Code(s): R55 - Syncope and collapse
--- NOTE | 2022-07-27 10:39 | Pharmacy Report ---
Pharmacy Glycemic Short Note 2 - Date of Service July 27, 2022 - Glycemic Short BSG Results (Last 24 hours): 07/26/22 07/26/22 07/26/22 11:43 16:34 20:02 Glucose POC Glucose 105 H 111 H 190 H 07/27/22 07/27/22 06:40 07:49 Glucose 128 H POC Glucose 135 H OUTPATIENT ANTIDIABETIC REGIMEN: * Metformin 1g PO BID * A1c 6.4% 07/26/22 ASSESSMENT: 07/27: * Patient received total of 44 units of insulin yesterday; 25 units were basal NPH insulin to cover for the IV steroid doses he received. * He is currently not ordered any steroids so basal insulin was switched to Lantus insulin 10 units this morning based on stress of 1. * Fasting BSG = 128 mg/dl today. Novolog parameters were loosened last night. Continued this today. 07/26/22: * 61 year old male, schizophrenia, admitted for work-up for lightheadedness, seen by cardiology today. * Patient to have IV Contrast, giving Solu-medrol 40mg IV x2 today at 0900, 1300 - will give NPH to cover steroid effects. * Patient with some hypoglycemia yesterday, no basal given, CF/CR was 20/7 - loosened for breakfast today, but will tighten back to cover steroids, and then loosen once steroid effects wear off. Loosen goal range to prevent further hypoglycemia. PLAN FOR INPATIENT GLYCEMIC CONTROL: * Hold outpatient oral diabetes medications * Basal insulin * Lantus 10 units SQ QAM * Bolus insulin * NovoLog per scale ACHS or Q6hrs while NPO * Goal Range: Low 120 mg/dL - High 150 mg/dL * Correction Factor: 30 mg/dL/unit * Nutritional / Prandial insulin per carb ratio of 1 unit per 12 grams CHO consumed
--- NOTE | 2022-07-27 11:21 | Hospitalist Progress Note ---
Date of Service July 27, 2022 Assessment & Plan (1) Pulmonary embolism, bilateral: (2) Acute respiratory failure with hypoxia: (3) Syncope and collapse: (4) UTI due to Klebsiella species: (5) Schizoaffective disorder: (6) Hypothyroidism: (7) T2DM (type 2 diabetes mellitus): Plan 61-year-old male with history of schizoaffective disorder on clozapine for over a decade presented to ED with recurrent falls along with an episode of witnessed syncope 07/25 and was found to have bilateral pulm embolism without DVT. CTA chest 1. Numerous segmental and subsegmental pulmonary emboli without right heart strain. 2. Stable tiny pulmonary nodules as above. US LE: No DVT within the right or left lower extremity. Tele with no arrhythmia Recurrent falls with syncope-likely related to PE. Orthostatic positive in the ED, negative now and patient was asymptomatic. Also on multiple psychotropic medications at high doses. Medications have been adjusted. Patient is on zio which will be evaluated by cardiology. Tele unremarkable so far. PT OT eval pending Bilateral pulmonary embolism without cor pulmonale without DVT -First episode of PE. No DVT. No heart strain. Echo reviewed. PE ?associated with clozapine. No other risk factors identified as of now. Hypercoagulable work-up cannot be done as patient is on anticoagulation. Recommend age- appropriate cancer screening as outpatient with PCP. -Started on full dose Eliquis. Mercedes check per CM -Discussed with psychiatry regarding possible initiation with clozapine and if this warrants change of regimen, however concerned about psychiatric destabilization. Acute hypoxic respiratory failure due to PE-patient does not use home oxygen. Was on 4 L on admission, now down to 2 L. Continue to wean down oxygen as tolerated. Will get 2 step O2 eval closer to discharge for home oxygen requirement Klebsiella UTI-continue Rocephin D2/5. Change to po at discharge Schizoaffective disorder-on clozapine, dose adjusted by psychiatry (prior to admission was 400 mg HS, on admission was placed at 200 hs and increased to 300 mg hs by psychiatry-Per psychiatry, please concern for worsening psychosis and psychiatric destabilization if he remains on a low-dose of clozapine-hence plan would be to increase dose if he continues to tolerate). -Clozapine dose reduced to 300 mg HS. ?further management per psych now with new PE -Dose of clonazepam reduced to twice daily -Continue Paxil 80 Mg daily, can possibly taper down to 600 Mg daily in future per psychiatry. QTc less than 500. Abnormal EKG- similar to before. Denies CP. Trop negative. Echo reviewed. Seen by cardio. DM-2: A1c 6.4. Hold metformin. Glycemic pharmacist managing insulin. Hypothyroidism: Continue Synthroid Dermatitis-seen by Derm as outpatient. Continue triamcinolone cream with recommendations for mild soaps and after several moisturizing. Outpatient follow-up with Dr. Ovalle recommended - Per OP derm notes, Mild soaps (Dove sensitive cleanser), emollients after bathing (vaseline or Aveeno eczema cream), TAC 0.1% ointment nightly as needed (only 2-3 days at a time on the face), consider keflex for a week, take tepid showers. If recalcitrant this spring, we can see pt, consider systemic therapies and light trts, bx if recalcitrant. DVT ppx- Eliquis full dose for PE Dispo- Pending PT/OT eval, 2 step eval Admission and Anticipated Discharge Date Admission Date: July 25, 2022 Subjective Patient was seen and examined at bedside. He feels much better since admission. Denies any chest pain or shortness of breath. No palpitations, fever or chills. Discussed about his pulmonary embolism and possible relation with clozapine. He is concerned about destabilization if clozapine is discontinued. Review of Systems Review of Systems: All systems reviewed & are unremarkable except as noted in Subjective Physical Exam Physical Exam: General: Lying comfortably in bed, not in distress, on NC HEENT: EOMI, JIMENA, MMM Chest: Clear breath sounds bilaterally, no wheezes or crackles CVS: Regular rate and rhythm, normal heart sounds, no murmur Abdomen: Soft, non tender, not distended, normal bowel sounds Neuro: Awake, alert, oriented, conversing well, non focal Extremities: No cyanosis, clubbing or edema Skin: Rash noted on rt upper arm, ant chest, back- improving per patient Results & Data Results & Data Vital Signs (Past 12 Hours) Vital Signs Temp Pulse Pulse Resp BP Pulse Ox O2 Del Method 07/27/22 09:30 Nasal Cannula 07/27/22 09:01 36.3 C L 07/27/22 08:01 69 18 129/77 95 Room Air 06/16/23 06:31 64 07/27/22 03:57 36.4 C L 60 18 131/84 96 Nasal Cannula O2 Flow Rate 07/27/22 09:30 2 07/27/22 09:01 07/27/22 08:01 07/27/22 06:31 07/27/22 03:57 2 Laboratory Results Short CBC 07/27/22 Range/Units 06:40 WBC 11.30 H (4.8-10.8) K/ul Hgb 12.9 L (14.0-18.0) g/dl Hct 40.2 L (42.0-52.0) % Plt Count 220 (130-400) K/uL BMP 07/27/22 06:40 Sodium 138 Potassium 4.1 Chloride 108 H Carbon Dioxide 23 BUN 26 H Creatinine 1.00 Glucose 128 H Calcium 8.8 Diagnostic Findings Venous Doppler Study 07/26/22 18:20 BILATERAL LOWER EXTREMITY VENOUS DOPPLER HISTORY: Acute pain and swelling of the lower legs r/o acute DVT. PE on CTA COMPARISON STUDY: None. FINDINGS: There is normal compressibility, flow, and augmentation within the bilateral lower extremity deep venous systems. IMPRESSION: No DVT within the right or left lower extremity. ACT 112: Negative or not required by law. Electronically signed by: Wilber Walters M.D. 07/27/2022 6:38 AM Medications Administered Current Inpatient Medications Acetaminophen (Acetaminophen 325 Mg Tab) 650 mg PO Q4H PRN PRN Reason: Pain or Fever Stop: 08/24/22 11:23 Apixaban (Apixaban 5 Mg Tablet) 10 mg PO BID [facility] Stop: 08/02/22 09:01 Last Admin: 07/27/22 08:43 Dose: 10 mg Aspirin (Aspirin 81 Mg Ectab) 81 mg PO QAM [facility] Stop: 08/25/22 08:59 Last Admin: 07/27/22 08:44 Dose: 81 mg Atorvastatin Calcium (Atorvastatin 40 Mg Tab) 80 mg PO HS [facility] Stop: 08/24/22 20:59 Last Admin: 07/26/22 20:59 Dose: 80 mg Clonazepam (Clonazepam 0.5 Mg Tab) 0.5 mg PO BID [facility] Stop: 08/24/22 20:59 Last Admin: 07/27/22 08:44 Dose: 0.5 mg Dextrose (Dextrose 50% 50 Ml Syringe) 25 - 50 ml IV UD PRN; Protocol PRN Reason: Hypoglycemia Protocol Stop: 08/24/22 11:23 Fenofibrate (Fenofibrate Nanocrystallized 145 Mg Tablet) 145 mg PO DAILY [facility] Stop: 08/25/22 08:59 Last Admin: 07/27/22 08:44 Dose: 145 mg Glucagon (Glucagon For Inj 1 Mg Vial) 1 mg SQ UD PRN; Protocol PRN Reason: Hypoglycemia Protocol Stop: 08/24/22 11:23 Glucose (Glucose 10 Tab/Tube) 4 - 8 tab PO UD PRN; Protocol PRN Reason: Hypoglycemia Treatment Stop: 08/24/22 11:23 Glucose (Glucose 40% Gel 15 Gm Tube) 15 - 30 gm PO UD PRN; Protocol PRN Reason: Hypoglycemia Protocol Stop: 08/24/22 11:23 Ceftriaxone Sodium 2,000 mg/ (Dextrose) 70 mls @ 100 mls/hr IV Q24H [facility]; Protocol Stop: 08/05/22 08:59 Last Infusion: 07/27/22 10:39 Dose: Infused Insulin Aspart (Insulin Aspart Per Unit Charge) 0 units SC ACHS [facility] Stop: 08/24/22 11:29 Last Admin: 07/27/22 08:42 Dose: 5 units Insulin Glargine (Lantus Per Unit Charge) 10 units SQ QAM [facility] Stop: 08/26/22 08:59 Last Admin: 07/27/22 08:43 Dose: 10 units Levothyroxine Sodium (Levothyroxine Sodium 175 Mcg Tablet) 175 mcg PO DAILYBB [facility] Stop: 08/25/22 06:29 Last Admin: 07/27/22 05:35 Dose: 175 mcg Metoprolol Succinate (Metoprolol Succ 25mg Ext Rel Tab) 25 mg PO QAM [facility] Stop: 08/25/22 08:59 Last Admin: 07/27/22 08:45 Dose: 25 mg Miscellaneous (Carbohydrates For Hypoglycemia ) 15 - 30 gm PO UD PRN PRN Reason: Hypoglycemia Protocol Stop: 08/24/22 11:23 Miscellaneous Information (Pharmacy Glycemic Mgmt Consult) 1 each N/A UD PRN; Protocol PRN Reason: Consult Stop: 08/25/22 07:42 Ondansetron HCl (Ondansetron Inj 2 Mg/Ml 2 Ml Vial) 4 mg IV Q6H PRN PRN Reason: Nausea Stop: 08/24/22 11:23 Paroxetine HCl (Paroxetine Hcl 20 Mg Tab) 80 mg PO QAM [facility] Stop: 08/25/22 08:59 Last Admin: 07/27/22 08:45 Dose: 80 mg Polyethylene Glycol (Polyethylene (Miralax) 17 Gm Pack) 17 gm PO DAILY PRN PRN Reason: Constipation Stop: 08/24/22 11:23 Sennosides (Senna 8.6 Mg Tab) 17.2 mg PO HS [facility] Stop: 08/24/22 20:59 Last Admin: 07/26/22 20:59 Dose: 17.2 mg Triamcinolone Acetonide (Triamcinolone Acet 0.1% Cr 15 Gm Tube) 1 appln EXT BID [facility] Stop: 08/24/22 20:59 Last Admin: 07/27/22 08:45 Dose: 1 appln
--- NOTE | 2022-07-27 11:35 | Psychiatric Progress Note ---
Date of Service July 27, 2022 Impression / Recommendations Impression 61 yo man with history of schizophrenia, depression and anxiety admitted for recent syncopal episode and worsening lightheadedness on long-term clozapine as well as clonazepam and Paxil found to have bilateral pulmonary emboli. Extensive literature review was done which is notable for systematic review article (Radha Garcia. Clozapine associated pulmonary embolism: systematic review. [facility] [employer] Med Perspect. 2019 Oct 16;9(4):300- 304. doi: 10.1080/[id number]. PMID: 73896246; PMCID: [id number]) and multiple other case reports (including https: //neuro.psychiatryonline.org/doi/pdf/10.1176/appi.neuropsych.99997478) as well as clozapine REMS database reports showing very rare but serious potential side effect of pulmonary emboli and venous thrombotic events in individuals using clozapine who often have no other risk factors for hypercoagulability or PE/VTE development. Based on the evidence-based literature available, this side effect can occur any time during treatment course (initially or after years of clozapine use) and is not dose dependent (observed in both low and high doses of clozapine). There is no clear consensus or recommendations in the literature about what to do in terms of clozapine management once such a thrombotic event occurs but in most cases the clozapine is discontinued due to perceived increased risk of such an event potentially occurring again. Most studies hypothesize that the increased risk of thrombotic events with clozapine is multifactorial and likely due to a combination of factors including weight gain/sedentary lifestyle from sedation/cardiovascular factors that can occur from use of clozapine as well as possible clozapine related influences on antiphospholipid antibodies and platelet adhesion changes. The systematic review article does note four individuals who were continued on clozapine with two having a repeat thrombotic event (one after anticoagulation was stopped). One of the patients was continued on anticoagulation with no further thrombotic events during two years of follow-up. Spent time discussing with Tom this information as well as recommendation to consider discontinuing clozapine in favor of an alternative antipsychotic. At this time he would prefer to remain on clozapine, with the risk for potential worsening or future PEs or other potentially fatal thrombotic events, given that this has been his most effective antipsychotic medication and has helped him remain stable and out of the hospital for the last decade. He understandably is concerned that a change in psychiatric medication could make his psychiatric symptoms, which previously were extremely distressing, much worse and prefers to remain on clozapine. Additionally clozapine is well known to be the only antipsychotic that has consistently been shown to be more effective than any of the other first or second generation antipsychotic medications. Further, discussed his new side effect and dilemma with his outpatient psychiatrist, Dr. Mcdermott, who confirmed that Tom has been stable on clozapine for almost 30 years and that previous additional antipsychotic augmentation trials have not shown significant improvement or benefit. Dr. Mcdermott also noted that Tom has historically developed increased suicidal thoughts when his delusions worsen or when anxiety becomes amplified which is also an important consideration given that clozapine offers significant reduction in mortality overall across the literature given that it can help to reduce by suicide. In considering all of these factors and Tom's preference I feel it is reasonable for him to remain on clozapine but would recommend outpatient hematology consultation/close follow-up for further input as well as rec ommendation based on the few case reports that he may then need to remain on lifelong anticoagulation (or at least while he remains on clozapine). Dr. Mcdermott is also willing to explore options for cross-taper to an alternative antipsychotic in the outpatient setting over time if Tom becomes interested or agreeable to this. Encouragingly his QTc significantly improved on repeat EKG today and is now 451ms. Given elevated QTc on EKG yesterday would consider repeat EKG in 1-2 months in outpatient setting to ensure stability over time. (1) Adverse effect of clozapine: (2) Schizophrenia: (3) Hypotension: (4) Orthostasis: (5) Syncope: (6) Pulmonary embolism, bilateral: Plan -Continue with clozapine 300mg HS, reduced from prior to admission dose of 400mg HS, to allow option for antipsychotic cross-taper or augmentation in outpatient setting in the future and given improvement in some of his recent psychosocial stressors. Of note however, evidence suggests PE risk is dose independent so if higher dose is required in the future would re-titrate to 400mg HS based on psychiatric symptoms -Continue with Paxil and Klonopin as ordered -Agree with plan for outpatient hematology input -Agree with anticoagulation and possibly for longer duration if he remains on clozapine Interval History Identifying Information 61 yo man with history of schizophrenia, anxiety, hypothyroidism, T2DM admitted medically for worsening positional lightheadedness and syncopal episode. Psychiatry consulted for recommendations regarding possible contribution from his psychiatric medications. Chief Complaint "I'd rather take the risk". Subjective Subjective Patient was seen & assessed and interval progress reviewed. Medical workup discovered presence of multiple PEs which is suspected to be due to clozapine given no other known risk factors for PE. Discussed with Tom the data regarding PE risk in clozapine as rare but serious and often fatal when it occurs. Discussed that there is no clear current consensus about whether or not clozapine needs to be discontinued but that typically this is what is recommended with switch to an alternative antipsychotic. Reviewed that a few case reports of two individuals who were kept on clozapine with blood thinner medication and they did not develop PEs in 2 year study follow-up period but that risk for PE development would still exist as felt to be driven by factors related to clozapine. He recognizes these risks but states he would rather remain on clozapine with blood thinning medication and take the risk of possible future worsening or new PEs as clozapine has been the most effective medication for him and he worries about worsening of delusions or his mood without this. Discussed some of his previous medication trials with antipsychotics prior to clozapine that he found ineffective and/or had side effects. Today is feeling better overall and was glad to have been able to walk in the [place] with PT but does feel more weak. Confirmed that he is no longer having any car issues which was previously a significant stressor and contributing to increased SI in the outpatient setting. Currently feels his mood is stable and denies SI. Medication Trials haldol (developed rigidity and EPS), Trilafon (ineffective), hx kate Ring augmentation ~2015 (unclear if beneficial, was stopped due to high cost), risperidone augmentation at one point Physical Exam Psychiatric Orientation: alert and oriented x 3 Apperance: appropriately dressed and appropriately groomed Eye Contact: good eye contact Motor Behavior: no abnormal motor movements Speech: normal rate/rhythm/volume of speech Affect: euthymic affect Mood: no depressed mood and no anxious mood Thought Process: linear/logical thought process Thought Content: reality based without delusions Suicidal Thoughts: denies suicidal thoughts Homicidal Thoughts: denies homicidal thoughts Hallucinations: + auditory hallucinations (chronic intermittent of male voice); no visual hallucinations Cognition: recent memory grossly intact, remote memory grossly intact, attention grossly intact and language grossly intact Estimated Intelligence: consistent with education level Insight: + fair insight Judgment: + fair judgement Vital Signs (Past 24 Hours) Last Vital Signs Temp 36.3 C L 07/27/22 09:01 Pulse 69 07/27/22 08:01 Resp 18 07/27/22 08:01 BP 129/77 07/27/22 08:01 Pulse Ox 95 07/27/22 08:01 O2 Del Method Nasal Cannula 07/27/22 09:30 O2 Flow Rate 2 07/27/22 09:30 Results & Data ([facility]) Laboratory Results Laboratory Results - last 24 hr 07/26/22 07/26/22 07/26/22 11:43 11:43 11:43 WBC RBC Hgb Hct MCV MCH MCHC RDW Std Deviation RDW Coeff of Hernando Plt Count MPV D-Dimer 870 H* Sodium Potassium Chloride Carbon Dioxide Anion Gap BUN Creatinine Est Cr Clr Drug Dosing Est GFR ( Amer) Est GFR (Non-Af Amer) BUN/Creatinine Ratio Glucose POC Glucose 105 H Calcium Phosphorus Magnesium Troponin I High Sens 8.9 07/26/22 07/26/22 07/27/22 16:34 20:02 06:40 WBC 11.30 H RBC 4.84 Hgb 12.9 L Hct 40.2 L MCV 83.1 MCH 26.7 MCHC 32.1 RDW Std Deviation 46.5 H RDW Coeff of Hernando 15.3 H Plt Count 220 MPV 12.3 D-Dimer Sodium Potassium Chloride Carbon Dioxide Anion Gap BUN Creatinine Est Cr Clr Drug Dosing Est GFR ( Amer) Est GFR (Non-Af Amer) BUN/Creatinine Ratio Glucose POC Glucose 111 H 190 H Calcium Phosphorus Magnesium Troponin I High Sens 07/27/22 07/27/22 06:40 07:49 WBC RBC Hgb Hct MCV MCH MCHC RDW Std Deviation RDW Coeff of Hernando Plt Count MPV D-Dimer Sodium 138 Potassium 4.1 Chloride 108 H Carbon Dioxide 23 Anion Gap 7 BUN 26 H Creatinine 1.00 Est Cr Clr Drug Dosing 104.6 Est GFR ( Amer) 95.1 Est GFR (Non-Af Amer) 82.0 BUN/Creatinine Ratio 26.0 H Glucose 128 H POC Glucose 135 H Calcium 8.8 Phosphorus 3.5 Magnesium 2.3 Troponin I High Sens Current Inpatient Medications Current Inpatient Medications: Current Inpatient Medications Acetaminophen (Acetaminophen 325 Mg Tab) 650 mg PO Q4H PRN PRN Reason: Pain or Fever Stop: 08/24/22 11:23 Apixaban (Apixaban 5 Mg Tablet) 10 mg PO BID [facility] Stop: 08/02/22 09:01 Last Admin: 07/27/22 08:43 Dose: 10 mg Aspirin (Aspirin 81 Mg Ectab) 81 mg PO QAM [facility] Stop: 08/25/22 08:59 Last Admin: 07/27/22 08:44 Dose: 81 mg Atorvastatin Calcium (Atorvastatin 40 Mg Tab) 80 mg PO HS [facility] Stop: 08/24/22 20:59 Last Admin: 07/26/22 20:59 Dose: 80 mg Clonazepam (Clonazepam 0.5 Mg Tab) 0.5 mg PO BID [facility] Stop: 08/24/22 20:59 Last Admin: 07/27/22 08:44 Dose: 0.5 mg Dextrose (Dextrose 50% 50 Ml Syringe) 25 - 50 ml IV UD PRN; Protocol PRN Reason: Hypoglycemia Protocol Stop: 08/24/22 11:23 Fenofibrate (Fenofibrate Nanocrystallized 145 Mg Tablet) 145 mg PO DAILY [facility] Stop: 08/25/22 08:59 Last Admin: 07/27/22 08:44 Dose: 145 mg Glucagon (Glucagon For Inj 1 Mg Vial) 1 mg SQ UD PRN; Protocol PRN Reason: Hypoglycemia Protocol Stop: 08/24/22 11:23 Glucose (Glucose 10 Tab/Tube) 4 - 8 tab PO UD PRN; Protocol PRN Reason: Hypoglycemia Treatment Stop: 08/24/22 11:23 Glucose (Glucose 40% Gel 15 Gm Tube) 15 - 30 gm PO UD PRN; Protocol PRN Reason: Hypoglycemia Protocol Stop: 08/24/22 11:23 Ceftriaxone Sodium 2,000 mg/ (Dextrose) 70 mls @ 100 mls/hr IV Q24H [facility]; Protocol Stop: 08/05/22 08:59 Last Infusion: 07/27/22 10:39 Dose: Infused Insulin Aspart (Insulin Aspart Per Unit Charge) 0 units SC ACHS [facility] Stop: 08/24/22 11:29 Last Admin: 07/27/22 08:42 Dose: 5 units Insulin Glargine (Lantus Per Unit Charge) 10 units SQ QAM [facility] Stop: 08/26/22 08:59 Last Admin: 07/27/22 08:43 Dose: 10 units Levothyroxine Sodium (Levothyroxine Sodium 175 Mcg Tablet) 175 mcg PO DAILYBB [facility] Stop: 08/25/22 06:29 Last Admin: 07/27/22 05:35 Dose: 175 mcg Metoprolol Succinate (Metoprolol Succ 25mg Ext Rel Tab) 25 mg PO QAM [facility] Stop: 08/25/22 08:59 Last Admin: 07/27/22 08:45 Dose: 25 mg Miscellaneous (Carbohydrates For Hypoglycemia ) 15 - 30 gm PO UD PRN PRN Reason: Hypoglycemia Protocol Stop: 08/24/22 11:23 Miscellaneous Information (Pharmacy Glycemic Mgmt Consult) 1 each N/A UD PRN; Protocol PRN Reason: Consult Stop: 08/25/22 07:42 Ondansetron HCl (Ondansetron Inj 2 Mg/Ml 2 Ml Vial) 4 mg IV Q6H PRN PRN Reason: Nausea Stop: 08/24/22 11:23 Paroxetine HCl (Paroxetine Hcl 20 Mg Tab) 80 mg PO QAM [facility] Stop: 08/25/22 08:59 Last Admin: 07/27/22 08:45 Dose: 80 mg Polyethylene Glycol (Polyethylene (Miralax) 17 Gm Pack) 17 gm PO DAILY PRN PRN Reason: Constipation Stop: 08/24/22 11:23 Sennosides (Senna 8.6 Mg Tab) 17.2 mg PO HS [facility] Stop: 08/24/22 20:59 Last Admin: 07/26/22 20:59 Dose: 17.2 mg Triamcinolone Acetonide (Triamcinolone Acet 0.1% Cr 15 Gm Tube) 1 appln EXT BID [facility] Stop: 08/24/22 20:59 Last Admin: 07/27/22 08:45 Dose: 1 appln (3) Hypotension Hypotension type: unspecified hypotension type Qualified Code(s): I95.9 - Hypotension, unspecified (5) Syncope Syncope type: unspecified Qualified Code(s): R55 - Syncope and collapse
--- NOTE | 2022-07-27 16:37 | Electrocardiogram Report ---
Test Reason : Blood Pressure : / mmHG Vent. Rate : 065 BPM Atrial Rate : 065 BPM P-R Int : 162 ms QRS Dur : 096 ms QT Int : 434 ms P-R-T Axes : 067 017 006 degrees QTc Int : 451 ms Normal sinus rhythm T wave abnormality, consider anterior ischemia Abnormal ECG When compared with ECG of 26-JUL-2022 09:49, Left anterior fascicular block is no longer Present T wave inversion less evident in Inferior leads Confirmed by Twin Cartwright ([id number]) on 07/27/2022 4:37:12 PM Referred By: REFERRED SELF Confirmed By:Nakul Cartwright
[2022-07-27] MEDS: SENNA 8.6 MG TAB PO SCH (20:28)
[2022-07-27] MEDS: cloZAPine 100 MG TAB PO SCH (20:28)
[2022-07-27] MEDS: ATORVASTATIN 40 MG TAB PO SCH (20:29)
[2022-07-28] MEDS: LEVOTHYROXINE SODIUM 175 MCG TABLET PO SCH (05:43)
[2022-07-28] MEDS: INSULIN ASPART PER UNIT CHARGE SC SCH ×4 (09:03→20:29)
[2022-07-28] MEDS: APIXABAN 5 MG TABLET PO SCH ×2 (09:18→20:08)
[2022-07-28] MEDS: ASPIRIN 81 MG ECTAB PO SCH (09:19)
[2022-07-28] MEDS: FENOFIBRATE NANOCRYSTALLIZED 145 MG TABLET PO SCH (09:19)
[2022-07-28] MEDS: METOPROLOL SUCC 25MG EXT REL TAB PO SCH (09:20)
[2022-07-28] MEDS: PARoxetine HCL 20 MG TAB PO SCH (09:23)
[2022-07-28] MEDS: TRIAMCINOLONE ACET 0.1% CR 15 GM TUBE EXT SCH ×2 (09:24→20:09)
[2022-07-28] MEDS: clonazePAM 0.5 MG TAB PO SCH ×2 (09:27→20:07)
[2022-07-28] MEDS: cefTRIAXone SODIUM 2,000 MG in DEXTROSE 5% 50 ML IV SCH (09:28)
--- NOTE | 2022-07-28 12:50 | Hospitalist Progress Note ---
Date of Service July 28, 2022 Assessment & Plan (1) Pulmonary embolism, bilateral: (2) Acute respiratory failure with hypoxia: (3) Syncope and collapse: (4) UTI due to Klebsiella species: (5) Schizoaffective disorder: (6) Hypothyroidism: (7) T2DM (type 2 diabetes mellitus): Plan 61-year-old male with history of schizoaffective disorder on clozapine for over a decade presented to ED with recurrent falls along with an episode of witnessed syncope 07/25 and was found to have bilateral pulm embolism without DVT. CTA chest 1. Numerous segmental and subsegmental pulmonary emboli without right heart strain. 2. Stable tiny pulmonary nodules as above. US LE: No DVT within the right or left lower extremity. Tele with no arrhythmia Recurrent falls with syncope-likely related to PE. Orthostatic positive in the ED, negative now and patient was asymptomatic. Also on multiple psychotropic medications at high doses. Medications have been adjusted. Patient is on zio which will be evaluated by cardiology. Tele unremarkable so far. PT OT eval done-likely will need rehab as below baseline. CM following Bilateral pulmonary embolism without cor pulmonale without DVT - First episode of PE. No DVT. No heart strain. Echo reviewed. PE ?associated with clozapine. No other risk factors identified as of now. Hypercoagulable work-up cannot be done as patient is on anticoagulation. Recommend age- appropriate cancer screening as outpatient with PCP. -Started on full dose Eliquis. Mercedes check per CM -Discussed with psychiatry regarding possible clozapine associated pulmonary embolism and discussed with the patient too. Patient is very concerned about psychiatric destabilization if clozapine is discontinued as he has been on clozapine for 30+ years and this is what works for him. He understands the risk of continuing clozapine with possible recurrent VTE and would like to continue DOAC and clozapine and OP follow up with hemonc. Acute hypoxic respiratory failure due to PE- resolved. Off of oxygen since last night. Klebsiella UTI-continue Rocephin D3/5. Change to po at discharge Schizoaffective disorder - on clozapine, now down to 300 mg hs per psychiatry. -Dose of clonazepam reduced to twice daily -Continue Paxil 80 Mg daily, can possibly taper down to 60 mg daily in future per psychiatry. QTc improved in EKG yesterday Abnormal EKG- similar to before. Denies CP. Trop negative. OP stress test was okay. Echo reviewed. Seen by cardio. DM-2: A1c 6.4. Hold metformin. Glycemic pharmacist managing insulin. Hypothyroidism: Continue Synthroid Dermatitis-seen by Derm as outpatient. Continue triamcinolone cream with recommendations for mild soaps and after several moisturizing. Outpatient follow-up with Dr. Ovalle recommended - Per OP derm notes, Mild soaps (Dove sensitive cleanser), emollients after bathing (vaseline or Aveeno eczema cream), TAC 0.1% ointment nightly as needed (only 2-3 days at a time on the face), consider keflex for a week, take tepid showers. If recalcitrant this spring, we can see pt, consider systemic therapies and light trts, bx if recalcitrant. DVT ppx- Eliquis full dose for PE Dispo- CM looking for rehab options per PT eval. Admission and Anticipated Discharge Date Admission Date: July 25, 2022 Subjective Patient was seen and examined bedside. He continues to feel better. Sitting comfortably in bed, eating breakfast. He has been off of oxygen since last night. He also walked with the staff last night and did not feel chest pain, shortness of breath, lightheadedness, dizziness or palpitations. Normal oral intake. Voiding without issues. No bowel movement since admission Review of Systems Review of Systems: All systems reviewed & are unremarkable except as noted in Subjective Physical Exam Physical Exam: General: Sitting comfortably in bed, not in distress, on room air HEENT: EOMI, JIMENA, MMM Chest: Clear breath sounds bilaterally, no wheezes or crackles CVS: Regular rate and rhythm, normal heart sounds, no murmur Abdomen: Soft, non tender, not distended, normal bowel sounds Neuro: Awake, alert, oriented, conversing well, non focal Extremities: No cyanosis, clubbing or edema Skin: Rash noted on rt upper arm, ant chest, back-stable improving Results & Data Results & Data Vital Signs (Past 12 Hours) Vital Signs Temp Pulse Pulse Resp BP BP Pulse Ox 07/28/22 11:51 36.7 C 70 20 104/70 90 07/28/22 07:55 36.4 C L 67 20 124/76 91 07/28/22 05:49 65 07/28/22 05:16 36.6 C 65 18 106/62 93 O2 Del Method 07/28/22 11:51 Room Air 07/28/22 07:55 Room Air 07/28/22 05:49 07/28/22 05:16 Room Air Medications Administered Current Inpatient Medications Acetaminophen (Acetaminophen 325 Mg Tab) 650 mg PO Q4H PRN PRN Reason: Pain or Fever Stop: 08/24/22 11:23 Apixaban (Apixaban 5 Mg Tablet) 10 mg PO BID [facility] Stop: 08/02/22 09:01 Last Admin: 07/28/22 09:18 Dose: 10 mg Aspirin (Aspirin 81 Mg Ectab) 81 mg PO QAM [facility] Stop: 08/25/22 08:59 Last Admin: 07/28/22 09:19 Dose: 81 mg Atorvastatin Calcium (Atorvastatin 40 Mg Tab) 80 mg PO HS [facility] Stop: 08/24/22 20:59 Last Admin: 07/27/22 20:29 Dose: 80 mg Clonazepam (Clonazepam 0.5 Mg Tab) 0.5 mg PO BID [facility] Stop: 08/24/22 20:59 Last Admin: 07/28/22 09:27 Dose: 0.5 mg Clozapine (Clozapine 100 Mg Tab) 300 mg PO HS [facility] Stop: 08/26/22 20:59 Last Admin: 07/27/22 20:28 Dose: 300 mg Dextrose (Dextrose 50% 50 Ml Syringe) 25 - 50 ml IV UD PRN; Protocol PRN Reason: Hypoglycemia Protocol Stop: 08/24/22 11:23 Fenofibrate (Fenofibrate Nanocrystallized 145 Mg Tablet) 145 mg PO DAILY [facility] Stop: 08/25/22 08:59 Last Admin: 07/28/22 09:19 Dose: 145 mg Glucagon (Glucagon For Inj 1 Mg Vial) 1 mg SQ UD PRN; Protocol PRN Reason: Hypoglycemia Protocol Stop: 08/24/22 11:23 Glucose (Glucose 10 Tab/Tube) 4 - 8 tab PO UD PRN; Protocol PRN Reason: Hypoglycemia Treatment Stop: 08/24/22 11:23 Glucose (Glucose 40% Gel 15 Gm Tube) 15 - 30 gm PO UD PRN; Protocol PRN Reason: Hypoglycemia Protocol Stop: 08/24/22 11:23 Ceftriaxone Sodium 2,000 mg/ (Dextrose) 70 mls @ 100 mls/hr IV Q24H [facility]; Protocol Stop: 08/05/22 08:59 Last Infusion: 07/28/22 10:32 Dose: Infused Insulin Aspart (Insulin Aspart Per Unit Charge) 0 units SC ACHS [facility] Stop: 08/24/22 11:29 Last Admin: 07/28/22 12:28 Dose: 7 units Levothyroxine Sodium (Levothyroxine Sodium 175 Mcg Tablet) 175 mcg PO DAILYBB [facility] Stop: 08/25/22 06:29 Last Admin: 07/28/22 05:43 Dose: 175 mcg Metoprolol Succinate (Metoprolol Succ 25mg Ext Rel Tab) 25 mg PO QAM [facility] Stop: 08/25/22 08:59 Last Admin: 07/28/22 09:20 Dose: 25 mg Miscellaneous (Carbohydrates For Hypoglycemia ) 15 - 30 gm PO UD PRN PRN Reason: Hypoglycemia Protocol Stop: 08/24/22 11:23 Miscellaneous Information (Pharmacy Glycemic Mgmt Consult) 1 each N/A UD PRN; Protocol PRN Reason: Consult Stop: 08/25/22 07:42 Ondansetron HCl (Ondansetron Inj 2 Mg/Ml 2 Ml Vial) 4 mg IV Q6H PRN PRN Reason: Nausea Stop: 08/24/22 11:23 Paroxetine HCl (Paroxetine Hcl 20 Mg Tab) 80 mg PO QAM [facility] Stop: 08/25/22 08:59 Last Admin: 07/28/22 09:23 Dose: 80 mg Polyethylene Glycol (Polyethylene (Miralax) 17 Gm Pack) 17 gm PO DAILY PRN PRN Reason: Constipation Stop: 08/24/22 11:23 Sennosides (Senna 8.6 Mg Tab) 17.2 mg PO HS [facility] Stop: 08/24/22 20:59 Last Admin: 07/27/22 20:28 Dose: 17.2 mg Triamcinolone Acetonide (Triamcinolone Acet 0.1% Cr 15 Gm Tube) 1 appln EXT BID [facility] Stop: 08/24/22 20:59 Last Admin: 07/28/22 09:24 Dose: 1 appln
[2022-07-28] MEDS: cloZAPine 100 MG TAB PO SCH (20:08)
[2022-07-28] MEDS: ATORVASTATIN 40 MG TAB PO SCH (20:08)
[2022-07-28] MEDS: SENNA 8.6 MG TAB PO SCH (20:08)
[2022-07-29] MEDS: LEVOTHYROXINE SODIUM 175 MCG TABLET PO SCH (05:54)
[2022-07-29 07:26] LABS: Hematocrit (blood only) 41.3 % (42.0-52.0); Hemoglobin 13.2 g/dl (14.0-18.0); Mean Corpuscular Hemoglobin 26.7 pg (25.0-34.0); Mean Corpuscular Volume 83.4 fL (80.0-100.0); Mean Platelet Volume 12.2 fL (9.4-12.4); Platelet Count 245 K/uL (130-400); RDW Coefficient of Variation 15.5 % (11.5-14.5); RDW Standard Deviation 47.1 fL (36.4-46.3); Red Blood Count 4.95 M/uL (4.70-6.10); White Blood Count 6.89 K/ul (4.8-10.8)
[2022-07-29 07:47] LABS: BUN Creatinine Ratio 23.7 (10-20); Calcium 8.8 mg/dl (8.6-10.3); Creatinine Clr Calc Pharmacy 107.5 ml/min; Est GFR (African American) 98.6 ml/min; Est GFR (Non-African American) 85.1 ml/min; Potassium 4.2 mmol/L (3.5-5.1)
[2022-07-29] MEDS: INSULIN ASPART PER UNIT CHARGE SC SCH ×2 (09:14→12:57)
[2022-07-29] MEDS: APIXABAN 5 MG TABLET PO SCH (09:15)
[2022-07-29] MEDS: ASPIRIN 81 MG ECTAB PO SCH (09:15)
[2022-07-29] MEDS: cefTRIAXone SODIUM 2,000 MG in DEXTROSE 5% 50 ML IV SCH (09:16)
[2022-07-29] MEDS: clonazePAM 0.5 MG TAB PO SCH (09:16)
[2022-07-29] MEDS: METOPROLOL SUCC 25MG EXT REL TAB PO SCH (09:17)
[2022-07-29] MEDS: PARoxetine HCL 20 MG TAB PO SCH (09:17)
[2022-07-29] MEDS: FENOFIBRATE NANOCRYSTALLIZED 145 MG TABLET PO SCH (09:17)
[2022-07-29] MEDS: TRIAMCINOLONE ACET 0.1% CR 15 GM TUBE EXT SCH (09:18)
--- NOTE | 2022-07-29 10:55 | Hospitalist Progress Note ---
Date of Service July 29, 2022 Assessment & Plan (1) Pulmonary embolism, bilateral: (2) Acute respiratory failure with hypoxia: (3) Syncope and collapse: (4) UTI due to Klebsiella species: (5) Schizoaffective disorder: (6) Hypothyroidism: (7) T2DM (type 2 diabetes mellitus): Plan 61-year-old male with history of schizoaffective disorder on clozapine for over a decade presented to ED with recurrent falls along with an episode of witnessed syncope 07/25 and was found to have bilateral pulm embolism without DVT. CTA chest 1. Numerous segmental and subsegmental pulmonary emboli without right heart strain. 2. Stable tiny pulmonary nodules as above. US LE: No DVT within the right or left lower extremity. Tele with no arrhythmia Recurrent falls with syncope-likely related to PE. Orthostatic positive in the ED, negative now and patient was asymptomatic. Also on multiple psychotropic medications at high doses. Medications have been adjusted. Patient is on zio which will be evaluated by cardiology. Tele unremarkable so far. PT OT eval done-likely will need rehab as below baseline. CM following Bilateral pulmonary embolism without cor pulmonale without DVT - First episode of PE. No DVT. No heart strain. Echo reviewed. PE ?associated with clozapine. No other risk factors identified as of now. Hypercoagulable work-up cannot be done as patient is on anticoagulation. Recommend age- appropriate cancer screening as outpatient with PCP. -Started on full dose Eliquis. Mercedes check per CM -Discussed with psychiatry regarding possible clozapine associated pulmonary embolism and discussed with the patient too. Patient is very concerned about psychiatric destabilization if clozapine is discontinued as he has been on clozapine for 30+ years and this is what works for him. He understands the risk of continuing clozapine with possible recurrent VTE and would like to continue DOAC and clozapine and OP follow up with hemonc. Acute hypoxic respiratory failure due to PE- resolved. Off of oxygen since last night. Klebsiella UTI-continue Rocephin D3/5. Change to po at discharge Schizoaffective disorder - on clozapine, now down to 300 mg hs per psychiatry. -Dose of clonazepam reduced to twice daily -Continue Paxil 80 Mg daily, can possibly taper down to 60 mg daily in future per psychiatry. QTc improved in EKG yesterday Abnormal EKG- similar to before. Denies CP. Trop negative. OP stress test was okay. Echo reviewed. Seen by cardio. DM-2: A1c 6.4. Hold metformin. Glycemic pharmacist managing insulin. Hypothyroidism: Continue Synthroid Dermatitis-seen by Derm as outpatient. Continue triamcinolone cream with recommendations for mild soaps and after several moisturizing. Outpatient follow-up with Dr. Ovalle recommended - Per OP derm notes, Mild soaps (Dove sensitive cleanser), emollients after bathing (vaseline or Aveeno eczema cream), TAC 0.1% ointment nightly as needed (only 2-3 days at a time on the face), consider keflex for a week, take tepid showers. If recalcitrant this spring, we can see pt, consider systemic therapies and light trts, bx if recalcitrant. DVT ppx- Eliquis full dose for PE Dispo- CM looking for rehab options per PT eval. Admission and Anticipated Discharge Date Admission Date: July 25, 2022 Physical Exam Physical Exam: General: Sitting comfortably in bed, not in distress, on room air HEENT: EOMI, JIMENA, MMM Chest: Clear breath sounds bilaterally, no wheezes or crackles CVS: Regular rate and rhythm, normal heart sounds, no murmur Abdomen: Soft, non tender, not distended, normal bowel sounds Neuro: Awake, alert, oriented, conversing well, non focal Extremities: No cyanosis, clubbing or edema Skin: Rash noted on rt upper arm, ant chest, back-stable improving Results & Data Results & Data Vital Signs (Past 12 Hours) Vital Signs Temp Pulse Pulse Resp BP Pulse Ox O2 Del Method 07/29/22 09:30 Room Air 07/29/22 05:44 66 07/29/22 03:10 36.1 C L 65 16 100/65 92 Room Air 07/28/22 23:04 63
--- NOTE | 2022-07-29 11:44 | Pharmacy Report ---
Pharmacy Glycemic Sign Off Nt - Date of Service July 29, 2022 - Assessment & Plan ASSESSMENT: * Pharmacy was consulted by Dr. Orantes on 07/25/22 for glycemic control and to write orders per [facility] inpatient glycemic control protocol. * Major changes made by pharmacy to antidiabetic regimen include: * addition of Novolog * titration of basal insulin * Patient has been receiving/requiring 11 units of insulin per day for adequate glycemic control * BSGs ranging 80-126 mg/dl * Regimen has only required minor adjustments over the past 48hrs to achieve this level of control * Do not anticipate further changes in patient status that would quickly deteriorate glycemic control (i.e. patient to be NPO for upcoming procedure, steroids tapering, starting tube feedings, etc). PLAN FOR INPATIENT GLYCEMIC CONTROL: No changes needed to current regimen. * Hold basal * Continue NovoLog per scale ACHS/Q6hrs while NPO * Goal range = 120-150 mg/dl * CF = 40 mg/dl/unit * CR = 1 unit for ever 15 g CHO consumed * Pharmacy is signing off of glycemic consult and will no longer be making adjustments to inpatient regimen. Please feel free to re-consult if needed. Thank you.
--- NOTE | 2022-07-29 13:21 | Communication Note ---
Date of Service: July 29, 2022 service notified by hospitalist of pending discharge--continue psych meds as ordered here with note that clozaril dose decreased to 300 mg. Patient picked up #60 of 200 mg tabs just prior to medical admission so was given med teaching by liaision to take 1.5 of 200 mg ivxd=895 mg instead of 400 mg per label. I did log into the Clozaril [facility] to make sure his ANC was up to date and left a a voicemail for his treating psychiatrist who is scheduled to see patient on 08/07 at 11:30 am for follow up.
--- NOTE | 2022-07-29 14:44 | Discharge Summary ---
Date of Service July 29, 2022 Admission HPI Per Admitting Provider Patient is a 61-year-old schizophrenic man who was recently being worked up for positional lightheadedness and [facility] cardiology office. This morning he presented via EMS after a syncopal episode. He recently saw cardiology 2 days ago in the office where they noted him having an abnormal EKG with T wave inversions in the anterior leads in May 2022 followed by a nonischemic nuclear stress test in June 2022. During his office visit he reported positional lightheadedness. He stated he would take his morning medications and would feel lightheaded and occasionally would fall. He occasionally has a fluttering sensation with all symptoms ongoing for 2 weeks. Last echocardiogram was March 2021 revealing a preserved ejection fraction of 55 to 59% with no valvular disease. Grade 1 diastolic dysfunction was noted. At that office visit his lisinopril was reduced to 5 mg daily out of concern for possible orthostatic hypotension which was present today on admission. The patient is also slightly somnolent which may be a side effect of his medications. He was given intravenous fluids. This morning he is reporting to me that he was walking to his car and felt lightheaded with subsequent LOC and collapse onto the ground. When he woke up, he was clear. He had hit his head and denies any pain today. There is a small area of ecchymosis on the lateral side of his right eye. He denies any urinary symptoms with regular bowel movements. He denies any fevers, chills, respiratory symptoms. He denies any changes in his medications in the past couple of months, and reiterates that symptoms of lightheadedness and falls related to this has been ongoing for the past 2 weeks. He reports good PO intake and states he doesn't drink enough water. Mother is at bedside and reports the patient prefers soda to drink. She also reports helping him with setting out his medications and she states there was a change in the color of one of his pills recently. It isn't clear which one. He went from clonazepam BID to TID dosing a couple of months ago. We discussed the plan to reduce clozapine and clonazepam. He was initially concerned about the former because of psychotic delusions that have occurred in the past. Admission Exam Per Admitting Provider CONSTITUTIONAL: WNWD, vitals as above, generally well-appearing but is somnolent. EYES: PERRL, normal conjunctivae, no scleral icterus ENT: external ear and nose normal, MMM NECK: trachea midline RESPIRATORY: clear to auscultation bilaterally, no crackles, rales or wheezes, normal respiratory effort CARDIOVASCULAR: regular rate and rhythm, S1 and 2 heard without murmurs, gallops or rubs, no JVD, no peripheral edema CHEST: inspection of chest was normal GASTROINTESTINAL: soft, nontender, ND, no guarding MUSCULOSKELETAL: strength 5/5 throughout, head is normocephalic with mild traumatic ecchymosis on the lateral right eye. SKIN: warm and dry NEUROLOGIC: CN 2-12 grossly intact, no sensory deficit, normal cognition, normal speech, no tremor PSYCHIATRIC: somnolent but will awaken and cooperative and oriented to person, place and time. Euthymic mood, makes good eye contact, language grossly intact, recent and remote memory grossly intact. Principal Diagnosis Syncope, Bilateral pulmonary embolism possibly associated with clozapine, Orthostasis, Klebsiella UTI, schizoaffective disorder Discharge Exam General: Sitting comfortably in chair, not in distress, on room air HEENT: EOMI, JIMENA, MMM Chest: Clear breath sounds bilaterally, no wheezes or crackles CVS: Regular rate and rhythm, normal heart sounds, no murmur Abdomen: Soft, non tender, not distended, normal bowel sounds Neuro: Awake, alert, oriented, conversing well, non focal Extremities: No cyanosis, clubbing or edema Skin: Rash noted on rt upper arm, ant chest, back-stable improving Discharge Data Allergies Allergy/AdvReac Type Severity Reaction Status Date / Time sulfamethoxazole Allergy Intermediate Rash Verified 11/16/20 11:24 [From Bactrim] trimethoprim [From Bactrim] Allergy Intermediate Rash Verified 11/16/20 11:24 Penicillins Allergy Unknown Rash Verified 11/16/20 11:24 Iodinated Contrast Media AdvReac Unknown VOMITING Verified 11/16/20 11:24 WITH IV CONTRAST Consultations 07/25/22 09:27 ED Decision to Admit Stat 07/25/22 12:59 Consult Psychiatry Routine 07/26/22 07:31 Consult Cardiology Routine Ordered Studies 07/25/22 07:34 CT face [CT facial bones wo con] Stat CT head/brain wo con Stat 07/26/22 07:34 CT angio chest PE protocol Routine 07/26/22 18:20 US leg [US venous doppler LE BI] Routine Laboratory Results WBC 6.89 K/ul (4.8-10.8) 07/29/22 06:59 RBC 4.95 M/uL (4.70-6.10) 07/29/22 06:59 Hgb 13.2 g/dl (14.0-18.0) L 07/29/22 06:59 Hct 41.3 % (42.0-52.0) L 07/29/22 06:59 MCV 83.4 fL (80.0-100.0) 07/29/22 06:59 MCH 26.7 pg (25.0-34.0) 07/29/22 06:59 MCHC 32.0 g/dL (32.0-36.0) 07/29/22 06:59 RDW Std Deviation 47.1 fL (36.4-46.3) H 07/29/22 06:59 RDW Coeff of Hernando 15.5 % (11.5-14.5) H 07/29/22 06:59 Plt Count 245 K/uL (130-400) 07/29/22 06:59 MPV 12.2 fL (9.4-12.4) 07/29/22 06:59 Immature Gran % (Auto) 1.6 % 07/25/22 07:36 Neut % (Auto) 70.7 % 07/25/22 07:36 Lymph % (Auto) 18.1 % 07/25/22 07:36 [place] % (Auto) 8.0 % 07/25/22 07:36 Eos % (Auto) 0.0 % 07/25/22 07:36 Baso % (Auto) 1.6 % 07/25/22 07:36 Neut # (Auto) 5.85 K/uL (1.40-6.50) 07/25/22 07:36 Lymph # (Auto) 1.50 K/uL (1.2-3.4) 07/25/22 07:36 [place] # (Auto) 0.66 K/uL (0.11-0.59) H 07/25/22 07:36 Eos # (Auto) 0.00 K/uL (0-0.50) 07/25/22 07:36 Baso # (Auto) 0.13 K/uL (0-0.2) 07/25/22 07:36 Immature Gran # (Auto) 0.13 K/uL (0.01-0.20) 07/25/22 07:36 D-Dimer 870 ug/L FEU (0-500) H* 07/26/22 11:43 Sodium 142 mmol/L (136-145) 07/29/22 06:59 Potassium 4.2 mmol/L (3.5-5.1) 07/29/22 06:59 Chloride 110 mmol/L (98-107) H 07/29/22 06:59 Carbon Dioxide 28 mmol/L (21-32) 07/29/22 06:59 Anion Gap 4 (3-11) 07/29/22 06:59 BUN 23 mg/dl (6-23) 07/29/22 06:59 Creatinine 0.97 mg/dl (0.6-1.4) 07/29/22 06:59 Est Cr Clr Drug Dosing 107.5 ml/min 07/29/22 06:59 Est GFR ( Amer) 98.6 ml/min 07/29/22 06:59 Est GFR (Non-Af Amer) 85.1 ml/min 07/29/22 06:59 BUN/Creatinine Ratio 23.7 (10-20) H 07/29/22 06:59 Glucose 98 mg/dl (70-99(Fasting)) 07/29/22 06:59 POC Glucose 122 mg/dl (70-99) H 07/29/22 11:33 Estimat Average Glucose 137 mg/dl 07/26/22 07:48 Hemoglobin A1c 6.4 % (4.5-5.6) H 07/26/22 07:48 Calcium 8.8 mg/dl (8.6-10.3) 07/29/22 06:59 Phosphorus 3.5 mg/dl (2.5-4.9) 07/27/22 06:40 Magnesium 2.3 mg/dl (1.7-2.4) 07/27/22 06:40 Total Bilirubin 0.5 mg/dl (0.2-1.0) 07/25/22 07:36 AST 12 U/L (13-39) L 07/25/22 07:36 ALT 10 U/L (7-52) 07/25/22 07:36 Alkaline Phosphatase 56 U/L (34-104) 07/25/22 07:36 Troponin I High Sens 8.9 pg/ml (0-20) 07/26/22 11:43 Total Protein 6.0 gm/dl (6.0-8.3) 07/25/22 07:36 Albumin 3.9 gm/dl (3.4-5.0) 07/25/22 07:36 Globulin 2.1 gm/dl (2.5-4.0) L 07/25/22 07:36 Albumin/Globulin Ratio 1.9 (0.9-2) 07/25/22 07:36 TSH 1.369 uIu/ml (0.300-4.500) 07/25/22 07:36 Urine Color Yellow 07/25/22 09:30 Urine Appearance Cloudy (Clear) A 07/25/22 09:30 Urine pH 6.0 (4.5-7.5) 07/25/22 09:30 Ur Specific Barnard 1.013 (1.000-1.030) 07/25/22 09:30 Urine Protein Negative (Negative) 07/25/22 09:30 Urine Glucose (UA) Negative (Negative) 07/25/22 09:30 Urine Ketones Negative (Negative) 07/25/22 09:30 Urine Blood Negative (Negative) 07/25/22 09:30 Urine Nitrite Positive (Negative) A 07/25/22 09:30 Urine Bilirubin Negative (Negative) 07/25/22 09:30 Urine Urobilinogen Negative (Negative) 07/25/22 09:30 Ur Leukocyte Esterase 2+ (Negative) H 07/25/22 09:30 Urine WBC (Auto) >30 /hpf (0-5) H 07/25/22 09:30 Urine RBC (Auto) 0-4 /hpf (0-4) 07/25/22 09:30 U Hyaline Cast (Auto) 1-5 /lpf (0-5) 07/25/22 09:30 U Epithel Cells (Auto) 0-5 /lpf (0-5) 07/25/22 09:30 Urine Bacteria (Auto) 2+ (Negative) H 07/25/22 09:30 SARS-CoV-2, RNA, NAAT NEGATIVE (NEGATIVE) 07/25/22 07:38 Impressions Chest X-Ray 07/25/22 07:34 XR chest 1V portable CLINICAL HISTORY: weakness TECHNIQUE: Single frontal radiograph of the chest was obtained. Comparison: Comparison is made to chest radiograph 10/12/2020 FINDINGS: No lines and tubes are seen. The cardiomediastinal silhouette is normal. Bilateral lower lung atelectasis is seen. No evidence of pleural effusion or pneumothorax. IMPRESSION: No acute chest disease. ACT 112: Negative or not required by law. Electronically signed by: Artur Woodruff M.D. 07/25/2022 8:[address] 07/25/22 07:34 CT facial bones wo con CLINICAL HISTORY: fall, hit face TECHNIQUE: Multidetector row helical CT of the maxillofacial bones was performed without administration of intravenous contrast, and processed with bone and soft tissue algorithms. Coronal and sagittal reformations were obtained. Automated dose lowering techniques and/or adjustment according to patient size were utilized for this exam. CT DOSE: 896.12 mGy.cm Comparison: None available at the time of this dictation. FINDINGS: Nasal bones are normal. The mandible is intact. The temporomandibular joints are anatomically aligned. Pterygoid plates are intact. Zygomatic arches are intact. The globes are normal and symmetric, without proptosis, obvious disruption or lens dislocation. There is no orbital radiopaque foreign body. The orbital mazariegos are intact. The retrobulbar fat is without evidence of disruption. Extraocular muscles are normal and symmetric. Optic nerve sheath complexes are normal in course and caliber. Bilateral mucous retention cysts are seen in the maxillary sinus. A few ethmoid air cells are noted to be opacified. IMPRESSION: No acute facial fracture. ACT 112: Negative or not required by law. Electronically signed by: Artur Woodruff M.D. 07/25/2022 8:[address] 07/25/22 07:34 CT head/brain wo con CLINICAL HISTORY: 61 years-old Male with fall, hit head. Acute head injury status post fall TECHNIQUE: Multiple axial CT images of the head were obtained without contrast. A dose lowering technique was utilized adhering to the principles of ALARA. COMPARISON: CT maxillofacial same day FINDINGS: No acute intracranial hemorrhage, midline shift, intracranial mass, hydrocephalus, territorial ischemia or abnormal extra-axial collection. Involutional changes with chronic microvascular ischemic disease. The calvarium is intact. Mild polypoid mucosal thickening of the maxillary sinuses. Mild mucosal thickening in the ethmoid air cells. Metopic suture. Small bilateral mastoid effusions. IMPRESSION: No acute intracranial abnormality or calvarial fracture. ACT 112: Negative or not required by law. The above report was generated using voice recognition software. It may contain grammatical, syntax or spelling errors. Electronically signed by: Wilber Walters M.D. 07/25/2022 8:15 AM Chest CTA 07/26/22 07:34 CT angio chest PE protocol CLINICAL HISTORY: r/o PE TECHNIQUE: Multidetector row helical CT of the chest was performed with angiographic protocol. Coronal and sagittal reformations were obtained. Coronal and sagittal MIPS were obtained from the axial data set and were submitted for review. Automated dose lowering techniques and/or adjustment according to patient size were utilized for this exam. CT DOSE: 854.50 mGy.cm Comparison: Comparison is made to CT chest 07/31/2020 FINDINGS: Lungs and pleura: Atelectasis versus scarring is seen in the dependent portions of the lungs. A few tiny pulmonary nodules are seen including 3 mm nodules in the left lower lobe (series 4 image 74) and in the right upper lobe (image 147). Heart and pericardium: Heart size is normal. No pericardial effusion. Vessels: Pulmonary trunk measures 34 mm in diameter. There is numerous segmental and subsegmental pulmonary emboli. Mediastinum and chandler: Subcentimeter lymph nodes are seen. Chest wall and lower neck: Subcentimeter axillary lymph nodes noted. Abdomen: Unremarkable. Bones: Degenerative changes in the thoracic spine. IMPRESSION: 1. Numerous segmental and subsegmental pulmonary emboli without right heart strain. 2. Stable tiny pulmonary nodules as above. ACT 112: Negative or not required by law. Electronically signed by: Artur Woodruff M.D. 07/26/2022 6:01 PM Venous Doppler Study 07/26/22 18:20 BILATERAL LOWER EXTREMITY VENOUS DOPPLER HISTORY: Acute pain and swelling of the lower legs r/o acute DVT. PE on CTA COMPARISON STUDY: None. FINDINGS: There is normal compressibility, flow, and augmentation within the bilateral lower extremity deep venous systems. IMPRESSION: No DVT within the right or left lower extremity. ACT 112: Negative or not required by law. Electronically signed by: Wilber Walters M.D. 07/27/2022 6:38 AM Hospital Course (1) Pulmonary embolism, bilateral: (2) Acute respiratory failure with hypoxia: (3) Syncope and collapse: (4) UTI due to Klebsiella species: (5) Schizoaffective disorder: (6) Hypothyroidism: (7) T2DM (type 2 diabetes mellitus): Plan 61-year-old male with history of schizoaffective disorder on clozapine for over a decade presented to ED with recurrent falls along with an episode of witnessed syncope 07/25 and was found to have bilateral pulmonary embolism without DVT and without right heart strain. He was also hypoxic requiring 4 L NC on admission. His PE was possibly associated with clozapine. Discussed with psychiatry, patient after literature review. Patient did not want to come off of clozapine as he has been on this for 30 years with stabilization of his psychiatric symptoms and he is concerned going off of it might destabilize him. Psychiatry feels the same. Patient is willing to take the risk of VTE with continued use of clozapine after detailed discussion of pros and cons. His symptoms improved remarkably during the hospital stay. His orthostasis resolved. His hypoxia resolved. His strength improved and he was cleared for discharge home by PT. He also had 2 step O2 eval done and did not require any oxygen. Discussed with psych prior to discharge- his psych meds were reduced as below and he has upcoming appt with his psychiatrist. He will also see solar thermal technician to discuss further. He also had Klebsiella UTI and was treated with Ceftriaxone- >cefadroxil. I called his pharmacy and found out that his copay for [employer] is $100.37. Discussed with CM who will provide him the coupon. Patient is agreeable to the baxter. He is comfortable and stable for discharge home. No further discharge needs. CTA chest 1. Numerous segmental and subsegmental pulmonary emboli without right heart strain. 2. Stable tiny pulmonary nodules as above. US LE: No DVT within the right or left lower extremity. Tele with no arrhythmia Recurrent falls with syncope-likely related to PE. Orthostatic positive in the ED and since resolved. Also on multiple psychotropic medications at high doses which were adjusted by psychiatry. Seen by cardio who will evaluate his zio patch. Tele unremarkable so far. Seen by PT OT and cleared for discharge home. Patient has significantly improved since admission and is ready to go home. Bilateral pulmonary embolism without cor pulmonale without DVT - First episode of PE. No DVT. No heart strain. Echo reviewed. PE ?associated with clozapine. No other risk factors identified as of now. Hypercoagulable work-up cannot be done as patient is on anticoagulation. Recommend age- appropriate cancer screening as outpatient with PCP. -Started on full dose Eliquis. Baxter check done- patient agreeable to the baxter- provided coupon. At least 6 months, probably life long- final duration per hematology or PCP. -Discussed with psychiatry regarding possible clozapine associated pulmonary embolism and discussed with the patient too. Patient is very concerned about psychiatric destabilization if clozapine is discontinued as he has been on clozapine for 30+ years and this is what works for him. He understands the risk of continuing clozapine with possible recurrent VTE and would like to continue DOAC and clozapine and OP follow up with hemonc. Acute hypoxic respiratory failure due to PE- resolved. Off of oxygen for 2 nights. 2 step done today and he did not require any oxygen. Klebsiella UTI- S/p Rocephin D4. Continue cefadroxil for 3 more days at discharge Schizoaffective disorder - on clozapine, now down to 300 mg hs per psychiatry from home dose of 400 hs -Dose of clonazepam 0.5 mg reduced to twice daily from tid - Continue Paxil 80 Mg daily, can possibly taper down to 60 mg daily in future per psychiatry. QTc improved to 451. - OP follow up with psychiatry scheduled Abnormal EKG- similar to before. Denies CP. Trop negative. OP stress test was okay. Echo reviewed. Seen by cardio. DM-2: A1c 6.4. Continue metformin. F/u with PCP Hypothyroidism: Continue Synthroid Dermatitis-seen by Derm as outpatient. Continue triamcinolone cream with recommendations for mild soaps and after several moisturizing. Outpatient follow-up with Dr. Ovalle recommended - Per OP derm notes,Mild soaps (Dove sensitive cleanser), emollients after bathing (vaseline or Aveeno eczema cream), TAC 0.1% ointment nightly as needed (only 2-3 days at a time on the face), consider keflex for a week, take tepid showers. If recalcitrant this spring, we can see pt, consider systemic therapies and light trts, bx if recalcitrant. Total Time Total Time Spent Total Time Spent (In Minutes): 50 Discharge Plan Discharge Items Patient Disposition: Home - Self-Care Reason For Visit: SYNCOPE AND COLLAPSE Discharge Diagnosis: Syncope, Bilateral pulmonary embolism possibly associated with clozapine, Orthostasis, Klebsiella UTI, schizoaffective disorder Condition on Discharge: Fair Activity: Resume your previous activity Non-emergency contact: Primary Care Provider Call non-emergency contact if: you have any medication questions and your symptoms worsen Follow-up/Referrals: [facility] [Provider Group] - 08/07/22 11:30 am (appt with Dr. Mcdermott in person) Molina Weinstein MD [Surgeon] - Maurilio Orta MD [Primary Care Provider] - (Date & Time 08/01/2022 11:40 AM Provider Maurilio Orta III, MD Department [facility] ) Zuly Ovalle MD [Outside Practitioners] - Diet: Carb Consistent or DM2 Addtl Attending Provider Instructions: Continue eliquis 2 tab twice daily for 4 more days starting tonight, then 1 tab twice daily for at least 6 months and possibly life long given the risk of recurrent blood clot, likely due to clozapine. Follow up with hematology as OP to discuss further Follow up with family doctor to discuss age appropriate cancer screening and hypercoagulability work up Continue cefadroxil 1 tab twice daily for 3 more days for urinary tract infection Per psychiatry, decrease your clozapine dose from 400 mg to 300 mg every night Decrease your klonopin to twice daily Decrease your lisinopril to 2.5 mg daily Please be careful to avoid falls as you are on a blood thinner. Continue your triamcinolone creams for the rash and follow up with the skin doctor Dr Ovalle. Recommend mild soaps and after shower moisturizing. Follow up with your family doctor, psychiatry and blood doctor Pending Studies at Discharge: No Stand-Alone Forms: My enrich-in, Work/School Release, Smoking Cessation Medications and DC Order Prescriptions: New cefadroxil 500 mg capsule 500 mg PO BID Qty: 6 0RF Rx Instructions: starting tomorrow morning Eliquis 5 mg tablet 5 mg PO UD Qty: 60 0RF Rx Instructions: Take 2 tab twice daily for 4 days starting tonight, then start taking 1 tab twice daily triamcinolone acetonide 0.1 % Cream 1 applic EXT BID Qty: 32 0RF Continued levothyroxine 175 mcg tablet 175 mcg PO DAILYBB cyanocobalamin (vitamin B-12) 1,000 mcg tablet 1,000 mcg PO QAM metformin 1,000 mg tablet 1,000 mg PO BID metoprolol succinate 25 mg tablet extended release 24 hr 25 mg PO QAM oxybutynin chloride 5 mg tablet 10 mg PO HS paroxetine HCl 40 mg Tablet 80 mg PO QAM sennosides [senna] 8.6 mg Tablet 17.2 mg PO HS aspirin 81 mg Tablet,Delayed Release (Dr/Ec) 81 mg PO QAM omega [id number]-fish oil [Fish Oil] 1,200 (144-216) mg Capsule 1 cap PO HS atorvastatin 80 mg tablet 80 mg PO HS cetirizine 10 mg tablet 10 mg PO DAILY fenofibrate micronized 134 mg capsule 134 mg PO DAILY Changed clonazepam 0.5 mg tablet 0.5 mg PO BID Qty: 30 0RF clozapine 200 mg tablet 300 mg PO HS Qty: 30 0RF lisinopril 5 mg tablet 2.5 mg PO DAILY Qty: 30 0RF Discharge Orders: Discharge Order (Routine); Ordered 07/29/22 Ordered By: Candido Lemos/Other Patient Handouts: Managing Type 2 Diabetes Admission Data Admit Date/Time: 07/25/22 09:50 Attending Provider: Candido Orantes Admit Provider: Marissa Rendon Primary Care Provider: Maurilio Orta Other Providers: Marissa Rendon ; Rach Huddleston ; Payton Pedraza ; Magdaleno Barajas ; Leno Gerard
== END 2022-07-29 16:00 | disposition home or self-care (01) | DRG 175 ==
LOC: ED 07:20 → SUATTDRO 09:50 → 2N 09:50

== ENCOUNTER 2024-04-13 08:08 | Observation (INO) ==
--- NOTE | 2024-04-13 08:24 | Emergency Department Note ---
Impression & Plan Dehydration, Nausea vomiting and diarrhea, Fall ED Provider Note CHIEF COMPLAINT: Illness HISTORY OF PRESENTING ILLNESS: Patient arrives via EMS from home for evaluation of injury sustained from a fall today. The patient reports he ate 3 bowls of chili on Saturday night, and since that time he has had persistent nausea and vomiting, with diarrhea. He reports the nausea and vomiting has subsided since Saturday. He reports last episode of diarrhea was this morning. He reports no solid foods, and had a liquid diet yesterday. He reports he is feeling weak. Patient states he fell this morning, while ambulating onto his hands and his knees. Patient states he is also having some shortness of breath, which he is unsure if it is associated with his GI distress. Patient reports no chest pain. He reports pain in his bilateral knees, however no other injury. He reports no head strike or loss of consciousness. Patient states the fall occurred due to weakness from recent illness. REVIEW OF SYSTEMS: See HPI for pertinent positives and pertinent negatives. ALLERGIES: See below MEDICATIONS: See below PAST MEDICAL HISTORY: See below PHYSICAL EXAM: VITALS: Vitals are noted on the nurse's note and reviewed by myself. Vital signs stable. GENERAL: 63-year-old male, in no acute distress, nondiaphoretic, well-developed well-nourished. SKIN: The skin was without rashes, erythema, edema, or bruising. HEAD: Normocephalic atraumatic. EYES: Pupils equal round and reactive to light and accommodation. Conjunctivae without injection, sclerae without icterus. Extraocular movements intact. No nystagmus present. MOUTH: Mucous membranes moist. No tonsillar hypertrophy. Pharynx without erythema or exudate. Uvula midline. Airway patent. Tongue does not deviate. NECK: Supple without nuchal rigidity. No lymphadenopathy. Cervical spine is nontender. No JVD. HEART: Regular rate and rhythm without murmurs gallops or rubs. LUNGS: Clear to auscultation bilaterally without wheezes, rales or rhonchi. No retractions or accessory muscle use. ABDOMEN: Positive bowel sounds x 4. Soft, nontender, without masses or organomegaly. Moulton sign negative. No guarding or rebound tenderness. MUSCULOSKELETAL: No muscle atrophy, erythema, or edema noted. Full range of motion without joint tenderness in all extremities. No tenderness to palpation. Normal gait. Strength 5/5 throughout. NEURO: Patient was alert and oriented to person place and time. No focal neurological deficits. DIFFERENTIAL DIAGNOSIS: Infection, dehydration, metabolic abnormality, hypo/hyperglycemia, electrolyte disturbance, anemia, hypoxia, cardiac sources, intracerebral event, toxicologic, neurologic, as well as other pathologies. ED COURSE AND MEDICAL DECISION MAKING: HISTORY FROM INDEPENDENT HISTORIAN: Mother at bedside as secondary historian. MEDICATIONS GIVEN: Calcium carbonate, p.o. 1 L normal saline bolus MONITOR: Continuous monitor worker: Order was placed for continuous monitor worker. Patient was placed on the monitor worker and continuous pulse ox. Patient was noted to be in normal sinus rhythm at an initial rate of 81 bpm per my interpretation. EKG: EKG was interpreted by myself as normal sinus rhythm, left axis deviation, rate of 82 bpm, nonspecific T wave abnormality, with QT prolongation. No ST elevation, or signs of ischemia. Previous for comparison from 2022 shows no concerning changes. INTERPRETATION OF LABS: I interpreted the labs with full lab results as below in the lab section of this note. Pertinent lab results discussed in the MDM section below. INTERPRETATION OF IMAGING: Imaging studies were interpreted by myself and read by radiology as per the imaging section of this note. MDM SUMMARY: The patient is a pleasant 63-year-old male who arrives to the emergency department with his mother for evaluation of the above-stated complaint. A saline lock was established, CBC, CMP, troponin, magnesium, phosphorus, PT/INR, PTT, urinalysis, EKG, chest x-ray, bilateral knee x-ray, upper respiratory BioFire panel, and stool panel were obtained. Lab work shows no leukocytosis, with a stable anemia. CMP shows BUN 59, creatinine 2.41 consistent with JUAN MIGUEL. Calcium 7.9 albumin 3.4. Calcium repleted with oral calcium carbonate. Troponin 6.4, magnesium 1.4, phosphorus 2.6, patient was provided 2 g of IV magnesium for repletion. Upper respiratory BioFire panel negative. Stool BioFire not obtained while patient was in the department. Urinalysis trace leukocyte esterase, with 6-10 epithelials, no bacteria, no nitrates. Chest x-ray per my interpretation shows no acute cardiopulmonary process. EKG is interpreted as above. Due to patient's acute kidney injury, admission is indicated. I spoke with Ting Vuong PA-C from the [facility] hospitalist group. She and Dr. Charles, agreed to evaluate and admit the patient under their care. Please refer to their documentation for further patient workup. DIAGNOSIS: JUAN MIGUEL The patient's case was discussed with Dr. Fernandez, who agreed with my evaluation and treatment plan. The chart was completed utilizing [employer] Speech voice recognition software. Grammatical errors, random word insertions, pronoun errors, and incomplete sentences are an occasional consequence of this system due to software limitations, ambient noise, and hardware issues. Any formal questions or concerns about the content, text, or information contained within the body of this dictation should be directly addressed to the provider for clarification. Past Med/Surg History Problem List (Updated 04/13/24 @ 13:22 by CANDE Joseph) Fall (Acute) Chronic anticoagulation Nausea vomiting and diarrhea (Acute) Dehydration (Acute) JUAN MIGUEL (acute kidney injury) Schizoaffective disorder (Chronic) T2DM (type 2 diabetes mellitus) Medical History (Updated 04/13/24 @ 13:22 by CANDE [email or web address]) Adverse effect of clozapine Pulmonary embolism, bilateral Bimalleolar ankle fracture Urinary incontinence Constipation Anxiety and depression History of migraine REMOTE HLD (hyperlipidemia) HTN (hypertension) Hypothyroidism Bipolar disorder Surgical History History of breast lump/mass excision H/O lymph node biopsy RIGHT AXILLARY History of wisdom tooth extraction History of colonoscopy History of open reduction and internal fixation (ORIF) procedure Trimalleolar ankle fracture - Rt Family History Mother Diabetes Stroke Other No family history of adverse response to anesthesia Social History Smoking Status: Former smoker Tobacco Type: Cigarettes Second Hand Exposure: No; Do You Dip or Chew Tobacco: No; Hx Alcohol Use: Yes Alcohol type: beer Alcohol Intake Frequency: Monthly or Less Hx Substance Use: No Preferred Language: Nepalese Communication Ability: Effective Emergency Medcl Emt Required: No Beliefs That Will Affect Care: None marital status: Single Current Living Situation: Parent and Family Current Living Situation Comment: lives with mother current occupational status: employed and disabled current occupation: works at [employer] home Feels Safe at Home: Yes Diet: regular caffeine: Yes Gender Identity: Male Assistive Devices: None Allergies Allergies Allergy/AdvReac Type Severity Reaction Status Date / Time sulfamethoxazole Allergy Intermediate Rash Verified 11/16/20 11:24 [From Bactrim] trimethoprim [From Bactrim] Allergy Intermediate Rash Verified 11/16/20 11:24 Penicillins Allergy Unknown Rash Verified 11/16/20 11:24 Iodinated Contrast Media AdvReac Unknown VOMITING Verified 11/16/20 11:24 WITH IV CONTRAST Home Meds Home Medications Medication Instructions Recorded Confirmed cyanocobalamin (vitamin B-12) 1,000 mcg PO QAM 05/06/20 04/13/24 1,000 mcg tablet levothyroxine 175 mcg tablet 175 mcg PO DAILYBB 05/06/20 04/13/24 metformin 1,000 mg tablet 1,000 mg PO BID 05/06/20 04/13/24 metoprolol succinate 25 mg 25 mg PO QAM 05/06/20 04/13/24 tablet,extended release 24 hr omega 2-ugm-knp-fish oil 1,200 mg 1 cap PO HS 07/31/20 04/13/24 (144 mg-216 mg) capsule (Fish Oil) sennosides 8.6 mg tablet (senna) 17.2 mg PO HS 07/31/20 04/13/24 paroxetine HCl 40 mg tablet 80 mg PO QAM 09/09/20 04/13/24 oxybutynin chloride 5 mg tablet 5 mg PO BID 10/18/20 04/13/24 atorvastatin 80 mg tablet 80 mg PO DAILY 07/25/22 04/13/24 fenofibrate micronized 134 mg 134 mg PO DAILY 07/25/22 04/13/24 capsule aripiprazole 15 mg tablet 15 mg PO DAILY 04/13/24 04/13/24 clozapine 100 mg tablet 300 mg PO HS 04/13/24 04/13/24 lisinopril 2.5 mg tablet 2.5 mg PO DAILY 04/13/24 04/13/24 warfarin 5 mg tablet See Rx Instructions .Route .COMPLEX 04/13/24 04/13/24 Previous Rx's Medication Instructions Recorded clonazepam 0.5 mg tablet 0.5 mg PO BID #30 tabs 07/29/22 Results & Data (ED) Vital Signs Vital Signs - 24 hr 04/13/24 08:28 04/13/24 08:29 04/13/24 08:29 Temperature 36.8 C 36.8 C Temperature Source Oral Oral Pulse Rate 81 84 Pulse Rate [Apical] 84 Pulse Rate from SpO2 Sensor Pulse Rhythm Regular Pulse Rhythm [Apical] Regular Pulse Strength Normal Pulse Strength [Apical] Normal Respiratory Rate 28 H 28 H Respiratory Effort / Characteristics Non-Labored Spontaneous Non-Labored Spontaneous Respiratory Depth Normal Normal Respiratory Pattern Regular Regular Blood Pressure 100/66 Blood Pressure Mean 77 Blood Pressure Position Semi-fowlers Pulse Oximetry 97 97 Oxygen Delivery Method Room Air Room Air Sepsis Recent Fever Within 48 Hours No Sepsis New/Unexplained Change in Mental Status No Sepsis Action Taken by Nursing No Action Required 04/13/24 08:54 04/13/24 09:00 04/13/24 09:30 Temperature Temperature Source Pulse Rate 80 77 Pulse Rate [Apical] Pulse Rate from SpO2 Sensor 79 77 Pulse Rhythm Pulse Rhythm [Apical] Pulse Strength Pulse Strength [Apical] Respiratory Rate 24 22 Respiratory Effort / Characteristics Respiratory Depth Respiratory Pattern Blood Pressure 103/68 113/71 Blood Pressure Mean 75 85 Blood Pressure Position Pulse Oximetry 98 97 Oxygen Delivery Method Room Air Room Air Sepsis Recent Fever Within 48 Hours Sepsis New/Unexplained Change in Mental Status Sepsis Action Taken by Nursing 04/13/24 10:00 04/13/24 10:06 04/13/24 10:30 Temperature Temperature Source Pulse Rate 75 Pulse Rate [Apical] Pulse Rate from SpO2 Sensor 76 75 Pulse Rhythm Pulse Rhythm [Apical] Pulse Strength Pulse Strength [Apical] Respiratory Rate 24 23 Respiratory Effort / Characteristics Respiratory Depth Respiratory Pattern Blood Pressure 121/83 116/71 Blood Pressure Mean 97 86 Blood Pressure Position Pulse Oximetry 98 Oxygen Delivery Method Room Air Sepsis Recent Fever Within 48 Hours Sepsis New/Unexplained Change in Mental Status Sepsis Action Taken by Nursing 04/13/24 11:03 Temperature Temperature Source Pulse Rate 78 Pulse Rate [Apical] Pulse Rate from SpO2 Sensor 78 Pulse Rhythm Pulse Rhythm [Apical] Pulse Strength Pulse Strength [Apical] Respiratory Rate 23 Respiratory Effort / Characteristics Respiratory Depth Respiratory Pattern Blood Pressure 102/81 Blood Pressure Mean 88 Blood Pressure Position Pulse Oximetry 98 Oxygen Delivery Method Room Air Sepsis Recent Fever Within 48 Hours Sepsis New/Unexplained Change in Mental Status Sepsis Action Taken by Longterm Medications Current Medication List: was personally reviewed by me Laboratory Data Attestation: I reviewed the patient's lab results. 04/13/24 08:25 04/13/24 08:25 Lab Results 04/13/24 04/13/24 Range/Units 08:25 12:25 WBC 6.20 (4.8-10.8) K/ul RBC 5.01 (4.70-6.10) M/uL Hgb 13.2 L (14.0-18.0) g/dl Hct 41.7 L (42.0-52.0) % MCV 83.2 (80.0-100.0) fL MCH 26.3 (25.0-34.0) pg MCHC 31.7 L (32.0-36.0) g/dL RDW Std Deviation 43.4 (36.4-46.3) fL RDW Coeff of Hernando 14.4 (11.5-14.5) % Plt Count 143 (130-400) K/uL MPV 12.3 (9.4-12.4) fL Immature Gran % (Auto) 0.8 % Neut % (Auto) 86.7 % Lymph % (Auto) 5.2 % Eddy % (Auto) 7.1 % Eos % (Auto) 0.0 % Baso % (Auto) 0.2 % Neut # (Auto) 5.38 (1.40-6.50) K/uL Lymph # (Auto) 0.32 L (1.20-3.40) K/uL Eddy # (Auto) 0.44 (0.11-0.59) K/uL Eos # (Auto) 0.00 (0.00-0.50) K/uL Baso # (Auto) 0.01 (0.00-0.20) K/uL Immature Gran # (Auto) 0.05 (0.01-0.20) K/uL PT 28.0 H (9.0-12.0) Seconds INR 2.8 H (0.9-1.1) APTT 40 H (21-31) Seconds PTT Ratio 1.5 Sodium 134 L (136-145) mmol/L Potassium 4.2 (3.5-5.1) mmol/L Chloride 104 (98-107) mmol/L Carbon Dioxide 24 (21-32) mmol/L Anion Gap 6 (3-11) BUN 59 H (6-23) mg/dl Creatinine 2.41 H (0.6-1.4) mg/dl Est Cr Clr Drug Dosing 43.3 ml/min eGFR 29.80 BUN/Creatinine Ratio 24.5 H (10-20) Glucose 198 H (70-99(Fasting)) mg/dl Calcium 7.9 L (8.6-10.3) mg/dl Phosphorus 2.6 (2.5-4.9) mg/dl Magnesium 1.4 L (1.7-2.4) mg/dl Total Bilirubin 0.7 (0.2-1.0) mg/dl AST 29 (13-39) U/L ALT 17 (7-52) U/L Alkaline Phosphatase 40 (34-104) U/L Troponin I High Sens 6.4 (0-20) pg/ml Total Protein 5.3 L (6.0-8.3) gm/dl Albumin 3.4 (3.4-5.0) gm/dl Globulin 1.9 L (2.5-4.0) gm/dl Albumin/Globulin Ratio 1.8 (0.9-2) Urine Color Yellow Urine Appearance Clear (Clear) Urine pH 5.0 (4.5-7.5) Ur Specific Roscoe 1.019 (1.000-1.030) Urine Protein Negative (Negative) Urine Glucose (UA) Negative (Negative) Urine Ketones Negative (Negative) Urine Blood Negative (Negative) Urine Nitrite Negative (Negative) Urine Bilirubin Negative (Negative) Urine Urobilinogen Negative (Negative) Ur Leukocyte Esterase Trace H (Negative) Urine WBC (Auto) 0-5 (0-5) /hpf Urine RBC (Auto) 0-2 (0-2) /hpf U Hyaline Cast (Auto) >20 H (0-2) /lpf U Epithel Cells (Auto) 6-10 H (0-2) /hpf Urine Bacteria (Auto) None Seen (None Seen) Adenovirus (PCR) Not Detected (NotDetected) B. pertussis DNA (PCR) Not Detected (NotDetected) B.parapertussis DNA PCR Not Detected (NotDetected) C. pneumoniae DNA (PCR) Not Detected (NotDetected) Coronavirus OC43 (PCR) Not Detected (NotDetected) Coronavirus HKU1 (PCR) Not Detected (NotDetected) Coronavirus 229E (PCR) Not Detected (NotDetected) SARS-CoV-2 (PCR) Not Detected (NotDetected) Coronavirus NL63 (PCR) Not Detected (NotDetected) Human Metapneumovir PCR Not Detected (NotDetected) Influenza Type A (PCR) Not Detected (NotDetected) Influenza Type B (PCR) Not Detected (NotDetected) M. pneumoniae (PCR) Not Detected (NotDetected) Parainfluenza 1 (PCR) Not Detected (NotDetected) Parainfluenza 2 (PCR) Not Detected (NotDetected) Parainfluenza 3 (PCR) Not Detected (NotDetected) Parainfluenza 4 (PCR) Not Detected (NotDetected) RSV (PCR) Not Detected (NotDetected) Entero/Rhino (PCR) Not Detected (NotDetected) Administered Medications Discontinued Medications Calcium/Vitamin D (Calcium 600mg + Vit D 400 Iu Tab) 1 tab PO NOW STA Stop: 04/13/24 11:32 Last Admin: 04/13/24 12:25 Dose: 1 tab Documented By: Sodium Chloride (Nss) 1,000 mls @ 999 mls/hr IV .Q1H1M ONE Stop: 04/13/24 10:07 Last Infusion: 04/13/24 11:39 Dose: Infused Documented By: Admin: 04/13/24 09:25 Dose: 999 mls/hr Documented By: Imaging Data Attestation: I personally reviewed and interpreted this imaging study as follows: Radiologist's Impression: Chest X-Ray 04/13/24 08:38 XR chest 1V portable CLINICAL HISTORY: shob COMPARISON STUDY: 07/25/2022 FINDINGS: Heart size and pulmonary vasculature are normal. No effusion, consolidation, or pneumothorax. No displaced rib fractures seen. IMPRESSION: No acute findings. ACT 112: Negative or not required by law. Electronically signed by: Bart Pardo M.D. 04/13/2024 9:42 AM Knee X-Ray 04/13/24 08:38 XR knee LT 3V, XR knee RT 3V CLINICAL HISTORY: fall COMPARISON: None FINDINGS: No fracture or dislocation at either knee. There are minimal degenerative changes IMPRESSION: No fracture seen at either knee. ACT 112: Negative or not required by law. Electronically signed by: Bart Pardo M.D. 04/13/2024 9:26 AM Knee X-Ray 04/13/24 08:38 XR knee LT 3V, XR knee RT 3V CLINICAL HISTORY: fall COMPARISON: None FINDINGS: No fracture or dislocation at either knee. There are minimal degenerative changes IMPRESSION: No fracture seen at either knee. ACT 112: Negative or not required by law. Electronically signed by: Bart Pardo M.D. 04/13/2024 9:26 AM Discharge Plan Visit Data Chief Complaint: Illness ED Provider: Magdaleno Fernandez ED Midlevel Provider: Rach Trevizo Discharge Problem: Dehydration, Nausea vomiting and diarrhea, Fall Forms Stand Alone Forms: My [facility] [employer] Prescriptions Prescriptions: No Action levothyroxine 175 mcg tablet 175 mcg PO DAILYBB cyanocobalamin (vitamin B-12) 1,000 mcg tablet 1,000 mcg PO QAM metformin 1,000 mg tablet 1,000 mg PO BID metoprolol succinate 25 mg tablet extended release 24 hr 25 mg PO QAM oxybutynin chloride 5 mg tablet 5 mg PO BID paroxetine HCl 40 mg Tablet 80 mg PO QAM sennosides [senna] 8.6 mg Tablet 17.2 mg PO HS omega 4-chd-wbp-fish oil [Fish Oil] 1,200 (144-216) mg Capsule 1 cap PO HS atorvastatin 80 mg tablet 80 mg PO DAILY fenofibrate micronized 134 mg capsule 134 mg PO DAILY clonazepam 0.5 mg tablet 0.5 mg PO BID Qty: 30 0RF clozapine 100 mg tablet 300 mg PO HS aripiprazole 15 mg tablet 15 mg PO DAILY lisinopril 2.5 mg tablet 2.5 mg PO DAILY warfarin 5 mg tablet See Rx Instructions .ROUTE .COMPLEX Rx Instructions: as of 04/13/24 - takes 5 mg on Mondays, 2.5 mg all other days Referrals Referrals: Maurilio Orta MD [Primary Care Provider] -
[2024-04-13 08:37] VITALS: TEMP 98.2
--- OUTSIDE RECORDS SUMMARY | 2024-04-13 08:41 | External Medical Summary | Summary of Care ---
Author Name Unknown Organization [facility] Address [address] [place] [address] Phone [phone] Care Team Providers Care Ammonia Technician Name Role Phone Marivel SEGURA MD, Maurilio Ayers Primary Care Provider [phone] Reason for Visit * Reason Onset Date Comments Health Maintenance 03/30/2024 Encounter Details Date Type Department Care Team (Late st Contact Info) Description 03/30/[address] [facility] [address] [place] [address] Maurilio Orta III, MD [address] [place] [address] Health Maintenance Allergies Active Allergy Reactions Criticality Noted Date Comments Sulfamethoxazole-Trimethopri m 08/05/2020 Iodinated Contrast Media 01/15/2017 Vomiting and rash per pt at age 15 Penicillins Rash 12/20/1998 documented as of this encounter (statuses as of 03/30/2024) Medications SENNA PO TABSIndications: Examination following surgery Take 2 Tabs by mouth at bedtime. 120 3 0 Active VITAMIN D 1000 UNIT PO CAPS 1 capsule daily 30 Cap 11 1 Active [place]-3 Fatty Acids (FISH OIL) 1000 MG Capsule Take 1 Capsule by mouth at bedtime. Active PARoxetine (PAXIL) 40 MG Tablet Take 1 Tablet by mouth in the morning. 0 9 Active RA Vitamin B-12 TR 1000 MCG Oral Tablet Extended Release (Cyanocobalamin ER) take 1 tablet by mouth daily 100 Tablet 3 1 Active Spacer/Aero-Hold ing Chambers DeviceIndication s:Acute bronchitis, antibiotics not indicated Use with inhaler. 1 Each 2 Active Cetirizine HCl 10 MG Oral Tablet (ZyrTEC Allergy) Take 1 Tablet by mouth in the morning. 15 Tablet 3 Active clonazePAM 0.5 MG Oral Tablet (KlonoPIN) Take 1 Tablet by mouth in the morning and 1 Tablet before bedtime. 60 Tablet 5 3 Active cloZAPine 200 MG Oral Tablet Take 1.5 Tablets by mouth at bedtime. Takes (2) 200 mg at bedtime 45 Tablet 5 3 Active Triamcinolone Acetonide 0.1 % External Cream (Aristocort) apply topically to affected area twice a day 3 Active ARIPiprazole 10 MG Oral Tablet (Abilify) Take 1 Tablet by mouth in the morning. 3 Active Levothyroxine Sodium 175 MCG Oral Tablet (Levoxyl) TAKE 1 TABLET BY MOUTH ONCE DAILY AT LEAST 30 MINUTES PRIOR TO BREAKFAST/OTHE R MEDS 90 Tablet 3 4 Active Triamcinolone Acetonide 0.1 % External Cream (Aristocort) Apply topically to affected area 2 times a day. To affected area. 60 g 5 4 Active metFORMIN HCl 1000 MG Oral Tablet (Glucophage)Carin cations:Type 2 diabetes mellitus with hemoglobin A1c goal of less than 7.0% ([facility]) TAKE 1 TABLET BY MOUTH TWICE A DAY WITH FOOD MORNING AND EVENING 180 Tablet 1 4 Active oxyBUTYnin Chloride 5 MG Oral Tablet (Ditropan) Take 1 tablet by mouth twice daily 180 Tablet 1 4 Active Metoprolol Succinate ER 25 MG Oral Tablet Extended Release 24 Hour (toPROL XL)Indications:H TN, goal below 140/90 TAKE 1 TABLET BY MOUTH ONCE DAILY 90 Tablet 3 4 Active Warfarin Sodium 5 MG Oral Tablet (Coumadin)Indica tions:History of pulmonary embolus (PE) Take 1/2 to 1 tablet by mouth every evening. Take as directed by the anticoag clinic. 30 Tablet 1 4 Active Lisinopril 2.5 MG Oral Tablet (Prinivil) Take 1 Tablet by mouth in the morning. In the morning.. 90 Tablet 3 5 Active Fenofibrate Micronized 134 MG Oral CapsuleIndicatio ns:Dyslipidemia, goal LDL below 100,Hyperlipemia , mixed TAKE 1 CAPSULE BY MOUTH EVERY DAY IN THE MORNING 90 Capsule 3 5 Active Atorvastatin Calcium 80 MG Oral Tablet (Lipitor)Indicat ions:Dyslipidemi a, goal LDL below 100,Hyperlipemia , mixed TAKE 1 TABLET BY MOUTH IN THE MORNING 90 Tablet 3 5 Active documented as of this encounter (statuses as of 03/30/2024) Active Problems Problem Noted Date Diagnosed Date Dyslipidemia, goal LDL below 70 03/10/2024 History of pulmonary embolus (PE) 04/26/2023 HTN, goal below 130/80 03/13/2022 Obesity, Class I, BMI 30.0-34.9 (see actual BMI) 03/12/2017 Acquired hypothyroidism 11/12/2016 Type 2 diabetes mellitus wit h hemoglobin A1c goal of less than 7.0% 05/08/2016 Class 2 obesity in adult 12/27/2015 Schizoaffective disorder documented as of this encounter (statuses as of 03/30/2024) Resolved Problems Problem Noted Date Diagnosed Date Resolved Date DM type 2 (diabetes mellitus, type 2) 12/27/2015 05/08/2016 Hypothyroidism 09/20/2014 11/12/2016 ADVANCE DIRECTIVE INFORMATION 12/04/2004 12/16/2023 Overview (12/04/2004): No, Advance Directive brochure offered , patient declined. HYPOTHYROIDISM NOS 5 documented as of this encounter (statuses as of 03/30/2024) Immunizations Name Administration Dates Next Due COVID-19 mRNA, LNP-s, No Pre serve, 2-Dose Series (Qubit) 04/08/2020,03/18/2020 COVID-19, MRNA-LNP, PF, 30 M CG/0.3 mL, 12 YRS AND ABOVE, IM ([facility]) 04/08/2023 Hepatitis B, 20+ yrs 05/13/2017,03/12/2016,02/06 Pneumococcal Conjugate Vacci ne, 20-valent ([id number]) 03/13/2022 Pneumococcal Polysaccharide PPV23 (Pneumovax) 10/12/2020,12/12/2015 Seasonal Influenza Vac., MDV , IM, 0.5 mL (Fluzone) 11/25/2017,09/23/2016,10/30/2013,11/21 Seasonal Influenza, PF, 6 M & above, IM , (FluLaval or Fluzone) 11/25/2021,10/26/2020,12/21/2019(Defer red: Patient Refused),11/12/2016 Seasonal Influenza, Quadriva lent, No Preserve, IM 11/25/2022,10/09/2021,10/26/2018,10/10,11/11/2015,11/20/2014 Seasonal Influenza, Quadriva lent, No Preserve, Mdck 11/20/2017 Seasonal Influenza, Trivalen t, (IIV3), PF, (Fluzone) 12/02/2023 TDAP (age 10 and older)(Boostrix) 11/12/2017 TDAP, Age 7 and older, IM (Adacel) 10/07/2007 Varicella Zoster Vaccine (Adult) 04/29/2020,08/12 Zoster Vaccine Recombinant (Shingrix) 04/26/2020 ,09/01/2019 documented as of this encounter Social History Tobacco Use Types Packs/Day Years Used Date Smoking Tobacco: Former Cigarettes 2 6 0 02/12/1984 - 02/11/1990 Smokeless Tobacco: Never Alcohol Use Standard Drinks/Week Comments Yes 0 (1 standard drink = 0.6 oz pur e alcohol) Beer on occasion PHQ-2 Answer Date Recorded PHQ-2 Score 2 12/26/2018 Hunger Vital Sign Answer Date Recorded Worried About Running Out of Food in the Last Ye ar Never true 12/26/2018 Ran Out of Food in the Last Year Never true 12/26/2018 Sex and Gender Information Value Date Recorded Sex Assigned at Not on file Legal Sex Male 5:08 AM EST Gender Identity Not on file Sexual Orientation Not on file documented as of this encounter Miscellaneous Notes * Telephone Encounter - Jami Salazar LPN - 03/30/2024 9:31 AM EST Care Gaps Comprehensive Care Outreach Last Office/Telemedicine Visit: 12/17/2023 (in office), Visit date not found (telemedicine) Next Office Visit: 06/17/2024 Hemoglobin AIC Results: Lab Results Component Value Date/Time HEMOGLOBIN A1C - [facility] 6.6 (H) 12/16/2023 10:02 AM HEMOGLOBIN A1C - [facility] 6.5 (H) 07/22/2023 10:40 AM HEMOGLOBIN A1C - [facility] 6.4 (H) 04/16/2023 09:16 AM HEMOGLOBIN A1C - [facility] 6.6 (H) 12/21/2019 02:33 PM HEMOGLOBIN A1C - [facility] 6.4 (H) 07/02/2019 01:03 PM HEMOGLOBIN A1C - [facility] 6.2 (H) 12/01/2018 03:58 PM BP Readings from Last 1 Encounters: 03/10/24 122/60 Reviewed Health Maintenance below: Health Maintenance Topic Date Due Depression Screening 12/27/2019 Diabetic Foot Exam 12/20/2020 Albumin/Creatinine Ratio 02/13/2023 COVID-19 Vaccine ( season) 2023 Diabetic Eye Exam 01/29/2024 HbA1c 06/14/2024 GFR 07/21/2024 TSH 07/21/2024 Eye ensor last he will scheudled Labs July ordered will walk in Care Gap Outreach Action Taken: Spoke to patient documented in this encounter Plan of Treatment Upcoming Encounters Date Type Department Care Team (Late st Contact Info) Description 04/27/2024 11:50 AM EDT Anticoagulation Pharmacy, [facility] [address] [place] [address] Pharmacist1, [facility] [address] [place] [address] 06/17/2024 8:20 AM EDT Office Visit Family Practice [facility] [address] [place] [address] [place] Maurilio SEGURA MD [address] [place] [address] 03/16/2025 1:30 PM EST Office Visit Cardiology, [facility] [address] [place] [address] Maci Verdugo PA-C [address] [place] [address] Scheduled Orders Name Type Priority Associated Diagnoses Orde r Schedule ALBUMIN / CREATININE RATIO, URINE Lab Routine Screening for nephropathy Expected: 06/08/2024, Expires: 03/30/2025 HEMOGLOBIN A1C Lab Routine Diabetes mellitus (HCC) Expected: 06/08/2024, Expires: 03/30/2025 BASIC METABOLIC PANEL Lab Routine Hypertension, unspecified type Expected: 06/08/2024, Expires: 03/30/2025 TSH WITH FREE T4 IF INDICATED Lab Routine Screening for thyroid disorder Expected: 06/08/2024, Expires: 03/30/2025 Scheduled Procedures Name Priority Associated Diagnoses Date/Ti me COLONOSCOPY FLEXIBLE PROXIMA L DIAGNOSTIC Recall History of colonic polyps Health Maintenance Due Date Last Done Comments Cologuard 10/07/2007 Fecal Occult Blood Test 10/07/2007 Sigmoidoscopy 10/07/2007 Depression Screening 12/27/2019 12/26/2018, 05/08/2016 (Discussed) Diabetic Foot Exam 12/20/2020 12/21/2019, 1 , 11/18/2017, Additional history exists Albumin/Creatinine Ratio 02/13/20232 023, 01/24/2021, 12/21/2019, Additional history exists COVID-19 Vaccine ( season) 2023 04/08/2023, 04/08/2020, 03/18/2020 Diabetic Eye Exam 01/29/2024 01/28/2023, , 01/28/2023, Additional history exists HbA1c 06/14/2024 12/16/2023, 07/12, 04/16/2023, Additional history exists GFR 07/21/2024 07/22/2023, 03/0 06/2023, 07/23/2022, Additional history exists TSH 07/21/2024 07/22/2023, 06/2023, 02/13/2022, Additional history exists Colonoscopy 07/11/2027 07/10/2022, 06/13, 11/23/2019, Additional history exists Colorectal Cancer Screening 07/11/2027 DTap/Tdap Vaccines (3 - Td or Tdap) 11/13/2027 11/12/2017, 10/07/2007 Lipid Panel 07/21/2028 07/22/2023, 11/12, 02/13/2022, Additional history exists Hepatitis B Vaccine Completed 05/13/2017, 03/12/2016, 02/07/2016 Zoster Vaccines Completed 04/29/2020, 04/11, 09/01/2019, Additional history exists Pneumococcal Vaccine: 50+ Years Completed 03/13/2022, 10/12/2020, 12/12/2015 RETIRED - COLONOSCOPY-ANNUAL AGES 18-100 Discontinued 07/10/2022, 07/10/2022, 11/23/2019, Additional history exists RETIRED - COLONOSCOPY-EVERY 5 YRS AGES 18-100 Discontinued 07/10/2022, 07/10/2022, 11/23/2019, Additional history exists Influenza Vaccine (FLU shot) Completed 12/02/2023, 12/02/2023, 11/25/2022, Additional history exists HPV (Gardasil) Vaccine Aged Out No lo nger eligible based on patient's age to complete this topic MENINGOCOCCAL (MENACTRA/MENVEO) Aged Out No longer eligible based on patient's age to complete this topic Meningitis B Vaccine (Bexsero/Trumemba) Aged Out No longer eligible based on patient's age to complete this topic documented as of this encounter Medical Devices Not on filedocumented as of this encounter Visit Diagnoses Diagnosis Diabetes mellitus (HCC)- Primary Type II or unspecified type diabetes mellitus without mention of complication, not stated as uncontrolled Screening for nephropathy Hypertension, unspecified type Screening for thyroid disorder documented in this encounter Advance Directives Healthcare Agents on File Name Relationship Healthcare Agent Relationshi p Communication Carolyne Chowdhury [facility] Care Repr esentative (appointed verbally by patient or by statute hierarchy) Care Teams Ammonia Technician Relationship Specialty Start Date End Date Maurilio Orta III, MD [address] [place] [address] PCP - General 09/26/1995 documented as of this encounter
--- OUTSIDE RECORDS SUMMARY | 2024-04-13 08:41 | External Medical Summary | Summary of Care ---
Author Name Unknown Organization [facility] Address [address] [place] [address] Phone [phone] Care Team Providers Care Insurance Examining Clerk Name Role Phone Marivel SEGURA MD, Maurilio Ayers Primary Care Provider [phone] Reason for Visit * Reason Comments Outpatient Testing Encounter Details Date Type Department Care Team (Late st Contact Info) Description 02/18/2024 2:10 PM EST Laboratory Laboratory Scenery [facility] [address] [place] [address] [place], Lab Scenery [address] [place] [address] History of pulmonary embolus (PE); Anticoagulation management encounter; Paranoid schizophrenia, subchronic condition (HCC); Anxiety state; Encounter for long-term (current) use of other medications Allergies Active Allergy Reactions Criticality Noted Date Comments Sulfamethoxazole-Trimethopri m 08/05/2020 Iodinated Contrast Media 01/15/2017 Vomiting and rash per pt at age 15 Penicillins Rash 12/20/1998 documented as of this encounter (statuses as of 02/18/2024) Medications SENNA PO TABSIndications: Examination following surgery Take 2 Tabs by mouth at bedtime. 120 3 0 Active VITAMIN D 1000 UNIT PO CAPS 1 capsule daily 30 Cap 11 1 Active [place]-3 Fatty Acids (FISH OIL) 1000 MG Capsule [...] by mouth in the morning. 3 Active Atorvastatin Calcium 80 MG Oral Tablet (Lipitor)Indicat ions:Dyslipidemi a, goal LDL below 100,Hyperlipemia , mixed Take 1 Tablet by mouth in the morning. In the morning.. 90 Tablet 3 4 Active Levothyroxine Sodium 175 MCG Oral Tablet (Levoxyl) TAKE 1 TABLET BY MOUTH ONCE DAILY AT LEAST 30 MINUTES PRIOR TO BREAKFAST/OTHE R MEDS 90 Tablet 3 4 Active Triamcinolone Acetonide 0.1 % External Cream (Aristocort) Apply topically to affected area 2 times a day. To affected area. 60 g 5 4 Active Lisinopril 2.5 MG Oral Tablet (Prinivil) TAKE 1 TABLET BY MOUTH EVERY MORNING 31 Tablet 11 4 Active metFORMIN HCl 1000 MG Oral Tablet (Glucophage)Carin cations:Type 2 diabetes mellitus with hemoglobin A1c goal of less than 7.0% (HCC) TAKE 1 TABLET BY MOUTH TWICE A [...] every evening. Take as directed by the [facility] clinic. 30 Tablet 1 4 Active Fenofibrate Micronized 134 MG Oral CapsuleIndicatio ns:Dyslipidemia, goal LDL below 100,Hyperlipemia , mixed TAKE 1 CAPSULE BY MOUTH EVERY DAY IN THE MORNING 90 Capsule 4 Active documented as of this encounter (statuses as of 02/18/2024) Active Problems Problem Noted Date Diagnosed Date History of pulmonary embolus (PE) 04/26/2023 HTN, goal below 140/90 03/13/2022 Obesity, Class I, BMI 30.0-34.9 (see actual BMI) 03/12/2017 Acquired hypothyroidism 11/12/2016 Type 2 diabetes mellitus wit h hemoglobin A1c goal of less than 7.0% 05/08/2016 Class 2 obesity in adult 12/27/2015 Schizoaffective disorder documented as of this encounter (statuses as of 02/18/2024) Resolved Problems Problem Noted Date Diagnosed Date Resolved Date DM type 2 (diabetes mellitus, type 2) 12/27/2015 05/08/2016 Hypothyroidism 09/20/2014 11/12/2016 ADVANCE DIRECTIVE INFORMATION 12/04/2004 12/16/2023 Overview (12/04/2004): No, Advance Directive brochure offered , patient declined. HYPOTHYROIDISM NOS 5 documented as of this encounter (statuses as of 02/18/2024) Immunizations Name Administration Dates Next Due COVID-19 mRNA, LNP-s, No Pre serve, 2-Dose Series (Camp[employer]) 04/08/2020,03/18/2020 COVID-19, MRNA-LNP, PF, 30 M CG/0.3 mL, 12 YRS AND ABOVE, IM ([facility]) 04/08/2023 Hepatitis B, 20+ yrs 05/13/2017,03/12/2016,02/06 Pneumococcal Conjugate Vacci ne, 20-valent ([id number]) 03/13/2022 Pneumococcal Polysaccharide PPV23 (Pneumovax) 10/12/2020,12/12/2015 Seasonal [...] on file documented as of this encounter Plan of Treatment Upcoming Encounters Date Type Department Care Team ([place] Contact Info) Description 03/10/2024 8:30 AM EST Office Visit Cardiology, [facility] [address] [place] [address] Maci Verdugo, CINDA [address] [place] [address] 03/16/2024 11:50 AM EST Anticoagulation Pharmacy, [facility] [address] [facility] [place] [address] Pharmacist1, [facility] [address] [facility] [place] [address] 06/17/2024 8:20 AM EDT Office Visit Family Practice [facility] [address] [place] [address] Maurilio Orta III, MD [address] [facility] [place] [address] Pending Results Name Type Priority Associated Diagnoses Date /Time PT INR Lab Routine History of pulmonary embolus (PE) Anticoagulation management encounter 02/18/2024 2:24 PM EST Scheduled Procedures Name Priority Associated Diagnoses Date/Ti [...] 04/16/2023, Additional history exists GFR 07/21/2024 07/22/2023, 0 06/2023, 07/23/2022, Additional history exists TSH 07/21/2024 07/22/2023, 0 06/2023, 02/13/2022, Additional history exists Colonoscopy 07/11/2027 [...] Not on filedocumented as of this encounter Procedures Procedure Name Priority Date/Time Associated Diagnosis Comments DIFFERENTIAL, AUTOMATED Routine 02/18/2024 2:24 PM EST Paranoid schizophrenia, subchronic condition (HCC) Anxiety state Encounter for long-term (current) use of other medications CBC Routine 02/18/2024 2:24 PM EST Paranoid schizophrenia, subchronic condition (HCC) Anxiety state Encounter for long-term (current) use of other medications CBC Routine 02/18/2024 2:24 PM EST Paranoid schizophrenia, subchronic condition (HCC) Anxiety state Encounter for long-term (current) use of other medications documented in this encounter Results * DIFFERENTIAL, AUTOMATED (02/18/2024 2:24 PM EST) Pathologist [facility] WBC 6.25 4.00 - 10.80 K/uL 02/18/2024 2:45 PM EST [facility] 56-02 Neutrophils % 71.0 40.0 - 75.0 % 02/18/2024 2:45 PM EST [facility] 56-02 Lymphocytes % 20.2 18.0 - 42.0 % 02/18/2024 2:45 PM EST [facility] 56-02 Monocytes % 7.5 1.0 - 11.0 % 02/18/2024 2:45 PM EST [facility] 56-02 Eosinophils % 0.0 0.0 - 6.0 % 02/18/2024 2:45 PM EST [facility] 56-02 Basophils % 1.3 0.0 - 2.0 % 02/18/2024 2:45 PM EST [facility] 56-02 Absolute Neutrophils 4.44 1.80 - 7.70 K/uL 02/18/2024 2:45 PM EST [facility] 56-02 Absolute Lymphocytes 1.26 1.00 - 4.80 K/ul 02/18/2024 2:45 PM EST [facility] 56-02 Absolute Monocytes 0.47 0.00 - 1.10 K/uL 02/18/2024 2:45 PM EST [facility] 56-02 Absolute Eosinophils 0.00 0.00 - 0.70 K/uL 02/18/2024 2:45 PM EST [facility] 56-02 Absolute Basophils 0.08 0.00 - 0.20 K/uL 02/18/2024 2:45 PM EST [facility] 56-02 Blood Venous blood specimen / Unknown Venipuncture / Unknown 02/18/2024 2:24 PM EST 02/18/2024 2:24 PM EST Gary Dao PA-C LAB BLOOD ORDERABLES Final Result [facility] [address] [facility] [address] * CBC (02/18/2024 2:24 PM EST) Pathologist [facility] WBC 6.25 4.00 - 10.80 K/uL 02/18/2024 2:45 PM EST [facility] 56- RBC 5.39 4.50 - 5.25 M/uL 02/18/2024 2:45 PM EST [facility] 56- HGB 14.3 14.0 - 16.8 g/dL 02/18/2024 2:45 PM EST [facility] 56- HCT 46.5 40.0 - 48.4 % 02/18/2024 2:45 PM EST [facility] 56- MCV 86.3 82.0 - 99.5 fL 02/18/2024 2:45 PM EST [facility] 56- MCH 26.5 27.0 - 34.0 pg 02/18/2024 2:45 PM EST [facility] 56-02 MCHC 30.8 32.0 - 36.0 g/dL 02/18/2024 2:45 PM EST [facility] 56-02 RDW 14.9 11.5 - 15.5 % 02/18/2024 2:45 PM EST [facility] 56-02 PLT 201 140 - 400 K/uL 02/18/2024 2:45 PM EST [facility] 56-02 MPV 12.4 6.6 - 11.1 fL 02/18/2024 2:45 PM EST [facility] 56-02 Blood Venous blood specimen / Unknown Venipuncture / Unknown 02/18/2024 2:24 PM EST 02/18/2024 2:24 PM EST Gary Dao PA-C LAB BLOOD ORDERABLES Final Result [facility] [address] [facility] [id number] documented in this encounter Visit Diagnoses Diagnosis History of pulmonary embolus (PE) Personal history of pulmonary embolism Anticoagulation management encounter Encounter for therapeutic drug monitoring Paranoid schizophrenia, subchronic condition (HCC) Paranoid schizophrenia, subchronic condition Anxiety state Anxiety state, unspecified Encounter for long-term (current) use of other medications documented in this encounter Advance Directives Healthcare Agents on File Name Relationship Healthcare Agent Relationshi p Communication Carolyne Chowdhury [facility] Care Repr esentative (appointed verbally by patient or by statute hierarchy) Care Teams Insurance Examining Clerk Relationship Specialty Start Date End Date Maurilio Orta III, MD [address] [facility] [place] [address] PCP - General 09/26/1995 documented as of this encounter
--- OUTSIDE RECORDS SUMMARY | 2024-04-13 08:41 | External Medical Summary ---
Author Name Unknown Address Unknown Organization [id number]:[facility] [address] Laboratory Report Ordering Provider Test Date Status TEETEE GREEN V 03/16/2024 11:22:52 Final Therapeutic ranges for non-o perative patients:
Prophylaxsis/treatment of DVT: (Range:2.0-3.0)
Treatment of pulmonary embolism:(Range:2.0-3.0)
Prevention of systemic embolism from:
-tissue heart valves
-acute myocardial infarction
-valvular heart disease
-atrial fibrillation
(Range: 2.0-3.0)
Mechanical prosthetic valves: (Range: 2.5-3.5) Observation Date Value Abnormality Reference (Units ) Status INR in Capillary blood by Coagulation assay 03/16/2024 11:22:52 2.6 (INR) Final Performing Location [facility] [place] [address]
--- OUTSIDE RECORDS SUMMARY | 2024-04-13 08:41 | External Medical Summary | Summary of Care ---
Author Name Unknown Organization [facility] Address [address] [place] [address] Phone [phone] Care Team Providers Care Customer Pricing Manager Name Role Phone Marivel SEGURA MD, Maurilio Ayers Primary Care Provider [phone] Reason for Visit * Reason Onset Date Comments Medication Refill 03/16/2024 Encounter Details Date Type Department Care Team (Late st Contact Info) Description 03/16/2024 Refill [facility] [address] [facility] [place] [address] Maurilio Orta III, MD [address] [facility] [address] Allergies Active Allergy Reactions Criticality Noted Date Comments Sulfamethoxazole-Trimethopri m 08/05/2020 Iodinated Contrast Media 01/15/2017 Vomiting and rash per pt at age 15 Penicillins Rash 12/20/1998 documented as of this encounter (statuses as of 03/16/2024) Medications SENNA PO TABSIndications: Examination following surgery Take 2 Tabs by mouth at bedtime. 120 3 0 Active VITAMIN D 1000 UNIT PO CAPS 1 capsule daily 30 Cap 11 1 Active Chamberlain-3 Fatty Acids (FISH OIL) 1000 MG Capsule [...] hemoglobin A1c goal of less than 7.0% ([facility]) TAKE 1 TABLET BY MOUTH TWICE A [...] anticoag clinic. 30 Tablet 1 4 Active Fenofibrate Micronized 134 MG Oral CapsuleIndicatio ns:Dyslipidemia, goal LDL below 100,Hyperlipemia , mixed TAKE 1 CAPSULE BY MOUTH EVERY DAY IN THE MORNING 90 Capsule 4 Active Lisinopril 2.5 MG Oral Tablet (Prinivil) Take 1 Tablet by mouth in the morning. In the morning.. 90 Tablet 3 5 Active documented as of this encounter (statuses as of 03/16/2024) Active Problems Problem Noted Date Diagnosed Date [...] as of this encounter (statuses as of 03/16/2024) Resolved Problems Problem Noted Date Diagnosed Date Resolved Date DM type 2 (diabetes mellitus, type 2) 12/27/2015 05/08/2016 Hypothyroidism 09/20/2014 11/12/2016 ADVANCE DIRECTIVE INFORMATION 12/04/2004 12/16/2023 Overview (12/04/2004): No, Advance Directive brochure offered , patient declined. HYPOTHYROIDISM NOS 5 documented as of this encounter (statuses as of 03/16/2024) Immunizations Name Administration Dates Next Due COVID-19 mRNA, LNP-s, No Pre serve, 2-Dose Series ([employer]) 04/08/2020,03/18/2020 COVID-19, MRNA-LNP, PF, 30 M CG/0.3 mL, 12 YRS AND ABOVE, IM ([facility]) 04/08/2023 Hepatitis B, 20+ yrs 05/13/2017,03/12/2016,02/06 Pneumococcal Conjugate Vacci ne, 20-valent ([id number]) 03/13/2022 Pneumococcal Polysaccharide PPV23 (Pneumovax) 10/12/2020,12/12/2015 Seasonal [...] encounter Miscellaneous Notes * Telephone Encounter - Luisa Tyler CPhT - 03/16/2024 11:35 AM EST Pt calling to request Warfarin. Informed pt that RX is available at their pharmacy. Pt verbalized understanding and stated they will check with their pharmacy regarding this medication. Thank you, Luisa Tyler CPhT [employer] [facility] 03/16/2024,11:35 AM * Telephone Encounter - Bertha Cedeno PHARM Tech - 03/16/2024 11:31 AM EST Patient calling in regarding Warfarin. This was last prescribed by PCP office, transferring caller to Medication Refill Line for further assistance. Thank you, Bertha Cedeno [employer] [facility] 03/16/2024,11:31 AM documented in this encounter Plan of Treatment Upcoming Encounters Date Type Department Care Team (Late st Contact Info) Description 04/27/2024 11:50 AM EDT Anticoagulation Pharmacy, [facility] [address] [facility] [place] [address] Pharmacist1, [facility] [address] [place] [address] 06/17/2024 8:20 AM EDT Office Visit Family Practice [facility] [place] [address] [place] [address] MarivelMaurilio saul III, MD [address] [facility] [place] [address] Scheduled Procedures Name Priority Associated Diagnoses Date/Ti me COLONOSCOPY FLEXIBLE PROXIMA L DIAGNOSTIC Recall History of colonic polyps Health Maintenance Due Date Last Done Comments Cologuard 10/07/2007 Fecal Occult Blood Test 10/07/2007 Sigmoidoscopy 10/07/2007 Depression Screening 12/27/2019 12/26/2018, 05/08/2016 (Discussed) Diabetic Foot Exam 12/20/2020 12/21/2019, 1 , 11/18/2017, Additional history exists Albumin/Creatinine Ratio 02/13/2023 023, 01/24/2021, 12/21/2019, Additional history exists COVID-19 Vaccine ( season) 2023 04/08/2023, 04/08/2020, 03/18/2020 Diabetic Eye Exam 01/29/2024 01/28/2023, , 01/28/2023, Additional history exists HbA1c 06/14/2024 12/16/2023, 07/12, 04/16/2023, Additional history exists GFR 07/21/2024 07/22/2023, 03/0 06/2023, 07/23/2022, Additional history exists TSH 07/21/2024 07/22/2023, 03/0 06/2023, 02/13/2022, Additional history exists Colonoscopy 07/11/2027 [...] Not on filedocumented as of this encounter Advance Directives Healthcare Agents on File Name Relationship Healthcare Agent Relationshi p Communication Carolyne Chowdhury [facility] Health Care Repr esentative (appointed verbally by patient or by statute hierarchy) Care Teams Customer Pricing Manager Relationship Specialty Start Date End Date Maurilio Orta III, MD [address] [place] [address] PCP - General 09/26/1995 documented as of this encounter
--- OUTSIDE RECORDS SUMMARY | 2024-04-13 08:41 | External Medical Summary ---
Author Name Unknown Address Unknown Organization K09:[facility] [place] [address] Laboratory Report Ordering Provider Test Date Status REGINALDO FLORES 03/10/2024 12:25:45 Final Associated diagnosis code V5 8.69.ICD-9-CM was changed to 010035 on 11/12/23 as a result of a periodic change by regulatory authority. Observation Date Value Abnormality Reference (Units ) Status SYNC LEUKOCYTES IN BLOOD BY AUTOMATED COUNT 03/10/2024 12:25:45 8.51 4.00-10.80 (K/uL) Final Neutrophils/100 leukocytes in Blood by Manual count 03/10/2024 12:25:45 73.0 40.0-75.0 (%) Final Lymphocytes/100 leukocytes in Blood by Manual count 03/10/2024 12:25:45 18.0 18.0-42.0 (%) Final Monocytes/100 leukocytes in Blood by Manual count 03/10/2024 12:25:45 7.0 1.0-11.0 (%) Final Basophils/100 leukocytes in Blood by Manual count 03/10/2024 12:25:45 2.0 0.0-2.0 (%) Final Neutrophils [#/volume] in Blood by Manual count 03/10/2024 12:25:45 6.21 1.80-7.70 (K/uL) Final Lymphocytes [#/volume] in Blood by Manual count 03/10/2024 12:25:45 1.53 1.00-4.80 (K/uL) Final Monocytes [#/volume] in Blood by Manual count 03/10/2024 12:25:45 0.60 0.00-1.10 (K/uL) Final Basophils [#/volume] in Blood by Manual count 03/10/2024 12:25:45 0.17 0.00-0.20 (K/uL) Final Nucleated erythrocytes/100 leukocytes [Ratio] in Blood by Automated count 03/10/2024 12:25:45 Final Performing Location [facility] [address] [place] [address]
--- OUTSIDE RECORDS SUMMARY | 2024-04-13 08:41 | External Medical Summary | Summary of Care ---
Author Name Unknown Organization [facility] Address [address] [place] [address] Phone [phone] Care Team Providers Care Elementary Classroom Teacher Name Role Phone Marivel SEGURA MD, Lou Ayers Primary Care Provider [phone] Reason for Visit * Reason Onset Date Comments Medication Refill 03/06/2024 Encounter Details Date Type Department Care Team (Late st Contact Info) Description 03/06/2024 Refill [facility] Practice [facility] [address] [facility] [place] [address] Lou Lyons III, MD 200 [facility] [address] Allergies Active Allergy Reactions Criticality Noted Date Comments Sulfamethoxazole-Trimethopri m 08/05/2020 Iodinated Contrast Media 01/15/2017 Vomiting and rash per pt at age 15 Penicillins Rash 12/20/1998 documented as of this encounter (statuses as of 03/06/2024) Medications SENNA PO TABSIndications :Examination following surgery Take 2 Tabs by mouth at bedtime. 120 3 0 Active VITAMIN D 1000 UNIT PO CAPS 1 capsule daily 30 Cap 11 1 Active Chardon-3 Fatty Acids (FISH OIL) 1000 MG Capsule Take 1 Capsule by mouth at bedtime. Active PARoxetine (PAXIL) 40 MG Tablet Take 1 Tablet by mouth in the morning. 0 9 Active RA Vitamin B-12 TR 1000 MCG Oral Tablet Extended Release (Cyanocobalamin ER) take 1 tablet by mouth daily 100 Tablet 3 1 Active Spacer/Aero-Hol ding Chambers DeviceIndicatio ns:Acute bronchitis, antibiotics not indicated Use with inhaler. [...] Active Atorvastatin Calcium 80 MG Oral Tablet (Lipitor)Indica tions:Dyslipide wilfrido, goal LDL below 100,Hyperlipemi a, mixed Take 1 Tablet by mouth in the morning. In the morning.. 90 Tablet 3 4 Active Levothyroxine Sodium 175 MCG Oral Tablet (Levoxyl) TAKE 1 TABLET BY MOUTH ONCE DAILY AT LEAST 30 MINUTES PRIOR TO BREAKFAST/OTH ER MEDS 90 Tablet 3 4 Active Triamcinolone Acetonide 0.1 % External Cream (Aristocort) Apply topically to affected area 2 times a day. To affected area. 60 g 5 4 Active metFORMIN HCl 1000 MG Oral Tablet (Glucophage)Ind ications:Type 2 diabetes mellitus with hemoglobin A1c goal of less than 7.0% (HCC) TAKE 1 TABLET BY MOUTH TWICE A DAY WITH FOOD MORNING AND EVENING 180 Tablet 1 4 Active oxyBUTYnin Chloride 5 MG Oral Tablet (Ditropan) Take 1 tablet by mouth twice daily 180 Tablet 1 4 Active Metoprolol Succinate ER 25 MG Oral Tablet Extended Release 24 Hour (toPROL XL)Indications: HTN, goal below 140/90 TAKE 1 TABLET BY MOUTH ONCE DAILY 90 Tablet 3 4 Active Warfarin Sodium 5 MG Oral Tablet (Coumadin)Indic ations:History of pulmonary embolus (PE) Take 1/2 to 1 tablet by mouth every evening. Take as directed by the anticoag clinic. 30 Tablet 1 4 Active Fenofibrate Micronized 134 MG Oral CapsuleIndicati ons:Dyslipidemi a, goal LDL below 100,Hyperlipemi a, mixed TAKE 1 CAPSULE BY MOUTH EVERY DAY IN THE MORNING 90 Capsule 4 Active Lisinopril 2.5 MG Oral Tablet (Prinivil) Take 1 Tablet by mouth in the morning. In the morning.. 90 Tablet 3 5 Active Lisinopril 2.5 MG Oral Tablet (Prinivil) TAKE 1 TABLET BY MOUTH EVERY MORNING 31 Tablet 11 4 03/06/19 25 Discontinu ed(Refill) documented as of this encounter (statuses as of 03/06/2024) Active Problems Problem Noted Date Diagnosed Date History of pulmonary embolus (PE) 04/26/2023 HTN, goal below 140/90 03/13/2022 Obesity, Class I, BMI 30.0-34.9 (see actual BMI) 03/12/2017 Acquired hypothyroidism 11/12/2016 Type 2 diabetes mellitus wit h hemoglobin A1c goal of less than 7.0% 05/08/2016 Class 2 obesity in adult 12/27/2015 Schizoaffective disorder documented as of this encounter (statuses as of 03/06/2024) Resolved Problems Problem Noted Date Diagnosed Date Resolved Date DM type 2 (diabetes mellitus, type 2) 12/27/2015 05/08/2016 Hypothyroidism 09/20/2014 11/12/2016 ADVANCE DIRECTIVE INFORMATION 12/04/2004 12/16/2023 Overview (12/04/2004): No, Advance Directive brochure offered , patient declined. HYPOTHYROIDISM NOS 5 documented as of this encounter (statuses as of 03/06/2024) Immunizations Name Administration Dates Next Due COVID-19 mRNA, LNP-s, No Pre serve, 2-Dose Series ([employer]) 04/08/2020,03/18/2020 COVID-19, MRNA-LNP, PF, 30 M CG/0.3 mL, 12 YRS AND ABOVE, IM (PFIZER-Comirnaty) 04/08/2023 Hepatitis B, 20+ yrs 05/13/2017,03/12/2016,02/06 Pneumococcal Conjugate Vacci ne, 20-valent ([id number]) 03/13/2022 Pneumococcal Polysaccharide PPV23 (Pneumovax) 10/12/2020,12/12/2015 Seasonal [...] encounter Miscellaneous Notes * Telephone Encounter - Lou Lyons III, MD - 03/06/2024 12:55 PM ESTSigned Prescriptions: Disp Refills Lisinopril 2.5 MG Oral Tablet (Prinivil) 90 Tab*3 Sig: Take 1 Tablet by mouth in the morning. In the morning..Authorizing Provider: LOU LYONS III * Telephone Encounter - Jackie Lee LPN - 03/06/2024 12:14 PM ESTPending Prescriptions: Disp Refills Lisinopril 2.5 MG Oral Tablet (Prinivil) 90 Tab*3 Sig: Take 1 Tablet by mouth in the morning. In the morning.. * Telephone Encounter - Jackie Lee LPN - 03/06/2024 12:14 PM EST 90 day supply pended * Telephone Encounter - Mariajose Laurent OSA - 03/06/2024 11:22 AM EST PHARMACY REQUESTING DAY SUPPLY Pending Prescriptions: Disp Refills Lisinopril 2.5 MG Oral Tablet (Prinivil) 31 Tab*11 Sig: Take 1 Tablet by mouth in the morning. In the morning.. Last Visit: 12/17/2023 (in office), Visit date not found (telemedicine) Next Visit: 06/17/2024 Last date the medication was ordered: 01/08/2024 Patient Active Problem List Diagnosis Schizoaffective disorder Class 2 obesity in adult Type 2 diabetes mellitus with hemoglobin A1c goal of less than 7.0% ([facility]) Acquired hypothyroidism Obesity, Class I, BMI 30.0-34.9 (see actual BMI) HTN, goal below 140/90 History of pulmonary embolus (PE) Labs: Lab Results Component Value Date/Time CREATININE - [facility] 1.0 07/22/2023 10:40 AM CREATININE - [facility] 0.9 08/05/2018 10:45 AM CREATININE, RANDOM URINE - [facility] 227 02/13/2022 02:44 PM CREATININE, RANDOM URINE - [facility] 175 12/21/2019 02:35 PM Lab Results Component Value Date/Time POTASSIUM - [facility] 4.3 07/22/2023 10:40 AM POTASSIUM - [facility] 4.3 08/05/2018 10:45 AM POTASSIUM - [facility] 4.2 01/01/1996 03:05 PM Lab Results Component Value Date/Time TSH - [facility] 0.30 07/22/2023 10:40 AM TSH - [facility] 13.50 (H) 12/21/2019 02:33 PM Lab Results Component Value Date/Time LDL CHOLESTEROL (CALCULATED) - [facility] 50 12/03/2022 11:30 AM LDL CHOLESTEROL (CALCULATED) - [facility] 53 05/05/2018 11:22 AM LDL CHOLESTEROL (CALCULATED) - [facility] 50 01/07/2017 12:05 PM LDL CHOLESTEROL (DIRECT MEASURE) - [facility] 55 07/22/2023 10:40 AM LDL CHOLESTEROL (DIRECT MEASURE) - [facility] 64 02/13/2022 02:44 PM LDL CHOLESTEROL (DIRECT MEASURE) - [facility] 59 07/02/2019 01:03 PM LDL CHOLESTEROL (DIRECT MEASURE) - [facility] 57 11/12/2016 04:35 PM LDL CHOLESTEROL (DIRECT MEASURE) - [facility] NOT APPLICABLE 12/21/2014 11:06 AM LDL CHOLESTEROL (DIRECT MEASURE) - [facility] 101 (H) 08/22/2009 12:39 PM Lab Results Component Value Date/Time ALT - [facility] 20 07/22/2023 10:40 AM ALT - [facility] 24 08/05/2018 10:45 AM Hemoglobin AIC Results: Lab Results Component Value Date/Time HEMOGLOBIN A1C - [facility] 6.6 (H) 12/16/2023 10:02 AM HEMOGLOBIN A1C - [facility] 6.5 (H) 07/22/2023 10:40 AM HEMOGLOBIN A1C - [facility] 6.4 (H) 04/16/2023 09:16 AM HEMOGLOBIN A1C - [facility] 6.6 (H) 12/21/2019 02:33 PM HEMOGLOBIN A1C - [facility] 6.4 (H) 07/02/2019 01:03 PM HEMOGLOBIN A1C - [facility] 6.2 (H) 12/01/2018 03:58 PM documented in this encounter Plan of Treatment Upcoming Encounters Date Type Department Care Team (Late st Contact Info) Description 03/10/2024 8:30 AM EST Office Visit Cardiology, [facility] [address] [place] [address] Maci Verdugo PA-C [address] [place] [address] 03/16/2024 11:50 AM EST Anticoagulation Pharmacy, [facility] [place] [address] [place] [address] Pharmacist1, [facility] [address] [place] [address] 06/17/2024 8:20 AM EDT Office Visit Family Practice [facility] [address] [place] [address] PerryLou saul III, MD [address] [place] [address] Scheduled Procedures Name Priority Associated Diagnoses Date/Ti [...] Relationship Healthcare Agent Relationshi p Communication Carolyne [facility] Repr esentative (appointed verbally by patient or by statute hierarchy) Care Teams Elementary Classroom Teacher Relationship Specialty Start Date End Date Lou Lyons III, MD [address] [place] [address] PCP - General 09/26/1995 documented as of this encounter
--- OUTSIDE RECORDS SUMMARY | 2024-04-13 08:41 | External Medical Summary | Summary of Care ---
Author Name Unknown Organization [facility] Address [address] [place] [address] Phone [phone] Care Team Providers Care Sba Underwriter Name Role Phone Marivel SEGURA MD, Maurilio Ayers Primary Care Provider [phone] Encounter Details Date Type Department Care Team (Late st Contact Info) Description 03/05/2024 Population Health External Data Unspecified Department Allergies Active Allergy Reactions Criticality Noted Date Comments Sulfamethoxazole-Trimethopri m 08/05/2020 Iodinated Contrast Media 01/15/2017 Vomiting and rash per pt at age 15 Penicillins Rash 12/20/1998 documented as of this encounter (statuses as of 03/05/2024) Medications SENNA PO TABSIndications: Examination following surgery Take 2 Tabs by mouth at bedtime. 120 3 0 Active VITAMIN D 1000 UNIT PO CAPS 1 capsule daily 30 Cap 11 1 Active [place]-3 Fatty Acids (FISH OIL) 1000 MG Capsule [...] as of this encounter (statuses as of 03/05/2024) Active Problems Problem Noted Date Diagnosed Date History of pulmonary embolus (PE) 04/26/2023 HTN, goal below 140/90 03/13/2022 Obesity, Class I, BMI 30.0-34.9 (see actual BMI) 03/12/2017 Acquired hypothyroidism 11/12/2016 Type 2 diabetes mellitus wit h hemoglobin A1c goal of less than 7.0% 05/08/2016 Class 2 obesity in adult 12/27/2015 Schizoaffective disorder documented as of this encounter (statuses as of 03/05/2024) Resolved Problems Problem Noted Date Diagnosed Date Resolved Date DM type 2 (diabetes mellitus, type 2) 12/27/2015 05/08/2016 Hypothyroidism 09/20/2014 11/12/2016 ADVANCE DIRECTIVE INFORMATION 12/04/2004 12/16/2023 Overview (12/04/2004): No, Advance Directive brochure offered , patient declined. HYPOTHYROIDISM NOS 5 documented as of this encounter (statuses as of 03/05/2024) Immunizations Name Administration Dates Next Due COVID-19 mRNA, LNP-s, No Pre serve, 2-Dose Series ([employer]) 04/08/2020,03/18/2020 COVID-19, MRNA-LNP, PF, 30 M CG/0.3 mL, 12 YRS AND ABOVE, IM (PFIZER-Comirnaty) 04/08/2023 Hepatitis B, 20+ yrs 05/13/2017,03/12/2016,02/06 Pneumococcal Conjugate Vacci ne, 20-valent ([id number]) 03/13/2022 Pneumococcal Polysaccharide PPV23 (Pneumovax) 10/12/2020,12/12/2015 Seasonal [...] 03/10/2024 8:30 AM EST Office Visit Cardiology, [facility] [address] [address] Maci Verdugo PA-C [address] [address] 03/16/2024 11:50 AM EST Anticoagulation Pharmacy, [place] [place] [address] [facility] [place] [address] Pharmacist1, [facility] [address] [facility] [place] [address] 06/17/2024 8:20 AM EDT Office Visit Family Practice [facility] [address] [facility] [address] Marivel III, Maurilio Ayers MD [address] [facility] [place] [address] Scheduled Procedures Name Priority Associated Diagnoses Date/Ti [...] Healthcare Agent Relationshi p Communication Carolyne Chowdhury [facility] Care Repr esentative (appointed verbally by patient or by statute hierarchy) Care Teams Sba Underwriter Relationship Specialty Start Date End Date Maurilio Orta III, MD 200 [place] [address] PCP - General 09/26/1995 documented as of this encounter
--- OUTSIDE RECORDS SUMMARY | 2024-04-13 08:41 | External Medical Summary | Summary of Care ---
Author Name Unknown Organization [facility] Address [address] [place] [address] Phone [phone] Care Team Providers Care Equipment Hire Manager Name Role Phone Marivel SEGURA MD, Maurilio Ayers Primary Care Provider [phone] Reason for Visit * Reason Comments eRx-Medication Refill Encounter Details Date Type Department Care Team (Late st Contact Info) Description 03/23/2024 Refill Cardiology, [facility] [address] [place] [address] En Ansari, PAYamini [address] [place] [address] Dyslipidemia, goal LDL below 100; Hyperlipemia, mixed Allergies Active Allergy Reactions Criticality Noted Date Comments Sulfamethoxazole-Trimethopri m 08/05/2020 Iodinated Contrast Media 01/15/2017 Vomiting and rash per pt at age 15 Penicillins Rash 12/20/1998 documented as of this encounter (statuses as of 03/24/2024) Medications SENNA PO TABSIndications :Examination following surgery Take 2 Tabs by mouth at bedtime. 120 3 06/17/19 10 Active VITAMIN D 1000 UNIT PO CAPS 1 capsule daily 30 Cap 11 03/31/19 11 Active [place]-3 Fatty Acids (FISH OIL) 1000 MG Capsule Take 1 Capsule by mouth at bedtime. Active PARoxetine (PAXIL) 40 MG Tablet Take 1 Tablet by mouth in the morning. 0 08/06/19 19 Active RA Vitamin B-12 TR 1000 MCG Oral Tablet Extended Release (Cyanocobalamin ER) take 1 tablet by mouth daily 100 Tablet 3 01/24/20 21 Active Spacer/Aero-Hol ding Chambers DeviceIndicatio ns:Acute bronchitis, antibiotics not indicated Use with inhaler. 1 Each 07/01/19 22 Active Cetirizine HCl 10 MG Oral Tablet (ZyrTEC Allergy) Take 1 Tablet by mouth in the morning. 15 Tablet 05/09/19 23 Active clonazePAM 0.5 MG Oral Tablet (KlonoPIN) Take 1 Tablet by mouth in the morning and 1 Tablet before bedtime. 60 Tablet 5 08/02/19 23 Active cloZAPine 200 MG Oral Tablet Take 1.5 Tablets by mouth at bedtime. Takes (2) 200 mg at bedtime 45 Tablet 5 08/02/19 23 Active Triamcinolone Acetonide 0.1 % External Cream (Aristocort) apply topically to affected area twice a day 07/30/19 23 Active ARIPiprazole 10 MG Oral Tablet (Abilify) Take 1 Tablet by mouth in the morning. 09/01/19 23 Active Levothyroxine Sodium 175 MCG Oral Tablet (Levoxyl) TAKE 1 TABLET BY MOUTH ONCE DAILY AT LEAST 30 MINUTES PRIOR TO BREAKFAST/OTH ER MEDS 90 Tablet 3 07/12/19 24 Active Triamcinolone Acetonide 0.1 % External Cream (Aristocort) Apply topically to affected area 2 times a day. To affected area. 60 g 5 12/17/19 24 Active metFORMIN HCl 1000 MG Oral Tablet (Glucophage)Ind ications:Type 2 diabetes mellitus with hemoglobin A1c goal of less than 7.0% (HCC) TAKE 1 TABLET BY MOUTH TWICE A DAY WITH FOOD MORNING AND EVENING 180 Tablet 1 01/20/20 24 Active oxyBUTYnin Chloride 5 MG Oral Tablet (Ditropan) Take 1 tablet by mouth twice daily 180 Tablet 1 01/23/20 24 Active Metoprolol Succinate ER 25 MG Oral Tablet Extended Release 24 Hour (toPROL XL)Indications: HTN, goal below 140/90 TAKE 1 TABLET BY MOUTH ONCE DAILY 90 Tablet 3 01/26/20 24 Active Warfarin Sodium 5 MG Oral Tablet (Coumadin)Indic ations:History of pulmonary embolus (PE) Take 1/2 to 1 tablet by mouth every evening. Take as directed by the anticoag clinic. 30 Tablet 1 01/29/20 24 Active Lisinopril 2.5 MG Oral Tablet (Prinivil) Take 1 Tablet by mouth in the morning. In the morning.. 90 Tablet 3 03/06/19 25 Active Fenofibrate Micronized 134 MG Oral CapsuleIndicati ons:Dyslipidemi a, goal LDL below 100,Hyperlipemi a, mixed TAKE 1 CAPSULE BY MOUTH EVERY DAY IN THE MORNING 90 Capsule 3 03/24/19 25 Active Atorvastatin Calcium 80 MG Oral Tablet (Lipitor)Indica tions:Dyslipide wilfrido, goal LDL below 100,Hyperlipemi a, mixed TAKE 1 TABLET BY MOUTH IN THE MORNING 90 Tablet 3 03/24/19 25 Active Atorvastatin Calcium 80 MG Oral Tablet (Lipitor)Indica tions:Dyslipide wilfrido, goal LDL below 100,Hyperlipemi a, mixed Take 1 Tablet by mouth in the morning. In the morning.. 90 Tablet 3 05/27/19 24 025 Discontinued documented as of this encounter (statuses as of 03/24/2024) Active Problems Problem Noted Date Diagnosed Date [...] as of this encounter (statuses as of 03/24/2024) Resolved Problems Problem Noted Date Diagnosed Date Resolved Date DM type 2 (diabetes mellitus, type 2) 12/27/2015 05/08/2016 Hypothyroidism 09/20/2014 11/12/2016 ADVANCE DIRECTIVE INFORMATION 12/04/2004 12/16/2023 Overview (12/04/2004): No, Advance Directive brochure offered , patient declined. HYPOTHYROIDISM NOS 5 documented as of this encounter (statuses as of 03/24/2024) Immunizations Name Administration Dates Next Due COVID-19 mRNA, LNP-s, No Pre serve, 2-Dose Series (Pfizer) 04/08/2020,03/18/2020 COVID-19, MRNA-LNP, PF, 30 M CG/0.3 mL, 12 YRS AND ABOVE, IM (PFIZER-Comirnat) 04/08/2023 Hepatitis B, 20+ yrs 05/13/2017,03/12/2016,02/06 Pneumococcal Conjugate Vacci ne, 20-valent ([id number]) 03/13/2022 Pneumococcal Polysaccharide PPV23 (Pneumovax) 10/12/2020,12/12/2015 Seasonal [...] encounter Miscellaneous Notes * Telephone Encounter - Rut Haro [facility] - 03/24/2024 11:49 AM ESTSigned Prescriptions: Disp Refills Atorvastatin Calcium 80 MG Oral Tablet (Li*90 Tab*3 Sig: TAKE 1TABLET BY MOUTH IN THE MORNINGAuthorizing Provider: EN ANSARIOrderbelia User: RUT HARO documented in this encounter Plan of Treatment Upcoming Encounters Date Type Department Care Team (Late st Contact Info) Description 04/27/2024 11:50 AM EDT Anticoagulation Pharmacy, [facility] 200 [facility] [place] [address] Pharmacist1, [facility] [address] [place] [address] 06/17/2024 8:20 AM EDT Office Visit Family Practice [facility] 200 [facility] [address] [place] [address] Maurilio Orta III, MD 200 [facility] [place] [address] 03/16/2025 1:30 PM EST Office Visit Cardiology, [facility] 132 [facility] [place] [address] En Ansari PA-C 132 [facility] [place] [address] Scheduled Procedures Name Priority Associated Diagnoses Date/Ti [...] as of this encounter Visit Diagnoses Diagnosis Dyslipidemia, goal LDL below 100 Other and unspecified hyperlipidemia Hyperlipemia, mixed Mixed hyperlipidemia documented in this encounter Advance Directives Healthcare Agents on File Name Relationship Healthcare Agent Relationshi p Communication Carolyne Chowdhury [facility] Repr esentative (appointed verbally by patient or by statute hierarchy) Care Teams Equipment Hire Manager Relationship Specialty Start Date End Date Maurilio Orta III, MD [address] [place] [address] PCP - General 09/26/1995 documented as of this encounter
--- OUTSIDE RECORDS SUMMARY | 2024-04-13 08:41 | External Medical Summary | Summary of Care ---
Author Name Unknown Organization [facility] Address [address] [place] [address] Phone [phone] Care Team Providers Care Insurance Sales Representative Name Role Phone Marivel SEGURA MD, Maurilio Ayers Primary Care Provider [phone] Reason for Visit * Reason Comments eRx-Medication Refill Encounter Details Date Type Department Care Team (Late st Contact Info) Description 03/23/2024 Ref[address] Cardiology, [facility] [address] [place] [address] En Ansari, PAYamini [address] [facility] [place] [address] Dyslipidemia, goal LDL below 100; Hyperlipemia, mixed [...] daily 30 Cap 11 03/31/19 11 Active [place]-3 Fatty Acids (FISH OIL) 1000 MG Capsule [...] 90 Tablet 3 05/27/19 24 025 Discontinued Fenofibrate Micronized 134 MG Oral CapsuleIndicati ons:Dyslipidemi a, goal LDL below 100,Hyperlipemi a, mixed TAKE 1 CAPSULE BY MOUTH EVERY DAY IN THE MORNING 90 Capsule 02/10/20 24 025 Discontinued documented as of this [...] mRNA, LNP-s, No Pre serve, 2-Dose Series (Mailcloud) 04/08/2020,03/18/2020 COVID-19, MRNA-LNP, PF, 30 M CG/0.3 mL, 12 YRS AND ABOVE, IM (PFIZER-Comirnaty) 04/08/2023 Hepatitis B, 20+ yrs 05/13/2017,03/12/2016,02/06 Pneumococcal Conjugate Vacci ne, 20-valent ([id number]) 03/13/2022 Pneumococcal Polysaccharide PPV23 (Pneumovax) 10/12/2020,12/12/2015 Seasonal [...] Notes * Telephone Encounter - Rut Haro [facility] - 03/24/2024 11:49 AM ESTSigned Prescriptions: Disp Refills Fenofibrate Micronized 134 MG Oral Capsule 90 Cap*3 Sig: TAKE 1 CAPSULE BY MOUTH EVERY DAY IN THE MORNINGAuthorizing Provider: EN ANSARIOrderbelia User: RUT HARO documented in this encounter Plan of Treatment Upcoming Encounters Date Type Department Care Team (Late st Contact Info) Description 04/27/2024 11:50 AM EDT Anticoagulation Pharmacy, [facility] [address] [place] [address] Pharmacist1, [facility] [address] [facility] [place] [address] 06/17/2024 8:20 AM EDT Office Visit Family Practice [facility] [address] [place] [address] Maurilio Orta III, MD [address] [facility] [place] [address] 03/16/2025 1:30 PM EST Office Visit Cardiology, [facility] [place] [address] En Ansari PA-Mallorie [address] [place] [address] Scheduled Procedures Name Priority Associated Diagnoses Date/Ti [...] Healthcare Agent Relationshi p Communication Carolyne Chowdhury [facility] Care Repr esentative (appointed verbally by patient or by statute hierarchy) Care Teams Insurance Sales Representative Relationship Specialty Start Date End Date Maurilio Orta III, MD [address] [place] [address] PCP - General 09/26/1995 documented as of this encounter
--- OUTSIDE RECORDS SUMMARY | 2024-04-13 08:41 | External Medical Summary | Summary of Care ---
Author Name Unknown Organization [facility] Address [address] [place] [address] Phone [phone] Care Team Providers Care Hotel Reservationist Name Role Phone Marivel SEGURA MD, Maurilio Ayers Primary Care Provider [phone] Reason for Visit * Reason Comments Dosage Adjustment In Person (Anticoag Cl inic) Encounter Details Date Type Department Care Team (Latest Contact Info) Description 03/16/2024 11:50 AM EST Anticoagulation Pharmacy, [facility] [address] [facility] [place] [address] Pharmacist1, [facility] [address] [facility] [place] [place] [address] History of pulmonary embolus (PE)*; Anticoagulation management encounter Allergies Active Allergy Reactions Criticality Noted Date [...] capsule daily 30 Cap 11 1 Active [place]-3 Fatty Acids (FISH OIL) 1000 MG Capsule [...] mRNA, LNP-s, No Pre serve, 2-Dose Series (Guaranteach) 04/08/2020,03/18/2020 COVID-19, MRNA-LNP, PF, 30 M CG/0.3 mL, 12 YRS AND ABOVE, IM ([facility]) 04/08/2023 Hepatitis B, 20+ yrs 05/13/2017,03/12/2016,02/06 Pneumococcal Conjugate Vacci ne, 20-valent ([id number]) 03/13/2022 Pneumococcal Polysaccharide PPV23 (Pneumovax) 10/12/2020,12/12/2015 Seasonal [...] on file documented as of this encounter Progress Notes * Leonid Daniels RP - 03/16/2024 11:20 AM EST Medication Therapy Disease Management - Anticoagulation Twin Chowdhury is an 63 year old male who presents to clinic for anticoagulation management. Description Patient message states Vielkaquis will be $435/month. He has Medicare insurance. Brand name medications will be too expensive due to coverage gap. There is little to no assistance available for cost of prescriptions with Medicare. Patient will need to transition to Coumadin if long-term anticoagulation is desired. Patient Findings Negatives: Signs/symptoms of thrombosis, Signs/symptoms of bleeding, Change in health, Change in alcohol use, Change in activity, Upcoming invasive procedure, Missed doses, Extra doses, Change in medications, Change in diet/appetite, Bruising INR Result As of 03/16/2024 INR goal: 2.0-3.0 INR used for dosin.6 (03/16/2024) Warfarin Plan As of 03/16/2024 Full warfarin instructions: 5 mg every Mon; 2.5 mg all other days No change documented: Leonid Daniels RPh Next INR check: 04/27/2024 Repeat PT/INR in 6 week(s) Weekly dose: not changed I spent a total of 10-19 minutes (exact time 13 mins) on the date of service in preparation, delivery, and documentation of the care provided to Twin Chowdhury excluding any time spent in the performance of separately billed services or time spent by another provider/QHP. Leonid Roe RPh, [facility] Clinical Pharmacist Medication Therapy Disease Management 03/16/2024, 11:24 AM documented in this encounter Plan of Treatment Upcoming Encounters Date Type Department Care Team (Late st Contact Info) Description 04/27/2024 11:50 AM EDT Anticoagulation Pharmacy, [facility] [address] [place] [address] Pharmacist1, [facility] [address] [place] [address] 06/17/2024 8:20 AM EDT Office Visit Family Practice [facility] [address] [place] [address] Yancey IIIMaurilio MD [address] [place] [address], [place] [address] Scheduled Procedures Name Priority Associated Diagnoses Date/Ti [...] Procedure Name Priority Date/Time Associated Diagnosis Comments INR FINGERSTICK, POINT OF CARE STAT 03/16/2024 11:22 AM EST History of pulmonary embolus (PE) Anticoagulation management encounter documented in this encounter Results * INR FINGERSTICK, POINT OF CARE (03/16/2024 11:22 AM EST) Fingerstick INR 2.6 INR 11:28 AM EST [facility] 56-02 Blood 03/16/2024 11:2 2 AM EST 03/16/2024 11:28 AM EST Narrative [facility] 56-02 - 03/16/2024 11:28 AM EST Therapeutic ranges for non-operative patients: Prophylaxsis/treatment of DVT: (Range:2.0-3.0) Treatment of pulmonary embolism:(Range:2.0-3.0) Prevention of systemic embolism from: -tissue heart valves -acute myocardial infarction -valvular heart disease -atrial fibrillation (Range: 2.0-3.0) Mechanical prosthetic valves: (Range: 2.5-3.5) us Leonid Edwardsk V, [facility] LAB POINT OF CARE TE ST DOCKED DEVICE UNSOLICITED RESULTS Final Result [facility] 56-02 200 [facility] [address] documented in this encounter Visit Diagnoses Diagnosis History of pulmonary embolus (PE)- Primary Personal history of pulmonary embolism Anticoagulation management encounter Encounter for therapeutic drug monitoring documented in this encounter Advance Directives Healthcare Agents on File Name Relationship Healthcare Agent Relationshi p Communication Carolyne Chowdhury [facility] Repr esentative (appointed verbally by patient or by statute hierarchy) Care Teams Hotel Reservationist Relationship Specialty Start Date End Date Maurilio rOta III, MD [address] [facility] [address] PCP - General 09/26/1995 documented as of this encounter
--- OUTSIDE RECORDS SUMMARY | 2024-04-13 08:42 | External Medical Summary | Summary of Care ---
Author Name Unknown Organization [facility] Address [address] [place] [address] Phone [phone] Care Team Providers Care Loop Sewer Name Role Phone Marivel SEGURA MD, Maurilio Ayers Primary Care Provider [phone] Reason for Visit * Reason Comments Dosage Adjustment In Person (Anticoag Cl inic) Encounter Details Date Type Department Care Team (Latest Contact Info) Description 02/03/2024 1:00 PM EST Anticoagulation Pharmacy, [facility] 200 [facility] [place] [address] Pharmacist1, [facility] 200 [facility] [place] [address] History of pulmonary embolus (PE)*; Anticoagulation management encounter Allergies Active Allergy Reactions Criticality Noted Date Comments Sulfamethoxazole-Trimethopri m 08/05/2020 Iodinated Contrast Media 01/15/2017 Vomiting and rash per pt at age 15 Penicillins Rash 12/20/1998 documented as of this encounter (statuses as of 02/03/2024) Medications SENNA PO TABSIndications: Examination following surgery Take 2 Tabs by mouth at bedtime. 120 3 0 Active VITAMIN D 1000 UNIT PO CAPS 1 capsule daily 30 Cap 11 1 Active [place]-3 Fatty Acids (FISH OIL) 1000 MG Capsule [...] R MEDS 90 Tablet 3 4 Active Fenofibrate Micronized 134 MG Oral CapsuleIndicatio ns:Dyslipidemia, goal LDL below 100,Hyperlipemia , mixed TAKE 1 CAPSULE BY MOUTH EVERY MORNING 90 Capsule 4 Active Triamcinolone Acetonide 0.1 % External [...] every evening. Take as directed by the antico clinic. 30 Tablet 1 4 Active documented as of this encounter (statuses as of 02/03/2024) Active Problems Problem Noted Date Diagnosed Date History of pulmonary embolus (PE) 04/26/2023 HTN, goal below 140/90 03/13/2022 Obesity, Class I, BMI 30.0-34.9 (see actual BMI) 03/12/2017 Acquired hypothyroidism 11/12/2016 Type 2 diabetes mellitus wit h hemoglobin A1c goal of less than 7.0% 05/08/2016 Class 2 obesity in adult 12/27/2015 Schizoaffective disorder documented as of this encounter (statuses as of 02/03/2024) Resolved Problems Problem Noted Date Diagnosed Date Resolved Date DM type 2 (diabetes mellitus, type 2) 12/27/2015 05/08/2016 Hypothyroidism 09/20/2014 11/12/2016 ADVANCE DIRECTIVE INFORMATION 12/04/2004 12/16/2023 Overview (12/04/2004): No, Advance Directive brochure offered , patient declined. HYPOTHYROIDISM NOS 5 documented as of this encounter (statuses as of 02/03/2024) Immunizations Name Administration Dates Next Due COVID-19 mRNA, LNP-s, No Pre serve, 2-Dose Series ([id number]) 04/08/2020,03/18/2020 COVID-19, MRNA-LNP, PF, 30 M CG/0.3 mL, 12 YRS AND ABOVE, IM (PFIZER-Comirnat) 04/08/2023 Hepatitis B, 20+ yrs 05/13/2017,03/12/2016,02/06 Pneumococcal Conjugate Vacci ne, 20-valent ([id number]) 03/13/2022 Pneumococcal Polysaccharide PPV23 (Pneumovax) 10/12/2020,12/12/2015 Seasonal [...] Progress Notes * Leonid Daniels RP - 02/03/2024 12:34 PM EST Medication Therapy Disease Management - Anticoagulation Twin Chowdhury is an 63 year old male who presents to clinic for anticoagulation management. Description Patient message states Darek will be $435/month. He has Medicare insurance. [...] in diet/appetite, Bruising INR Result As of 02/03/2024 INR goal: 2.0-3.0 INR used for dosin.1 (02/03/2024) Warfarin Plan As of 02/03/2024 Full warfarin instructions: 5 mg every Mon; 2.5 mg all other days Next INR check: 03/16/2024 Repeat PT/INR in 6 week(s) Weekly dose: not changed I spent a total of 10-19 minutes (exact time 14 mins) on the date of service in preparation, delivery, and documentation of the care provided to Twin Chowdhury excluding any time spent in the performance of separately billed services or time spent by another provider/QHP. Leonid Roe RPh, [facility] Clinical Pharmacist Medication Therapy Disease Management 02/03/2024, 12:48 PM documented in this encounter Plan of Treatment Upcoming Encounters Date Type Department Care Team (Late st Contact Info) Description 03/10/2024 8:30 AM EST Office Visit Cardiology, [facility] [address] [address] Maci Verdugo PA-C [address] [place] [address] 03/16/2024 11:50 AM EST Anticoagulation Pharmacy, [facility] 200 [facility] [place] [address] Pharmacist1, [facility] 200 [facility] [place] [address] 06/17/2024 8:20 AM EDT Office Visit Family Practice [address] [place] 200 [facility] [address] [place] [address] Maurilio Orta III, MD 200 [facility] [place] [address] Scheduled Procedures Name Priority Associated Diagnoses Date/Ti [...] 04/11, 09/01/2019, Additional history exists Pneumococcal Vaccine: Pediatrics (0 to 5 Years) and At-Risk Patients (6 to 64 Years) Completed 03/13/2022, 10/12/2020, 12/12/2015 RETIRED - COLONOSCOPY-ANNUAL [...] Comments INR FINGERSTICK, POINT OF CARE STAT 02/03/2024 12:45 PM EST History of pulmonary embolus (PE) Anticoagulation management encounter documented in this encounter Results * INR FINGERSTICK, POINT OF CARE (02/03/2024 12:45 PM EST) Fingerstick INR 2.1 INR 12:46 PM EST [facility] [place] 56-02 Blood 02/03/2024 12:4 5 PM EST 02/03/2024 12:46 PM EST Narrative [facility] [place] 56-02 - 02/03/2024 12:46 PM EST Therapeutic ranges for non-operative patients: Prophylaxsis/treatment of DVT: (Range:2.0-3.0) Treatment of pulmonary embolism:(Range:2.0-3.0) Prevention of systemic embolism from: -tissue heart valves -acute myocardial infarction -valvular heart disease -atrial fibrillation (Range: 2.0-3.0) Mechanical prosthetic valves: (Range: 2.5-3.5) Leonid Jyothi V, RP LAB POINT OF CARE TE ST DOCKED DEVICE UNSOLICITED RESULTS Final Result [facility] 56-02 200 [facility] [place] [address] documented in this encounter Visit Diagnoses Diagnosis History of pulmonary embolus (PE)- Primary Personal history of pulmonary embolism Anticoagulation management encounter Encounter for therapeutic drug monitoring documented in this encounter Advance Directives Healthcare Agents on File Name Relationship Healthcare Agent Relationshi p Communication [facility] Repr esentative (appointed verbally by patient or by statute hierarchy) Care Teams Loop Sewer Relationship Specialty Start Date End Date Maurilio Orta III, MD 200 [place] [address] PCP - General 09/26/1995 documented as of this encounter
--- OUTSIDE RECORDS SUMMARY | 2024-04-13 08:42 | External Medical Summary | Summary of Care ---
Author Name Unknown Organization [facility] Address [address] [place] [address] Phone [phone] Care Team Providers Care Security Systems Sales Representative Name Role Phone Marivel SEGURA MD, Lou Ayers Primary Care Provider [phone] Reason for Visit * Reason Comments eRx-Medication Refill Encounter Details Date Type Department Care Team (Late st Contact Info) Description 01/07/2024 Refill Family Practice [facility] [address] [facility] [place] [address] Lou Lyons III, MD [address] [facility] [place] [address] Allergies Active Allergy Reactions Criticality Noted Date Comments Sulfamethoxazole-Trimethopri m 08/05/2020 Iodinated Contrast Media 01/15/2017 Vomiting and rash per pt at age 15 Penicillins Rash 12/20/1998 documented as of this encounter (statuses as of 01/08/2024) Medications SENNA PO TABSIndications :Examination following surgery Take 2 Tabs by mouth at bedtime. 120 3 06/17/19 10 Active VITAMIN D 1000 UNIT PO CAPS 1 capsule daily 30 Cap 11 03/31/19 11 Active [place]-3 Fatty Acids (FISH OIL) 1000 MG Capsule [...] mouth in the morning. 09/01/19 23 Active Metoprolol Succinate ER 25 MG Oral Tablet Extended Release 24 Hour (toPROL XL)Indications: HTN, goal below 140/90 TAKE 1 TABLET BY MOUTH ONCE DAILY 90 Tablet 3 02/07/20 23 Active metFORMIN HCl 1000 MG Oral Tablet (Glucophage)Ind ications:Type 2 diabetes mellitus with hemoglobin A1c goal of less than 7.0% (HCC) take 1 tablet by mouth twice a day with food MORNING AND EVENING 180 Tablet 2 04/29/19 24 Active Atorvastatin Calcium 80 MG Oral Tablet (Lipitor)Indica tions:Dyslipide wilfrido, goal LDL below 100,Hyperlipemi a, mixed Take 1 Tablet by mouth in the morning. In the morning.. 90 Tablet 3 05/27/19 24 Active Levothyroxine Sodium 175 MCG Oral Tablet (Levoxyl) TAKE 1 TABLET BY MOUTH ONCE DAILY AT LEAST 30 MINUTES PRIOR TO BREAKFAST/OTH ER MEDS 90 Tablet 3 07/12/19 24 Active Warfarin Sodium 5 MG Oral Tablet (Coumadin)Indic ations:History of pulmonary embolus (PE) Take 1/2 to 1 tablet by mouth every evening. Take as directed by the [facility]. 30 Tablet 1 10/29/19 24 Active Fenofibrate Micronized 134 MG Oral CapsuleIndicati ons:Dyslipidemi a, goal LDL below 100,Hyperlipemi a, mixed TAKE 1 CAPSULE BY MOUTH EVERY MORNING 90 Capsule 11/12/19 24 Active oxyBUTYnin Chloride 5 MG Oral Tablet (Ditropan) 1/2 tab in the morning. 1 tab in the evening. 90 Tablet 3 12/15/19 24 Active Triamcinolone Acetonide 0.1 % External Cream (Aristocort) Apply topically to affected area 2 times a day. To affected area. 60 g 5 12/17/19 24 Active Lisinopril 2.5 MG Oral Tablet (Prinivil) TAKE 1 TABLET BY MOUTH EVERY MORNING 31 Tablet 11 01/08/20 24 Active Lisinopril 2.5 MG Oral Tablet (Prinivil) Take 1 Tablet by mouth in the morning. 90 Tablet 3 01/15/20 23 024 Discontinued documented as of this encounter (statuses as of 01/08/2024) Active Problems Problem Noted Date Diagnosed Date History of pulmonary embolus (PE) 04/26/2023 HTN, goal below 140/90 03/13/2022 Obesity, Class I, BMI 30.0-34.9 (see actual BMI) 03/12/2017 Acquired hypothyroidism 11/12/2016 Type 2 diabetes mellitus wit h hemoglobin A1c goal of less than 7.0% 05/08/2016 Class 2 obesity in adult 12/27/2015 Schizoaffective disorder documented as of this encounter (statuses as of 01/08/2024) Resolved Problems Problem Noted Date Diagnosed Date Resolved Date DM type 2 (diabetes mellitus, type 2) 12/27/2015 05/08/2016 Hypothyroidism 09/20/2014 11/12/2016 ADVANCE DIRECTIVE INFORMATION 12/04/2004 12/16/2023 Overview (12/04/2004): No, Advance Directive brochure offered , patient declined. HYPOTHYROIDISM NOS 5 documented as of this encounter (statuses as of 01/08/2024) Immunizations Name Administration Dates Next Due COVID-19 mRNA, LNP-s, No Pre serve, 2-Dose Series (atHomestars) 04/08/2020,03/18/2020 COVID-19, MRNA-LNP, PF, 30 M CG/0.3 mL, 12 YRS AND ABOVE, [facility] ([facility]) 04/08/2023 Hepatitis B, 20+ yrs 05/13/2017,03/12/2016,02/06 Pneumococcal Conjugate Vacci ne, 20-valent ([id number]) 03/13/2022 Pneumococcal Polysaccharide PPV23 (Pneumovax) 10/12/2020,12/12/2015 Seasonal [...] encounter Miscellaneous Notes * Telephone Encounter - Malick Diego [facility] - 01/08/2024 11:08 AM EST Signed Prescriptions: Disp Refills Lisinopril 2.5 MG Oral Tablet (Prinivil) 31 Tab*11 Sig: TAKE 1 TABLET BY MOUTH EVERY MORNINGAuthorizing Provider: LOU LYONS III User: MALICK DIEGO documented in this encounter Plan of Treatment Upcoming Encounters Date Type Department Care Team (Late st Contact Info) Description 01/30/2024 2:15 PM EST Office Visit Ophthalmology, [facility] [address] [address] Rosendo Alcantar DO [address] [facility] [place] [address] 02/03/2024 1:00 PM EST Anticoagulation Pharmacy, [facility] [address] [place] [address] Pharmacist1, [facility] [address] [facility] [place] [address] 03/10/2024 8:30 AM EST Office Visit Cardiology, [facility] [address] [address] Maci Verdugo, PAYamini [address] [place] [address] 06/17/2024 8:20 AM EDT Office Visit Family Practice [facility] [address] [place] [address] Lou Lyons III, MD [address] [place] [address] Scheduled Procedures Name Priority Associated Diagnoses Date/Ti [...] exists Influenza Vaccine (FLU shot) Completed 12/02/2023, 11/25/2022, 11/25/2021, Additional history exists HPV (Gardasil) Vaccine Aged Out No lo nger eligible based on patient's age to complete this topic MENINGOCOCCAL (MENACTRA/MENVEO) Aged Out No longer eligible based on patient's age to complete this topic documented as of this encounter Medical Devices Not on filedocumented as of this encounter Advance Directives Healthcare Agents on File Name Relationship Healthcare Agent Relationshi p Communication [facility] Repr esentative (appointed verbally by patient or by statute hierarchy) Care Teams Security Systems Sales Representative Relationship Specialty Start Date End Date Lou Lyons III, MD [address] [facility] [place] [address] PCP - General 09/26/1995 documented as of this encounter
--- OUTSIDE RECORDS SUMMARY | 2024-04-13 08:42 | External Medical Summary | Summary of Care ---
Author Name Unknown Organization [facility] Address [address] [place] [address] Phone [phone] Care Team Providers Care Design Specialist Name Role Phone Marivel SEGURA MD, Maurilio Ayers Primary Care Provider [phone] Reason for Visit * Reason Comments Outpatient Testing Encounter Details Date Type Department Care Team (Late st Contact Info) Description 01/08/2024 2:50 PM EST Laboratory Laboratory [facility] [address] [place] [address] [place], [facility] [address] [place] [address] Paranoid schizophrenia, subchronic condition (HCC); Anxiety state; Encounter for long-term (current) use of other medications Allergies Active Allergy Reactions Criticality Noted Date Comments Sulfamethoxazole-Trimethopri m 08/05/2020 Iodinated Contrast Media 01/15/2017 Vomiting and rash per pt at age 15 Penicillins Rash 12/20/1998 documented as of this encounter (statuses as of 01/08/2024) Medications SENNA PO TABSIndications: Examination following surgery Take 2 Tabs by mouth at bedtime. 120 3 0 Active VITAMIN D 1000 UNIT PO CAPS 1 capsule daily 30 Cap 11 1 Active [place]-3 Fatty Acids (FISH OIL) 1000 MG Capsule [...] by mouth in the morning. 3 Active Metoprolol Succinate ER 25 MG Oral Tablet Extended Release 24 Hour (toPROL XL)Indications:H TN, goal below 140/90 TAKE 1 TABLET BY MOUTH ONCE DAILY 90 Tablet 3 3 Active metFORMIN HCl 1000 MG Oral Tablet (Glucophage)Carin cations:Type 2 diabetes mellitus with hemoglobin A1c goal of less than 7.0% (HCC) take 1 tablet by mouth twice a day with food MORNING AND EVENING 180 Tablet 2 4 Active Atorvastatin Calcium 80 MG Oral Tablet (Lipitor)Indicat ions:Dyslipidemi a, goal LDL below 100,Hyperlipemia , mixed Take 1 Tablet by mouth in the morning. In the morning.. 90 Tablet 3 4 Active Levothyroxine Sodium 175 MCG Oral Tablet (Levoxyl) TAKE 1 TABLET BY MOUTH ONCE DAILY AT LEAST 30 MINUTES PRIOR TO BREAKFAST/OTHE R MEDS 90 Tablet 3 4 Active Warfarin Sodium 5 MG Oral Tablet (Coumadin)Indica tions:History of pulmonary embolus (PE) Take 1/2 to 1 tablet by mouth every evening. Take as directed by the anticoag clinic. 30 Tablet 1 4 Active Fenofibrate Micronized 134 MG Oral CapsuleIndicatio ns:Dyslipidemia, goal LDL below 100,Hyperlipemia , mixed TAKE 1 CAPSULE BY MOUTH EVERY MORNING 90 Capsule 4 Active oxyBUTYnin Chloride 5 MG Oral Tablet (Ditropan) 1/2 tab in the morning. 1 tab in the evening. 90 Tablet 3 4 Active Triamcinolone Acetonide 0.1 % External Cream (Aristocort) Apply topically to affected area 2 times a day. To affected area. 60 g 5 4 Active Lisinopril 2.5 MG Oral Tablet (Prinivil) TAKE 1 TABLET BY MOUTH EVERY MORNING 31 Tablet 11 4 Active documented as of this encounter [...] mRNA, LNP-s, No Pre serve, 2-Dose Series (Clickable) 04/08/2020,03/18/2020 COVID-19, MRNA-LNP, PF, 30 M CG/0.3 mL, 12 YRS AND ABOVE, IM ([facility]) 04/08/2023 Hepatitis B, 20+ yrs 05/13/2017,03/12/2016,02/06 Pneumococcal Conjugate Vacci ne, 20-valent ([id number]) 03/13/2022 Pneumococcal Polysaccharide PPV23 (Pneumovax) 10/12/2020,12/12/2015 Seasonal [...] 01/30/2024 2:15 PM EST Office Visit Ophthalmology, [facility] [address] [place] [address] Rosendo Alcantar DO [address] [place] [address] 02/03/2024 1:00 PM EST Anticoagulation Pharmacy, [facility] [address] [facility] [place] [address] Pharmacist1, [facility] [address] [facility] [place] [address] 03/10/2024 8:30 AM EST Office Visit Cardiology, [facility] [address] [facility] [place] [address] Maci Verdugo, CINDA [address] [facility] [place] [address] 06/17/2024 8:20 AM EDT Office Visit Family Practice [facility] [address] [facility] [place] [address] Maurilio Orta III, MD [address] [facility] [place] [address] Pending Results Name Type Priority Associated Diagnoses Date /Time CBC WITH WBC DIFFERENTIAL Lab Routine Paranoid schizophrenia, subchronic condition (HCC) Anxiety state Encounter for long-term (current) use of other medications 01/08/2024 2:50 PM EST CBC Lab Routine Paranoid schizophrenia, subchronic condition (HCC) Anxiety state Encounter for long-term (current) use of other medications 01/08/2024 2:50 PM EST DIFFERENTIAL, AUTOMATED Lab Routine Paranoid schizophrenia, subchronic condition (HCC) Anxiety state Encounter for long-term (current) use of other medications 01/08/2024 2:50 PM EST Scheduled Procedures Name Priority Associated [...] as of this encounter Visit Diagnoses Diagnosis Paranoid schizophrenia, subchronic condition (HCC) Paranoid schizophrenia, subchronic condition Anxiety state Anxiety state, unspecified Encounter for long-term (current) use of other medications documented in this encounter Advance Directives Healthcare Agents on File Name Relationship Healthcare Agent Relationshi p Communication Carolyne Chowdhury [facility] Care Repr esentative (appointed verbally by patient or by statute hierarchy) Care Teams Design Specialist Relationship Specialty Start Date End Date Maurilio Orta III, MD [address] [place] [address] PCP - General 09/26/1995 documented as of this encounter
--- OUTSIDE RECORDS SUMMARY | 2024-04-13 08:42 | External Medical Summary ---
Author Name Unknown Address Unknown Organization K09:[facility] [place] [address] Laboratory Report Ordering Provider Test Date Status REGINALDO FLORES 02/18/2024 14:24:26 Final Associated diagnosis code V5 8.69.ICD-9-CM was changed to 765120 on 11/12/23 as a result of a periodic change by regulatory authority. Observation Date Value Abnormality Reference (Units ) Status WBC, Total 02/18/2024 14:24:26 6.25 4.00-10.8 0 (K/uL) Final RBC 02/18/2024 14:24:26 5.39 4.50-5.25 (M/uL) Final Hemoglobin 02/18/2024 14:24:26 14.3 14.0-16.8 (g/dL) Final HCT 02/18/2024 14:24:26 46.5 40.0-48.4 (%) Final MCV 02/18/2024 14:24:26 86.3 82.0-99.5 (fL) Final MCH 02/18/2024 14:24:26 26.5 27.0-34.0 (pg) Final MCHC 02/18/2024 14:24:26 30.8 32.0-36.0 (g/dL) Final RDW 02/18/2024 14:24:26 14.9 11.5-15.5 (%) Final Platelets 02/18/2024 14:24:26 201 140-400 (K /uL) Final MPV 02/18/2024 14:24:26 12.4 6.6-11.1 ( fL) Final Performing Location [facility] [place] [address]
--- OUTSIDE RECORDS SUMMARY | 2024-04-13 08:42 | External Medical Summary ---
Author Name Unknown Address Unknown Organization K09:[facility] [place] [address] Laboratory Report Ordering Provider Test Date Status REGINALDO FLORES 01/08/2024 14:50:20 Final Associated diagnosis code V5 8.69.ICD-9-CM was changed to 519860 on 11/12/23 as a result of a periodic change by regulatory authority. Observation Date Value Abnormality Reference (Units ) Status WBC, Total 01/08/2024 14:50:20 6.74 4.00-10.8 0 (K/uL) Final RBC 01/08/2024 14:50:20 5.20 4.50-5.25 (M/uL) Final Hemoglobin 01/08/2024 14:50:20 14.1 14.0-16.8 (g/dL) Final HCT 01/08/2024 14:50:20 44.5 40.0-48.4 (%) Final MCV 01/08/2024 14:50:20 85.6 82.0-99.5 (fL) Final MCH 01/08/2024 14:50:20 27.1 27.0-34.0 (pg) Final MCHC 01/08/2024 14:50:20 31.7 32.0-36.0 (g/dL) Final RDW 01/08/2024 14:50:20 14.7 11.5-15.5 (%) Final Platelets 01/08/2024 14:50:20 182 140-400 (K /uL) Final MPV 01/08/2024 14:50:20 11.6 6.6-11.1 ( fL) Final Performing Location [facility] [place] [address]
--- OUTSIDE RECORDS SUMMARY | 2024-04-13 08:42 | External Medical Summary | Summary of Care ---
Author Name Unknown Organization [facility] Address [address] [place] [address] Phone [phone] Care Team Providers Care Supervisor Body Assembly Name Role Phone Marivel SEGURA MD, Maurilio Ayers Primary Care Provider [phone] Reason for Visit * Reason Onset Date Comments Lab Draw Only 11/14/2023 Encounter Details Date Type Department Care Team (Late st Contact Info) Description 11/14/2023 Telephone Family Practice [facility] [address] [facility] [place] [address] Maurilio Orta III, MD 200 [place] [address] Lab Draw Only Allergies Active Allergy Reactions Criticality Noted Date Comments Sulfamethoxazole-Trimethopri m 08/05/2020 Iodinated Contrast Media 01/15/2017 Vomiting and rash per pt at age 15 Penicillins Rash 12/20/1998 documented as of this encounter (statuses as of 02/07/2024) Medications SENNA PO TABSIndications :Examination following surgery Take 2 Tabs by mouth at bedtime. 120 3 06/17/19 10 Active VITAMIN D 1000 UNIT PO CAPS 1 capsule daily 30 Cap 11 03/31/19 11 Active [place]-3 Fatty Acids (FISH OIL) 1000 MG Capsule [...] mouth in the morning. 09/01/19 23 Active Atorvastatin Calcium 80 MG Oral Tablet (Lipitor)Indica tions:Dyslipide wilfrido, goal LDL below 100,Hyperlipemi a, mixed Take 1 Tablet by mouth in the morning. In the morning.. 90 Tablet 3 05/27/19 24 Active Levothyroxine Sodium 175 MCG Oral Tablet (Levoxyl) TAKE 1 TABLET BY MOUTH ONCE DAILY AT LEAST 30 MINUTES PRIOR TO BREAKFAST/OT HER MEDS 90 Tablet 3 07/12/19 24 Active Fenofibrate Micronized 134 MG Oral CapsuleIndicati ons:Dyslipidemi a, goal LDL below 100,Hyperlipemi a, mixed TAKE 1 CAPSULE BY MOUTH EVERY MORNING 90 Capsule 11/12/19 24 Active ASPIRIN EC 81 MG PO TBECIndications :Dyslipidemia, goal to be determined Take one pill daily 100 3 06/17/19 10 024 Discontinued(Me dication/Dose Changed) Lisinopril 2.5 MG Oral Tablet (Prinivil) Take 1 Tablet by mouth in the morning. 90 Tablet 3 01/15/20 23 024 Discontinued Metoprolol Succinate ER 25 MG Oral Tablet Extended Release 24 Hour (toPROL XL)Indications: HTN, goal below 140/90 TAKE 1 TABLET BY MOUTH ONCE DAILY 90 Tablet 3 02/07/20 23 024 Discontinued metFORMIN HCl 1000 MG Oral Tablet (Glucophage)Ind ications:Type 2 diabetes mellitus with hemoglobin A1c goal of less than 7.0% (HCC) take 1 tablet by mouth twice a day with food MORNING AND EVENING 180 Tablet 2 04/29/19 24 024 Discontinued oxyBUTYnin Chloride 5 MG Oral Tablet (Ditropan) 1/2 tab in the morning. 1 tab in the evening. 90 Tablet 3 10/07/19 24 024 Discontinued(Re fill) Warfarin Sodium 5 MG Oral Tablet (Coumadin)Indic ations:History of pulmonary embolus (PE) Take 1/2 to 1 tablet by mouth every evening. Take as directed by the anticoag clinic. 30 Tablet 1 10/29/19 24 024 Discontinued(Re fill) documented as of this encounter (statuses as of 02/07/2024) Active Problems Problem Noted Date Diagnosed Date History of pulmonary embolus (PE) 04/26/2023 HTN, goal below 140/90 03/13/2022 Obesity, Class I, BMI 30.0-34.9 (see actual BMI) 03/12/2017 Acquired hypothyroidism 11/12/2016 Type 2 diabetes mellitus wit h hemoglobin A1c goal of less than 7.0% 05/08/2016 Class 2 obesity in adult 12/27/2015 Schizoaffective disorder documented as of this encounter (statuses as of 02/07/2024) Resolved Problems Problem Noted Date Diagnosed Date Resolved Date DM type 2 (diabetes mellitus, type 2) 12/27/2015 05/08/2016 Hypothyroidism 09/20/2014 11/12/2016 ADVANCE DIRECTIVE INFORMATION 12/04/2004 12/16/2023 Overview (12/04/2004): No, Advance Directive brochure offered , patient declined. HYPOTHYROIDISM NOS 5 documented as of this encounter (statuses as of 02/07/2024) Immunizations Name Administration Dates Next Due COVID-19 mRNA, LNP-s, No Pre serve, 2-Dose Series (compareit4me) 04/08/2020,03/18/2020 COVID-19, MRNA-LNP, PF, 30 M CG/0.3 mL, 12 YRS AND ABOVE, IM (PFIZER-Comirnaty) 04/08/2023 Hepatitis B, 20+ yrs 05/13/2017,03/12/2016,02/06 Pneumococcal Conjugate Vacci ne, 20-valent ([id number]) 03/13/2022 Pneumococcal Polysaccharide PPV23 (Pneumovax) 10/12/2020,12/12/2015 Seasonal Influenza Vac., MDV , IM, 0.5 mL (Fluzone) 11/25/2017,09/23/2016,10/30/2013,11/21 Seasonal Influenza, PF, 6 M & above, IM , (FluLaval or Fluzone) 11/25/2021,10/26/2020,12/21/2019(Defer red: Patient Refused),11/12/2016 Seasonal Influenza, Quadriva lent, No Preserve, IM 11/25/2022,10/09/2021,10/26/2018,10/10,11/11/2015,11/20/2014 Seasonal Influenza, Quadriva lent, No Preserve, Mdck 11/20/2017 TDAP (age 10 and older)(Boostrix) 11/12/2017 TDAP, [...] encounter Miscellaneous Notes * Telephone Encounter - Caprice Carter LPN - 11/28/2023 9:26 AM EDT Attempted to call, no answer,VM box full. Note below needs clarified. CBC to [facility]? * Telephone Encounter - Felipa Appiah OSA - 11/14/2023 8:17 AM EDT Pt needs his CBC order sent to [facility]. Please advise. Pt is out of his medication and pt would like a call back when sent. documented in this encounter Plan of Treatment Upcoming Encounters Date Type Department Care Team (Late st Contact Info) Description 03/10/2024 8:30 AM EST Office Visit Cardiology, [facility] [address] [place] [address] Maci Verdugo PA-C [address] [place] [address] 03/16/2024 11:50 AM EST Anticoagulation Pharmacy, [facility] [address] [facility] [place] [address] Pharmacist1, [facility] [address] [facility] [place] [address] 06/17/2024 8:20 AM EDT Office Visit Family Practice [facility] [address] [facility] [place] [address] [place] Maurilio SEGURA MD [address] [facility] [place] [address] Scheduled Procedures Name Priority Associated Diagnoses Date/Ti [...] 5 Years) and At-Risk Patients (6 to 18 Years and 19+ Years) Completed 03/13/2022, 10/12/2020, 12/12/2015 RETIRED - [...] Healthcare Agent Relationshi p Communication Carolyne Chowdhury [facility] Care Repr esentative (appointed verbally by patient or by statute hierarchy) Care Teams Supervisor Body Assembly Relationship Specialty Start Date End Date Maurilio Orta III, MD [address] [place] [address] PCP - General 09/26/1995 documented as of this encounter
--- OUTSIDE RECORDS SUMMARY | 2024-04-13 08:42 | External Medical Summary | Summary of Care ---
Author Name Unknown Organization [facility] Address [address] [place] [address] Phone [phone] Care Team Providers Care Practice Business Asst Name Role Phone Marivel SEGURA MD, Lou Ayesr Primary Care Provider [phone] Reason for Visit * Reason Onset Date Comments Medication Refill 01/29/2024 Encounter Details Date Type Department Care Team (Late st Contact Info) Description 01/29/2024 Refill Family Practice [facility] [place] [address] [facility] [place] [address] Lou Lyons III, MD [address] [facility] [place] [address] History of pulmonary embolus (PE) Allergies Active Allergy Reactions Criticality Noted Date Comments Sulfamethoxazole-Trimethopri m 08/05/2020 Iodinated Contrast Media 01/15/2017 Vomiting and rash per pt at age 15 Penicillins Rash 12/20/1998 documented as of this encounter (statuses as of 01/29/2024) Medications SENNA PO TABSIndications :Examination following surgery Take 2 Tabs by mouth at bedtime. 120 3 0 Active VITAMIN D 1000 UNIT PO CAPS 1 capsule daily 30 Cap 11 1 Active [place]-3 Fatty Acids (FISH OIL) 1000 MG Capsule [...] ER MEDS 90 Tablet 3 4 Active Fenofibrate [...] anticoag clinic. 30 Tablet 1 4 Active Warfarin Sodium 5 MG Oral Tablet (Coumadin)Indic ations:History of pulmonary embolus (PE) Take 1/2 to 1 tablet by mouth every evening. Take as directed by the anticoag clinic. 30 Tablet 1 4 01/29/20 24 Discontinu ed(Refill) documented as of this encounter (statuses as of 01/29/2024) Active Problems Problem Noted Date Diagnosed Date History of pulmonary embolus (PE) 04/26/2023 HTN, goal below 140/90 03/13/2022 Obesity, Class I, BMI 30.0-34.9 (see actual BMI) 03/12/2017 Acquired hypothyroidism 11/12/2016 Type 2 diabetes mellitus wit h hemoglobin A1c goal of less than 7.0% 05/08/2016 Class 2 obesity in adult 12/27/2015 Schizoaffective disorder documented as of this encounter (statuses as of 01/29/2024) Resolved Problems Problem Noted Date Diagnosed Date Resolved Date DM type 2 (diabetes mellitus, type 2) 12/27/2015 05/08/2016 Hypothyroidism 09/20/2014 11/12/2016 ADVANCE DIRECTIVE INFORMATION 12/04/2004 12/16/2023 Overview (12/04/2004): No, Advance Directive brochure offered , patient declined. HYPOTHYROIDISM NOS 5 documented as of this encounter (statuses as of 01/29/2024) Immunizations Name Administration Dates Next Due COVID-19 mRNA, LNP-s, No Pre serve, 2-Dose Series ([employer]) 04/08/2020,03/18/2020 COVID-19, MRNA-LNP, PF, 30 M CG/0.3 mL, 12 YRS AND ABOVE, IM (PFIZER-Comirnaty) 04/08/2023 Hepatitis B, 20+ yrs 05/13/2017,03/12/2016,02/06 Pneumococcal Conjugate Vacci ne, 20-valent ([id number]) 03/13/2022 Pneumococcal Polysaccharide PPV23 (Pneumovax) 10/12/2020,12/12/2015 Seasonal [...] encounter Miscellaneous Notes * Telephone Encounter - Gary Vogel, [facility] - 01/29/2024 10:22 AM ESTSigned Prescriptions: Disp Refills Warfarin Sodium 5 MG Oral Tablet (Coumadin)30 Tab*1 Sig: Take 1/2 to 1 tablet by mouth every evening. Take as directed by the [facility]. Authorizing Provider: LOU LYONS III Ordering User: GARY BECKER * Telephone Encounter - Naomie Rueda application processor - 01/29/2024 10:00 AM EST Pt requesting HIGH PRIORITY due to being out of medication. Did you pend patient's preferred pharmacy and medication before forwarding?yes Pharmacy: [id number] Pending Prescriptions: Disp Refills Warfarin Sodium 5 MG Oral Tablet (Coumadi*30 Tab*1 Sig: Take 1/2 to 1 tablet by mouth every evening. Take as directed by the [facility] clinic. Last Visit: 12/17/2023 (in office), Visit date not found (telemedicine) Next Visit: 06/17/2024 If no future appointments scheduled, and last appointment is greater than a year ago, please schedule patient for a follow-up appointment Last date the medication was ordered: 10/29/2023 Is this request for a controlled substance?No Urine Drug Screen:No results found. However, due to the size of the patient record, not all encounters were searched. Please check Results Review for a complete set of results. Patient Phone Numbers Labs: Lab Results Component Value Date/Time CREAT 1.0 07/22/2023 10:40 AM CREAT 0.9 08/05/2018 10:45 AM POTASSIUM 4.3 07/22/2023 10:40 AM POTASSIUM 4.3 08/05/2018 10:45 AM POTASSIUM 4.2 01/01/1996 03:05 PM TSH 0.30 07/22/2023 10:40 AM TSH 13.50 (H) 12/21/2019 02:33 PM TSH 24.14 (H) 05/28/1996 07:20 AM LDL 55 07/22/2023 10:40 AM LDL 50 12/03/2022 11:30 AM LDL 59 07/02/2019 01:03 PM LDL 53 05/05/2018 11:22 AM ALT 20 07/22/2023 10:40 AM ALT 24 08/05/2018 10:45 AM HGBA1C 6.6 (H) 12/16/2023 10:02 AM HGBA1C 6.6 (H) 12/21/2019 02:33 PM documented in this encounter Plan of Treatment Upcoming Encounters Date Type Department Care Team (Late st Contact Info) Description 02/03/2024 1:00 PM EST Anticoagulation Pharmacy, [facility] [address] [place] [address] [address] Pharmacist1, [facility] [address] [place] [address] 03/10/2024 8:30 AM EST Office Visit Cardiology, [facility] [place] [address] Maci Verdugo PA-C [address] [place] [address] 06/17/2024 8:20 AM EDT Office Visit Family Practice [facility] [place] [address] [place] [address] Lou Lyons III, MD [address] [place] [address] [place] [address] Scheduled Procedures Name Priority Associated Diagnoses Date/Ti [...] as of this encounter Visit Diagnoses Diagnosis History of pulmonary embolus (PE) Personal history of pulmonary embolism documented in this encounter Advance Directives Healthcare Agents on File Name Relationship Healthcare Agent Relationshi p Communication Carolyne Chowdhury [facility] Repr esentative (appointed verbally by patient or by statute hierarchy) Care Teams Practice Business Asst Relationship Specialty Start Date End Date Lou Lyons III, MD [address] [place] [address] PCP - General 09/26/1995 documented as of this encounter
--- OUTSIDE RECORDS SUMMARY | 2024-04-13 08:42 | External Medical Summary | Summary of Care ---
Author Name Unknown Organization [facility] Address [address] [place] [address] Phone [phone] Care Team Providers Care Banquet Supervisor Name Role Phone Marivel SEGURA MD, Lou Ayers Primary Care Provider [phone] Reason for Visit * Reason Comments eRx-Medication Refill Encounter Details Date Type Department Care Team (Late st Contact Info) Description 01/25/2024 Refill Family Practice [facility] [address] [facility] [place] [address] Lou Lyons III, MD [address] [facility] [address] HTN, goal below 140/90 Allergies Active Allergy Reactions Criticality Noted Date Comments Sulfamethoxazole-Trimethopri m 08/05/2020 Iodinated Contrast Media 01/15/2017 Vomiting and rash per pt at age 15 Penicillins Rash 12/20/1998 documented as of this encounter (statuses as of 01/26/2024) Medications SENNA PO TABSIndications :Examination following surgery Take 2 Tabs by mouth at bedtime. 120 3 06/17/19 10 Active VITAMIN D 1000 UNIT PO CAPS 1 capsule daily 30 Cap 11 03/31/19 11 Active [place]-3 Fatty Acids (FISH OIL) 1000 MG Capsule [...] anticoag clinic. 30 Tablet 1 10/29/19 24 Active Fenofibrate Micronized 134 MG Oral CapsuleIndicati ons:Dyslipidemi a, goal LDL below 100,Hyperlipemi a, mixed TAKE 1 CAPSULE BY MOUTH EVERY MORNING 90 Capsule 11/12/19 24 Active Triamcinolone Acetonide 0.1 % External Cream (Aristocort) Apply topically to affected area 2 times a day. To affected area. 60 g 5 12/17/19 24 Active Lisinopril 2.5 MG Oral Tablet (Prinivil) TAKE 1 TABLET BY MOUTH EVERY MORNING 31 Tablet 11 01/08/20 24 Active metFORMIN HCl 1000 MG Oral [...] DAILY 90 Tablet 3 01/26/20 24 Active Metoprolol Succinate ER 25 MG Oral Tablet Extended Release 24 Hour (toPROL XL)Indications: HTN, goal below 140/90 TAKE 1 TABLET BY MOUTH ONCE DAILY 90 Tablet 3 02/07/20 23 024 Discontinued documented as of this encounter (statuses as of 01/26/2024) Active Problems Problem Noted Date Diagnosed Date History of pulmonary embolus (PE) 04/26/2023 HTN, goal below 140/90 03/13/2022 Obesity, Class I, BMI 30.0-34.9 (see actual BMI) 03/12/2017 Acquired hypothyroidism 11/12/2016 Type 2 diabetes mellitus wit h hemoglobin A1c goal of less than 7.0% 05/08/2016 Class 2 obesity in adult 12/27/2015 Schizoaffective disorder documented as of this encounter (statuses as of 01/26/2024) Resolved Problems Problem Noted Date Diagnosed Date Resolved Date DM type 2 (diabetes mellitus, type 2) 12/27/2015 05/08/2016 Hypothyroidism 09/20/2014 11/12/2016 ADVANCE DIRECTIVE INFORMATION 12/04/2004 12/16/2023 Overview (12/04/2004): No, Advance Directive brochure offered , patient declined. HYPOTHYROIDISM NOS 5 documented as of this encounter (statuses as of 01/26/2024) Immunizations Name Administration Dates Next Due COVID-19 mRNA, LNP-s, No Pre serve, 2-Dose Series ([employer]) 04/08/2020,03/18/2020 COVID-19, MRNA-LNP, PF, 30 M CG/0.3 mL, 12 YRS AND ABOVE, IM (PFIZER-Comirnaty) 04/08/2023 Hepatitis B, 20+ yrs 05/13/2017,03/12/2016,02/06 Pneumococcal Conjugate Vacci ne, 20-valent ([id number]) 03/13/2022 Pneumococcal Polysaccharide PPV23 (Pneumovax) 10/12/2020,12/12/2015 Seasonal [...] encounter Miscellaneous Notes * Telephone Encounter - Amanda Cabrera RPh - 01/26/2024 6:18 PM EST Signed Prescriptions: Disp Refills Metoprolol Succinate ER 25 MG Oral Tablet *90 Tab*3 Sig: TAKE 1 TABLET BY MOUTH ONCE DAILYAuthorizing Provider: LOU LYONS III User: AMANDA CABRERA A documented in this encounter Plan of Treatment Upcoming Encounters Date Type Department Care Team (Late st Contact Info) Description 02/03/2024 1:00 PM EST Anticoagulation Pharmacy, [facility] [address] [facility] [place] [address] Pharmacist1, [facility] [address] [place] [address] 03/10/2024 8:30 AM EST Office Visit Cardiology, [facility] [address] [facility] [place] [address] Maci Verdugo, PAYamini [address] [facility] [place] [address] 06/17/2024 8:20 AM EDT Office Visit Family Practice [facility] [address] [place] [address] Lou Lyons III, MD [address] [facility] [place] [address] Scheduled Procedures Name Priority Associated Diagnoses Date/Ti [...] as of this encounter Visit Diagnoses Diagnosis HTN, goal below 140/90 Unspecified essential hypertension documented in this encounter Advance Directives Healthcare Agents on File Name Relationship Healthcare Agent Relationshi p Communication [facility] Repr esentative (appointed verbally by patient or by statute hierarchy) Care Teams Banquet Supervisor Relationship Specialty Start Date End Date Lou Lyons III, MD [address] [place] [address] PCP - General 09/26/1995 documented as of this encounter
--- OUTSIDE RECORDS SUMMARY | 2024-04-13 08:42 | External Medical Summary | Summary of Care ---
Author Name Unknown Organization [facility] Address [address] [place] [address] Phone [phone] Care Team Providers Care Assistant Professor Of Drama Name Role Phone Marivel SEGURA MD, Maurilio Ayers Primary Care Provider [phone] Reason for Visit * Reason Comments eRx-Medication Refill Encounter Details Date Type Department Care Team (Late st Contact Info) Description 02/09/2024 Refill Cardiology, [facility] [address] [place] [address] Rachna Pérez CRNP [address] [facility] [place] [address] Dyslipidemia, goal LDL below 100; Hyperlipemia, mixed Allergies Active Allergy Reactions Criticality Noted Date Comments Sulfamethoxazole-Trimethopri m 08/05/2020 Iodinated Contrast Media 01/15/2017 Vomiting and rash per pt at age 15 Penicillins Rash 12/20/1998 documented as of this encounter (statuses as of 02/10/2024) Medications SENNA PO TABSIndications :Examination following surgery Take 2 Tabs by mouth at bedtime. 120 3 06/17/19 10 Active VITAMIN D 1000 UNIT PO CAPS 1 capsule daily 30 Cap 11 03/31/19 11 Active [place]-3 Fatty Acids (FISH OIL) 1000 MG Capsule [...] every evening. Take as directed by the [facility]. 30 Tablet 1 01/29/20 24 Active Fenofibrate Micronized 134 MG Oral CapsuleIndicati ons:Dyslipidemi a, goal LDL below 100,Hyperlipemi a, mixed TAKE 1 CAPSULE BY MOUTH EVERY DAY IN THE MORNING 90 Capsule 02/10/20 24 Active Fenofibrate Micronized 134 MG Oral CapsuleIndicati ons:Dyslipidemi a, goal LDL below 100,Hyperlipemi a, mixed TAKE 1 CAPSULE BY MOUTH EVERY MORNING 90 Capsule 11/12/19 24 024 Discontinued documented as of this encounter (statuses as of 02/10/2024) Active Problems Problem Noted Date Diagnosed Date History of pulmonary embolus (PE) 04/26/2023 HTN, goal below 140/90 03/13/2022 Obesity, Class I, BMI 30.0-34.9 (see actual BMI) 03/12/2017 Acquired hypothyroidism 11/12/2016 Type 2 diabetes mellitus wit h hemoglobin A1c goal of less than 7.0% 05/08/2016 Class 2 obesity in adult 12/27/2015 Schizoaffective disorder documented as of this encounter (statuses as of 02/10/2024) Resolved Problems Problem Noted Date Diagnosed Date Resolved Date DM type 2 (diabetes mellitus, type 2) 12/27/2015 05/08/2016 Hypothyroidism 09/20/2014 11/12/2016 ADVANCE DIRECTIVE INFORMATION 12/04/2004 12/16/2023 Overview (12/04/2004): No, Advance Directive brochure offered , patient declined. HYPOTHYROIDISM NOS 5 documented as of this encounter (statuses as of 02/10/2024) Immunizations Name Administration Dates Next Due COVID-19 mRNA, LNP-s, No Pre serve, 2-Dose Series ([employer]) 04/08/2020,03/18/2020 COVID-19, MRNA-LNP, PF, 30 M CG/0.3 mL, 12 YRS AND ABOVE, IM (PFIZER-Comirnaty) 04/08/2023 Hepatitis B, 20+ yrs 05/13/2017,03/12/2016,02/06 Pneumococcal Conjugate Vacci ne, 20-valent ([id number]) 03/13/2022 Pneumococcal Polysaccharide PPV23 (Pneumovax) 10/12/2020,12/12/2015 Seasonal [...] encounter Miscellaneous Notes * Telephone Encounter - Marah Llanes RPh - 02/10/2024 12:39 PM ESTSigned Prescriptions: Disp Refills Fenofibrate Micronized 134 MG Oral Capsule 90 Cap*0 Sig: TAKE 1 CAPSULE BY MOUTH EVERY DAY IN THE MORNINGAuthorizing Provider: RACHNA PÉREZ User: MARAH LLANES * Telephone Encounter - Marah Llanes RPh - 02/10/2024 12:36 PM EST Cardiology apt scheduled for 03/10/24. Refill provided until seen Marah Rosas PharmD Clinical Pharmacist [facility] 02/10/2024, 12:39 PM * Telephone Encounter - Katty Carreno PHARM Tech - 02/10/2024 12:28 PM EST Pt is out of medication Patient is up to date for office visits. Pending Prescriptions: Disp Refills Fenofibrate Micronized 134 MG Oral Capsul*90 Cap*0 Sig: TAKE 1 CAPSULE BY MOUTH EVERY DAY IN THE MORNING Last Visit: 10/23/2022 (in office), Visit date not found (telemedicine) Next Visit: 03/10/2024 If no future appointments scheduled, and last appointment is greater than a year ago, please schedule patient for a follow-up appointment Last date the medication was ordered: 11/11 Pharmacy: [id number] [place] [address] Is this request for a controlled substance?No it is not controlled. Urine Drug Screen:No results found. However, due [...] AM HGBA1C 6.6 (H) 12/21/2019 02:33 PM * Telephone Encounter - Jacklyn Quiroz CPhT - 02/10/2024 12:26 PM EST Pt calling for a refill on fenofibrate. This was last prescribed by cardio. Transfer to specialty refill line. Thank you, Hoda Quirzo CPhT Civil Rights Representative II [facility] 02/10/2024,12:27 PM documented in this encounter Plan of Treatment Upcoming Encounters Date Type Department Care Team (Late st Contact Info) Description 03/10/2024 8:30 AM EST Office Visit Cardiology, [address] [place] [address] Maci Verdugo PA-C [address] [place] [address] 03/16/2024 11:50 AM EST Anticoagulation Pharmacy, [facility] [place] 200 [facility] [place] [address] Pharmacist1, [facility] [address] [facility] [place] [address] 06/17/2024 8:20 AM EDT Office Visit Family Practice [facility] 200 [facility] [place] [address] MarivelMaurilio saul III, MD 200 [facility] [place] [address] Scheduled Procedures Name Priority Associated Diagnoses Date/Ti [...] 04/16/2023, Additional history exists GFR 07/21/2024 07/22/2023, 030 06/2023, 07/23/2022, Additional history exists TSH 07/21/2024 [...] Name Relationship Healthcare Agent Relationshi p Communication [facility] Repr esentative (appointed verbally by patient or by statute hierarchy) Care Teams Assistant Professor Of Drama Relationship Specialty Start Date End Date Maurilio Orta III, MD [address] [place] [address] PCP - General 09/26/1995 documented as of this encounter
--- OUTSIDE RECORDS SUMMARY | 2024-04-13 08:42 | External Medical Summary | Summary of Care ---
Author Name Unknown Organization [facility] Address [address] [place] [address] Phone [phone] Care Team Providers Care Key Worker Name Role Phone Marivel SEGURA MD, Lou Ayers Primary Care Provider [phone] Reason for Visit * Reason Comments eRx-Medication Refill Encounter Details Date Type Department Care Team (Late st Contact Info) Description 01/19/2024 Refill Family Practice [facility] 200 [place] [address] Lou Lyons III, MD [address] [place] [address] Type 2 diabetes mellitus with hemoglobin A1c goal of less than 7.0% ([facility]) Allergies Active Allergy Reactions Criticality Noted Date Comments Sulfamethoxazole-Trimethopri m 08/05/2020 Iodinated Contrast Media 01/15/2017 Vomiting and rash per pt at age 15 Penicillins Rash 12/20/1998 documented as of this encounter (statuses as of 01/20/2024) Medications SENNA PO TABSIndications :Examination following surgery Take 2 Tabs by mouth at bedtime. 120 3 06/17/19 10 Active VITAMIN D 1000 UNIT PO CAPS 1 capsule daily 30 Cap 11 03/31/19 11 Active [place]-3 Fatty Acids (FISH OIL) 1000 MG Capsule [...] DAILY 90 Tablet 3 02/07/20 23 Active Atorvastatin Calcium 80 MG Oral [...] EVENING 180 Tablet 1 01/20/20 24 Active metFORMIN HCl 1000 MG Oral Tablet (Glucophage)Ind ications:Type 2 diabetes mellitus with hemoglobin A1c goal of less than 7.0% (HCC) take 1 tablet by mouth twice a day with food MORNING AND EVENING 180 Tablet 2 04/29/19 24 024 Discontinued documented as of this encounter (statuses as of 01/20/2024) Active Problems Problem Noted Date Diagnosed Date History of pulmonary embolus (PE) 04/26/2023 HTN, goal below 140/90 03/13/2022 Obesity, Class I, BMI 30.0-34.9 (see actual BMI) 03/12/2017 Acquired hypothyroidism 11/12/2016 Type 2 diabetes mellitus wit h hemoglobin A1c goal of less than 7.0% 05/08/2016 Class 2 obesity in adult 12/27/2015 Schizoaffective disorder documented as of this encounter (statuses as of 01/20/2024) Resolved Problems Problem Noted Date Diagnosed Date Resolved Date DM type 2 (diabetes mellitus, type 2) 12/27/2015 05/08/2016 Hypothyroidism 09/20/2014 11/12/2016 ADVANCE DIRECTIVE INFORMATION 12/04/2004 12/16/2023 Overview (12/04/2004): No, Advance Directive brochure offered , patient declined. HYPOTHYROIDISM NOS 5 documented as of this encounter (statuses as of 01/20/2024) Immunizations Name Administration Dates Next Due COVID-19 mRNA, LNP-s, No Pre serve, 2-Dose Series (Pfizer) 04/08/2020,03/18/2020 COVID-19, MRNA-LNP, PF, 30 M CG/0.3 mL, 12 YRS AND ABOVE, IM (PFIZER-Comirnaty) 04/08/2023 Hepatitis B, 20+ yrs 05/13/2017,03/12/2016,02/06 Pneumococcal Conjugate Vacci ne, 20-valent ([id number]) 03/13/2022 Pneumococcal Polysaccharide PPV23 (Pneumovax) 10/12/2020,12/12/2015 Seasonal [...] encounter Miscellaneous Notes * Telephone Encounter - Kaci Alfredo [facility] - 01/20/2024 4:30 PM EST Signed Prescriptions: Disp Refills metFORMIN HCl 1000 MG Oral Tablet (Glucoph*180 Ta*1 Sig: TAKE 1 TABLET BY MOUTH TWICE A DAY WITH FOOD MORNING AND EVENINGAuthorizing Provider: LOU LYONS III User: KACI ALFREDO documented in this encounter Plan of Treatment Upcoming Encounters Date Type Department Care Team (Late st Contact Info) Description 01/30/2024 2:15 PM EST Office Visit Ophthalmology, [facility] [address] [place] [address] Rosendo Alcantar, [address] [facility] [place] [address] 02/03/2024 1:00 PM EST Anticoagulation Pharmacy, [facility] [address] [facility] [place] [address] Pharmacist1, [facility] [address] [place] [address] 03/10/2024 8:30 AM EST Office Visit Cardiology, [facility] [address] [place] [address] Maci Verdugo PA-C [address] [address] 06/17/2024 8:20 AM EDT Office Visit Family Practice [facility] [address] [place] [address] Lou Lyons III, MD [address] [place] [address] Scheduled Procedures Name Priority Associated Diagnoses Date/Ti [...] as of this encounter Visit Diagnoses Diagnosis Type 2 diabetes mellitus with hemoglobin A1c goal of less than 7.0% ([facility]) documented in this encounter Advance Directives Healthcare Agents on File Name Relationship Healthcare Agent Relationshi p Communication [facility] Care Repr esentative (appointed verbally by patient or by statute hierarchy) Care Teams Key Worker Relationship Specialty Start Date End Date Lou Lyons III, MD [address] [place] [address] PCP - General 09/26/1995 documented as of this encounter
--- OUTSIDE RECORDS SUMMARY | 2024-04-13 08:42 | External Medical Summary ---
Author Name Unknown Address Unknown Organization K09:[facility] [place] [address] Laboratory Report Ordering Provider Test Date Status REGINALDO FLORES 02/18/2024 14:24:26 Final Associated diagnosis code V5 8.69.ICD-9-CM was changed to 050428 on 11/12/23 as a result of a periodic change by regulatory authority. Observation Date Value Abnormality Reference (Units ) Status SYNC LEUKOCYTES IN BLOOD BY AUTOMATED COUNT 02/18/2024 14:24:26 6.25 4.00-10.80 (K/uL) Final Segs 02/18/2024 14:24:26 71.0 40.0-75.0 (%) Final Lymphs % 02/18/2024 14:24:26 20.2 18.0-42.0 (%) Final Monos 02/18/2024 14:24:26 7.5 1.0-11.0 (%) Final Eosinophils 02/18/2024 14:24:26 0.0 0.0-6.0 (%) Final Basos 02/18/2024 14:24:26 1.3 0.0-2.0 (%) Final Absolute Segs 02/18/2024 14:24:26 4.44 1.80-7.70 (K/uL) Final Lymphs, absolute 02/18/2024 14:24:26 1.26 1.00-4.80 (K/ul) Final Monos, Abs 02/18/2024 14:24:26 0.47 0.00-1.10 (K/uL) Final Eos, Abs 02/18/2024 14:24:26 0.00 0.00-0.70 (K/uL) Final Basos, Abs 02/18/2024 14:24:26 0.08 0.00-0.20 (K/uL) Final Performing Location [facility] [place] [address]
--- OUTSIDE RECORDS SUMMARY | 2024-04-13 08:42 | External Medical Summary | Summary of Care ---
Author Name Unknown Organization [facility] Address [address] [place] [address] Phone [phone] Care Team Providers Care Power Truck Driver Name Role Phone Marivel SEGURA MD, Maurilio Ayers Primary Care Provider [phone] Reason for Visit * Reason Onset Date Comments Advice 01/22/2024 Encounter Details Date Type Department Care Team (Late st Contact Info) Description 01/22/2024 Telephone Family Practice [facility] [place] [address] [place] [address] Maurilio Orta III, MD 200 [place] [address] Advice Allergies Active Allergy Reactions Criticality Noted Date Comments Sulfamethoxazole-Trimethopri m 08/05/2020 Iodinated Contrast Media 01/15/2017 Vomiting and rash per pt at age 15 Penicillins Rash 12/20/1998 documented as of this encounter (statuses as of 01/23/2024) Medications SENNA PO TABSIndications :Examination following surgery Take 2 Tabs by mouth at bedtime. 120 3 0 Active VITAMIN D 1000 UNIT PO CAPS 1 capsule daily 30 Cap 11 1 Active [place]-3 Fatty Acids (FISH OIL) 1000 MG Capsule [...] ONCE DAILY 90 Tablet 3 3 Active Atorvastatin Calcium 80 MG Oral Tablet (Lipitor)Indica tions:Dyslipide wilfrido, goal LDL below 100,Hyperlipemi a, mixed Take 1 Tablet by mouth in the morning. In the morning.. 90 Tablet 3 4 Active Levothyroxine Sodium 175 MCG Oral Tablet (Levoxyl) TAKE 1 TABLET BY MOUTH ONCE DAILY AT LEAST 30 MINUTES PRIOR TO BREAKFAST/OTH ER MEDS 90 Tablet 3 4 Active Warfarin [...] twice daily 180 Tablet 1 4 Active oxyBUTYnin Chloride 5 MG Oral Tablet (Ditropan) 1/2 tab in the morning. 1 tab in the evening. 90 Tablet 3 4 01/22/20 24 Discontinu ed(Refill) documented as of this encounter (statuses as of 01/23/2024) Active Problems Problem Noted Date Diagnosed Date History of pulmonary embolus (PE) 04/26/2023 HTN, goal below 140/90 03/13/2022 Obesity, Class I, BMI 30.0-34.9 (see actual BMI) 03/12/2017 Acquired hypothyroidism 11/12/2016 Type 2 diabetes mellitus wit h hemoglobin A1c goal of less than 7.0% 05/08/2016 Class 2 obesity in adult 12/27/2015 Schizoaffective disorder documented as of this encounter (statuses as of 01/23/2024) Resolved Problems Problem Noted Date Diagnosed Date Resolved Date DM type 2 (diabetes mellitus, type 2) 12/27/2015 05/08/2016 Hypothyroidism 09/20/2014 11/12/2016 ADVANCE DIRECTIVE INFORMATION 12/04/2004 12/16/2023 Overview (12/04/2004): No, Advance Directive brochure offered , patient declined. HYPOTHYROIDISM NOS 5 documented as of this encounter (statuses as of 01/23/2024) Immunizations Name Administration Dates Next Due COVID-19 mRNA, LNP-s, No Pre serve, 2-Dose Series (Ciapple) 04/08/2020,03/18/2020 COVID-19, MRNA-LNP, PF, 30 M CG/0.3 mL, 12 YRS AND ABOVE, IM (PFIZER-Comirnaty) 04/08/2023 Hepatitis B, 20+ yrs 05/13/2017,03/12/2016,02/06 Pneumococcal Conjugate Vacci ne, 20-valent ([id number]) 03/13/2022 Pneumococcal Polysaccharide PPV23 (Pneumovax) 10/12/2020,12/12/2015 Seasonal [...] encounter Miscellaneous Notes * Telephone Encounter - Nani Victor RPh - 01/22/2024 1:30 PM EST Pended oxybutynin script with updated sig: Pending Prescriptions: Disp Refills oxyBUTYnin Chloride 5 MG Oral Tablet (Dit*180 Ta*1 Sig: Take 1 tablet by mouth twice daily Please sign if agreeable. Thank you, Nani Victor, PharmD Clinical Pharmacist [facility] ([facility]) 01/22/24 1:32 PM [phone] * Telephone Encounter - Flor Miguel CPhT - 01/22/2024 1:29 PM EST Patient calling to review providers message for Oxybutynin Thank you, Flor Miguel Jewelry Manager II [facility] ([facility]) (formerly Telepharmacy) 01/22/2024 1:29 PM * Telephone Encounter - Maurilio Orta III, MD - 01/22/2024 9:13 AM EST Can increase his oxybutynin to 1 twice daily could talk to coag clinic and get 2.5 mg tablets of warfarin currently taking 2 clozapine at night I believe-would this be enough? Sometimes pharmacies will put meds out in 1 week intervals can check there as well * Telephone Encounter - Perla Michelle LPN - 01/22/2024 8:52 AM EST Patient's mother calling in with concerns about his medication management: She has been managing his medications since 2009. She is having increased difficulty with medications as she is 85, she has to cut pills in half and it is getting overwhelming for her. She stated that she messed up with his Oxybutynin which is 0.5 tablet in the morning and 1 tablet in the evening. She was giving him a whole tab BID. She stated that he is having She stated that he is having nocturnal enuresis at night. She has to wash clothes and bedding often. She needs some assistance with managing his medication. Please advise Carolyne: Cell phone: [phone] * Telephone Encounter - Aminata Gray OSA - 01/22/2024 8:49 AM EST Reason for patient's call: needs help with medication schedule says she isn't a paid medical professional and can't be cutting up his pills and manage his medication its taking a toll on her Caller was transferred to Perla at the nurse line. documented in this encounter Plan of Treatment Upcoming Encounters Date Type Department Care Team (Late st Contact Info) Description 01/30/2024 2:15 PM EST Office Visit Ophthalmology, [facility] [address] [address] Rosendo Alcantar, [address] [facility] [place] [address] 02/03/2024 1:00 PM EST Anticoagulation Pharmacy, [facility] [address] [place] [address] Pharmacist1, [facility] [address] [place] [address] 03/10/2024 8:30 AM EST Office Visit Cardiology, [facility] [address] [address] Maci Verdugo PA-C [address] [place] [address] 06/17/2024 8:20 AM EDT Office Visit Family Practice [facility] [address] [place] [address] Maurilio Orta III, MD 200 [facility] [place] [address] Scheduled Procedures Name Priority Associated Diagnoses Date/Ti [...] Healthcare Agent Relationshi p Communication Carolyne Chowdhury [facility] Health Care Repr esentative (appointed verbally by patient or by statute hierarchy) Care Teams Power Truck Driver Relationship Specialty Start Date End Date Maurilio Orta III, MD 200 [place] [address] PCP - General 09/26/1995 documented as of this encounter
--- OUTSIDE RECORDS SUMMARY | 2024-04-13 08:42 | External Medical Summary | Summary of Care ---
Author Name Unknown Organization [facility] Address [address] [place] [address] Phone [phone] Care Team Providers Care Investor Relations Director Name Role Phone Marivel SEGURA MD, Lou Ayers Primary Care Provider [phone] Reason for Visit * Reason Comments eRx-Medication Refill Encounter Details Date Type Department Care Team (Late st Contact Info) Description 01/25/[address] [facility] [address] [place] [address] Lou Lyons III, MD [address] [facility] [place] [address] HTN, goal below 140/90 Allergies Active Allergy Reactions Criticality Noted Date Comments Sulfamethoxazole-Trimethopri m 08/05/2020 Iodinated Contrast Media 01/15/2017 Vomiting and rash per pt at age 15 Penicillins Rash 12/20/1998 documented as of this encounter (statuses as of 01/27/2024) Medications SENNA PO TABSIndications :Examination following surgery Take 2 Tabs by mouth at bedtime. 120 3 06/17/19 10 Active VITAMIN D 1000 UNIT PO CAPS 1 capsule daily 30 Cap 11 03/31/19 11 Active [place]-3 Fatty Acids (FISH OIL) 1000 MG Capsule [...] as of this encounter (statuses as of 01/27/2024) Active Problems Problem Noted Date Diagnosed Date History of pulmonary embolus (PE) 04/26/2023 HTN, goal below 140/90 03/13/2022 Obesity, Class I, BMI 30.0-34.9 (see actual BMI) 03/12/2017 Acquired hypothyroidism 11/12/2016 Type 2 diabetes mellitus wit h hemoglobin A1c goal of less than 7.0% 05/08/2016 Class 2 obesity in adult 12/27/2015 Schizoaffective disorder documented as of this encounter (statuses as of 01/27/2024) Resolved Problems Problem Noted Date Diagnosed Date Resolved Date DM type 2 (diabetes mellitus, type 2) 12/27/2015 05/08/2016 Hypothyroidism 09/20/2014 11/12/2016 ADVANCE DIRECTIVE INFORMATION 12/04/2004 12/16/2023 Overview (12/04/2004): No, Advance Directive brochure offered , patient declined. HYPOTHYROIDISM NOS 5 documented as of this encounter (statuses as of 01/27/2024) Immunizations Name Administration Dates Next Due COVID-19 mRNA, LNP-s, No Pre serve, 2-Dose Series ([employer]) 04/08/2020,03/18/2020 COVID-19, MRNA-LNP, PF, 30 M CG/0.3 mL, 12 YRS AND ABOVE, IM (PFIZER-Comirnaty) 04/08/2023 Hepatitis B, 20+ yrs 05/13/2017,03/12/2016,02/06 Pneumococcal Conjugate Vacci ne, 20-valent ([id number]) 03/13/2022 Pneumococcal Polysaccharide PPV23 (Pneumovax) 10/12/2020,12/12/2015 Seasonal [...] encounter Miscellaneous Notes * Telephone Encounter - Jacklyn Quiroz CPhT - 01/27/2024 10:01 AM EST Pt calling to request metoprolol. Informed pt that RX is available at their pharmacy. Pt verbalizedunderstanding and stated they will check with their pharmacy regarding this medication. Thank you, Hoda Quiroz CPhT Scrap Hoist Operator II [facility] ([facility]) 01/27/2024,10:01 AM * Telephone Encounter - Amanda Cabrera RPh [...] Description 02/03/2024 1:00 PM EST Anticoagulation Pharmacy, [facility] [address] [facility] [place] [address] Pharmacist1, [facility] [address] [place] [address] 03/10/2024 8:30 AM EST Office Visit Cardiology, [facility] [address] [address] Maci Verdugo, CINDA [address] [address] 06/17/2024 8:20 AM EDT Office Visit Family Practice [facility] [place] [address] [place] [address] Lou Lyons III, MD [address] [place] [address] Scheduled Procedures Name Priority Associated Diagnoses Date/Ti [...] Healthcare Agent Relationshi p Communication Carolyne Chowdhury [facility] Health Care Repr esentative (appointed verbally by patient or by statute hierarchy) Care Teams Investor Relations Director Relationship Specialty Start Date End Date Lou Lyons III, MD [address] [place] [address] PCP - General 09/26/1995 documented as of this encounter
--- OUTSIDE RECORDS SUMMARY | 2024-04-13 08:42 | External Medical Summary ---
Author Name Unknown Address Unknown Organization [id number] [place] [address] Laboratory Report Ordering Provider Test Date Status TEETEE GREEN V 02/03/2024 12:45:51 Final Therapeutic ranges for non-o perative patients:
Prophylaxsis/treatment of DVT: (Range:2.0-3.0)
Treatment of pulmonary embolism:(Range:2.0-3.0)
Prevention of systemic embolism from:
-tissue heart valves
-acute myocardial infarction
-valvular heart disease
-atrial fibrillation
(Range: 2.0-3.0)
Mechanical prosthetic valves: (Range: 2.5-3.5) Observation Date Value Abnormality Reference (Units ) Status INR in Capillary blood by Coagulation assay 02/03/2024 12:45:51 2.1 (INR) Final Performing Location [facility] [place] [address]
--- OUTSIDE RECORDS SUMMARY | 2024-04-13 08:42 | External Medical Summary ---
Author Name Unknown Address Unknown Organization [id number] [place] [address] Laboratory Report Ordering Provider Test Date Status TEETEE GREEN V 02/18/2024 14:24:26 Final Warfarin Therapy
INR: 2 .0-3.0 conventional anticoagulation
INR: 2.5- 3.5 high intensity anticoagulation Observation Date Value Abnormality Reference (Units ) Status PT 02/18/2024 14:24:26 24.9 Above high normal 11 .6-15.2 (seconds) Final INR 02/18/2024 14:24:26 2.2 Above high normal 0. 8-1.2 Final Performing Location [facility] [place] [address]
--- OUTSIDE RECORDS SUMMARY | 2024-04-13 08:43 | External Medical Summary | Summary of Care ---
Author Name Unknown Organization [facility] Address [address] [place] [address] Phone [phone] Care Team Providers Care Application Defense Manager Name Role Phone Marivel SEGURA MD, Maurilio Ayers Primary Care Provider [phone] Reason for Visit * Reason Comments Outpatient Testing Encounter Details Date Type Department Care Team (Late st Contact Info) Description 12/16/2023 10:10 AM EST Laboratory [facility] [place] [address] [place] [address] [place], [facility] [address] [place] [address] Paranoid schizophrenia, subchronic condition (HCC); Anxiety state; Encounter for long-term (current) use of other medications Allergies Active Allergy Reactions Criticality Noted Date Comments Sulfamethoxazole-Trimethopri m 08/05/2020 Iodinated Contrast Media 01/15/2017 Vomiting and rash per pt at age 15 Penicillins Rash 12/20/1998 documented as of this encounter (statuses as of 12/16/2023) Medications Medication Sig Dispensed Refills Start Date End Date Status SENNA PO TABSIndications:Exam ination following surgery Take 2 Tabs by mouth at bedtime. 120 3 06/16/2009 Active ASPIRIN EC 81 MG PO TBECIndications:Dysl ipidemia, goal to be determined Take one pill daily 100 3 06/16/2009 Active VITAMIN D 1000 UNIT PO CAPS 1 capsule daily 30 Cap 11 03/31/2010 Active [place]-3 Fatty Acids (FISH OIL) 1000 MG Capsule Take 1 Capsule by mouth at bedtime. Active PARoxetine (PAXIL) 40 MG Tablet Take 1 Tablet by mouth in the morning. 0 08/05/2018 Active RA Vitamin B-12 TR 1000 MCG Oral Tablet Extended Release (Cyanocobalamin ER) take 1 tablet by mouth daily 100 Tablet 3 01/23/2021 Active Spacer/Aero-Holding Chambers DeviceIndications:Ac [place] bronchitis, antibiotics not indicated Use with inhaler. 1 Each 06/30/2021 Active Cetirizine HCl 10 MG Oral Tablet (ZyrTEC Allergy) Take 1 Tablet by mouth in the morning. 15 Tablet 05/08/2022 Active clonazePAM 0.5 MG Oral Tablet (KlonoPIN) Take 1 Tablet by mouth in the morning and 1 Tablet before bedtime. 60 Tablet 5 08/01/2022 Active cloZAPine 200 MG Oral Tablet Take 1.5 Tablets by mouth at bedtime. Takes (2) 200 mg at bedtime 45 Tablet 5 08/01/2022 Active Triamcinolone Acetonide 0.1 % External Cream (Aristocort) apply topically to affected area twice a day 07/29/2022 Active ARIPiprazole 10 MG Oral Tablet (Abilify) Take 1 Tablet by mouth in the morning. 08/31/2022 Active Lisinopril 2.5 MG Oral Tablet (Prinivil) Take 1 Tablet by mouth in the morning. 90 Tablet 3 01/14/2023 Active Metoprolol Succinate ER 25 MG Oral Tablet Extended Release 24 Hour (toPROL XL)Indications:HTN, goal below 140/90 TAKE 1 TABLET BY MOUTH ONCE DAILY 90 Tablet 3 02/06/2023 Active metFORMIN HCl 1000 MG Oral Tablet (Glucophage)Indicati ons:Type 2 diabetes mellitus with hemoglobin A1c goal of less than 7.0% (HCC) take 1 tablet by mouth twice a day with food MORNING AND EVENING 180 Tablet 2 04/29/2023 Active Atorvastatin Calcium 80 MG Oral Tablet (Lipitor)Indications :Dyslipidemia, goal LDL below 100,Hyperlipemia, mixed Take 1 Tablet by mouth in the morning. In the morning.. 90 Tablet 3 05/27/2023 Active Levothyroxine Sodium 175 MCG Oral Tablet (Levoxyl) TAKE 1 TABLET BY MOUTH ONCE DAILY AT LEAST 30 MINUTES PRIOR TO BREAKFAST/OTHER MEDS 90 Tablet 3 07/12/2023 Active Warfarin Sodium 5 MG Oral Tablet (Coumadin)Indication s:History of pulmonary embolus (PE) Take 1/2 to 1 tablet by mouth every evening. Take as directed by the anticoag clinic. 30 Tablet 1 10/29/2023 Active Fenofibrate Micronized 134 MG Oral CapsuleIndications:D yslipidemia, goal LDL below 100,Hyperlipemia, mixed TAKE 1 CAPSULE BY MOUTH EVERY MORNING 90 Capsule 11/12/2023 Active oxyBUTYnin Chloride 5 MG Oral Tablet (Ditropan) 1/2 tab in the morning. 1 tab in the evening. 90 Tablet 3 12/15/2023 Active documented as of this encounter (statuses as of 12/16/2023) Active Problems Problem Noted Date Diagnosed Date History of pulmonary embolus (PE) 04/26/2023 HTN, goal below 140/90 03/13/2022 Obesity, Class I, BMI 30.0-34.9 (see actual BMI) 03/12/2017 Acquired hypothyroidism 11/12/2016 Type 2 diabetes mellitus wit h hemoglobin A1c goal of less than 7.0% 05/08/2016 Class 2 obesity in adult 12/27/2015 ADVANCE DIRECTIVE INFORMATION 12/04/2004 Overview: No, Advance Directive brochure offered , patient declined. Schizoaffective disorder documented as of this encounter (statuses as of 12/16/2023) Resolved Problems Problem Noted Date Diagnosed Date Resolved Date DM type 2 (diabetes mellitus, type 2) 12/27/2015 05/08/2016 Hypothyroidism 09/20/2014 11/12/2016 HYPOTHYROIDISM NOS 5 documented as of this encounter (statuses as of 12/16/2023) Immunizations Name Administration Dates Next Due COVID-19 mRNA, LNP-s, No Pre serve, 2-Dose Series ([employer]) 04/08/2020,03/18/2020 COVID-19, MRNA-LNP, PF, 30 M CG/0.3 mL, 12 YRS AND ABOVE, IM ([facility]) 04/08/2023 Hepatitis B, 20+ yrs 05/13/2017,03/12/2016,02/06 Pneumococcal Conjugate Vacci ne, 20-valent ([id number]) 03/13/2022 Pneumococcal Polysaccharide PPV23 (Pneumovax) 10/12/2020,12/12/2015 Seasonal [...] Recorded Sex Assigned at Not on file Gender Identity Not on file Sexual Orientation Not on file Job Start Date Occupation Industry Not on file Not on file Not on file documented as of this encounter Plan of Treatment Upcoming Encounters Date Type Department Care Team (Late st Contact Info) Description 12/17/2023 8:40 AM EST Office Visit Family Practice [address] [place] [address] [address] [place], [place] [address] Maurilio Orta III, MD [address] [facility] [place] [address] 12/30/2023 10:00 AM EST Anticoagulation Pharmacy, [facility] [address] [facility] [place] [address] Pharmacist2, [facility] [address] [facility] [place] [address] 01/30/2024 2:15 PM EST Office Visit Ophthalmology, [facility] [address] [facility] [place] [address] Rosendo Alcantar DO [address] [facility] [place] [address] 03/10/2024 8:30 AM EST Office Visit Cardiology, [facility] [address] [facility] [place] [address] Maci Verdugo PA-C 132 [facility] [place] [address] Pending Results Name Type Priority Associated Diagnoses Date /Time CBC WITH WBC DIFFERENTIAL Lab Routine Paranoid schizophrenia, subchronic condition (HCC) Anxiety state Encounter for long-term (current) use of other medications 12/16/2023 10:02 AM EST CBC Lab Routine Paranoid schizophrenia, subchronic condition (HCC) Anxiety state Encounter for long-term (current) use of other medications 12/16/2023 10:02 AM EST DIFFERENTIAL, AUTOMATED Lab Routine Paranoid schizophrenia, subchronic condition (HCC) Anxiety state Encounter for long-term (current) use of other medications 12/16/2023 10:02 AM EST Scheduled Procedures Name Priority Associated Diagnoses [...] Vaccine ( season) 2023 04/08/2023, 04/08/2020, 03/18/2020 HbA1c 01/21/2024 07/22/2023, 03/0 06/2023, 12/03/2022, Additional history exists Diabetic Eye Exam 01/29/2024 01/28/2023, , 01/28/2023, Additional history exists GFR 07/21/2024 07/22/2023, 03/0 [...] Name Relationship Healthcare Agent Relationshi p Communication [facility] Repr esentative (appointed verbally by patient or by statute hierarchy) Care Teams Application Defense Manager Relationship Specialty Start Date End Date Maurilio Orta III, MD [address] [place] [address] PCP - General 09/26/1995 documented as of this encounter
--- OUTSIDE RECORDS SUMMARY | 2024-04-13 08:43 | External Medical Summary ---
Author Name Unknown Address Unknown Organization [facility] [place] [address] Laboratory Report Ordering Provider Test Date Status TEETEE GREEN V 01/06/2024 10:28:52 Final Therapeutic ranges for non-o perative patients:
Prophylaxsis/treatment of DVT: (Range:2.0-3.0)
Treatment of pulmonary embolism:(Range:2.0-3.0)
Prevention of systemic embolism from:
-tissue heart valves
-acute myocardial infarction
-valvular heart disease
-atrial fibrillation
(Range: 2.0-3.0)
Mechanical prosthetic valves: (Range: 2.5-3.5) Observation Date Value Abnormality Reference (Units ) Status INR in Capillary blood by Coagulation assay 01/06/2024 10:28:52 3.9 (INR) Final Performing Location [facility] [place] [address]
--- OUTSIDE RECORDS SUMMARY | 2024-04-13 08:43 | External Medical Summary ---
Author Name Unknown Address Unknown Organization [facility] [place] [address] Laboratory Report Ordering Provider Test Date Status REGINALDO FLORES 12/16/2023 10:02:49 Final Associated diagnosis code V5 8.69.ICD-9-CM was changed to 042201 on 11/12/23 as a result of a periodic change by regulatory authority. Observation Date Value Abnormality Reference (Units ) Status WBC, Total 12/16/2023 10:02:49 7.30 4.00-10.8 0 (K/uL) Final RBC 12/16/2023 10:02:49 5.22 4.50-5.25 (M/uL) Final Hemoglobin 12/16/2023 10:02:49 14.0 14.0-16.8 (g/dL) Final HCT 12/16/2023 10:02:49 45.1 40.0-48.4 (%) Final MCV 12/16/2023 10:02:49 86.4 82.0-99.5 (fL) Final MCH 12/16/2023 10:02:49 26.8 27.0-34.0 (pg) Final MCHC 12/16/2023 10:02:49 31.0 32.0-36.0 (g/dL) Final RDW 12/16/2023 10:02:49 14.9 11.5-15.5 (%) Final Platelets 12/16/2023 10:02:49 188 140-400 (K /uL) Final MPV 12/16/2023 10:02:49 11.7 6.6-11.1 ( fL) Final Performing Location [facility] [place] [address]
--- OUTSIDE RECORDS SUMMARY | 2024-04-13 08:43 | External Medical Summary ---
Author Name Unknown Address Unknown Organization [facility] [place] [address] Laboratory Report Ordering Provider Test Date Status TEETEE GREEN V 11/18/2023 09:24:18 Final Therapeutic ranges for non-o perative patients:
Prophylaxsis/treatment of DVT: (Range:2.0-3.0)
Treatment of pulmonary embolism:(Range:2.0-3.0)
Prevention of systemic embolism from:
-tissue heart valves
-acute myocardial infarction
-valvular heart disease
-atrial fibrillation
(Range: 2.0-3.0)
Mechanical prosthetic valves: (Range: 2.5-3.5) Observation Date Value Abnormality Reference (Units ) Status INR in Capillary blood by Coagulation assay 11/18/2023 09:24:18 2.2 (INR) Final Performing Location [facility] [place] [address]
--- OUTSIDE RECORDS SUMMARY | 2024-04-13 08:43 | External Medical Summary | Summary of Care ---
Author Name Unknown Organization [facility] Address [address] [place] [address] Phone [phone] Care Team Providers Care Shove Up Name Role Phone Marivel SEGURA MD, Maurilio Ayers Primary Care Provider [phone] Reason for Visit * Reason Onset Date Comments Medication Refill 12/09/2023 Encounter Details Date Type Department Care Team (Late st Contact Info) Description 12/09/2023 Refill [facility] 200 [facility] [place] [address] Maurilio Orta III, MD 200 [place] [address] Allergies Active Allergy Reactions Criticality Noted Date Comments Sulfamethoxazole-Trimethopri m 08/05/2020 Iodinated Contrast Media 01/15/2017 Vomiting and rash per pt at age 15 Penicillins Rash 12/20/1998 documented as of this encounter (statuses as of 12/09/2023) Medications Medication Sig Dispensed Refills Start Date End Date Status SENNA PO TABSIndications:Exam ination following surgery Take 2 Tabs by mouth at bedtime. 120 3 06/16/2009 Active ASPIRIN EC 81 MG PO TBECIndications:Dysl ipidemia, goal to be determined Take one pill daily 100 3 06/16/2009 Active VITAMIN D 1000 UNIT PO CAPS 1 capsule daily 30 Cap 11 03/31/2010 Active [place]-3 Fatty Acids (FISH OIL) 1000 MG Capsule Take 1 Capsule by mouth at bedtime. Active PARoxetine (PAXIL) 40 MG Tablet Take 1 Tablet by mouth in the morning. 0 08/05/2018 Active RA Vitamin B-12 TR 1000 MCG Oral Tablet Extended Release (Cyanocobalamin ER) take 1 tablet by mouth daily 100 Tablet 3 01/23/2021 Active Spacer/Aero-Holding Chambers DeviceIndications:Ac joe bronchitis, antibiotics not indicated Use with inhaler. [...] BREAKFAST/OTHER MEDS 90 Tablet 3 07/12/2023 Active oxyBUTYnin Chloride 5 MG Oral Tablet (Ditropan) 1/2 tab in the morning. 1 tab in the evening. 90 Tablet 3 10/07/2023 Active Warfarin Sodium 5 MG Oral Tablet (Coumadin)Indication s:History of pulmonary embolus (PE) Take 1/2 to 1 tablet by mouth every evening. Take as directed by the anticoag clinic. 30 Tablet 1 10/29/2023 Active Fenofibrate Micronized 134 MG Oral CapsuleIndications:D yslipidemia, goal LDL below 100,Hyperlipemia, mixed TAKE 1 CAPSULE BY MOUTH EVERY MORNING 90 Capsule 11/12/2023 Active documented as of this encounter (statuses as of 12/09/2023) Active Problems Problem Noted Date Diagnosed Date [...] as of this encounter (statuses as of 12/09/2023) Resolved Problems Problem Noted Date Diagnosed Date Resolved Date DM type 2 (diabetes mellitus, type 2) 12/27/2015 05/08/2016 Hypothyroidism 09/20/2014 11/12/2016 HYPOTHYROIDISM NOS 5 documented as of this encounter (statuses as of 12/09/2023) Immunizations Name Administration Dates Next Due COVID-19 mRNA, LNP-s, No Pre serve, 2-Dose Series (SpinPunch) 04/08/2020,03/18/2020 COVID-19, MRNA-LNP, 23-24, P F, 30 MCG/0.3 mL, 12 YRS AND ABOVE, IM ([employer]) 04/08/2023 Hepatitis B, 20+ yrs 05/13/2017,03/12/2016,02/06 Pneumococcal Conjugate Vacci ne, 20-valent ([id number]) 03/13/2022 Pneumococcal Polysaccharide PPV23 (Pneumovax) 10/12/2020,12/12/2015 Seasonal [...] encounter Miscellaneous Notes * Telephone Encounter - Debbie Dey CPhT - 12/09/2023 10:01 AM EDT Pt calling to request Warfarin 5mg. Informed pt that RX is available at their pharmacy. Pt verbalized understanding and stated they will check with their pharmacy regarding this medication. Thank you, Debbie Dey CPhT Special Officer [employer] [facility] ([facility]) 12/09/2023, 10:02 AM documented in this encounter Plan of Treatment Upcoming Encounters Date Type Department Care Team (Late st Contact Info) Description 12/17/2023 8:40 AM EST Office Visit Family Practice [facility] 200 [facility] [place] [address] Maurilio Orta III, MD 200 [facility] [place] [address] 12/30/2023 10:00 AM EST Anticoagulation Pharmacy, [facility] 200 [facility] [place] [address] Pharmacist2, [facility] 200 [facility] [place] [address] 01/30/2024 2:15 PM EST Office Visit Ophthalmology, [facility] 132 [facility] [place] [address] Rosendo Alcantar, [address] [facility] [place] [address] 03/10/2024 8:30 AM EST Office Visit Cardiology, [facility] 132 [facility] [place] [address] Maci Verdugo PA-C 132 [facility] [place] [address] Scheduled Procedures Name Priority Associated Diagnoses Date/Ti [...] Agent Relationshi p Communication Carolyne Chowdhury [facility] Repr esentative (appointed verbally by patient or by statute hierarchy) Care Teams Shove Up Relationship Specialty Start Date End Date Maurilio Orta III, MD 200 [place] [address] PCP - General 09/26/1995 documented as of this encounter
--- OUTSIDE RECORDS SUMMARY | 2024-04-13 08:43 | External Medical Summary | Summary of Care ---
Author Name Unknown Organization [facility] Address [address] [place] [address] Phone [phone] Care Team Providers Care Flake [employer] Name Role Phone Marivel SEGURA MD, Maurilio Ayers Primary Care Provider [phone] Encounter Details Date Type Department Care Team (Late st Contact Info) Description 12/30/2023 Orders Only Outcomes Research Department [address] [place] [address] Mariia Bojorquez CHRA [facility] Other*[id number] Allergies Active Allergy Reactions Criticality Noted Date Comments Sulfamethoxazole-Trimethopri m 08/05/2020 Iodinated Contrast Media 01/15/2017 Vomiting and rash per pt at age 15 Penicillins Rash 12/20/1998 documented as of this encounter (statuses as of 12/30/2023) Medications SENNA PO TABSIndications: Examination following surgery Take 2 Tabs by mouth at bedtime. 120 3 0 Active VITAMIN D 1000 UNIT PO CAPS 1 capsule daily 30 Cap 11 1 Active [place]-3 Fatty Acids (FISH OIL) 1000 MG Capsule [...] by mouth in the morning. 3 Active Lisinopril 2.5 MG Oral Tablet (Prinivil) Take 1 Tablet by mouth in the morning. 90 Tablet 3 3 Active Metoprolol Succinate ER 25 MG [...] affected area. 60 g 5 4 Active documented as of this encounter (statuses as of 12/30/2023) Active Problems Problem Noted Date Diagnosed Date History of pulmonary embolus (PE) 04/26/2023 HTN, goal below 140/90 03/13/2022 Obesity, Class I, BMI 30.0-34.9 (see actual BMI) 03/12/2017 Acquired hypothyroidism 11/12/2016 Type 2 diabetes mellitus wit h hemoglobin A1c goal of less than 7.0% 05/08/2016 Class 2 obesity in adult 12/27/2015 Schizoaffective disorder documented as of this encounter (statuses as of 12/30/2023) Resolved Problems Problem Noted Date Diagnosed Date Resolved Date DM type 2 (diabetes mellitus, type 2) 12/27/2015 05/08/2016 Hypothyroidism 09/20/2014 11/12/2016 ADVANCE DIRECTIVE INFORMATION 12/04/2004 12/16/2023 Overview (12/04/2004): No, Advance Directive brochure offered , patient declined. HYPOTHYROIDISM NOS 5 documented as of this encounter (statuses as of 12/30/2023) Immunizations Name Administration Dates Next Due COVID-19 mRNA, LNP-s, No Pre serve, 2-Dose Series (Cylande) 04/08/2020,03/18/2020 COVID-19, MRNA-LNP, PF, 30 M CG/0.3 mL, 12 YRS AND ABOVE, IM ([facility]) 04/08/2023 Hepatitis B, 20+ yrs 05/13/2017,03/12/2016,02/06 Pneumococcal Conjugate Vacci ne, 20-valent ([id number]) 03/13/2022 Pneumococcal Polysaccharide PPV23 (Pneumovax) 10/12/2020,12/12/2015 Seasonal [...] Care Team (Late st Contact Info) Description 01/06/2024 10:50 AM EST Anticoagulation Pharmacy, [facility] [place] 200 [place] [address] Pharmacist1, [facility] 200 [facility] [place] [address] 01/30/2024 2:15 PM EST Office Visit Ophthalmology, [facility] 132 [place] [address] Rosendo Alcantar DO [address] [facility] [place] [address] 03/10/2024 8:30 AM EST Office Visit Cardiology, [facility] 132 [facility] [place] [address] Maci Verdugo, CINDA 132 [facility] [place] [address] 06/17/2024 8:20 AM EDT Office Visit Family Practice [facility] 200 [place] [address] Maurilio Orta III, MD 200 [place] [address] Scheduled Orders Name Type Priority Associated Diagnoses Orde r Schedule MYCODE SUBSEQUENT ADULT Lab Routine [employer] Research Other*[id number] Every 6 Months for 2 Occurrences starting 12/30/2023 until 01/18/2025 Scheduled Procedures Name Priority Associated Diagnoses Date/Ti [...] as of this encounter Visit Diagnoses Diagnosis [employer] Other*[id number] documented in this encounter Advance Directives Healthcare Agents on File Name Relationship Healthcare Agent Relationshi p Communication Carolyne Chowdhury [facility] Repr esentative (appointed verbally by patient or by statute hierarchy) Care Teams [employer]ake [employer] Relationship Specialty Start Date End Date Maurilio Orta III, MD 200 [place] [address] PCP - General 09/26/1995 documented as of this encounter
--- OUTSIDE RECORDS SUMMARY | 2024-04-13 08:43 | External Medical Summary | Summary of Care ---
Author Name Unknown Organization [facility] Address [address] [place] [address] Phone [phone] Care Team Providers Care Clinical Informatics Physician Name Role Phone Marivel SEGURA MD, Maurilio Ayers Primary Care Provider [phone] Reason for Visit * Reason Onset Date Comments Medication Refill 12/06/2023 Encounter Details Date Type Department Care Team (Late st Contact Info) Description 12/06/2023 Refill [facility] 200 [facility] [place] [address] Maurilio Orta III, MD 200 [facility] [place] [address] Allergies Active Allergy Reactions Criticality Noted Date Comments Sulfamethoxazole-Trimethopri m 08/05/2020 Iodinated Contrast Media 01/15/2017 Vomiting and rash per pt at age 15 Penicillins Rash 12/20/1998 documented as of this encounter (statuses as of 12/06/2023) Medications Medication Sig Dispensed Refills Start Date End Date Status SENNA PO TABSIndications:Exam ination following surgery Take 2 Tabs by mouth at bedtime. 120 3 06/16/2009 Active ASPIRIN EC 81 MG PO TBECIndications:Dysl ipidemia, goal to be determined Take one pill daily 100 3 06/16/2009 Active VITAMIN D 1000 UNIT PO CAPS 1 capsule daily 30 Cap 11 03/31/2010 Active [place]-3 Fatty Acids (FISH OIL) 1000 MG Capsule [...] as of this encounter (statuses as of 12/06/2023) Active Problems Problem Noted Date Diagnosed Date [...] as of this encounter (statuses as of 12/06/2023) Resolved Problems Problem Noted Date Diagnosed Date Resolved Date DM type 2 (diabetes mellitus, type 2) 12/27/2015 05/08/2016 Hypothyroidism 09/20/2014 11/12/2016 HYPOTHYROIDISM NOS 5 documented as of this encounter (statuses as of 12/06/2023) Immunizations Name Administration Dates Next Due COVID-19 mRNA, LNP-s, No Pre serve, 2-Dose Series (Minus) 04/08/2020,03/18/2020 COVID-19, MRNA-LNP, 23-24, P F, 30 MCG/0.3 mL, 12 YRS AND ABOVE, IM ([facility]) 04/08/2023 Hepatitis B, 20+ yrs 05/13/2017,03/12/2016,02/06 Pneumococcal Conjugate Vacci ne, 20-valent ([id number]) 03/13/2022 Pneumococcal Polysaccharide PPV23 (Pneumovax) 10/12/2020,12/12/2015 Seasonal [...] encounter Miscellaneous Notes * Telephone Encounter - Awais Robni, engineering systems analyst - 12/06/2023 8:11 AM EDT Pt calling to request oxyBUTYnin Chloride 5 MG Oral Tablet (Ditropan) . Informed pt that RX is available at their pharmacy. Pt verbalized understanding and stated they will check with their pharmacy regarding this medication. Thank you, Awais Robin Diamond [facility] ([facility]) 12/06/2023,8:11 AM documented in this encounter Plan of Treatment Upcoming Encounters Date Type Department Care Team (Late st Contact Info) Description 12/17/2023 8:40 AM EST Office Visit Family Practice [facility] 200 [facility] [place] [address] Maurilio Orta III, MD 200 [facility] [place] [address] 12/30/2023 10:00 AM EST Anticoagulation Pharmacy, [facility] 200 [facility] [place] [address] Pharmacist2, [facility] 200 [facility] [place] [address] 01/30/2024 2:15 PM EST Office Visit Ophthalmology, [facility] 132 [facility] [place] [address] Rosendo Alcantar, DO [facility] [place] [address] 03/10/2024 8:30 AM EST Office Visit Cardiology, [facility] 132 [facility] [place] [address] Maci Verdugo PA-C 132 [facility] [place] [address] Scheduled Procedures Name Priority Associated Diagnoses Date/Ti [...] Relationshi p Communication Carolyne Chowdhury [facility] Repr esentative (appointed verbally by patient or by statute hierarchy) Care Teams Clinical Informatics Physician Relationship Specialty Start Date End Date Maurilio Orta III, MD [address] [place] [address] PCP - General 09/26/1995 documented as of this encounter
--- OUTSIDE RECORDS SUMMARY | 2024-04-13 08:43 | External Medical Summary | Summary of Care ---
Author Name Unknown Organization [facility] Address [address] [place] [address] Phone [phone] Care Team Providers Care Charge Account Authorizer Name Role Phone Marivel SEGURA MD, Maurilio Ayers Primary Care Provider [phone] Reason for Visit * Reason Comments Dosage Adjustment In Person (Anticoag Cl inic) Encounter Details Date Type Department Care Team (Latest Contact Info) Description 11/18/2023 9:40 AM EDT Anticoagulation Pharmacy, [facility] 200 [facility] [place] [address] Pharmacist2, [facility] 200 [facility] [place] [address] History of pulmonary embolus (PE)*; Anticoagulation management encounter Allergies Active Allergy Reactions Criticality Noted Date Comments Sulfamethoxazole-Trimethopri m 08/05/2020 Iodinated Contrast Media 01/15/2017 Vomiting and rash per pt at age 15 Penicillins Rash 12/20/1998 documented as of this encounter (statuses as of 11/18/2023) Medications Medication Sig Dispensed Refills Start Date End Date Status SENNA PO TABSIndications:Exam ination following surgery Take 2 Tabs by mouth at bedtime. 120 3 06/16/2009 Active ASPIRIN EC 81 MG PO TBECIndications:Dysl ipidemia, goal to be determined Take one pill daily 100 3 06/16/2009 Active VITAMIN D 1000 UNIT PO CAPS 1 capsule daily 30 Cap 11 03/31/2010 Active [place]-3 Fatty Acids (FISH OIL) 1000 MG Capsule [...] as of this encounter (statuses as of 11/18/2023) Active Problems Problem Noted Date Diagnosed Date [...] as of this encounter (statuses as of 11/18/2023) Resolved Problems Problem Noted Date Diagnosed Date Resolved Date DM type 2 (diabetes mellitus, type 2) 12/27/2015 05/08/2016 Hypothyroidism 09/20/2014 11/12/2016 HYPOTHYROIDISM NOS 5 documented as of this encounter (statuses as of 11/18/2023) Immunizations Name Administration Dates Next Due COVID-19 mRNA, LNP-s, No Pre serve, 2-Dose Series ([employer]) 04/08/2020,03/18/2020 Hepatitis B, 20+ yrs 05/13/2017,03/12/2016,02/06 Pneumococcal Conjugate Vacci ne, 20-valent ([id number]) 03/13/2022 Pneumococcal Polysaccharide PPV23 (Pneumovax) 10/12/2020,12/12/2015 Seasonal Influenza Vac., MDV , IM, 0.5 mL (Fluzone) 11/25/2017,09/23/2016,10/30/2013,11/21 Seasonal Influenza, PF, 6 M & above, IM , (FluLaval or Fluzone) 11/25/2021,10/26/2020,12/21/2019(Defer red: Patient Refused),11/12/2016 Seasonal Influenza, Quadriva lent, No Preserve, IM 11/25/2022,10/26/2018,10/10/2018,11/10,11/20/2014 Seasonal Influenza, Quadriva lent, No Preserve, Mdck [...] as of this encounter Progress Notes * Twin Chowdhury, [facility] - 11/18/2023 9:22 AM EDT Medication Therapy Disease Management - Anticoagulation Patient: Twin Chowdhury | : 1960 Subjective Patient-Reported Symptoms: Patient Findings Negatives: Signs/symptoms of thrombosis, Signs/symptoms of bleeding, Change in health, Change in alcohol use, Change in activity, Upcoming invasive procedure, Missed doses, Extra doses, Change in medications, Change in diet/appetite, Bruising Objective Current Warfarin Dose As of 11/18/2023 Warfarin maintenance plan: 5 mg (5 mg x 1) every Mon, Fri; 2.5 mg (5 mg x 0.5) all other days INR Result As of 11/18/2023 INR goal: 2.0-3.0 INR used for dosin.2 (11/18/2023) Assessment & Plan Warfarin Plan As of 11/18/2023 Full warfarin instructions: 5 mg every Mon, Fri; 2.5 mg all other days No change documented: Twin Chowdhury [facility] Next INR check: 12/30/2023 Repeat PT/INR in 6 week(s) Weekly dose: not changed Additional Dosing Information: Description Patient message states Darek will be $435/month. He has Medicare insurance. Brand name medications will be too expensive due to coverage gap. There is little to no assistance available for cost of prescriptions with Medicare. Patient will need to transition to Coumadin if long-term anticoagulation is desired. I spent a total of 10-19 minutes (exact time 10 mins) on the date of service in preparation, delivery, and documentation of the care provided to Twin Chowdhury excluding any time spent in the performance of separately billed services or time spent by another provider/QHP. Twin Chowdhury [facility] Clinical Pharmacist 11/18/2023, 9:22 AM documented in this encounter Plan of Treatment Upcoming Encounters Date Type Department Care Team (Late st Contact Info) Description 12/30/2023 10:00 AM EST Anticoagulation Pharmacy, [facility] 200 [facility] [place] [address] Pharmacist2, [facility] 200 [facility] [place] [address] 01/30/2024 2:15 PM EST Office Visit Ophthalmology, [facility] 132 [facility] [place] [address] Rosendo Alcantar DO 21 [place] [address] Scheduled Procedures Name Priority Associated Diagnoses Date/Ti [...] Vaccine ( season) 2023 04/08/2023, 04/08/2020, 03/18/2020 Influenza Vaccine (FLU shot) (#1) 2023 11/25/2022, 11/25/2021, 10/09/2021, Additional history exists HbA1c 01/21/2024 07/22/2023, 03/0 06/2023, 12/03/2022, Additional [...] Discontinued 07/10/2022, 07/10/2022, 11/23/2019, Additional history exists HPV (Gardasil) Vaccine Aged Out No lo nger eligible based on patient's age to complete this topic MENINGOCOCCAL (MENACTRA/MENVEO) Aged Out No longer eligible based on patient's age to complete this topic documented as of this encounter Medical Devices Not on filedocumented as of this encounter Procedures Procedure Name Priority Date/Time Associated Diagnosis Comments INR FINGERSTICK, POINT OF CARE STAT 11/18/2023 9:24 AM EDT History of pulmonary embolus (PE) Anticoagulation management encounter documented in this encounter Results * INR FINGERSTICK, POINT OF CARE (11/18/2023 9:24 AM EDT) Fingerstick INR 2.2 INR 9:35 AM EDT [facility] 56-02 Blood 11/18/2023 9:24 AM EDT 11/18/2023 9:35 AM EDT Narrative [facility] 56-02 - 11/18/2023 9:35 AM EDT Therapeutic ranges for non-operative patients: Prophylaxsis/treatment of DVT: (Range:2.0-3.0) Treatment of pulmonary embolism:(Range:2.0-3.0) Prevention of systemic embolism from: -tissue heart valves -acute myocardial infarction -valvular heart disease -atrial fibrillation (Range: 2.0-3.0) Mechanical prosthetic valves: (Range: 2.5-3.5) Leonid Roe V [facility] LAB POINT OF CARE TE ST DOCKED DEVICE UNSOLICITED RESULTS [facility] 56-[address] [place] [address] documented in this encounter Visit Diagnoses Diagnosis History of pulmonary embolus (PE)- Primary Personal history of pulmonary embolism Anticoagulation management encounter Encounter for therapeutic drug monitoring documented in this encounter Advance Directives Healthcare Agents on File Name Relationship Healthcare Agent [facility] p Communication Carolyne Chowdhury [facility] Repr esentative (appointed verbally by patient or by statute hierarchy) Care Teams Charge Account Authorizer Relationship Specialty Start Date End Date Maurilio Orta III, MD [address] [place] [address] PCP - General 09/26/1995 documented as of this encounter"
--- OUTSIDE RECORDS SUMMARY | 2024-04-13 08:43 | External Medical Summary | Summary of Care ---
Author Name Unknown Organization [facility] Address [address] [place] [address] Phone [phone] Care Team Providers Care Pot Room Tapper Name Role Phone Marivel SEGURA MD, Maurilio Ayers Primary Care Provider [phone] Reason for Visit * Reason Onset Date Comments Medication Administration 12/02/2023 Flu an d/or Pneumo Inj Encounter Details Date Type Department Care Team (Late st Contact Info) Description 12/02/2023 11:20 AM EDT Immunization Ancillary [facility] [address] [facility] [place] [address] Sp, [facility] [address] [place] [address] Need for prophylactic vaccination and inoculation against influenza* Allergies Active Allergy Reactions Criticality Noted Date Comments Sulfamethoxazole-Trimethopri m 08/05/2020 Iodinated Contrast Media 01/15/2017 Vomiting and rash per pt at age 15 Penicillins Rash 12/20/1998 documented as of this encounter (statuses as of 12/02/2023) Medications Medication Sig Dispensed Refills Start Date End Date Status SENNA PO TABSIndications:Exam ination following surgery Take 2 Tabs by mouth at bedtime. 120 3 06/16/2009 Active ASPIRIN EC 81 MG PO TBECIndications:Dysl ipidemia, goal to be determined Take one pill daily 100 3 06/16/2009 Active VITAMIN D 1000 UNIT PO CAPS 1 capsule daily 30 Cap 11 03/31/2010 Active [place]-3 Fatty Acids (FISH OIL) 1000 MG Capsule [...] by the antico clinic. 30 Tablet 1 10/29/2023 Active Fenofibrate Micronized 134 MG Oral CapsuleIndications:D yslipidemia, goal LDL below 100,Hyperlipemia, mixed TAKE 1 CAPSULE BY MOUTH EVERY MORNING 90 Capsule 11/12/2023 Active documented as of this encounter (statuses as of 12/02/2023) Active Problems Problem Noted Date Diagnosed Date [...] as of this encounter (statuses as of 12/02/2023) Resolved Problems Problem Noted Date Diagnosed Date Resolved Date DM type 2 (diabetes mellitus, type 2) 12/27/2015 05/08/2016 Hypothyroidism 09/20/2014 11/12/2016 HYPOTHYROIDISM NOS 5 documented as of this encounter (statuses as of 12/02/2023) Immunizations Name Administration Dates Next Due COVID-19 mRNA, LNP-s, No Pre serve, 2-Dose Series ([employer]) 04/08/2020,03/18/2020 COVID-19, MRNA-LNP, 23-24, P F, 30 MCG/0.3 mL, 12 YRS AND ABOVE, IM ([employer]) 04/08/2023 Hepatitis B, 20+ yrs 05/13/2017,03/12/2016,02/06 Pneumococcal Conjugate Vacci ne, 20-valent ([id number]) 03/13/2022 Pneumococcal Polysaccharide PPV23 (Pneumovax) 10/12/2020,12/12/2015 Seasonal [...] on file documented as of this encounter Patient Instructions * Patient Instructions* Flor Blair CMA - 12/02/2023 11:01 AM EDT ~~PATIENT INSTRUCTIONS FOR FLU SHOT~~ Possible side effects of influenza vaccine, (flu shot), are usually mild and include: 1. Soreness or redness at injection site 2. Low grade fever 3. Body aches You may use Tylenol/Acetaminophen as needed for these symptoms. LET YOUR DOCTOR KNOW IMMEDIATELY IF YOU HAVE DIFFICULTY BREATHING OR SWALLOWING, EXPERIENCE ITCHINGOF FEET OR HANDS, HAVE SWELLING OF EYES, FACE OR INSIDE OF NOSE. documented in this encounter Progress Notes * Flor Blair CMA - 12/02/2023 11:01 AM EDT PRE - ADMINISTRATION DOCUMENTATION Are you experiencing any cold symptoms or fever? No Have you had Guillain-Kaumakani Syndrome (an illness that causes paralysis) within the last 6 weeks? No Have you had the flu shot in the past? YES Have you ever had a reaction to the flu shot? no Flor Blair CMA, 12/02/2023 11:00 AM Immunization Administration Documentation Time Out Procedure Performed: Yes Patient Identified (Ask Name/Date of ): Yes Does the patient have a fever greater than 101 degrees today? No Patient allergic to latex? No VFC Stock: No Immunization(s) verified: Yes, Immunization Name: Flu, VIS Sheet(s) given: Yes Verified Side and Site: Yes Verified Shot(s) with Parent(s)/Patient: Yes documented in this encounter Plan of Treatment Upcoming Encounters Date Type Department Care Team (Late st Contact Info) Description 12/17/2023 8:40 AM EST Office Visit Family Practice [facility] [address] [place] [address] MonoMaurilio saul III, MD [address] [place] [address] 12/30/2023 10:00 AM EST Anticoagulation Pharmacy, [facility] [address] [place] [address] Pharmacist2, [facility] [address] [place] [address] 01/30/2024 2:15 PM EST Office Visit Ophthalmology, [facility] [address] [facility] [place] [address] Rosendo Alcantar, DO [address] [facility] [place] [address] 03/10/2024 8:30 AM EST Office Visit Cardiology, [facility] [address] [facility] [place] [address] Maci Verdugo PA-C [address] [place] [address] Scheduled Procedures Name Priority Associated Diagnoses Date/Ti [...] as of this encounter Visit Diagnoses Diagnosis Need for prophylactic vaccination and inoculation against influenza- Primary documented in this encounter Advance Directives Healthcare Agents on File Name Relationship Healthcare Agent Relationshi p Communication Carolyne Chowdhury [facility] Repr esentative (appointed verbally by patient or by statute hierarchy) Care Teams Pot Room Tapper Relationship Specialty Start Date End Date Maurilio Orta III, MD 200 [place] [address] PCP - General 09/26/1995 documented as of this encounter
--- OUTSIDE RECORDS SUMMARY | 2024-04-13 08:43 | External Medical Summary ---
Author Name Unknown Address Unknown Organization [id number]:[facility] [place] - [address] [facility] [address] Laboratory Report Ordering Provider Test Date Status SERENA BLAKE III 12/16/2023 10:02:49 Final Observation Date Value Abnormality Reference (Units ) Status HbA1C 12/16/2023 10:02:49 6.6 Above high normal 4. 0-5.6 (%) Final The use of HbA1c to monitor glycemic status is based on normal hemoglobin and HbA composition. This test should not be used in patients with abnormal hemoglobin that affects the half life of the red blood cell or the in vivo glycation rates. Glucose, estimated average 12/16/2023 10:02:49 143 Above high normal <126 (mg/dL) Ken bourne Performing Location [facility] [place] - [address] [facility] [address]
--- OUTSIDE RECORDS SUMMARY | 2024-04-13 08:43 | External Medical Summary | Summary of Care ---
Author Name Unknown Organization [facility] Address [address] [place] [address] Phone [phone] Care Team Providers Care Sign Erector And Repairer Name Role Phone Marivel SEGURA MD, Maurilio Ayers Primary Care Provider [phone] Reason for Visit * Reason Comments Dosage Adjustment In Person (Anticoag Cl inic) Encounter Details Date Type Department Care Team (Latest Contact Info) Description 01/06/2024 10:50 AM EST Anticoagulation Pharmacy, [facility] 200 [facility] [place] [address] Pharmacist1, [facility] [address] [facility] [place] [address] History of pulmonary embolus (PE)*; Anticoagulation management encounter Allergies Active Allergy Reactions Criticality Noted Date Comments Sulfamethoxazole-Trimethopri m 08/05/2020 Iodinated Contrast Media 01/15/2017 Vomiting and rash per pt at age 15 Penicillins Rash 12/20/1998 documented as of this encounter (statuses as of 01/06/2024) Medications SENNA PO TABSIndications: Examination following surgery Take 2 Tabs by mouth at bedtime. 120 3 0 Active VITAMIN D 1000 UNIT PO CAPS 1 capsule daily 30 Cap 11 1 Active [place]-3 Fatty Acids (FISH OIL) 1000 MG Capsule [...] as of this encounter (statuses as of 01/06/2024) Active Problems Problem Noted Date Diagnosed Date History of pulmonary embolus (PE) 04/26/2023 HTN, goal below 140/90 03/13/2022 Obesity, Class I, BMI 30.0-34.9 (see actual BMI) 03/12/2017 Acquired hypothyroidism 11/12/2016 Type 2 diabetes mellitus wit h hemoglobin A1c goal of less than 7.0% 05/08/2016 Class 2 obesity in adult 12/27/2015 Schizoaffective disorder documented as of this encounter (statuses as of 01/06/2024) Resolved Problems Problem Noted Date Diagnosed Date Resolved Date DM type 2 (diabetes mellitus, type 2) 12/27/2015 05/08/2016 Hypothyroidism 09/20/2014 11/12/2016 ADVANCE DIRECTIVE INFORMATION 12/04/2004 12/16/2023 Overview (12/04/2004): No, Advance Directive brochure offered , patient declined. HYPOTHYROIDISM NOS 5 documented as of this encounter (statuses as of 01/06/2024) Immunizations Name Administration Dates Next Due COVID-19 mRNA, LNP-s, No Pre serve, 2-Dose Series ([employer]) 04/08/2020,03/18/2020 COVID-19, MRNA-LNP, PF, 30 M CG/0.3 mL, 12 YRS AND ABOVE, IM ([facility]) 04/08/2023 Hepatitis B, 20+ yrs 05/13/2017,03/12/2016,02/06 Pneumococcal Conjugate Vacci ne, 20-valent ([id number]) 03/13/2022 Pneumococcal Polysaccharide PPV23 (Pneumovax) 10/12/2020,12/12/2015 Seasonal [...] Progress Notes * Leonid Daniels RP - 01/06/2024 10:25 AM EST Images from the original note were not included. Medication Therapy Disease Management - Anticoagulation Twin [...] in diet/appetite, Bruising INR Result As of 01/06/2024 INR goal: 2.0-3.0 INR used for dosin.9 (01/06/2024) Warfarin Plan As of 01/06/2024 Full warfarin instructions: 01/05: Hold; Otherwise 5 mg every Mon; 2.5 mg all other days Next INR check: 02/03/2024 Repeat PT/INR in 4 week(s) Weekly dose: decreased I spent a total of 10-19 minutes (exact time 16 mins) on the date of service in preparation, delivery, and documentation of the care provided to Twin Chowdhury excluding any time spent in the performance of separately billed services or time spent by another provider/QHP. Leonid Roe RPh, [facility] Clinical Pharmacist Medication Therapy Disease Management 01/06/2024, 10:31 AM documented in this encounter Plan of Treatment Upcoming Encounters Date Type Department Care Team (Late st Contact Info) Description 01/30/2024 2:15 PM EST Office Visit Ophthalmology, [facility] 132 [facility] [place] [address] Rosendo Alcantar DO [address] [place] [address] 02/03/2024 1:00 PM EST Anticoagulation Pharmacy, [facility] [address] Pharmacist1, [facility] [address] [facility] [place] [address] 03/10/2024 8:30 AM EST Office Visit Cardiology, [facility] [address] [place] [address] Maci Verdugo, PAYamini [address] [place] [address] 06/17/2024 8:20 AM EDT Office Visit Family Practice [facility] 200 [facility] [place] [address] Gosper IIIMaurilio MD 200 [facility] [place] [address] Scheduled Procedures Name Priority Associated Diagnoses Date/Ti [...] Comments INR FINGERSTICK, POINT OF CARE STAT 01/06/2024 10:28 AM EST History of pulmonary embolus (PE) Anticoagulation management encounter documented in this encounter Results * INR FINGERSTICK, POINT OF CARE (01/06/2024 10:28 AM EST) Fingerstick INR 3.9 INR 10:30 AM EST [facility] 56-02 Blood 01/06/2024 10:2 8 AM EST 01/06/2024 10:30 AM EST Narrative [facility] 56-02 - 01/06/2024 10:30 AM EST Therapeutic ranges for non-operative patients: Prophylaxsis/treatment of DVT: (Range:2.0-3.0) Treatment of pulmonary embolism:(Range:2.0-3.0) Prevention of systemic embolism from: -tissue heart valves -acute myocardial infarction -valvular heart disease -atrial fibrillation (Range: 2.0-3.0) Mechanical prosthetic valves: (Range: 2.5-3.5) Leonid Jyothi V, RP LAB POINT OF CARE TE ST DOCKED DEVICE UNSOLICITED RESULTS Final Result [facility] [address] [facility] [address] documented in this encounter Visit Diagnoses Diagnosis History of pulmonary embolus (PE)- Primary Personal history of pulmonary embolism Anticoagulation management encounter Encounter for therapeutic drug monitoring documented in this encounter Advance Directives Healthcare Agents on File Name Relationship Healthcare Agent Relationshi p Communication Carolyne Chowdhury [facility] Care Repr esentative (appointed verbally by patient or by statute hierarchy) Care Teams Sign Erector And Repairer Relationship Specialty Start Date End Date Maurilio Orta III, MD [address] [facility] [address] PCP - General 09/26/1995 documented as of this encounter
--- OUTSIDE RECORDS SUMMARY | 2024-04-13 08:43 | External Medical Summary ---
Author Name Unknown Address Unknown Organization K09:[facility] [place] [address] Laboratory Report Ordering Provider Test Date Status REGINALDO FLORES 01/08/2024 14:50:20 Final Associated diagnosis code V5 8.69.ICD-9-CM was changed to 265756 on 11/12/23 as a result of a periodic change by regulatory authority. Observation Date Value Abnormality Reference (Units ) Status SYNC LEUKOCYTES IN BLOOD BY AUTOMATED COUNT 01/08/2024 14:50:20 6.74 4.00-10.80 (K/uL) Final Segs 01/08/2024 14:50:20 67.6 40.0-75.0 (%) Final Lymphs % 01/08/2024 14:50:20 20.8 18.0-42.0 (%) Final Monos 01/08/2024 14:50:20 11.3 Above high normal 1.0-11.0 (%) Final Eosinophils 01/08/2024 14:50:20 0.0 0.0-6.0 (%) Final Basos 01/08/2024 14:50:20 0.3 0.0-2.0 (%) Final Absolute Segs 01/08/2024 14:50:20 4.56 1.80-7.70 (K/uL) Final Lymphs, absolute 01/08/2024 14:50:20 1.40 1.00-4.80 (K/ul) Final Monos, Abs 01/08/2024 14:50:20 0.76 0.00-1.10 (K/uL) Final Eos, Abs 01/08/2024 14:50:20 0.00 0.00-0.70 (K/uL) Final Basos, Abs 01/08/2024 14:50:20 0.02 0.00-0.20 (K/uL) Final Performing Location [facility] [place] [address]
--- OUTSIDE RECORDS SUMMARY | 2024-04-13 08:43 | External Medical Summary | Summary of Care ---
Author Name Unknown Organization [facility] Address [address] [place] [address] Phone [phone] Care Team Providers Care Lead Cargoman Name Role Phone Marivel SEGURA MD, Lou Ayers Primary Care Provider [phone] Reason for Visit * Reason Onset Date Comments Medication Refill 12/13/2023 Encounter Details Date Type Department Care Team (Late st Contact Info) Description 12/13/2023 Refill [facility] 200 [place] [address] Lou Lyons III, MD 200 [place] [address] Allergies Active Allergy Reactions Criticality Noted Date Comments Sulfamethoxazole-Trimethopri m 08/05/2020 Iodinated Contrast Media 01/15/2017 Vomiting and rash per pt at age 15 Penicillins Rash 12/20/1998 documented as of this encounter (statuses as of 12/15/2023) Medications Medication Sig Dispensed Refills Start Date End Date Status SENNA PO TABSIndications:E xamination following surgery Take 2 Tabs by mouth at bedtime. 120 3 06/16/2009 Active ASPIRIN EC 81 MG PO TBECIndications:D yslipidemia, goal to be determined Take one pill daily 100 3 06/16/2009 Active VITAMIN D 1000 UNIT PO CAPS 1 capsule daily 30 Cap 11 03/31/2010 Active [place]-3 Fatty Acids (FISH OIL) 1000 MG Capsule Take 1 Capsule by mouth at bedtime. Active PARoxetine (PAXIL) 40 MG Tablet Take 1 Tablet by mouth in the morning. 0 08/05/2018 Active RA Vitamin B-12 TR 1000 MCG Oral Tablet Extended Release (Cyanocobalamin ER) take 1 tablet by mouth daily 100 Tablet 3 01/23/2021 Active Spacer/Aero-Holdi ng Chambers DeviceIndications :Acute bronchitis, antibiotics not indicated Use with inhaler. [...] Oral Tablet Extended Release 24 Hour (toPROL XL)Indications:HT N, goal below 140/90 TAKE 1 TABLET BY MOUTH ONCE DAILY 90 Tablet 3 02/06/2023 Active metFORMIN HCl 1000 MG Oral Tablet (Glucophage)Indic ations:Type 2 diabetes mellitus with hemoglobin A1c goal of less than 7.0% (HCC) take 1 tablet by mouth twice a day with food MORNING AND EVENING 180 Tablet 2 04/29/2023 Active Atorvastatin Calcium 80 MG Oral Tablet (Lipitor)Indicati ons:Dyslipidemia, goal LDL below 100,Hyperlipemia, mixed Take 1 Tablet by mouth in the morning. In the morning.. 90 Tablet 3 05/27/2023 Active Levothyroxine Sodium 175 MCG Oral Tablet (Levoxyl) TAKE 1 TABLET BY MOUTH ONCE DAILY AT LEAST 30 MINUTES PRIOR TO BREAKFAST/OTHER MEDS 90 Tablet 3 07/12/2023 Active Warfarin Sodium 5 MG Oral Tablet (Coumadin)Indicat ions:History of pulmonary embolus (PE) Take 1/2 to 1 tablet by mouth every evening. Take as directed by the anticoag clinic. 30 Tablet 1 10/29/2023 Active Fenofibrate Micronized 134 MG Oral CapsuleIndication s:Dyslipidemia, goal LDL below 100,Hyperlipemia, mixed TAKE 1 CAPSULE BY MOUTH EVERY MORNING 90 Capsule 11/12/2023 Active oxyBUTYnin Chloride 5 MG Oral Tablet (Ditropan) 1/2 tab in the morning. 1 tab in the evening. 90 Tablet 3 12/15/2023 Active oxyBUTYnin Chloride 5 MG Oral Tablet (Ditropan) 1/2 tab in the morning. 1 tab in the evening. 90 Tablet 3 10/07/2023 12/13/2023 Discontinue d(Refill) documented as of this encounter (statuses as of 12/15/2023) Active Problems Problem Noted Date Diagnosed Date [...] as of this encounter (statuses as of 12/15/2023) Resolved Problems Problem Noted Date Diagnosed Date Resolved Date DM type 2 (diabetes mellitus, type 2) 12/27/2015 05/08/2016 Hypothyroidism 09/20/2014 11/12/2016 HYPOTHYROIDISM NOS 5 documented as of this encounter (statuses as of 12/15/2023) Immunizations Name Administration Dates Next Due COVID-19 mRNA, LNP-s, No Pre serve, 2-Dose Series ([email or web address]) 04/08/2020,03/18/2020 COVID-19, MRNA-LNP, PF, 30 M CG/0.3 mL, 12 YRS AND ABOVE, IM ([facility]) 04/08/2023 Hepatitis B, 20+ yrs 05/13/2017,03/12/2016,02/06 Pneumococcal Conjugate Vacci ne, 20-valent ([id number]) 03/13/2022 Pneumococcal Polysaccharide PPV23 (Pneumovax) 10/12/2020,12/12/2015 Seasonal [...] Encounter - Lou Lyons III, MD - 12/15/2023 8:05 AM ESTSigned Prescriptions: Disp Refills oxyBUTYnin Chloride 5 MG Oral Tablet (Ditr*90 Tab*3 Si/2 tabin the morning. 1 tab in the evening.Authorizing Provider: LOU LYONS III * Telephone Encounter - Rafat Mares CMA - 12/13/2023 3:00 PM EDTPending Prescriptions: Disp Refills oxyBUTYnin Chloride 5 MG Oral Tablet (Ditr*90 Tab*3 Si/2 tab in the morning. 1 tab in the evening. * Telephone Encounter - Nivia Singh OSA - 12/13/2023 12:52 PM EDT Rx is a 90 day request * Telephone Encounter - Nivia Singh OSA - 12/13/2023 12:46 PM EDT Did you pend patient's preferred pharmacy and medication before forwarding?yes Pharmacy: [id number] [address] [facility] Pending Prescriptions: Disp Refills oxyBUTYnin Chloride 5 MG Oral Tablet (Dit*90 Tab*3 Si/2 tab in the morning. 1 tab in the evening. Last Visit: 10/07/2023 (in office), Visit date not found (telemedicine) Next Visit: 12/17/2023 If no future appointments scheduled, and last appointment is greater than a year ago, please schedule patient for a follow-up appointment Last date the medication was ordered: 10/07/23 Is this request for a controlled substance?No [...] AM ALT 24 08/05/2018 10:45 AM HGBA1C 6.5 (H) 07/22/2023 10:40 AM HGBA1C 6.6 (H) 12/21/2019 02:33 PM documented in this encounter Plan of Treatment Upcoming Encounters Date Type Department Care Team (Late st Contact Info) Description 12/17/2023 8:40 AM EST Office Visit Family Practice [facility] [address] [place] [address] MarivelLou saul III, MD [address] [place] [address] [address] 12/30/2023 10:00 AM EST Anticoagulation Pharmacy, [facility] [address] [place] [address] [address] Pharmacist2, [facility] [address] [place] [address] 01/30/2024 2:15 PM EST Office Visit [facility], [facility] [place] [address] Rosendo Alcantar, DO [facility] [place] [address] 03/10/2024 8:30 AM EST Office Visit [facility]iology, [facility] [place] [address] Maci Verdugo PA-C 132 [facility] [place] [address] Scheduled Procedures Name Priority Associated Diagnoses Date/Ti [...] Relationship Healthcare Agent Relationshi p Communication Carolyne [facility] Care Repr esentative (appointed verbally by patient or by statute hierarchy) Care Teams Lead Cargoman Relationship Specialty Start Date End Date Lou Lyons III, MD 200 [place] [address] PCP - General 09/26/1995 documented as of this encounter
--- OUTSIDE RECORDS SUMMARY | 2024-04-13 08:43 | External Medical Summary | Summary of Care ---
Author Name Unknown Organization [facility] Address [address] [place] [address] Phone [phone] Care Team Providers Care Maintenance Mechanic Technician Name Role Phone Marivel SEGURA MD, Maurilio Ayers Primary Care Provider [phone] Reason for Visit * Reason Comments Physical-Exam Encounter Details Date Type Department Care Team (Late st Contact Info) Description 12/17/2023 8:40 AM EST Office Visit [facility] [address] [facility] [place] [address] Maurilio Orta III, MD 200 [place] [address] Routine medical exam*; Type 2 diabetes mellitus with hemoglobin A1c goal of less than 7.0% ([facility]); Acquired hypothyroidism; HTN, goal below 140/90; Xerosis cutis Allergies Active Allergy Reactions Criticality Noted Date Comments Sulfamethoxazole-Trimethopri m 08/05/2020 Iodinated Contrast Media 01/15/2017 Vomiting and rash per pt at age 15 Penicillins Rash 12/20/1998 documented as of this encounter (statuses as of 12/17/2023) Medications Medication Sig Dispensed Refills Start Date End Date Status SENNA PO TABSIndications:E xamination following surgery Take 2 Tabs by mouth at bedtime. 120 3 06/16/2009 Active VITAMIN D 1000 UNIT PO CAPS 1 capsule daily 30 Cap 11 03/31/2010 Active Lena-3 Fatty Acids (FISH OIL) 1000 MG Capsule [...] the evening. 90 Tablet 3 12/15/2023 Active Triamcinolone Acetonide 0.1 % External Cream (Aristocort) Apply topically to affected area 2 times a day. To affected area. 60 g 5 12/17/2023 Active ASPIRIN EC 81 MG PO TBECIndications:D yslipidemia, goal to be determined Take one pill daily 100 3 06/16/2009 12/17/2023 Discontinue d(Medicatio n/Dose Changed) documented as of this encounter (statuses as of 12/17/2023) Active Problems Problem Noted Date Diagnosed Date History of pulmonary embolus (PE) 04/26/2023 HTN, goal below 140/90 03/13/2022 Obesity, Class I, BMI 30.0-34.9 (see actual BMI) 03/12/2017 Acquired hypothyroidism 11/12/2016 Type 2 diabetes mellitus wit h hemoglobin A1c goal of less than 7.0% 05/08/2016 Class 2 obesity in adult 12/27/2015 Schizoaffective disorder documented as of this encounter (statuses as of 12/17/2023) Resolved Problems Problem Noted Date Diagnosed Date Resolved Date DM type 2 (diabetes mellitus, type 2) 12/27/2015 05/08/2016 Hypothyroidism 09/20/2014 11/12/2016 ADVANCE DIRECTIVE INFORMATION 12/04/2004 12/16/2023 Overview: No, Advance Directive brochure offered , patient declined. HYPOTHYROIDISM NOS 5 documented as of this encounter (statuses as of 12/17/2023) Immunizations Name Administration Dates Next Due COVID-19 mRNA, LNP-s, No Pre serve, 2-Dose Series (Geofusion) 04/08/2020,03/18/2020 COVID-19, MRNA-LNP, PF, 30 M CG/0.3 mL, 12 YRS AND ABOVE, IM (PFIZER-Comirnaty) 04/08/2023 Hepatitis B, 20+ yrs 05/13/2017,03/12/2016,02/06 Pneumococcal Conjugate Vacci ne, 20-valent ([id number]) 03/13/2022 Pneumococcal Polysaccharide PPV23 (Pneumovax) 10/12/2020,12/12/2015 Seasonal [...] 0 02/12/1984 - 02/11/1990 Smokeless Tobacco: Never Tobacco Cessation:Counseling Given: Not Answered Alcohol Use Standard Drinks/Week Comments Yes 0 [...] on file documented as of this encounter Last Filed Vital Signs Vital Sign Reading Time Taken Comments Blood Pressure 124/64 12/17/2023 8:20 AM EST Pulse 70 12/17/2023 8:20 AM EST Temperature 36.6 C (97.9 F) 12/17/2023 8:20 AM ES T Respiratory Rate 16 12/17/2023 8:20 AM EST Oxygen Saturation - - Inhaled Oxygen Concentration - - Weight 119.7 kg (264 lb) 12/17/2023 8:20 AM EST Height 185.4 cm (6' 0.99") 12/17/2023 8:20 AM ES T Body Mass Index 34.84 12/17/2023 8:20 AM EST documented in this encounter Progress Notes * Marivel SEGURA, Maurilio Ayers MD - 12/17/2023 9:01 AM EST Subjective: Twin Chowdhury is a 63 year old male. Chief Complaint Patient presents with Physical-Exam HPI: Physical examination follow-up hyper tension diabetes mellitus hypothyroidism generally is feeling well eyes have been checked sees dentist no swallowing difficulties not getting much in the wayof exercise no exertional chest pain however no shortness of breath no bleeding urine or bowels no s welling of his ankles no lumps or swelling in the groin area she has always PMH: Patient Active Problem List Diagnosis Schizoaffective disorder Class 2 obesity in adult Type 2 diabetes mellitus with hemoglobin A1c goal of less than 7.0% (HCC) Acquired hypothyroidism Obesity, Class I, BMI 30.0-34.9 (see actual BMI) HTN, goal below 140/90 History of pulmonary embolus (PE) Current Outpatient Medications Medication Sig Dispense Refill SENNA PO TABS Take 2 Tabs by mouth at bedtime. 120 3 VITAMIN D 1000 UNIT PO CAPS 1 capsule daily 30 Cap 11 Lena-3 Fatty Acids (FISH OIL) 1000 MG Capsule Take 1 Capsule by mouth at bedtime. PARoxetine (PAXIL) 40 MG Tablet Take 1 Tablet by mouth in the morning. 0 RA Vitamin B-12 TR 1000 MCG Oral Tablet Extended Release (Cyanocobalamin ER) take 1 tablet by mouthdaily 100 Tablet 3 Spacer/Aero-Holding Chambers Device Use with inhaler. 1 Each 0 Cetirizine HCl 10 MG Oral Tablet (ZyrTEC Allergy) Take 1 Tablet by mouth in the morning. 15 Tablet 0 clonazePAM 0.5 MG Oral Tablet (KlonoPIN) Take 1 Tablet by mouth in the morning and 1 Tablet before bedtime. 60 Tablet 5 cloZAPine 200 MG Oral Tablet Take 1.5 Tablets by mouth at bedtime. Takes (2) 200 mg at bedtime 45 Tablet 5 Triamcinolone Acetonide 0.1 % External Cream (Aristocort) apply topically to affected area twice a day ARIPiprazole 10 MG Oral Tablet (Abilify) Take 1 Tablet by mouth in the morning. Lisinopril 2.5 MG Oral Tablet (Prinivil) Take 1 Tablet by mouth in the morning. 90 Tablet 3 Metoprolol Succinate ER 25 MG Oral Tablet Extended Release 24 Hour (toPROL XL) TAKE 1 TABLET BY MOUTH ONCE DAILY 90 Tablet 3 metFORMIN HCl 1000 MG Oral Tablet (Glucophage) take 1 tablet by mouth twice a day with food MORNINGAND EVENING 180 Tablet 2 Atorvastatin Calcium 80 MG Oral Tablet (Lipitor) Take 1 Tablet by mouth in the morning. In the morning.. 90 Tablet 3 Levothyroxine Sodium 175 MCG Oral Tablet (Levoxyl) TAKE 1 TABLET BY MOUTH ONCE DAILY AT LEAST 30 MINUTES PRIOR TO BREAKFAST/OTHER MEDS 90 Tablet 3 Warfarin Sodium 5 MG Oral Tablet (Coumadin) Take 1/2 to 1 tablet by mouth every evening. Take as directed by the anticoag clinic. 30 Tablet 1 Fenofibrate Micronized 134 MG Oral Capsule TAKE 1 CAPSULE BY MOUTH EVERY MORNING 90 Capsule 0 oxyBUTYnin Chloride 5 MG Oral Tablet (Ditropan) 1/2 tab in the morning. 1 tab in the evening. 90 Tablet 3 Triamcinolone Acetonide 0.1 % External Cream (Aristocort) Apply topically to affected area 2 times a day. To affected area. 60 g 5 No current facility-administered medications for this visit. Review of patient's allergies indicates: Allergen Reactions Bactrim [Sulfamethoxazole-Trimethoprim] Iodinated Contrast Media Vomiting and rash per pt at age 15 Penicillins Rash Past Medical History: Diagnosis Date Benign neoplasm of colon 06/14/2014 adenomatous polyps, repeat 5 yrs Bipolar I disorder, most recent episode depressed, mild (HCC) Hypothyroidism Past Surgical History: Procedure Laterality Date COLONOSCOPY, DIAGNOSTIC (RECTUM) 06/14/2014 adenomatous polyps, repeat 5 yrs/COLONOSCOPY FLEXIBLE PROXIMAL DIAGNOSTIC performed by Fran Medley MD at ENDOSCOPY [facility] COLONOSCOPY, DIAGNOSTIC (RECTUM) 11/23/2019 adenomatous polyps, diverticulosis, fair prep, repeat 1 yr / COLONOSCOPY FLEXIBLE PROXIMAL DIAGNOSTIC performed by Fran Medley MD at ENDOSCOPY [facility] COLONOSCOPY, DIAGNOSTIC (RECTUM) 07/10/2022 diverticulosis/hemorrhoids/biopsies show adenomatous polyps/recall 5 years/COLONOSCOPY FLEXIBLE PROXIMAL DIAGNOSTIC performed by Fran Medley MD at ENDOSCOPY [facility] EXC BREAST LESION RADMARK Right 09/13/2020 TRIMALLEOLAR ANKLE FX REPAIR W/FIX POST LIP Objective: The patient is a 63 year old male BP 124/64 | Pulse 70 | Temp 36.6 C (97.9 F) | Resp 16 | Ht 1.854 m (6' 0.99") | Wt 119.7 kg (264 lb) | BMI 34.84 kg/m | BSA 2.48 m General: alert, healthy, and no distress Eye Exam: PERRLA, extraocular movements intact, conjunctiva are pink and non- injected, sclera clear Ears: External ears normal, Canals clear, TM's Normal Oropharynx: no exudate, no erythema, lips, buccal mucosa, and tongue normal, and mucous membranes are moist Heart: regular rate & rhythm, no murmur, and no gallops Lungs: lungs clear to auscultation Pulses: carotid=2/4 w/o bruits Abdomen: abdomen soft, non-tender, normal bowel sounds, and no masses or organomegaly Extremities: no edema, no clubbing, no cyanosis Neuro Exam: alert & oriented x 3 with fluent speech, reflexes normal and symmetric Exam (Male): no abnormalities of scrotal contents, no hernia detected Rectal: prostate and seminal vesicles non-tender without nodules ASSESSMENT: (E11.9) Type 2 diabetes mellitus with hemoglobin A1c goal of less than 7.0% (HCC) (primary encounter diagnosis) (E03.9) Acquired hypothyroidism (I10) HTN, goal below 140/90 PLAN: Sun protection discussed lipids TSH free T4 from July reviewed check A1c continue present meds callif problems increase exercise slowly progress up to 150 minutes of aerobic activity a week 2-3 daysof resistance work RSV and COVID vaccines discussed encouraged refill triamcinolone encourage moisturizers short warm showers wheeze xerosis cutis Total time 31 minutes Follow up in 6 month(s). Maurilio Orta III, MD * Meggan Solorzano, RN - 12/17/2023 8:20 AM EST Feels OK. documented in this encounter Plan of Treatment Upcoming Encounters Date Type Department Care Team (Late st Contact Info) Description 12/30/2023 10:00 AM EST Anticoagulation Pharmacy, [facility] [address] [place] [address] Pharmacist2, [facility] [address] [place] [address] 01/30/2024 2:15 PM EST Office Visit Ophthalmology, [facility] [address] [facility] [place] [address] Rosendo Alcantar DO [address] [facility] [place] [address] 03/10/2024 8:30 AM EST Office Visit Cardiology, [facility] [address] [facility] [place] [address] Maci Verdugo PA-C [address] [facility] [place] [address] 06/17/2024 8:20 AM EDT Office Visit Family Practice [facility] [address] [place] [address] Maurilio Orta III, MD [address] [facility] [place] [address] Scheduled Orders Name Type Priority Associated Diagnoses Orde r Schedule HEMOGLOBIN A1C Lab Routine Type 2 diabetes mellitus with hemoglobin A1c goal of less than 7.0% (HCC) Expected: 12/17/2023 (Approximate), Expires: 12/16/2024 Scheduled Procedures Name Priority Associated Diagnoses Date/Ti [...] as of this encounter Visit Diagnoses Diagnosis Routine medical exam- Primary Routine general medical examination at a health care facility Type 2 diabetes mellitus with hemoglobin A1c goal of less than 7.0% (HCC) Acquired hypothyroidism Unspecified hypothyroidism HTN, goal below 140/90 Unspecified essential hypertension Xerosis cutis Other specified disease of sebaceous glands documented in this encounter Advance Directives Healthcare Agents on File Name Relationship Healthcare Agent Relationshi p Communication [facility] Care Repr esentative (appointed verbally by patient or by statute hierarchy) Care Teams Maintenance Mechanic Technician Relationship Specialty Start Date End Date Maurilio Orta III, MD [address] [place] [address] PCP - General 09/26/1995 documented as of this encounter
--- OUTSIDE RECORDS SUMMARY | 2024-04-13 08:44 | External Medical Summary | Summary of Care ---
Author Name Unknown Organization [facility] Address [address] [place] [address] Phone [phone] Care Team Providers Care Fish Machine Feeder Name Role Phone Marivel SEGURA MD, Maurilio Ayers Primary Care Provider [phone] Reason for Visit * Reason Comments Outpatient Testing Encounter Details Date Type Department Care Team (Late st Contact Info) Description 11/11/2023 11:40 AM EDT Laboratory Laboratory [facility] [address] [place] [address] [place], [facility] [address] [place] [address] Anxiety state; Paranoid schizophrenia, subchronic condition (HCC); Encounter for long-term (current) use of other medications Allergies Active Allergy Reactions Criticality Noted Date Comments Sulfamethoxazole-Trimethopri m 08/05/2020 Iodinated Contrast Media 01/15/2017 Vomiting and rash per pt at age 15 Penicillins Rash 12/20/1998 documented as of this encounter (statuses as of 11/11/2023) Medications Medication Sig Dispensed Refills Start Date End Date Status SENNA PO TABSIndications:Exam ination following surgery Take 2 Tabs by mouth at bedtime. 120 3 06/16/2009 Active ASPIRIN EC 81 MG PO TBECIndications:Dysl ipidemia, goal to be determined Take one pill daily 100 3 06/16/2009 Active VITAMIN D 1000 UNIT PO CAPS 1 capsule daily 30 Cap 11 03/31/2010 Active Lucien-3 Fatty Acids (FISH OIL) 1000 MG Capsule [...] by mouth in the morning. 08/31/2022 Active Fenofibrate Micronized 134 MG Oral CapsuleIndications:D yslipidemia, goal LDL below 100,Hyperlipemia, mixed take 1 capsule by mouth every morning 90 Capsule 3 10/31/2022 Active Lisinopril 2.5 MG Oral Tablet (Prinivil) [...] every evening. Take as directed by the [facility]. 30 Tablet 1 10/29/2023 Active documented as of this encounter (statuses as of 11/11/2023) Active Problems Problem Noted Date Diagnosed Date [...] as of this encounter (statuses as of 11/11/2023) Resolved Problems Problem Noted Date Diagnosed Date Resolved Date DM type 2 (diabetes mellitus, type 2) 12/27/2015 05/08/2016 Hypothyroidism 09/20/2014 11/12/2016 HYPOTHYROIDISM NOS 5 documented as of this encounter (statuses as of 11/11/2023) Immunizations Name Administration Dates Next Due COVID-19 mRNA, LNP-s, No Pre serve, 2-Dose Series ([employer]) 04/08/2020,03/18/2020 Hepatitis B, 20+ yrs 05/13/2017,03/12/2016,02/06 Pneumococcal Conjugate Vacci ne, 20-valent ([id number]) 03/13/2022 Pneumococcal Polysaccharide PPV23 (Pneumovax) 10/12/2020,12/12/2015 Seasonal Influenza, PF, 6 M & above, IM , (FluLaval or Fluzone) 11/25/2021,10/26/2020,12/21/2019(Defer red: Patient Refused),11/12/2016 Seasonal Influenza, Quadriva lent, No Preserve, IM 11/25/2022,10/26/2018,10/10/2018,11/10,11/20/2014 Seasonal Influenza, Quadriva lent, No Preserve, Mdck 11/20/2017 Seasonal Influenza, Trivalen t, (IIV3), with Preserv, (Fluzone) 11/25/2017,09/23/2016,10/30/2013,11/21 TDAP (age 10 and older)(Boostrix) 11/12/2017 TDAP, [...] Care Team (Late st Contact Info) Description 11/18/2023 9:40 AM EDT Anticoagulation Pharmacy, [facility] [place] [address] [place] [address] Pharmacist2, [facility] [address] [place] [address] 01/30/2024 2:15 PM EST Office Visit Ophthalmology, [facility] [address] [place] [place] [address] Rosendo Alcantar, DO [address] [facility] [place] [phone] Scheduled Procedures Name Priority Associated Diagnoses Date/Ti [...] as of this encounter Visit Diagnoses Diagnosis Anxiety state Anxiety state, unspecified Paranoid schizophrenia, subchronic condition (HCC) Paranoid schizophrenia, subchronic condition Encounter for long-term (current) use of other medications documented in this encounter Advance Directives Healthcare Agents on File Name Relationship Healthcare Agent Relationshi p Communication Carolyne Chowdhury [facility] Care Repr esentative (appointed verbally by patient or by statute hierarchy) Care Teams Fish Machine Feeder Relationship Specialty Start Date End Date Maurilio Orta III, MD 200 [place] [address] PCP - General 09/26/1995 documented as of this encounter
--- OUTSIDE RECORDS SUMMARY | 2024-04-13 08:44 | External Medical Summary | Summary of Care ---
Author Name Unknown Organization [facility] Address [address] [place] [address] Phone [phone] Care Team Providers Care Jewel Bearing Polisher Name Role Phone Marivel SEGURA MD, Lou Ayers Primary Care Provider [phone] Reason for Visit * Reason Onset Date Comments Medication Refill 10/28/2023 Encounter Details Date Type Department Care Team (Late st Contact Info) Description 10/28/2023 [facility] [address] [facility] [address] Lou Lyons [facility], MD [address] [facility] [address] History of pulmonary embolus (PE) Allergies Active Allergy Reactions Criticality Noted Date Comments Sulfamethoxazole-Trimethopri m 08/05/2020 Iodinated Contrast Media 01/15/2017 Vomiting and rash per pt at age 15 Penicillins Rash 12/20/1998 documented as of this encounter (statuses as of 10/29/2023) Medications Medication Sig Dispensed Refills Start Date End Date Status SENNA PO TABSIndications:E xamination following surgery Take 2 Tabs by mouth at bedtime. 120 3 06/16/2009 Active ASPIRIN EC 81 MG PO TBECIndications:D yslipidemia, goal to be determined Take one pill daily 100 3 06/16/2009 Active VITAMIN D 1000 UNIT PO CAPS 1 capsule daily 30 Cap 11 03/31/2010 Active Gwynedd-3 Fatty Acids (FISH OIL) 1000 MG Capsule [...] 08/31/2022 Active Fenofibrate Micronized 134 MG Oral CapsuleIndication s:Dyslipidemia, goal LDL below 100,Hyperlipemia, mixed take 1 [...] anticoag clinic. 30 Tablet 1 10/29/2023 Active Warfarin Sodium 5 MG Oral Tablet (Coumadin)Indicat ions:History of pulmonary embolus (PE) Take 1 Tablet by mouth every evening. Take as directed by the anticoag clinic. 30 Tablet 1 05/20/2023 10/28/2023 Discontinue d(Refill) documented as of this encounter (statuses as of 10/29/2023) Active Problems Problem Noted Date Diagnosed Date [...] as of this encounter (statuses as of 10/29/2023) Resolved Problems Problem Noted Date Diagnosed Date Resolved Date DM type 2 (diabetes mellitus, type 2) 12/27/2015 05/08/2016 Hypothyroidism 09/20/2014 11/12/2016 HYPOTHYROIDISM NOS 5 documented as of this encounter (statuses as of 10/29/2023) Immunizations Name Administration Dates Next Due COVID-19 mRNA, LNP-s, No Pre serve, 2-Dose Series (Stream) 04/08/2020,03/18/2020 Hepatitis B, 20+ yrs 05/13/2017,03/12/2016,02/06 Pneumococcal Conjugate Vacci ne, 20-valent ([id number]) 03/13/2022 Pneumococcal Polysaccharide PPV23 (Pneumovax) 10/12/2020,12/12/2015 Seasonal [...] Miscellaneous Notes * Telephone Encounter - Rut Crowe CPhT - 10/29/2023 3:22 PM EDT Pt calling to request warfarin. Informed pt that RX is available at their pharmacy. Pt verbalized understanding and stated they will check with their pharmacy regarding this medication. Thank you, Rut Croew CPhT II Identity Access Management Architect [facility] ([facility]) 10/29/2023, 3:22 PM * Telephone Encounter - Vicenta Archer [facility] - 10/29/2023 3:14 PM EDTSigned Prescriptions: Disp Refills Warfarin Sodium 5 MG Oral Tablet (Coumadin)30 Tab*1 Sig: Take 1/2 to 1 tablet by mouth every evening. Take as directed by the [facility].Authorizing Provider:LOU LYONS III User: VICENTA ARCHER * Telephone Encounter - Vicenta Archer [facility] - 10/29/2023 3:12 PM EDT Per 10/20 note: Current Warfarin Dose As of 10/21/2023 Warfarin maintenance plan: 5 mg (5 mg x 1) every Mon, Fri; 2.5 mg (5 mg x 0.5) all other days ThanksVicenta, PharmD Clinical Pharmacist [facility] ([facility]) [phone] 10/29/2023 3:12 PM * Telephone Encounter - Casper Smart CPhT - 10/28/2023 11:42 AM EDT Did you pend patient's preferred pharmacy and medication before forwarding?yes Pharmacy: [id number] Pending Prescriptions: Disp Refills Warfarin Sodium 5 MG Oral Tablet (Coumadi*30 Tab*1 Sig: Take 1 Tablet by mouth every evening. Take as directed by the [facility]. Last Visit: 10/07/2023 (in office), Visit date not found (telemedicine) Next Visit: Visit date not found If no future appointments scheduled, and last appointment is greater than a year ago, please schedule patient for a follow-up appointment Last date the medication was ordered: 05/20/23 Is this request for a controlled substance?No [...] AM HGBA1C 6.6 (H) 12/21/2019 02:33 PM Thank you, Nik Smart (electric range servicer) Identity Access Management Architect III [facility] ([facility]) 10/28/2023, 11:42 AM documented in this encounter Plan of Treatment Upcoming Encounters Date Type Department Care Team (Late st Contact Info) Description 11/18/2023 9:40 AM EDT Anticoagulation Pharmacy, [facility] [place] [address] [facility] [place] [address] Pharmacist2, [facility] [address] [place] [address] 01/30/2024 2:15 PM EST Office Visit Ophthalmology, [facility] [address] [place] [address] Rosendo Alcantar, DO [address] [place] [address] Scheduled Procedures Name Priority Associated Diagnoses Date/Ti [...] 02/13/2022, Additional history exists Colonoscopy 07/11/2027 07/10/2022, 053 , 11/23/2019, Additional history exists Colorectal Cancer Screening [...] Name Relationship Healthcare Agent Relationshi p Communication [facility] Repr esentative (appointed verbally by patient or by statute hierarchy) Care Teams Jewel Bearing Polisher Relationship Specialty Start Date End Date Lou Lyons III, MD [address] [place] [address] PCP - General 09/26/1995 documented as of this encounter
--- OUTSIDE RECORDS SUMMARY | 2024-04-13 08:44 | External Medical Summary ---
Author Name Unknown Address Unknown Organization K09:[facility] [place] [address] [place] [address] Laboratory Report Ordering Provider Test Date Status REGINALDO FLORES 11/11/2023 11:39:53 Final Observation Date Value Abnormality Reference (Units ) Status WBC, Total 11/11/2023 11:39:53 7.90 4.00-10.8 0 (K/uL) Final RBC 11/11/2023 11:39:53 5.16 4.50-5.25 (M/uL) Final Hemoglobin 11/11/2023 11:39:53 14.3 14.0-16.8 (g/dL) Final HCT 11/11/2023 11:39:53 44.2 40.0-48.4 (%) Final MCV 11/11/2023 11:39:53 85.7 82.0-99.5 (fL) Final MCH 11/11/2023 11:39:53 27.7 27.0-34.0 (pg) Final MCHC 11/11/2023 11:39:53 32.4 32.0-36.0 (g/dL) Final RDW 11/11/2023 11:39:53 14.9 11.5-15.5 (%) Final Platelets 11/11/2023 11:39:53 210 140-400 (K /uL) Final MPV 11/11/2023 11:39:53 11.7 6.6-11.1 ( fL) Final Performing Location [facility] [place] [address]
--- OUTSIDE RECORDS SUMMARY | 2024-04-13 08:44 | External Medical Summary | Summary of Care ---
Author Name Unknown Organization [facility] Address [address] [place] [address] Phone [phone] Care Team Providers Care Dba Developer Name Role Phone Marivel SEGURA MD, Maurilio Ayers Primary Care Provider [phone] Reason for Visit * Reason Onset Date Comments Test Results 10/29/2023 Encounter Details Date Type Department Care Team (Late st Contact Info) Description 10/29/2023 Telephone Family Practice [facility] 200 [facility] [place] [address] Maurilio Orta III, MD 200 [place] [address] Test Results Allergies Active Allergy Reactions Criticality Noted Date [...] capsule daily 30 Cap 11 03/31/2010 Active [place]-3 Fatty Acids (FISH OIL) 1000 MG Capsule Take 1 Capsule by mouth at bedtime. Active PARoxetine (PAXIL) 40 MG Tablet Take 1 Tablet by mouth in the morning. 0 08/05/2018 Active RA Vitamin B-12 TR 1000 MCG Oral Tablet Extended Release (Cyanocobalamin ER) take 1 tablet by mouth daily 100 Tablet 3 01/23/2021 Active Spacer/Aero-Holding Chambers DeviceIndications:Ac nul[place] bronchitis, antibiotics not indicated Use with inhaler. [...] every evening. Take as directed by the [facility]. 30 Tablet 1 10/29/2023 Active [...] mRNA, LNP-s, No Pre serve, 2-Dose Series ([employer]) 04/08/2020,03/18/2020 Hepatitis B, 20+ yrs 05/13/2017,03/12/2016,02/06 Pneumococcal Conjugate Vacci ne, 20-valent ([id number]) 03/13/2022 Pneumococcal Polysaccharide PPV23 (Pneumovax) 10/12/2020,12/12/2015 Seasonal [...] encounter Miscellaneous Notes * Telephone Encounter - Meggan Solorzano RN - 10/29/2023 3:20 PM EDT Pt aware of below. * Telephone Encounter - Ban George LPN - 10/29/2023 2:31 PM EDT ----- Message from Maurilio Orta MD sent at 10/25/2023 10:25 AM EDT ----- Call please would continue metoprolol as ordered call if worsening symptoms generally sinus rhythm when diary entries were made documented in this encounter Plan of Treatment Upcoming Encounters Date Type Department Care Team (Late st Contact Info) Description 11/18/2023 9:40 AM EDT Anticoagulation Pharmacy, [facility] [address] [facility] [place] [address] Pharmacist2, [facility] [address] [facility] [place] [address] 01/30/2024 2:15 PM EST Office Visit Ophthalmology, [facility] [address] [facility] [place] [address] Rosendo Alcantar DO [address] [place] [address] Scheduled Procedures Name Priority Associated Diagnoses Date/Ti [...] Name Relationship Healthcare Agent Relationshi p Communication Carolynearianna Chowdhury [facility] Care Repr esentative (appointed verbally by patient or by statute hierarchy) Care Teams Dba Developer Relationship Specialty Start Date End Date Marivel SEGURA, Maurilio Ayers MD [address] [facility] [address] PCP - General 09/26/1995 documented as of this encounter
--- OUTSIDE RECORDS SUMMARY | 2024-04-13 08:44 | External Medical Summary | Summary of Care ---
Author Name Unknown Organization [facility] Address [address] [place] [address] Phone [phone] Care Team Providers Care Ammonia Nitrate Operator Name Role Phone Marivel SEGURA MD, Maurilio Ayers Primary Care Provider [phone] Reason for Visit * Reason Comments Outpatient Testing Encounter Details Date Type Department Care Team (Late st Contact Info) Description 11/11/2023 11:40 AM EDT Laboratory Laboratory [facility]ery [facility] [address] [place] [address] [place], Lab Scenery [address] [place] [address] Anxiety state; Paranoid schizophrenia, subchronic condition (HCC); [...] capsule daily 30 Cap 11 03/31/2010 Active [place]-3 Fatty Acids (FISH OIL) 1000 MG [...] every evening. Take as directed by the [facility]. 30 Tablet 1 10/29/2023 [...] mRNA, LNP-s, No Pre serve, 2-Dose Series ([employer]) 04/08/2020,03/18/2020 Hepatitis B, 20+ yrs 05/13/2017,03/12/2016,02/06 Pneumococcal Conjugate Vacci ne, 20-valent ([id number]) 03/13/2022 Pneumococcal Polysaccharide PPV23 (Pneumovax) 10/12/2020,12/12/2015 Seasonal [...] 9:40 AM EDT Anticoagulation Pharmacy, [facility] [place] [address] [place] [address] Pharmacist2, [facility] [address] [place] [address] 01/30/2024 2:15 PM EST Office Visit Ophthalmology, [facility] [address] [place] [place] [address] Rosendo Alcantar, DO 21 [facility] [place] [id number] Pending Results Name Type Priority Associated Diagnoses Date /Time CBC WITH WBC DIFFERENTIAL Lab Routine Paranoid schizophrenia, subchronic condition (HCC) Anxiety state Encounter for long-term (current) use of other medications 11/11/2023 11:39 AM EDT CBC Lab Routine Paranoid schizophrenia, subchronic condition (HCC) Anxiety state Encounter for long-term (current) use of other medications 11/11/2023 11:39 AM EDT DIFFERENTIAL, AUTOMATED Lab Routine Paranoid schizophrenia, subchronic condition (HCC) Anxiety state Encounter for long-term (current) use of other medications 11/11/2023 11:39 AM EDT Scheduled Procedures Name Priority Associated Diagnoses Date/Ti [...] Healthcare Agent Relationshi p Communication Carolyne Chowdhury [facility] Care Repr esentative (appointed verbally by patient or by statute hierarchy) Care Teams Ammonia Nitrate Operator Relationship Specialty Start Date End Date Marivel SEGURA, Maurilio Ayers MD 200 [facility] [place] [address] PCP - General 09/26/1995 documented as of this encounter
--- OUTSIDE RECORDS SUMMARY | 2024-04-13 08:44 | External Medical Summary | Summary of Care ---
Author Name Unknown Organization [facility] Address [address] [place] [address] Phone [phone] Care Team Providers Care Industrial Maintenance Repairer Helper Name Role Phone Marivel SEGURA MD, Maurilio Ayers Primary Care Provider [phone] Reason for Visit * Reason Comments Outpatient Testing Encounter Details Date Type Department Care Team (Late st Contact Info) Description 11/11/2023 11:40 AM EDT Laboratory Laboratory Scenery [facility] [address] [place] [address] [place], Lab Scenery [address] [place] [address] Anxiety state; Paranoid schizophrenia, subchronic condition (HCC); [...] capsule daily 30 Cap 11 03/31/2010 Active [place]-3 Fatty Acids (FISH OIL) 1000 MG Capsule [...] mRNA, LNP-s, No Pre serve, 2-Dose Series (Tong[employer]ue) 04/08/2020,03/18/2020 Hepatitis B, 20+ yrs 05/13/2017,03/12/2016,02/06 Pneumococcal Conjugate Vacci ne, 20-valent ([id number]) 03/13/2022 Pneumococcal Polysaccharide PPV23 (Pneumovax) 10/12/2020,12/12/2015 Seasonal [...] 9:40 AM EDT Anticoagulation Pharmacy, [facility] [place] [address] [place] [address] Pharmacist2, [facility] [address] [place] [address] 01/30/2024 2:15 PM EST Office Visit Ophthalmology, [facility] [address] [place] [address] Rosendo Alcantar, DO 21 [facility] [place] [phone] Pending Results Name Type Priority Associated Diagnoses [...] Healthcare Agent Relationshi p Communication Carolyne Chowdhury [facility] Care Repr esentative (appointed verbally by patient or by statute hierarchy) Care Teams Industrial Maintenance Repairer Helper Relationship Specialty Start Date End Date Marivel SEGURA, Maurilio Ayers MD 200 [facility] [place] [address] PCP - General 09/26/1995 documented as of this encounter
--- OUTSIDE RECORDS SUMMARY | 2024-04-13 08:44 | External Medical Summary | Summary of Care ---
Author Name Unknown Organization [facility] Address [address] [place] [address] Phone [phone] Care Team Providers Care Bread Packer Name Role Phone Marivel SEGURA MD, Maurilio Ayers Primary Care Provider [phone] Reason for Visit * Reason Comments eRx-Medication Refill Encounter Details Date Type Department Care Team (Late st Contact Info) Description 11/08/2023 Refill Cardiology, [facility] [address] [place] [address] Naif Pérez CRNP [address] [facility] [place] [address] Dyslipidemia, goal LDL below 100; Hyperlipemia, mixed Allergies Active Allergy Reactions Criticality Noted Date Comments Sulfamethoxazole-Trimethopri m 08/05/2020 Iodinated Contrast Media 01/15/2017 Vomiting and rash per pt at age 15 Penicillins Rash 12/20/1998 documented as of this encounter (statuses as of 11/12/2023) Medications Medication Sig Dispensed Refills Start Date End Date Status SENNA PO TABSIndications:E xamination following surgery Take 2 Tabs by mouth at bedtime. 120 3 06/16/2009 Active ASPIRIN EC 81 MG PO TBECIndications:D yslipidemia, goal to be determined Take one pill daily 100 3 06/16/2009 Active VITAMIN D 1000 UNIT PO CAPS 1 capsule daily 30 Cap 11 03/31/2010 Active [place]-3 Fatty Acids (FISH OIL) 1000 MG Capsule [...] MOUTH EVERY MORNING 90 Capsule 11/12/2023 Active Fenofibrate Micronized 134 MG Oral CapsuleIndication s:Dyslipidemia, goal LDL below 100,Hyperlipemia, mixed take 1 capsule by mouth every morning 90 Capsule 3 10/31/2022 4 Discontinued documented as of this encounter (statuses as of 11/12/2023) Active Problems Problem Noted Date Diagnosed Date [...] as of this encounter (statuses as of 11/12/2023) Resolved Problems Problem Noted Date Diagnosed Date Resolved Date DM type 2 (diabetes mellitus, type 2) 12/27/2015 05/08/2016 Hypothyroidism 09/20/2014 11/12/2016 HYPOTHYROIDISM NOS 5 documented as of this encounter (statuses as of 11/12/2023) Immunizations Name Administration Dates Next Due COVID-19 mRNA, LNP-s, No Pre serve, 2-Dose Series ([employer]) 04/08/2020,03/18/2020 Hepatitis B, 20+ yrs 05/13/2017,03/12/2016,02/06 Pneumococcal Conjugate Vacci ne, 20-valent ([id number]) 03/13/2022 Pneumococcal Polysaccharide PPV23 (Pneumovax) 10/12/2020,12/12/2015 Seasonal [...] encounter Miscellaneous Notes * Telephone Encounter - Naif Pérez CRNP - 11/12/2023 1:28 PM EDT Signed Prescriptions: Disp Refills Fenofibrate Micronized 134 MG Oral Capsule 90 Cap*0 Sig: TAKE 1 CAPSULE BY MOUTH EVERY MORNING Authorizing Provider: NAIF PÉREZ * Telephone Encounter - Interface, [facility] In[facility] - 11/12/2023 11:10 AM EDT Pending Prescriptions: Disp Refills Fenofibrate Micronized 134 MG Oral Capsule 90 Cap*0 Sig: TAKE 1 CAPSULE BY MOUTH EVERY MORNING * Telephone Encounter - Patti Conteh colorist dyer - 11/12/2023 9:43 AM EDT Pending Prescriptions: Disp Refills Fenofibrate Micronized 134 MG Oral Capsule 90 Cap*0 Sig: TAKE 1 CAPSULE BY MOUTH EVERY MORNING * Telephone Encounter - Patti Conteh, colorist dyer - 11/12/2023 9:41 AM EDT Received message from [facility] regarding patient needing an appointment. Call Placed, Unable to reach pt, as there was no answer and no VM available to leave message. Letter created and sent to patient. Thank you for your assistance Patti Conteh Allergy And Immunology Chief II [facility] ([facility]) 11/12/2023,9:42 AM * Telephone Encounter - Trini Gallegos RPh - 11/09/2023 5:33 PM EDTPending Prescriptions: Disp Refills Fenofibrate Micronized 134 MG Oral Capsule 90 Cap*0 Sig: TAKE 1 CAPSULE BY MOUTH EVERY MORNING * Telephone Encounter - Trini Gallegos RPh - 11/09/2023 5:32 PM EDT Unable to authorize medication refills for pended medication(s) at this time. Part of the protocol criteria used for refill authorization was not satisfied. Per refill protocol patient should have office visit on file within past year. Former pt of CANDE Crocker Please contact patient to schedule office visit with CARDIOLOGY. Last Visit: 10/23/2022 (in office), Visit date not found (telemedicine) Next Visit: Visit date not found After contacting patient, please forward request to [facility] Diallo (unless pt schedules with a new provider, route to new provider). Thank you, Trini Gallegos PharmD Clinical Pharmacist [facility] ([facility]) [phone] 11/09/2023, 5:32 PM documented in this encounter Plan of Treatment Upcoming Encounters Date Type Department Care Team (Late st Contact Info) Description 11/18/2023 9:40 AM EDT Anticoagulation Pharmacy, [facility] [address] [place] [address] Pharmacist2, [facility] [address] [place] [address] 01/30/2024 2:15 PM EST Office Visit Ophthalmology, [facility] [address] [place] [address] Rosendo Alcantar, DO [facility] [place] [address] Scheduled Procedures Name Priority Associated Diagnoses Date/Ti [...] Healthcare Agent Relationshi p Communication Carolyne Chowdhury [facility] Care Repr esentative (appointed verbally by patient or by statute hierarchy) Care Teams Bread Packer Relationship Specialty Start Date End Date Maurilio Orta III, MD 200 [place] [address] PCP - General 09/26/1995 documented as of this encounter
--- OUTSIDE RECORDS SUMMARY | 2024-04-13 08:44 | External Medical Summary | Summary of Care ---
Author Name Unknown Organization [facility] Address [address] [place] [address] Phone [phone] Care Team Providers Care School Lunch Manager Name Role Phone Marivel SEGURA MD, Lou Ayers Primary Care Provider [phone] Reason for Visit * Reason Onset Date Comments Medication Refill 10/28/2023 Encounter Details Date Type Department Care Team (Late st Contact Info) Description 10/28/2023 [facility]ill [facility] [address] Lou Lyons III, MD [address] [facility] [address] History of pulmonary embolus (PE) Allergies Active [...] capsule daily 30 Cap 11 03/31/2010 Active [place]-3 Fatty Acids (FISH OIL) 1000 MG Capsule [...] mRNA, LNP-s, No Pre serve, 2-Dose Series ([employer]) 04/08/2020,03/18/2020 Hepatitis B, 20+ yrs 05/13/2017,03/12/2016,02/06 Pneumococcal Conjugate Vacci ne, 20-valent ([id number]) 03/13/2022 Pneumococcal Polysaccharide PPV23 (Pneumovax) 10/12/2020,12/12/2015 Seasonal [...] pharmacy regarding this medication. Thank you, Rut Crowe CPhT II Records Associate [facility] ([facility]) 10/29/2023, 3:22 PM * Telephone Encounter - Vicenta Archer [facility] - 10/29/2023 3:14 PM EDTSigned Prescriptions: Disp Refills Warfarin Sodium 5 MG Oral Tablet (Coumadin)30 Tab*1 Sig: Take 1/2 to 1 tablet by mouth every evening. Take as directed by the [facility].Authorizing Provider: LOU LYONS III User: VICENTA ARCHER * Telephone Encounter - Vicenta Archer [facility] - 10/29/2023 3:12 PM EDT Per 10/20 note: Current Warfarin Dose As of 10/21/2023 Warfarin maintenance plan: 5 mg (5 mg x 1) every Mon, Fri; 2.5 mg (5 mg x 0.5) all other days ThanksVicenta, PharmD Clinical Pharmacist [facility] ([facility]) [phone] 10/29/2023 3:12 PM * Telephone Encounter - Casper Smart CPhT - 10/28/2023 11:42 AM EDT Did you pend patient's preferred pharmacy and medication before forwarding?yes Pharmacy: [id number] Pending Prescriptions: Disp Refills Warfarin Sodium 5 MG Oral Tablet (Coumadi*30 Tab*1 Sig: Take 1 Tablet by mouth every evening. Take as directed by the [facility]. Last Visit: 10/07/2023 (in office), Visit [...] 12/21/2019 02:33 PM Thank you, Nik Smart (plaque maker) Records Associate III [facility] ([facility]) 10/28/2023, 11:42 AM documented in this encounter Plan of Treatment Upcoming Encounters Date Type Department Care Team (Late st Contact Info) Description 11/18/2023 9:40 AM EDT Anticoagulation Pharmacy, [facility] [place] 200 [place] [address] Pharmacist2, [facility] [address] [place] [address] 01/30/2024 2:15 PM EST Office Visit Ophthalmology, [facility] [address] [place] [address] Rosendo Alcantar, DO [address] [place] [address] Scheduled Procedures Name Priority Associated Diagnoses Date/Ti [...] Name Relationship Healthcare Agent Relationshi p Communication [facility] Repr esentative (appointed verbally by patient or by statute hierarchy) Care Teams School Lunch Manager Relationship Specialty Start Date End Date Lou Lyons III, MD 200 [place] [address] PCP - General 09/26/1995 documented as of this encounter
--- OUTSIDE RECORDS SUMMARY | 2024-04-13 08:44 | External Medical Summary | Summary of Care ---
Author Name Unknown Organization [facility] Address [address] [place] [address] Phone [phone] Care Team Providers Care Windsmith Name Role Phone Marivel SEGURA MD, Maurilio Ayers Primary Care Provider [phone] Encounter Details Date Type Department Care Team (Late st Contact Info) Description 11/11/2023 Orders Only Laboratory [facility] [address] [place] [address] Gary Dao , PA-C [address] [place] [address] Paranoid schizophrenia, subchronic condition (HCC)*; Anxiety state; Encounter for long-term (current) use [...] capsule daily 30 Cap 11 03/31/2010 Active [place]-3 Fatty Acids (FISH OIL) 1000 MG Capsule Take 1 Capsule by mouth at bedtime. Active PARoxetine (PAXIL) 40 MG Tablet Take 1 Tablet by mouth in the morning. 0 08/05/2018 Active RA Vitamin B-12 TR 1000 MCG Oral Tablet Extended Release (Cyanocobalamin ER) take 1 tablet by mouth daily 100 Tablet 3 01/23/2021 Active Spacer/Aero-Holding Chambers DeviceIndications:Ac [place] bronchitis, antibiotics not indicated Use with inhaler. [...] every evening. Take as directed by the [facility]. 30 Tablet 1 10/29/2023 Active documented [...] mRNA, LNP-s, No Pre serve, 2-Dose Series ([employer]) 04/08/2020,03/18/2020 Hepatitis B, 20+ yrs 05/13/2017,03/12/2016,02/06 Pneumococcal Conjugate Vacci ne, 20-valent ([id number]) 03/13/2022 Pneumococcal Polysaccharide PPV23 (Pneumovax) 10/12/2020,12/12/2015 Seasonal [...] 9:40 AM EDT Anticoagulation Pharmacy, [facility] [place] [address] [place] [address] Pharmacist2, [facility] [address] [place] [address] [address] 01/30/2024 2:15 PM EST Office Visit Ophthalmology, [facility] 132 [facility] [place] [address] Rosendo Alcantar, DO 21 [facility] [place] [address] Pending Results Name Type Priority Associated Diagnoses Date /Time CBC WITH WBC DIFFERENTIAL Lab Routine Paranoid schizophrenia, subchronic condition (HCC) Anxiety state Encounter for long-term (current) use of other medications 11/11/2023 11:39 AM EDT Scheduled Orders Name Type Priority Associated Diagnoses Orde r Schedule CBC WITH WBC DIFFERENTIAL Lab Routine Paranoid schizophrenia, subchronic condition (HCC) Anxiety state Encounter for long-term (current) use of other medications Every Month for 6 Occurrences starting 11/11/2023 until 11/10/2024 Scheduled Procedures Name Priority Associated Diagnoses Date/Ti [...] Visit Diagnoses Diagnosis Paranoid schizophrenia, subchronic condition (HCC)- Primary Paranoid schizophrenia, subchronic condition Anxiety state Anxiety state, unspecified Encounter for long-term (current) use of other medications documented in this encounter Advance Directives Healthcare Agents on File Name Relationship Healthcare Agent Relationshi p Communication Carolyne [facility] Care Repr esentative (appointed verbally by patient or by statute hierarchy) Care Teams Windsmith Relationship Specialty Start Date End Date Maurilio Orta III, MD 200 [facility] [place] [address] PCP - General 09/26/1995 documented as of this encounter
--- OUTSIDE RECORDS SUMMARY | 2024-04-13 08:44 | External Medical Summary ---
Author Name Unknown Address Unknown Organization K09:[facility] [place] [address] Laboratory Report Ordering Provider Test Date Status TEETEE GREEN V 10/21/2023 09:27:41 Final Therapeutic ranges for non-o perative patients:
Prophylaxsis/treatment of DVT: (Range:2.0-3.0)
Treatment of pulmonary embolism:(Range:2.0-3.0)
Prevention of systemic embolism from:
-tissue heart valves
-acute myocardial infarction
-valvular heart disease
-atrial fibrillation
(Range: 2.0-3.0)
Mechanical prosthetic valves: (Range: 2.5-3.5) Observation Date Value Abnormality Reference (Units ) Status INR in Capillary blood by Coagulation assay 10/21/2023 09:27:41 3.2 (INR) Final Performing Location [facility] [place] [address]
--- OUTSIDE RECORDS SUMMARY | 2024-04-13 08:44 | External Medical Summary | Summary of Care ---
Author Name Unknown Organization [facility] Address [address] [place] [address] Phone [phone] Care Team Providers Care Casino Duty Manager Name Role Phone Marivel SEGURA MD, Maurilio Ayers Primary Care Provider [phone] Reason for Visit * Reason Comments Dosage Adjustment In Person (Anticoag Cl inic) Encounter Details Date Type Department Care Team (Latest Contact Info) Description 10/21/2023 9:40 AM EDT Anticoagulation Pharmacy, [facility] [address] [facility] [place] [facility] [place] [address] Pharmac[address], [facility] [address] [facility] [place] [id number] History of pulmonary embolus (PE)*; Anticoagulation management encounter Allergies Active Allergy Reactions Criticality Noted Date Comments Sulfamethoxazole-Trimethopri m 08/05/2020 Iodinated Contrast Media 01/15/2017 Vomiting and rash per pt at age 15 Penicillins Rash 12/20/1998 documented as of this encounter (statuses as of 10/21/2023) Medications Medication Sig Dispensed Refills Start Date End Date Status SENNA PO TABSIndications:Exam ination following surgery Take 2 Tabs by mouth at bedtime. 120 3 06/16/2009 Active ASPIRIN EC 81 MG PO TBECIndications:Dysl ipidemia, goal to be determined Take one pill daily 100 3 06/16/2009 Active VITAMIN D 1000 UNIT PO CAPS 1 capsule daily 30 Cap 11 03/31/2010 Active Bagdad-3 Fatty Acids (FISH OIL) 1000 MG Capsule Take 1 Capsule by mouth at bedtime. Active PARoxetine (PAXIL) 40 MG Tablet Take 1 Tablet by mouth in the morning. 0 08/05/2018 Active RA Vitamin B-12 TR 1000 MCG Oral Tablet Extended Release (Cyanocobalamin ER) take 1 tablet by mouth daily 100 Tablet 3 01/23/2021 Active Spacer/Aero-Holding Chambers DeviceIndications:Ac [place] bronchitis, antibiotics not indicated Use with inhaler. [...] AND EVENING 180 Tablet 2 04/29/2023 Active Warfarin Sodium 5 MG Oral Tablet (Coumadin)Indication s:History of pulmonary embolus (PE) Take 1 Tablet by mouth every evening. Take as directed by the antico clinic. 30 Tablet 1 05/20/2023 Active Atorvastatin Calcium 80 MG Oral Tablet [...] the evening. 90 Tablet 3 10/07/2023 Active documented as of this encounter (statuses as of 10/21/2023) Active Problems Problem Noted Date Diagnosed Date [...] as of this encounter (statuses as of 10/21/2023) Resolved Problems Problem Noted Date Diagnosed Date Resolved Date DM type 2 (diabetes mellitus, type 2) 12/27/2015 05/08/2016 Hypothyroidism 09/20/2014 11/12/2016 HYPOTHYROIDISM NOS 5 documented as of this encounter (statuses as of 10/21/2023) Immunizations Name Administration Dates Next Due COVID-19 mRNA, LNP-s, No Pre serve, 2-Dose Series ([employer]) 04/08/2020,03/18/2020 Hepatitis B, 20+ yrs 05/13/2017,03/12/2016,02/06 Pneumococcal Conjugate Vacci ne, 20-valent (Urwrtlz23) 03/13/2022 Pneumococcal Polysaccharide PPV23 (Pneumovax) 10/12/2020,12/12/2015 Seasonal [...] this encounter Progress Notes * Twin Chowdhury, [facility] - 10/21/2023 9:24 AM EDT Images from the original note were not included. Medication Therapy Disease Management - Anticoagulation Patient: Twin Chowdhury | : 1960 Subjective Patient-Reported Symptoms: Patient Findings Negatives: Signs/symptoms of thrombosis, Signs/symptoms of bleeding, Change in health, Change in alcohol use, Change in activity, Upcoming invasive procedure, Missed doses, Extra doses, Change in medications, Change in diet/appetite, Bruising Objective Current Warfarin Dose As of 10/21/2023 Warfarin maintenance plan: 5 mg (5 mg x 1) every Mon, Fri; 2.5 mg (5 mg x 0.5) all other days INR Result As of 10/21/2023 INR goal: 2.0-3.0 INR used for dosin.2 (10/21/2023) Assessment & Plan Warfarin Plan As of 10/21/2023 Full warfarin instructions: 10/20: 2.5 mg; Otherwise 5 mg every Mon, Fri; 2.5 mg all other days Next INR check: 11/18/2023 Repeat PT/INR in 4 week(s) Weekly dose: not changed Additional Dosing [...] a total of 10-19 minutes (exact time 12 mins) on the date of service in preparation, delivery, and documentation of the care provided to Twin Chowdhury excluding any time spent in the performance of separately billed services or time spent by another provider/QHP. Twin Chowdhury [facility] Clinical Pharmacist 10/21/2023, 9:24 AM documented in this encounter Plan of Treatment Upcoming Encounters Date Type Department Care Team (Late st Contact Info) Description 11/18/2023 9:40 AM EDT Anticoagulation Pharmacy, [facility] [address] [facility] [place] [address] Pharmacist2, [facility] [address] [place] [address] 01/30/2024 2:15 PM EST Office Visit Ophthalmology, [facility] [address] [facility] [place] [address] Rosendo Alcantar, DO [address] [facility] [place] [address] Scheduled Procedures Name Priority Associated Diagnoses Date/Ti me COLONOSCOPY FLEXIBLE PROXIMA L DIAGNOSTIC Recall History of colonic polyps Health Maintenance Due Date Last Done Comments Cologuard 10/07/2007 Fecal Occult Blood Test 10/07/2007 Sigmoidoscopy 10/07/2007 Depression Screening 12/27/2019 12/26/2018, 05/08/2016 (Discussed) Diabetic Foot Exam 12/20/2020 12/21/2019, 1 , 11/18/2017, Additional history exists Albumin/Creatinine Ratio 02/13/2023 023, 01/24/2021, 12/21/2019, Additional history exists Influenza Vaccine (FLU shot) (#1) 2023 11/25/2022, [...] Discontinued 07/10/2022, 07/10/2022, 11/23/2019, Additional history exists COVID-19 Vaccine Completed 04/08/2023, , 03/18/2020 HPV (Gardasil) Vaccine Aged Out No lo nger eligible based on patient's age to complete this topic MENINGOCOCCAL (MENACTRA/MENVEO) Aged Out No longer eligible based on patient's age to complete this topic documented as of this encounter Medical Devices Not on filedocumented as of this encounter Procedures Procedure Name Priority Date/Time Associated Diagnosis Comments INR FINGERSTICK, POINT OF CARE STAT 10/21/2023 9:27 AM EDT History of pulmonary embolus (PE) Anticoagulation management encounter documented in this encounter Results * INR FINGERSTICK, POINT OF CARE (10/21/2023 9:27 AM EDT) Fingerstick INR 3.2 INR 9:29 AM EDT [facility] Blood 10/21/2023 9:27 AM EDT 10/21/2023 9:29 AM EDT Narrative [facility] - 10/21/2023 9:29 AM EDT Therapeutic ranges for non-operative patients: Prophylaxsis/treatment of DVT: (Range:2.0-3.0) Treatment of pulmonary embolism:(Range:2.0-3.0) Prevention of systemic embolism from: -tissue heart valves -acute myocardial infarction -valvular heart disease -atrial fibrillation (Range: 2.0-3.0) Mechanical prosthetic valves: (Range: 2.5-3.5) Leonid Roe [facility] LAB POINT OF CARE TE ST DOCKED DEVICE UNSOLICITED RESULTS [facility] [place] [address] documented in this encounter Visit Diagnoses Diagnosis History of pulmonary embolus (PE)- Primary Personal history of pulmonary embolism Anticoagulation management encounter Encounter for therapeutic drug monitoring documented in this encounter Advance Directives Healthcare Agents on File Name Relationship Healthcare Agent Relationshi p Communication Carolyne Chowdhury [facility] Care Repr esentative (appointed verbally by patient or by statute hierarchy) Care Teams Casino Duty Manager Relationship Specialty Start Date End Date Maurilio Orta III, MD [address] [place] [id number] PCP - General 09/26/1995 documented as of this encounter"
--- OUTSIDE RECORDS SUMMARY | 2024-04-13 08:44 | External Medical Summary ---
Author Name Unknown Address Unknown Organization K09:[facility] [place] [address] Laboratory Report Ordering Provider Test Date Status REGINALDO FLORES 11/11/2023 11:39:53 Final Observation Date Value Abnormality Reference (Units ) Status SYNC LEUKOCYTES IN BLOOD BY AUTOMATED COUNT 11/11/2023 11:39:53 7.90 4.00-10.80 (K/uL) Final Neutrophils/100 leukocytes in Blood by Manual count 11/11/2023 11:39:53 69.0 40.0-75.0 (%) Final Lymphocytes/100 leukocytes in Blood by Manual count 11/11/2023 11:39:53 24.0 18.0-42.0 (%) Final Monocytes/100 leukocytes in Blood by Manual count 11/11/2023 11:39:53 7.0 1.0-11.0 (%) Final Neutrophils [#/volume] in Blood by Manual count 11/11/2023 11:39:53 5.45 1.80-7.70 (K/uL) Final Lymphocytes [#/volume] in Blood by Manual count 11/11/2023 11:39:53 1.90 1.00-4.80 (K/uL) Final Monocytes [#/volume] in Blood by Manual count 11/11/2023 11:39:53 0.55 0.00-1.10 (K/uL) Final Nucleated erythrocytes/100 leukocytes [Ratio] in Blood by Automated count 11/11/2023 11:39:53 Final Performing Location [facility] [place] [address]
[2024-04-13 08:52] LABS: Basophils # (auto) 0.01 K/uL (0.00-0.20); Basophils % (auto) 0.2 %; Hematocrit (blood only) 41.7 % (42.0-52.0); Hemoglobin 13.2 g/dl (14.0-18.0); Immature Granulocytes # (auto) 0.05 K/uL (0.01-0.20); Immature Granulocytes % (auto) 0.8 %; Lymphocytes # (auto) 0.32 K/uL (1.20-3.40); Lymphocytes % (auto) 5.2 %; Mean Corpuscular Hemoglobin 26.3 pg (25.0-34.0); Mean Corpuscular Hgb Conc 31.7 g/dL (32.0-36.0); Mean Corpuscular Volume 83.2 fL (80.0-100.0); Mean Platelet Volume 12.3 fL (9.4-12.4); Monocytes # (auto) 0.44 K/uL (0.11-0.59); Monocytes % (auto) 7.1 %; Neutrophils # (auto) 5.38 K/uL (1.40-6.50); Neutrophils % (auto) 86.7 %; Platelet Count 143 K/uL (130-400); RDW Coefficient of Variation 14.4 % (11.5-14.5); RDW Standard Deviation 43.4 fL (36.4-46.3); Red Blood Count 5.01 M/uL (4.70-6.10)
[2024-04-13 09:06] LABS: Albumin Globulin Ratio 1.8 (0.9-2); Albumin Level 3.4 gm/dl (3.4-5.0); BUN Creatinine Ratio 24.5 (10-20); Bilirubin,Total 0.7 mg/dl (0.2-1.0); Calcium 7.9 mg/dl (8.6-10.3); Creatinine Clr Calc Pharmacy 43.3 ml/min; Globulin 1.9 gm/dl (2.5-4.0); Potassium 4.2 mmol/L (3.5-5.1); Total Protein 5.3 gm/dl (6.0-8.3)
[2024-04-13 09:12] LABS: Troponin I High Sensitivity 6.4 pg/ml (0-20)
[2024-04-13 09:21] LABS: INR 2.8 (0.9-1.1); Partial Thromboplastin Ratio 1.5; Partial Thromboplastin Time 40 Seconds (21-31)
[2024-04-13] MEDS: SODIUM CHLORIDE 0.9% 1,000 ML IV ONE (09:25)
--- NOTE | 2024-04-13 09:27 | XRay Report ---
XR knee LT 3V, XR knee RT 3V CLINICAL HISTORY: fall COMPARISON: None FINDINGS: No fracture or dislocation at either knee. There are minimal degenerative changes IMPRESSION: No fracture seen at either knee. ACT 112: Negative or not required by law. Electronically signed by: Bart Pardo M.D. 04/13/2024 9:26 AM
[2024-04-13 09:41] LABS: Adenovirus PCR Not Detected (NotDetected); Bordetella parapertussis PCR Not Detected (NotDetected); Bordetella pertussis PCR Not Detected (NotDetected); Chlamydia pneumoniae PCR Not Detected (NotDetected); Coronavirus 229E PCR Not Detected (NotDetected); Coronavirus CoV-2 (COVID19)PCR Not Detected (NotDetected); Coronavirus HKU1 PCR Not Detected (NotDetected); Coronavirus NL63 PCR Not Detected (NotDetected); Coronavirus OC43PCR Not Detected (NotDetected); Human Metapneumovirus PCR Not Detected (NotDetected); Influenza A PCR Not Detected (NotDetected); Influenza B PCR Not Detected (NotDetected); Mycoplasma pneumoniae PCR Not Detected (NotDetected); Parainfluenza Virus 1 PCR Not Detected (NotDetected); Parainfluenza Virus 2 PCR Not Detected (NotDetected); Parainfluenza Virus 3 PCR Not Detected (NotDetected); Parainfluenza Virus 4 PCR Not Detected (NotDetected); Respiratory Syncytial VirusPCR Not Detected (NotDetected); Rhinovirus/Enterovirus PCR Not Detected (NotDetected)
--- NOTE | 2024-04-13 09:43 | XRay Report ---
XR chest 1V portable CLINICAL HISTORY: shob COMPARISON STUDY: 07/25/2022 FINDINGS: Heart size and pulmonary vasculature are normal. No effusion, consolidation, or pneumothora x. No displaced rib fractures seen. IMPRESSION: No acute findings. ACT 112: Negative or not required by law. Electronically signed by: Bart Pardo M.D. 04/13/2024 9:42 AM
--- NOTE | 2024-04-13 11:50 | History & Physical Report ---
<Statement entered by Slick Charles, DO - 04/13/24 13:25> I have seen and examined the patient and have discussed the case with the advance practice provider. I have reviewed the advanced practitioner's documentation, and I agree with, and take responsibility for that plan of care. Patient seen while still in ED. No further emesis or diarrhea. Feeling a little bit better after some hydration. Hold nephrotoxins Mother at bedside. Reviewed plans for hydration and laboratory monitoring. Plan of care as outlined below I spent a total of 14 minutes coordinating, documenting, and providing care for this patient excluding time spent by another provider/QHP. Date of Service April 13, 2024 Assessment & Plan (1) JUAN MIGUEL (acute kidney injury): (2) Dehydration: (3) Nausea vomiting and diarrhea: (4) T2DM (type 2 diabetes mellitus): (5) Schizoaffective disorder: (6) Chronic anticoagulation: (7) Hypothyroidism: (8) HTN (hypertension): (9) HLD (hyperlipidemia): (10) Bipolar disorder: (11) Urinary incontinence: Plan This is a 63 y/o male with DM2, schizoaffective d/o, bipolar d/o, hypothyroidism, HTN, hyperlipidemia, hx bilateral PE, on chronic AC, and other history as outlined below who presents to the ED today after a fall at home. He notes nausea, vomiting, and diarrhea all day yesterday that seemed to start after eating several bowls of chili and shrimp cocktail the day prior. History suspicious for some type of food poisoning although of note, his mother ate the same food and didn't develop symptoms although she did not consume in the same quantity. WBCs were normal. BUN/creatinine elevated at 59/2.41. Baseline creatinine upon review of outpatient labs in [facility] appears to be around one. Potassium was 4.2, magnesium low at 1.4. #JUAN MIGUEL #Dehydration #Nausea, vomiting, diarrhea - Observe on med telemetry - Will give an additional 2 L of NSS at 100 ml/hr - Full liquid diet then advance as tolerated to diabetic diet - BMP daily to follow trend of BUN/creatinine - Renal US to r/o obstruction, though thought less likely - Will hold on nephrology consult for now pending trend of labs tomorrow - PRN anti-emetics - Stool PCR pending #Hypomagnesemia - Replete with IV mag sulfate - Repeat labs in the AM #Type 2 Diabetes - last A1c outpatient was 12/16/23 and was 6.6 - BSG ACHS - Holding Metformin due to JUAN MIGUEL - Insulin sliding scale - A1c in the AM #Fall - suspect related to weakness from N/V/D - Fall precautions - PT/OT evaluations - Check orthostatics #Hypertension - chronic, stable - Hold lisinopril for now due to JUAN MIGUEL - Continue beta kat[place]ka #Hyperlipidemia - Chronic, stable - continue statin #Hypothyroidism - Chronic, stable - continue levothyroxine #Schizoaffective disorder #Bipolar disorder - Chronic, stable - continue outpatient regimen Pt seen and reviewed with collaborating physician, Dr. Charles. Plan of care discussed and as outlined above. Code status: full code DVT prophylaxis: on warfarin - INR therapeutic Anna Vuong PA-C History of Present Illness Chief Complaint: fall Primary Care Provider: Maurilio Orta MD This is a 63 y/o male with DM2, schizoaffective d/o, bipolar d/o, hypothyroidism, HTN, hyperlipidemia, hx bilateral PE, on chronic AC, and other history as outlined below who presents to the ED today after a fall at home. Pt reports that two days ago, he at 3-4 bowls of homemade chili and 25-30 shrimp with cocktail sauce in the afternoon/evening. That night, he woke up with nausea and vomiting followed by several episodes of diarrhea. The N/V/D lasted all day yesterday but seems to have improved today. He has been tolerating matthew peyton and water at home today without recurrent symptoms. No solid food intake since symptoms started. This morning, he was getting up to go to the bathroom when he felt like his knees gave out and he collapsed to the floor, catching himself with his hands and knees. He denies hitting head or losing consciousness. He is on chronic anticoagulation with warfarin. He denies feeling dizzy but rather reports a generalized sense of weakness and fatigue. He denies significant abdom inal pain or cramping, bloating, heartburn, indigestion, hematochezia, fevers, chills, sweats. He notes that his mother at the same food that he did but has no symptoms. He notes decreased urine output but denies hematuria, dark urine, dysuria. He does not check his blood sugars at home. Allergies Allergy/AdvReac Type Severity Reaction Status Date / Time sulfamethoxazole Allergy Intermediate Rash Verified 11/16/20 11:24 [From Bactrim] trimethoprim [From Bactrim] Allergy Intermediate Rash Verified 11/16/20 11:24 Penicillins Allergy Unknown Rash Verified 11/16/20 11:24 Iodinated Contrast Media AdvReac Unknown VOMITING Verified 11/16/20 11:24 WITH IV CONTRAST Home Medications Medication Instructions Recorded Confirmed Type cyanocobalamin (vitamin B-12) 1,000 mcg PO QAM 05/06/20 04/13/24 History 1,000 mcg tablet levothyroxine 175 mcg tablet 175 mcg PO DAILYBB 05/06/20 04/13/24 History metformin 1,000 mg tablet 1,000 mg PO BID 05/06/20 04/13/24 History metoprolol succinate 25 mg 25 mg PO QAM 05/06/20 04/13/24 History tablet,extended release 24 hr omega 0-uzt-dhq-fish oil 1,200 mg 1 cap PO HS 07/31/20 04/13/24 History (144 mg-216 mg) capsule (Fish Oil) sennosides 8.6 mg tablet (senna) 17.2 mg PO HS 07/31/20 04/13/24 History paroxetine HCl 40 mg tablet 80 mg PO QAM 09/09/20 04/13/24 History oxybutynin chloride 5 mg tablet 5 mg PO BID 10/18/20 04/13/24 History atorvastatin 80 mg tablet 80 mg PO DAILY 07/25/22 04/13/24 History fenofibrate micronized 134 mg 134 mg PO DAILY 07/25/22 04/13/24 History capsule clonazepam 0.5 mg tablet 0.5 mg PO BID #30 tabs 07/29/22 04/13/24 Rx aripiprazole 15 mg tablet 15 mg PO DAILY 04/13/24 04/13/24 History clozapine 100 mg tablet 300 mg PO HS 04/13/24 04/13/24 History lisinopril 2.5 mg tablet 2.5 mg PO DAILY 04/13/24 04/13/24 History warfarin 5 mg tablet See Rx Instructions .Route .COMPLEX 04/13/24 04/13/24 History Past Med/Surg History Problem List (Updated 04/13/24 @ 13:09 by Marielle Vuong PA-C) Chronic anticoagulation Nausea vomiting and diarrhea Dehydration JUAN MIGUEL (acute kidney injury) Schizoaffective disorder (Chronic) T2DM (type 2 diabetes mellitus) Medical History (Updated 04/13/24 @ 13:09 by Marielle Vuong PA-C) Adverse effect of clozapine Pulmonary embolism, bilateral Bimalleolar ankle fracture Urinary incontinence Constipation Anxiety and depression History of migraine REMOTE HLD (hyperlipidemia) HTN (hypertension) Hypothyroidism Bipolar disorder Surgical History History of breast lump/mass excision H/O lymph node biopsy RIGHT AXILLARY History of wisdom tooth extraction History of colonoscopy History of open reduction and internal fixation (ORIF) procedure Trimalleolar ankle fracture - Rt Family History Mother Diabetes Stroke Other No family history of adverse response to anesthesia Social History Smoking Status: Former smoker Tobacco Type: Cigarettes Second Hand Exposure: No; Do You Dip or Chew Tobacco: No; Hx Alcohol Use: Yes Alcohol type: beer Alcohol Intake Frequency: Monthly or Less Hx Substance Use: No Preferred Language: Chilean Communication Ability: Effective Termite Control Service Representative Required: No Beliefs That Will Affect Care: None marital status: Single Current Living Situation: Parent and Family Current Living Situation Comment: lives with mother current occupational status: employed and disabled current occupation: works at [employer] home Feels Safe at Home: Yes Diet: regular caffeine: Yes Gender Identity: Male Assistive Devices: None Review of Systems Review of Systems: All systems reviewed & are unremarkable except as noted in Subjective Physical Exam Physical Exam: General: awake, alert, NAD HEENT: no scleral icterus, +dry oral mucosa Neck: supple, trachea midline Heart: RRR Lungs: CTA bilaterally Abdomen: soft, obese, tympanic to percussion, non-tender Extremities: no pedal edema, distal pulses intact and equal Skin: warm, dry, no jaundice or cyanosis Neurologic: Ox3, no confusion or dysarthria, moving all extremities, no focal deficits noted on brief exam Results & Data Results & Data Vital Signs (Past 12 Hours) Vital Signs Temp Pulse Pulse Resp BP Pulse Ox O2 Del Method 04/13/24 11:03 78 23 102/81 98 Room Air 03/03/25 10:30 75 23 116/71 98 Room Air 04/13/24 10:06 24 04/13/24 10:00 121/83 04/13/24 09:30 77 22 113/71 97 Room Air 04/13/24 09:00 103/68 04/13/24 08:54 80 24 98 Room Air 04/13/24 08:29 36.8 C 84 28 H 97 Room Air 04/13/24 08:29 36.8 C 84 28 H 100/66 97 Room Air 04/13/24 08:28 81 Laboratory Results Lab Results 04/13/24 Range/Units 08:25 WBC 6.20 (4.8-10.8) K/ul RBC 5.01 (4.70-6.10) M/uL Hgb 13.2 L (14.0-18.0) g/dl Hct 41.7 L (42.0-52.0) % MCV 83.2 (80.0-100.0) fL MCH 26.3 (25.0-34.0) pg MCHC 31.7 L (32.0-36.0) g/dL RDW Std Deviation 43.4 (36.4-46.3) fL RDW Coeff of Hernando 14.4 (11.5-14.5) % Plt Count 143 (130-400) K/uL MPV 12.3 (9.4-12.4) fL Immature Gran % (Auto) 0.8 % Neut % (Auto) 86.7 % Lymph % (Auto) 5.2 % [place] % (Auto) 7.1 % Eos % (Auto) 0.0 % Baso % (Auto) 0.2 % Neut # (Auto) 5.38 (1.40-6.50) K/uL Lymph # (Auto) 0.32 L (1.20-3.40) K/uL [place] # (Auto) 0.44 (0.11-0.59) K/uL Eos # (Auto) 0.00 (0.00-0.50) K/uL Baso # (Auto) 0.01 (0.00-0.20) K/uL Immature Gran # (Auto) 0.05 (0.01-0.20) K/uL PT 28.0 H (9.0-12.0) Seconds INR 2.8 H (0.9-1.1) APTT 40 H (21-31) Seconds PTT Ratio 1.5 Sodium 134 L (136-145) mmol/L Potassium 4.2 (3.5-5.1) mmol/L Chloride 104 (98-107) mmol/L Carbon Dioxide 24 (21-32) mmol/L Anion Gap 6 (3-11) BUN 59 H (6-23) mg/dl Creatinine 2.41 H (0.6-1.4) mg/dl Est Cr Clr Drug Dosing 43.3 ml/min eGFR 29.80 BUN/Creatinine Ratio 24.5 H (10-20) Glucose 198 H (70-99(Fasting)) mg/dl Calcium 7.9 L (8.6-10.3) mg/dl Total Bilirubin 0.7 (0.2-1.0) mg/dl AST 29 (13-39) U/L ALT 17 (7-52) U/L Alkaline Phosphatase 40 (34-104) U/L Troponin I High Sens 6.4 (0-20) pg/ml Total Protein 5.3 L (6.0-8.3) gm/dl Albumin 3.4 (3.4-5.0) gm/dl Globulin 1.9 L (2.5-4.0) gm/dl Albumin/Globulin Ratio 1.8 (0.9-2) Adenovirus (PCR) Not Detected (NotDetected) B. pertussis DNA (PCR) Not Detected (NotDetected) B.parapertussis DNA PCR Not Detected (NotDetected) C. pneumoniae DNA (PCR) Not Detected (NotDetected) Coronavirus OC43 (PCR) Not Detected (NotDetected) Coronavirus HKU1 (PCR) Not Detected (NotDetected) Coronavirus 229E (PCR) Not Detected (NotDetected) SARS-CoV-2 (PCR) Not Detected (NotDetected) Coronavirus NL63 (PCR) Not Detected (NotDetected) Human Metapneumovir PCR Not Detected (NotDetected) Influenza Type A (PCR) Not Detected (NotDetected) Influenza Type B (PCR) Not Detected (NotDetected) M. pneumoniae (PCR) Not Detected (NotDetected) Parainfluenza 1 (PCR) Not Detected (NotDetected) Parainfluenza 2 (PCR) Not Detected (NotDetected) Parainfluenza 3 (PCR) Not Detected (NotDetected) Parainfluenza 4 (PCR) Not Detected (NotDetected) RSV (PCR) Not Detected (NotDetected) Entero/Rhino (PCR) Not Detected (NotDetected) Diagnostic Findings Chest X-Ray 04/13/24 08:38 XR chest 1V portable CLINICAL HISTORY: shob COMPARISON STUDY: 07/25/2022 FINDINGS: Heart size and pulmonary vasculature are normal. No effusion, consolidation, or pneumothorax. No displaced rib fractures seen. IMPRESSION: No acute findings. ACT 112: Negative or not required by law. Electronically signed by: Bart Pardo M.D. 04/13/2024 9:42 AM Knee X-Ray 04/13/24 08:38 XR knee LT 3V, XR knee RT 3V CLINICAL HISTORY: fall COMPARISON: None FINDINGS: No fracture or dislocation at either knee. There are minimal degenerative changes IMPRESSION: No fracture seen at either knee. ACT 112: Negative or not required by law. Electronically signed by: Bart Pardo M.D. 04/13/2024 9:26 AM Knee X-Ray 04/13/24 08:38 XR knee LT 3V, XR knee RT 3V CLINICAL HISTORY: fall COMPARISON: None FINDINGS: No fracture or dislocation at either knee. There are minimal degenerative changes IMPRESSION: No fracture seen at either knee. ACT 112: Negative or not required by law. Electronically signed by: Bart Pardo M.D. 04/13/2024 9:26 AM Medications Administered Discontinued Medications Sodium Chloride (Nss) 1,000 mls @ 999 mls/hr IV .Q1H1M ONE Stop: 04/13/24 10:07 Last Infusion: 04/13/24 11:39 Dose: Infused Documented By: Admin: 04/13/24 09:25 Dose: 999 mls/hr Documented By: (4) T2DM (type 2 diabetes mellitus) Diabetes mellitus complication status: without complication Diabetes mellitus manager long term care insulin use: without manager long term care use Qualified Code(s): E11.9 - Type 2 diabetes mellitus without complications (5) Schizoaffective disorder Schizoaffective disorder type: bipolar Qualified Code(s): F25.0 - S chizoaffective disorder, bipolar type (7) Hypothyroidism Hypothyroidism type: unspecified Qualified Code(s): E03.9 - Hypothyroidism, unspecified (8) HTN (hypertension) Hypertension type: unspecified Qualified Code(s): I10 - Essential (primary) hypertension (9) HLD (hyperlipidemia) Hyperlipidemia type: unspecified Qualified Code(s): E78.5 - Hyperlipidemia, unspecified (10) Bipolar disorder Active/Remission status: remission status unspecified Qualified Code(s): F31.9 - Bipolar disorder, unspecified (11) Urinary incontinence Urinary Incontinence type: unspecified incontinence Qualified Code(s): R32 - Unspecified urinary incontinence
[2024-04-13] MEDS: CALCIUM 600MG + VIT D 400 IU TAB PO STA (12:25)
[2024-04-13] MEDS ORDERED: ONDANSETRON INJ 2 MG/ML 2 ML VIAL IV PRN (12:38)
[2024-04-13] MEDS ORDERED: GLUCOSE 10 TAB/TUBE PO PRN (12:39)
[2024-04-13] MEDS ORDERED: GLUCAGON FOR INJ 1 MG VIAL SQ PRN (12:39)
[2024-04-13] MEDS ORDERED: CARBOHYDRATES FOR HYPOGLYCEMIA PO PRN (12:39)
[2024-04-13] MEDS ORDERED: GLUCOSE 40% GEL 15 GM TUBE PO PRN (12:39)
[2024-04-13] MEDS ORDERED: DEXTROSE 50% 50 ML SYRINGE IV PRN (12:39)
[2024-04-13 12:45] LABS: Magnesium 1.4 mg/dl (1.7-2.4); Phosphorus 2.6 mg/dl (2.5-4.9)
[2024-04-13 12:53] LABS: Appearance Urine Clear (Clear); Bacteria Urine Automated None Seen (None Seen); Bilirubin Urine Negative (Negative); Blood Urine Negative (Negative); Cast Urine Automated >20 /lpf (0-2); Color Urine Yellow; Glucose Urine UA Negative (Negative); Ketones Urine Negative (Negative); Leukocyte Esterase Urine Trace (Negative); Nitrite Urine Negative (Negative); Protein Urine Negative (Negative); RBC Urine Automated 0-2 /hpf (0-2); Specific Gravity Urine 1.019 (1.000-1.030); Urobilinogen Urine Negative (Negative); WBC Urine Automated 0-5 /hpf (0-5)
[2024-04-13] MEDS: SODIUM CHLORIDE 0.9% 1,000 ML IV SCH (13:41)
[2024-04-13] MEDS: MAGNESIUM SULFATE / D5W 1 GM/100 ML BAG IV SCH ×2 (13:41→16:00)
--- NOTE | 2024-04-13 14:45 | Emergency Department Note ---
ED Visit Note I was consulted in regards to the patient's presentation and plan of care by the Advanced Practice Provider. I engaged in a detailed/meaningful discussion with the Advanced Practice Provider in regards to this patient's workup and plan of care. I performed a substantiative portion of the medical decision making following discussion with the Advanced Practice Provider. Please see the Advanced Practice Provider's separate documentation for full details of the patient's visit. I agree with the assessment and plan of Rach Trevizo NP. Magdaleno Fernandez, DO Emergency Medicine .
[2024-04-13] MEDS: INSULIN ASPART PER UNIT CHARGE SC SCH (17:59)
[2024-04-13] MEDS: WARFARIN SOD 5 MG TAB PO SCH (18:59)
[2024-04-13] MEDS: clonazePAM 0.5 MG TAB PO SCH (20:40)
[2024-04-13] MEDS: oxyBUTYnin chloride 5 MG TAB PO SCH (21:03)
[2024-04-13] MEDS: cloZAPine 100 MG TAB PO SCH (21:04)
--- NOTE | 2024-04-14 00:40 | XRay Report ---
Exam(s): XR CXR 1 VIEW EXAM: XR Chest, 1 View CLINICAL HISTORY: Reason for exam: sob. TECHNIQUE: Frontal view of the chest. COMPARISON: Prior chest x-ray from April 13, 2024 and July 25, 2022. FINDINGS: Lungs: Mild to moderate peribronchial thickening in the central and lower lobe bronchi with patchy opacities at the lung bases. Pleural space: Unremarkable. No pneumothorax. Heart: Unremarkable. No cardiomegaly. Mediastinum: Unremarkable. Normal mediastinal contour. Bones/joints: Unremarkable. No acute fracture. IMPRESSION: Bronchitis with bilateral lower lobe infiltrates. Communications: Verify Receipt Electronically signed by: Marta Calderon MD 04/14/24 00:39 AM
[2024-04-14 04:25] LABS: Basophils # (auto) 0.01 K/uL (0.00-0.20); Basophils % (auto) 0.2 %; Hematocrit (blood only) 39.3 % (42.0-52.0); Hemoglobin 12.8 g/dl (14.0-18.0); Immature Granulocytes # (auto) 0.05 K/uL (0.01-0.20); Immature Granulocytes % (auto) 0.9 %; Lymphocytes % (auto) 9.5 %; Mean Corpuscular Hgb Conc 32.6 g/dL (32.0-36.0); Mean Corpuscular Volume 82.9 fL (80.0-100.0); Mean Platelet Volume 11.4 fL (9.4-12.4); Monocytes # (auto) 0.59 K/uL (0.11-0.59); Monocytes % (auto) 11.2 %; Neutrophils # (auto) 4.13 K/uL (1.40-6.50); Neutrophils % (auto) 78.2 %; Platelet Count 126 K/uL (130-400); RDW Coefficient of Variation 14.5 % (11.5-14.5); RDW Standard Deviation 43.6 fL (36.4-46.3); Red Blood Count 4.74 M/uL (4.70-6.10); White Blood Count 5.28 K/ul (4.8-10.8)
[2024-04-14 04:51] LABS: INR 2.2 (0.9-1.1); Prothrombin Time 22.4 Seconds (9.0-12.0)
[2024-04-14 05:12] LABS: BUN Creatinine Ratio 28.6 (10-20); Calcium 8.4 mg/dl (8.6-10.3); Creatinine Clr Calc Pharmacy 78.4 ml/min; Magnesium 2.1 mg/dl (1.7-2.4); Potassium 4.1 mmol/L (3.5-5.1)
[2024-04-14] MEDS: LEVOTHYROXINE SODIUM 175 MCG TABLET PO SCH (06:10)
[2024-04-14] MEDS: ATORVASTATIN 40 MG TAB PO SCH (08:31)
[2024-04-14] MEDS: FENOFIBRATE NANOCRYSTALLIZED 145 MG TABLET PO SCH (08:31)
[2024-04-14] MEDS: PARoxetine HCL 20 MG TAB PO SCH (08:31)
[2024-04-14] MEDS: ARIPiprazole 15 MG TAB PO SCH (08:31)
[2024-04-14] MEDS: METOPROLOL SUCC 25MG EXT REL TAB PO SCH (08:32)
[2024-04-14 11:16] VITALS: BP 122/75; PULSE 74; RESP 17
[2024-04-14 13:19] VITALS: O2SAT 98
[2024-04-14] MEDS ORDERED: WARFARIN SOD 2.5 MG TAB PO SCH (16:00)
--- NOTE | 2024-04-14 16:07 | Discharge Summary ---
Discharge Summary Date of Service April 14, 2024 Principal Dx & Hospital Course #1 = Principal Diagnosis (1) JUAN MIGUEL (acute kidney injury): (2) Dehydration: (3) Nausea vomiting and diarrhea: (4) T2DM (type 2 diabetes mellitus): (5) Schizoaffective disorder: (6) Chronic anticoagulation: (7) Hypothyroidism: (8) HTN (hypertension): (9) HLD (hyperlipidemia): (10) Bipolar disorder: (11) Urinary incontinence: Plan This is a 63 y/o male with DM2, schizoaffective d/o, bipolar d/o, hypothyroidism, HTN, hyperlipidemia, hx bilateral PE, on chronic AC, and other history as outlined below who presents to the ED today after a fall at home. He notes nausea, vomiting, and diarrhea all day yesterday that seemed to start after eating several bowls of chili and shrimp cocktail the day prior. History suspicious for some type of food poisoning although of note, his mother ate the same food and didn't develop symptoms although she did not consume in the same quantity. WBCs were normal. BUN/creatinine elevated at 59/2.41. Baseline cr eatinine upon review of outpatient labs in [facility] appears to be around one. Potassium was 4.2, magnesium low at 1.4. #JUAN MIGUEL, resolving #Dehydration #Nausea, vomiting, diarrhea - Observe on med telemetry -significantly improved with fluids #Hypomagnesemia - Replete with IV mag sulfate #Type 2 Diabetes - last A1c outpatient was 12/16/23 and was 6.6 - [facility] ACHS #Fall - suspect related to weakness from N/V/D - Fall precautions -patient walking well at this time #Hypertension - chronic, stable - Hold lisinopril for now due to JUAN MIGUEL - Continue beta katiuska #Hyperlipidemia - Chronic, stable - continue statin #Hypothyroidism - Chronic, stable - continue levothyroxine #Schizoaffective disorder #Bipolar disorder - Chronic, stable - continue outpatient regimen Notes For Next Care Provider This is a 63 y/o male with DM2, schizoaffective d/o, bipolar d/o, hypothyroidism, HTN, hyperlipidemia, hx bilateral PE, on chronic AC, and other history as outlined below who presents to the ED today after a fall at home. On medicine, given fluids with significant improvement. Patient able to walk to bathroom and around ED. JUAN MIGUEL improved significantly with fluids. On 04/14/2024 patient medically stable for discharge home, ambulating well. Medication Changes From Visit -hannah, incentive spirometer Admission HPI Per Admitting Provider This is a 63 y/o male with DM2, schizoaffective d/o, bipolar d/o, hypothyroidism, HTN, hyperlipidemia, hx bilateral PE, on chronic AC, and other history as outlined below who presents to the ED today after a fall at home. Pt reports that two days ago, he at 3-4 bowls of homemade chili and 25-30 shrimp with cocktail sauce in the afternoon/evening. That night, he woke up with nausea and vomiting followed by several episodes of diarrhea. The N/V/D lasted all day yesterday but seems to have improved today. He has been tolerating matthew peyton and water at home today without recurrent symptoms. No solid food intake since symptoms started. This morning, he was getting up to go to the bathroom when he felt like his knees gave out and he collapsed to the floor, catching himself with his hands and knees. He denies hitting head or losing consciousness. He is on chronic anticoagulation with warfarin. He denies feeling dizzy but rather reports a generalized sense of weakness and fatigue. He denies significant abdominal pain or cramping, bloating, heartburn, indigestion, hematochezia, fevers, chills, sweats. He notes that his mother at the same food that he did but has no symptoms. He notes decreased urine output but denies hematuria, dark urine, dysuria. He does not check his blood sugars at home. Discharge Exam Gen: A&O 3 NAD HEENT: NCAT, EOMI, not icteric. External ears normal. No rhinorrhea. Moist mucous membranes. Neck: Supple, full range of motion, no observable masses, No meningeal sign. Lungs: No Respiratory distress. CV: RRR, no edema. Abdomen: Soft, nondistended, No rebound tenderness. MSK: No joint swelling, no redness. Skin: No rashes, petechiae, lesions. Normal color per patient. Neuro: Normal Gait, Grossly intact. Psych: Appropriate for situation. Updated Medication List Medication Instructions Recorded Confirmed Type cyanocobalamin (vitamin B-12) 1,000 mcg PO QAM 05/06/20 04/13/24 History 1,000 mcg tablet levothyroxine 175 mcg tablet 175 mcg PO DAILYBB 05/06/20 04/13/24 History metformin 1,000 mg tablet 1,000 mg PO BID 05/06/20 04/13/24 History metoprolol succinate 25 mg 25 mg PO QAM 05/06/20 04/13/24 History tablet,extended release 24 hr omega [id number]-fish oil 1,200 mg 1 cap PO HS 07/31/20 04/13/24 History (144 mg-216 mg) capsule (Fish Oil) sennosides 8.6 mg tablet (senna) 17.2 mg PO HS 07/31/20 04/13/24 History paroxetine HCl 40 mg tablet 80 mg PO QAM 09/09/20 04/13/24 History oxybutynin chloride 5 mg tablet 5 mg PO BID 10/18/20 04/13/24 History atorvastatin 80 mg tablet 80 mg PO DAILY 07/25/22 04/13/24 History fenofibrate micronized 134 mg 134 mg PO DAILY 07/25/22 04/13/24 History capsule clonazepam 0.5 mg tablet 0.5 mg PO BID #30 tabs 07/29/22 04/13/24 Rx aripiprazole 15 mg tablet 15 mg PO DAILY 04/13/24 04/13/24 History clozapine 100 mg tablet 300 mg PO HS 04/13/24 04/13/24 History lisinopril 2.5 mg tablet 2.5 mg PO DAILY 04/13/24 04/13/24 History warfarin 5 mg tablet See Rx Instructions .Route .COMPLEX 04/13/24 04/13/24 History Incentive Spirometer #1 ea 04/14/24 Rx ondansetron 4 mg disintegrating 4 mg PO Q8H PRN nausea and 04/14/24 Rx tablet vomiting 4 days #14 tabs Hospital Stay Data Consultations 04/13/24 11:47 ED Decision to Admit Stat Pending Results Patient Have Any Pending Studies at Discharge: No Discharge Instructions Given to Patient (Per Discharging Provider) 1. Please stay as hydrated as possible. 2. Eat soft foods and work your way up. 3. Stay active. Total Time Total Time Spent Total Time Spent (In Minutes): I spent a total of 35 minutes in direct patient care, including kazd-ih-etea time with the patient and/or family, reviewing medical records, ordering and reviewing diagnostic tests, and coordinating care with other healthcare providers. This time includes: history taking, physical examination, medical decision making, counseling, ECG interpretation, imaging interpretation, lab interpretation, orders, and education, excluding time spent in the performance of separately billed services.
--- NOTE | 2024-04-15 18:52 | Electrocardiogram Report ---
Test Reason : Blood Pressure : */* mmHG Vent. Rate : 82 BPM Atrial Rate : 82 BPM P-R Int : 156 ms QRS Dur : 98 ms QT Int : 360 ms P-R-T Axes : 61 -33 9 degrees QTcB Int : 421 ms Normal sinus rhythm Left axis deviation Pulmonary disease pattern Nonspecific T wave abnormality Abnormal ECG When compared with ECG of 27-Jul-2022 12:48, QRS axis Shifted left T wave inversion no longer evident in Anterior leads Confirmed by Severino Carvajal ([id number]) on 04/15/2024 6:52:24 PM Referred By: Confirmed By: Severino Carvajal
== END 2024-04-14 13:57 | disposition home or self-care (01) ==
LOC: ED 08:08 → EDINP 08:08 → SUATTDRO 11:53 → EDINP 16:40